=== PATIENT | male | born 1995 | race Two or more races ===

== ENCOUNTER 2024-09-23 12:14 | Inpatient (IN) | payer MEDICAID, OTHER ==
[~2024-09-23] VITALS: Ht 175.3 cm; Wt 85.5 kg
[2024-09-23 13:51] LABS: Urine Bacteria None Seen /hpf (None Seen)
--- NOTE | 2024-09-23 14:06 | DVH ---
Exam: CT CT AB PEL WO CON-NO ORAL OR IV History: Diffuse abd paim, rule out acute pancreatitis Comparison Study: None Technique: Multidetector spiral CT of the abdomen and pelvis was performed from lung bases to pubic symphysis. Imaging was performed without IV contrast. Axial, coronal and sagittal multiplanar reform ats were obtained from the axial data set by the technologist. Radiation dose : Abdomen/Pelvis: CTDIvol 14 mGy, DLP 951 mGy*cm. Findings: Evaluation of solid organs is limited due to lack of intravenous contrast use. Lung Bases: Consolidation in the right lung base. Liver: Diffuse hepatic steatosis. Gallbladder and biliary Tree: Unremarkable Spleen: Unremarkable Pancreas: The pancreas is grossly normal in appearance. Adrenal Glands: Unremarkable Kidneys: Kidneys are grossly normal without calculi or hydronephrosis. Bladder: Grossly unremarkable for degree of distention. Bowel: The stomach is grossly normal in appearance. There is dilation of small-bowel loops with air- fluid levels. Appendix is not discretely identified. There are multiple fluid and air collections t racking throughout the right pericolic gutter with largest discrete component measuring up to 102 x 2 8 x 100 mm. Ascites: Absent Lymphadenopathy: No mesenteric, retroperitoneal or periportal lymphadenopathy. Abdominal wall and Mesentery: Fluid and air collections in the right paracolic gutter as above. Vasculature: The visualized abdominal aorta is normal in size and caliber. Evaluation of abdominal a nd pelvic vessels is limited due to lack of intravenous contrast. Pelvic Organs: Unremarkable Musculoskeletal: No aggressive focal bony lesions, acute fractures or dislocation. IMPRESSION: 1. Suspect ruptured acute appendicitis. Multiple fluid and air collections tracking up the right deepa colic gutter. Suspect secondary ileus /partial small bowel obstruction. Surgical evaluation is recom mended. CT-guided drainage of the largest collection could be attempted. Critical Result: Ruptured acute appendicitis Findings discussed with AICHA RUIZ at 09/23/2024 02:03 PM, and acknowledged receipt and understan ding of the findings. Radiation optimization: All CT scans at this facility use at least one of these dose optimization debi hniques: Automated exposure control mA and/or kV adjustment per patient size (includes targeted exams where dose is matched to clinical indication) or iterative reconstruction. HS:Y
[2024-09-23 14:14] LABS: Urine Blood Negative /uL (Negative); Urine Clarity Turbid (Clear); Urine Color Yellow (Yellow); Urine Hyaline Cast FEW /lpf (0 - 2); Urine Mucus FEW (None Seen); Urine Protein, UAD 2+ (Negative); Urine Specific Gravity 1.038 (1.001-1.035); Urine Squamous Epithelial Cell FEW /hpf (<5); Urine Urobilinogen Normal (Negative); Urine WBC 24 /hpf (0 - 3)
[2024-09-23 14:19] LABS: Hematocrit 45.5 % (41.0-53.0); Hemoglobin 15.8 g/dL (13.5-17.5); Mean Corpuscular Hemoglobin 32.4 pg (28.0-32.0); Mean Corpuscular Hgb Conc. 34.7 g/dL (32.0-36.0); Mean Corpuscular Volume 93.3 fL (80.0-100.0); Platelet Count (auto) 260 10^3/uL (140-450); Red Blood Cells 4.88 10^6/uL (4.5-5.90); Red Cell Distribution Width 13.7 % (11.8-14.3); White Blood Cell 20.3 10^3/uL (4.4-10.8)
[2024-09-23 14:21] LABS: Basophils % (manual) 0 (0.0-2.0); Blast Cells 0; Eosinophils % (manual) 0 (0-7); Metamyelocytes % 0; Myelocytes % 0; Promyelocytes % 0; Reactive Lymphocytes 0
[2024-09-23 14:31] LABS: Albumin 4.2 g/dL (3.2-4.8); Anion Gap 10 (5-15); BUN/Creatinine Ratio 19.4 (10.0-20.0); Calcium 9.5 mg/dL (8.7-10.4); Carbon Dioxide 28 mmol/L (20-31)
[2024-09-23 14:32] LABS: Bilirubin, Total 0.9 mg/dL (0.2-1.0); Total Protein 8.1 g/dL (5.7-8.2)
[2024-09-23 14:33] LABS: Alanine Aminotransferase 91 U/L (7-40); Alkaline Phosphatase 128 U/L (46-116); Aspartate Aminotransferase 66 U/L (13-40); Blood Urea Nitrogen 28 mg/dL (9-23); Chloride 97 mmol/L (98-107); Glucose 136 mg/dL (74-106); Potassium 3.4 mmol/L (3.5-5.1); Sodium 135 mmol/L (136-145)
[2024-09-23 14:34] LABS: Lipase 29 U/L (12-53)
[2024-09-23 14:38] LABS: Band Neutrophils % (manual) 1; Lymphocytes % (manual) 3 (10.0-50.0); Monocytes % (manual) 6 (0-12)
[2024-09-23 14:39] LABS: Platelet Estimate Adequate
--- NOTE | 2024-09-23 14:49 | DVH ---
CHEST RADIOGRAPH Indication: preop Technique: Single frontal view of the chest was obtained Comparison: None FINDINGS: Lines and Tubes: None Lungs: Elevated right hemidiaphragm with right basilar opacity. Pleura: No effusion. No pneumothorax. Cardiomediastinal contours: Unremarkable Bones: No acute osseous abnormality. IMPRESSION: Elevated right hemidiaphragm with right basilar atelectasis / pneumonia. Gas-filled distended small bowel loops which are partially visualized over the left hemiabdomen. Cor relate for ileus / obstruction
[2024-09-23] MEDS: PIPERACILLIN-TAZOB 3.375GM 100 ML IV ONE (15:15)
[2024-09-23] MEDS: SODIUM CHLORIDE 0.9% 1,000 ML IV ONE (15:15)
[2024-09-23 15:35] LABS: INR 1.22 (0.9-1.15); Partial Thromboplastin Time 25.8 SEC (24.5-34.5); Prothrombin Time 12.7 sec (9.3-11.8)
--- NOTE | 2024-09-23 15:38 | DVHINCON2 ---
Date of service: Sep 23, 2024 Allergies: Coded Allergies: NO KNOWN ALLERGIES (Unverified , 09/23/24) Vital Signs Vital Signs Date Time Temp Pulse Resp B/P (MAP) Pulse Ox O2 Delivery O2 Flow Rate FiO2 09/23/24 15:20 100.1 118 15 117/78 (91) 96 100.1 Labs/Diagnostic Data Labs Test 09/23/24 14:46 09/23/24 13:49 09/23/24 13:45 Range/Units Prothrombin Time 12.7 H 9.3-11.8 sec Prothrombin Time INR 1.22 H 0.9-1.15 Activated Partial Thromboplast Time 25.8 24.5-34.5 SEC Urine Color Yellow Yellow Urine Clarity Turbid H Clear Urine pH 6.0 5.0-9.0 Urine Specific [place] 1.038 H 1.001-1.035 Urine Protein 2+ H Negative Urine Ketones 1+ H Negative Urine Blood Negative Negative /uL Urine Nitrite Negative Negative Urine Bilirubin Negative Negative Urine Urobilinogen Normal Negative mg/dL Urine Leukocyte Esterase Negative Negative /uL Urine RBC 2 0 - 3 /hpf Urine WBC 24 0 - 3 /hpf Urine Squamous Epithelial Cells Few <5 /hpf Urine Bacteria None seen None Seen /hpf Urine Hyaline Casts Few 0 - 2 /lpf Urine Mucus Few None Seen Urine Glucose Normal Normal mg/dL White Blood Count 20.3 H 4.4-10.8 10^3/uL Red Blood Count 4.88 4.5-5.90 10^6/uL Hemoglobin 15.8 13.5-17.5 g/dL Hematocrit 45.5 41.0-53.0 % Mean Corpuscular Volume 93.3 80.0-100.0 fL Mean Corpuscular Hemoglobin 32.4 H 28.0-32.0 pg Mean Corpuscular Hemoglobin Concent 34.7 32.0-36.0 g/dL Red Cell Distribution Width 13.7 11.8-14.3 % Platelet Count 260 140-450 10^3/uL Mean Platelet Volume 10.0 6.9-10.8 fL Neutrophils (%) (Auto) 37.0-80.0 % Lymphocytes (%) (Auto) 10.0-50.0 % Monocytes (%) (Auto) 0.0-12.0 % Basophils (%) (Auto) 0.0-2.0 % Neutrophils # (Auto) 1.6-8.6 10 ^3/uL Lymphocytes # (Auto) 0.4-5.4 10 ^3/uL Monocytes # (Auto) 0-1.3 10 ^3/uL Differential Total Cells Counted 100.0 100 Neutrophils % (Manual) 90 H 37.0-80.0 Band Neutrophils % (Manual) 1 Lymphocytes % (Manual) 3 L 10.0-50.0 Monocytes % (Manual) 6 0-12 Eosinophils % (Manual) 0 0-7 Basophils % (Manual) 0 0.0-2.0 Metamyelocytes % (manual) 0 Myelocytes % (Manual) 0 Promyelocytes % (Manual) 0 Blast Cells % (Manual) 0 Nucleated Red Blood Cells 2.0 % Reactive Lymphocytes 0 Platelet Estimate Adequate Sodium Level 135 L 136-145 mmol/L Potassium Level 3.4 L 3.5-5.1 mmol/L Chloride Level 97 L 98-107 mmol/L Carbon Dioxide Level 28 20-31 mmol/L Anion Gap 10 5-15 Blood Urea Nitrogen 28 H 9-23 mg/dL Creatinine 1.44 H 0.700-1.30 mg/dL Glomerular Filtration Rate Calc 67 >90 mL/min BUN/Creatinine Ratio 19.4 10.0-20.0 Serum Glucose 136 H 74-106 mg/dL Calcium Level 9.5 8.7-10.4 mg/dL Total Bilirubin 0.9 0.2-1.0 mg/dL Aspartate Amino Transferase (AST) 66 H 13-40 U/L Alanine Aminotransferase (ALT) 91 H 7-40 U/L Alkaline Phosphatase 128 H 46-116 U/L Total Protein 8.1 5.7-8.2 g/dL Albumin 4.2 3.2-4.8 g/dL Lipase 29 12-53 U/L Assessment [id number] R/O RUPTURED AC APPENDICITIS CONSIDER EMERGENT LAP/OPEN APPENDECTOMY Plan discussed with: Patient EDISON NUÑEZ MD Sep 23, 2024 15:38
[2024-09-23] MEDS ORDERED: HYDROcodone-ACET 5/325MG TAB PO PRN (16:00)
[2024-09-23] MEDS ORDERED: IBUPROFEN 600 MG TAB PO PRN (16:00)
--- NOTE | 2024-09-23 16:02 | DVHHP2 ---
History of Present Illness Reason for Visit: Acute appendicitis History of Present Illness Patient is a 29-year-old male who denies past medical history presented to [facility] ED with complaint of acute abdominal pain. Patient reports symptoms progressively get worse with nausea, vomiting, rating pain 8/10 numeric scale, getting worse that prompted this visit. Patient was seen and evaluated in the ED, laboratory data shows WBC 20.3, platelets 260, sodium 135, potassium 3.4, BUN 28, creatinine 1.44, GFR 67, glucose 136, lipase 29, AST 66, ALT 91, lactic acid 1.7, blood pressure 120/70, heart rate 110, temperature 100.1 F, O2 saturation 96% on room air. Chest x-ray revealing elevated right he midiaphragm with right bibasilar atelectasis/pneumonia, gas-filled distended small bowel loops which partially visualized over the left javier abdomen, correlate for ileus/obstruction. Abdomen/pelvis CT suspect ruptured acute appendicitis. Patient was started on IV antibiotic regimen Zosyn, please see medication orders section in the computer. On my assessment, patient denies chest pain, no headache, no dizziness, no diaphoresis, no shortness of breath, no diarrhea, no nausea or vomiting at this moment, no fever, no chills. Patient was admitted for further evaluation and medical management. Past Medical History Denies past medical history Past Surgical History Denies all surgeries Family History Reviewed, noncontributory to the management of this case. Past Social History The patient lives at home, denies smoking, alcohol or illicit drugs abuse. Review of Systems Constitutional: No: Fever, Chills, Sweats, Weakness, Malaise, Other Eyes: No: Pain, Vision change, Conjunctivae inflammation, Eyelid inflammation, Other, Redness ENT: No: Ear pain, Ear discharge, Nose pain, Nose discharge, Nose congestion, Mouth pain, Mouth swelling, Throat pain, Throat swelling, Other Respiratory: No: Cough, Dry, Shortness of breath, SOB with excertion, Wheezing, Hemoptysis, Pleuritic Pain, Sputum, Wheezing, Other Cardiovascular: No: Chest Pain, Palpitations, Orthopnea, Paroxysmal Noc. Dyspnea, Edema, Lt Headedness, Other Gastrointestinal: Nausea, Vomiting, Abdominal Pain; No: Diarrhea, Constipation, Melena, Hematochezia, Other Genitourinary: No Dysuria, No Frequency, No Incontinence, No Hematuria, No R etention, No Other Musculoskeletal: No: other, neck pain, shoulder pain, arm pain, back pain, hand pain, leg pain, foot pain Skin: No: Rash, Lesions, Jaundice, Bruising, Other Neurological: No: Weakness, Numbness, Incoordination, Change in speech, Confusion, Seizures, Other Allergies: Coded Allergies: NO KNOWN ALLERGIES (Unverified , 09/23/24) Medications Current Medications Medications Dose Ordered Sig/Prosper Route Start Time Stop Time Status Last Admin Dose Admin Piperacillin Sod/ Tazobactam Sod 100 ml @ 25 mls/hr Q8HR IV 09/23/24 22:00 UNV Ibuprofen 600 mg Q6HP PRN PO 09/23/24 16:00 UNV Potassium Chloride 100 ml @ 50 mls/hr Q2H IV 09/23/24 16:00 09/23/24 19:59 UNV Acetaminophen/ Hydrocodone Bitart 1 tab Q4HP PRN PO 09/23/24 16:00 UNV Ondansetron HCl 4 mg Q4HP PRN IV 09/23/24 16:00 UNV Morphine Sulfate 2 mg Q4HPRN PRN IV 09/23/24 16:00 UNV Exam Vital Signs Vital Signs Date Time Temp Pulse Resp B/P (MAP) Pulse Ox O2 Delivery O2 Flow Rate FiO2 09/23/24 15:20 100.1 118 15 117/78 (91) 96 100.1 General Appearance: Alert, Oriented X3, Cooperative, No acute distress HEENT: Atraumatic, PERRLA, EOMI, Mucous membr. moist/pink Respiratory: Clear to auscultation, Normal air movement Cardiovascular: Regular rate, Normal S1, Normal S2, No murmurs Abdominal: Normal bowel sounds, Soft, No hepatospenomegaly, No masses, Other (Reports tenderness) Extremities: No clubbing, No cyanosis, No edema, Normal pulses, No tenderness/swelling Skin: No rashes, No breakdown, No significant lesion Neuro: Normal gait, Normal speech, Strength at 5/5 X4 ext, Normal tone, Sensa tion intact, Cranial nerves 3-12 NL, Reflexes 2+ Psych/Mental Status: Mental status NL, Mood NL Labs/Xrays Labs Test 09/23/24 14:46 09/23/24 13:49 09/23/24 13:45 Range/Units Prothrombin Time 12.7 H 9.3-11.8 sec Prothrombin Time INR 1.22 H 0.9-1.15 Activated Partial Thromboplast Time 25.8 24.5-34.5 SEC Lactic Acid Level 1.7 0.4-2.0 mmol/L Urine Color Yellow Yellow Urine Clarity Turbid H Clear Urine pH 6.0 5.0-9.0 Urine Specific [place] 1.038 H 1.001-1.035 Urine Protein 2+ H Negative Urine Ketones 1+ H Negative Urine Blood Negative Negative /uL Urine Nitrite Negative Negative Urine Bilirubin Negative Negative Urine Urobilinogen Normal Negative mg/dL Urine Leukocyte Esterase Negative Negative /uL Urine RBC 2 0 - 3 /hpf Urine WBC 24 0 - 3 /hpf Urine Squamous Epithelial Cells Few <5 /hpf Urine Bacteria None seen None Seen /hpf Urine Hyaline Casts Few 0 - 2 /lpf Urine Mucus Few None Seen Urine Glucose Normal Normal mg/dL White Blood Count 20.3 H 4.4-10.8 10^3/uL Red Blood Count 4.88 4.5-5.90 10^6/uL Hemoglobin 15.8 13.5-17.5 g/dL Hematocrit 45.5 41.0-53.0 % Mean Corpuscular Volume 93.3 80.0-100.0 fL Mean Corpuscular Hemoglobin 32.4 H 28.0-32.0 pg Mean Corpuscular Hemoglobin Concent 34.7 32.0-36.0 g/dL Red Cell Distribution Width 13.7 11.8-14.3 % Platelet Count 260 140-450 10^3/uL Mean Platelet Volume 10.0 6.9-10.8 fL Neutrophils (%) (Auto) 37.0-80.0 % Lymphocytes (%) (Auto) 10.0-50.0 % Monocytes (%) (Auto) 0.0-12.0 % Basophils (%) (Auto) 0.0-2.0 % Neutrophils # (Auto) 1.6-8.6 10 ^3/uL Lymphocytes # (Auto) 0.4-5.4 10 ^3/uL Monocytes # (Auto) 0-1.3 10 ^3/uL Differential Total Cells Counted 100.0 100 Neutrophils % (Manual) 90 H 37.0-80.0 Band Neutrophils % (Manual) 1 Lymphocytes % (Manual) 3 L 10.0-50.0 Monocytes % (Manual) 6 0-12 Eosinophils % (Manual) 0 0-7 Basophils % (Manual) 0 0.0-2.0 Metamyelocytes % (manual) 0 Myelocytes % (Manual) 0 Promyelocytes % (Manual) 0 Blast Cells % (Manual) 0 Nucleated Red Blood Cells 2.0 % Reactive Lymphocytes 0 Platelet Estimate Adequate Sodium Level 135 L 136-145 mmol/L Potassium Level 3.4 L 3.5-5.1 mmol/L Chloride Level 97 L 98-107 mmol/L Carbon Dioxide Level 28 20-31 mmol/L Anion Gap 10 5-15 Blood Urea Nitrogen 28 H 9-23 mg/dL Creatinine 1.44 H 0.700-1.30 mg/dL Glomerular Filtration Rate Calc 67 >90 mL/min BUN/Creatinine Ratio 19.4 10.0-20.0 Serum Glucose 136 H 74-106 mg/dL Calcium Level 9.5 8.7-10.4 mg/dL Total Bilirubin 0.9 0.2-1.0 mg/dL Aspartate Amino Transferase (AST) 66 H 13-40 U/L Alanine Aminotransferase (ALT) 91 H 7-40 U/L Alkaline Phosphatase 128 H 46-116 U/L Total Protein 8.1 5.7-8.2 g/dL Albumin 4.2 3.2-4.8 g/dL Lipase 29 12-53 U/L PATIENT: TOMER HUNTER ACCT: [id number] UNIT: [id number] : 1995 LOC: ER ROOM / BED: / AGE / SEX: 29 / M ADM STATUS: REG ER SERVICE [id number] ORDERING PHYSICIAN: AICHA RUIZ RESIDENT PROCEDURE(s): ABPL - CT AB PEL WO CON-NO ORAL OR IV REASON: Diffuse abd paim, rule out acute pancreatitis ORDER NUMBER(s): [id number], ACCESSION NUMBER(s): [id number] Exam: CT CT AB PEL WO CON-NO ORAL OR IV History: Diffuse abd paim, rule out acute pancreatitis Comparison Study: None Technique: Multidetector spiral CT of the abdomen and pelvis was performed from lung bases to pubic symphysis. Imaging was performed without IV contrast. Axial, coronal and sagittal multiplanar reformats were obtained from the axial data set by the technologist. Radiation dose : Abdomen/Pelvis: CTDIvol 14 mGy, DLP 951 mGy*cm. Findings: Evaluation of solid organs is limited due to lack of intravenous contrast use. Lung Bases: Consolidation in the right lung base. Liver: Diffuse hepatic steatosis. Gallbladder and biliary Tree: Unremarkable Spleen: Unremarkable Pancreas: The pancreas is grossly normal in appearance. Adrenal Glands: Unremarkable Kidneys: Kidneys are grossly normal without calculi or hydronephrosis. Bladder: Grossly unremarkable for degree of distention. Bowel: The stomach is grossly normal in appearance. There is dilation of small- bowel loops with air-fluid levels. Appendix is not discretely identified. There are multiple fluid and air collections tracking throughout the right pericolic gutter with largest discrete component measuring up to 102 x 28 x 100 mm. Ascites: Absent Lymphadenopathy: No mesenteric, retroperitoneal or periportal lymphadenopathy. Abdominal wall and Mesentery: Fluid and air collections in the right paracolic gutter as above. Vasculature: The visualized abdominal aorta is normal in size and caliber. Evaluation of abdominal and pelvic vessels is limited due to lack of intravenous contrast. Pelvic Organs: Unremarkable Musculoskeletal: No aggressive focal bony lesions, acute fractures or dislocation. IMPRESSION: 1. Suspect ruptured acute appendicitis. Multiple fluid and air collections tracking up the right pericolic gutter. Suspect secondary ileus /partial small bowel obstruction. Surgical evaluation is recommended. CT-guided drainage of the largest collection could be attempted. Critical Result: Ruptured acute appendicitis Findings discussed with AICHA RUIZ at 09/23/2024 02:03 PM, and acknowledged receipt and understanding of the findings. ORDERING PHYSICIAN: AICHA RUIZ RESIDENT PROCEDURE(s): CXRP - CHEST PORTABLE REASON: preop ORDER NUMBER(s): [id number], ACCESSION NUMBER(s): [id number] CHEST RADIOGRAPH Indication: preop Technique: Single frontal view of the chest was obtained Comparison: None FINDINGS: Lines and Tubes: None Lungs: Elevated right hemidiaphragm with right basilar opacity. Pleura: No effusion. No pneumothorax. Cardiomediastinal contours: Unremarkable Bones: No acute osseous abnormality. IMPRESSION: Elevated right hemidiaphragm with right basilar atelectasis/pneumonia. Gas-filled distended small bowel loops which are partially visualized over the left javier-abdomen. Correlate for ileus/obstruction Assessment/Plan Assessment/Plan Ruptured appendicitis Acute abdominal pain Leukocytosis, unspecified Elevated liver enzymes Acute renal injury Electrolyte imbalance Pneumonia, unspecified organisms Plan 1. Admit to telemetry unit 2. Breathing treatment 3. Pain control management 4. IV antibiotic management 5. Management of fluids and electrolytes 6. Consultation for surgical team 7. Diagnostic test abdomen/pelvis CT 8. DVT prophylaxis-on SCDs 9. Repeat labs CBC, CMP in a.m. 10. Continue with current medical management 11. Treatment plan discussed with patient and RN. Patient verbalized understanding. Plan discussed with: Patient, Other (RN) My Orders Orders - PANCHO ZARATE DNP Procedure Category Date Status Time Piperacillin-Tazob PHA 09/23/24 Logged 3.375gm (Zosyn 3.375g 22:00 Ibuprofen Tablet PHA 09/23/24 Logged (Motrin Tablet) 16:00 Hemoglobin A1c LAB 09/23/24 Logged 15:53 Potassium Chl PHA 09/23/24 Logged 20meq/100ml 16:00 Allergies ROMA 09/23/24 In Process 15:53 Code Status CODE 09/23/24 Transmitted 15:53 Oxygen Per Hour RT 09/23/24 Transmitted 15:53 Hydrocodone-Acet PHA 09/23/24 Logged 5/325mg Tab ([place] 16:00 Ondansetron Hcl PHA 09/23/24 Logged (Zofran) 16:00 Complete Blood Count LAB 09/24/24 Verified 04:00 Comprehensive LAB 09/24/24 Verified Metabolic Panel 04:00 Npo (Nothing By DIET 09/23/24 Transmitted Mouth) Diet Dinner Condition: Serious ROMA 09/23/24 In Process 15:53 Bedrest With Bathroom ROMA 09/23/24 In Process Privileg 15:53 Morphine Sulfate PHA 09/23/24 Logged Injection 16:00 Sequential ROMA 09/23/24 In Process Compression Device Problem List: (1) Ruptured appendicitis (2) Acute abdominal pain (3) Elevated liver enzymes (4) Leukocytosis, unspecified (5) Electrolyte imbalance (6) Acute renal injury (7) Pneumonia, unspecified organism Date of Service: Sep 23, 2024 Billing Provider: PANCHO ZARATE DNP Common Visit Codes: [id number] INP/OBS CARE (HIGH) PANCHO ZARATE DNP Sep 23, 2024 16:02
[2024-09-23] MEDS ORDERED: KETAMINE 50mg/ML 1ml syringe IV ONE (16:11)
[2024-09-23] MEDS ORDERED: MORPHINE SULFATE INJ 2 MG/ml SYRG IV PRN (16:15)
[2024-09-23] MEDS ORDERED: NITROGLYCERIN 0.4 MG SL TAB SL PRN (16:15)
[2024-09-23] MEDS: LIDOCAINE HCL (LOCAL ANESTH.) 0.5 % 50ML MDV IJ ONE (16:19)
[2024-09-23] MEDS ORDERED: fentaNYL CITRATE 100 MCG/2 ML VL ONE (16:26)
[2024-09-23] MEDS ORDERED: MIDAZOLAM HCL 2MG/2ML 2ml VIAL (1mg/ml) ONE (16:26)
[2024-09-23] MEDS ORDERED: HYDROmorphone HCL 2 MG/ML VL/or syr ONE (16:26)
[2024-09-23] MEDS ORDERED: ROCURONIUM 10MG/ML 10ML VIAL IV ONE (16:27)
[2024-09-23] MEDS ORDERED: ONDANSETRON HCL 4 MG/2 ML VIAL ONE (16:27)
[2024-09-23] MEDS ORDERED: DexAMETHasone SOD PHOS 10MG/1ML VIAL INJ ONE (16:27)
[2024-09-23] MEDS ORDERED: ePHEDrine SULFATE 50 MG/ML AMP ONE (16:27)
[2024-09-23] MEDS ORDERED: LIDOCAINE 2% (LOCAL ANESTH.) PF 5ml SDV ONE (16:27)
[2024-09-23] MEDS ORDERED: PROPOFOL 10 MG/ML 20 ML IV ONE (16:27)
[2024-09-23] MEDS ORDERED: KETOROLAC TROMETH 30 MG/ML 1ML VIAL ONE (16:27)
[2024-09-23] MEDS ORDERED: GLYCOPYRROLATE 0.2 MG/ML 1ML VIAL ONE (16:27)
[2024-09-23] MEDS ORDERED: HYDROmorphone HCL 2 MG/ML VL/or syr IV PRN (16:30)
[2024-09-23] MEDS: ONDANSETRON HCL 4 MG/2 ML VIAL IV ONE (16:30)
--- NOTE | 2024-09-23 16:48 | DVHINCON2 ---
DATE OF CONSULTATION: 09/23/2024 HISTORY OF PRESENT ILLNESS: This patient is 29 years old, coming in with abdominal pain. He has had this pain off and on with possible gastroenteritis for the past 7 days after eating some restaurant food and then he took some medication for that, but the pain did not get better. He came to the Emergency Room. He has some nausea. No vomiting. No constipation and as I mentioned, he has a history of diarrhea. No hematemesis, melena. No bleeding per rectum. PAST MEDICAL HISTORY: No diabetes, hypertension. PAST SURGICAL HISTORY: No significant surgical history. PHYSICAL EXAMINATION: VITAL SIGNS: Afebrile, stable signs. HEENT: With no evidence of pallor, cyanosis, or jaundice. NECK: Supple, nontender with no thyromegaly, lymphadenopathy. CHEST AND LUNGS: Clear. HEART: Within normal limits. ABDOMEN: Soft. He is distended. He is tender in the right lower abdomen and the other quadrants as well, but most in the right lower abdomen with rebound. EXTREMITIES: Unremarkable. NEUROLOGIC: Not assessed. CLINICAL IMPRESSION: Rule out ruptured appendicitis with intraabdominal abscess. PLAN: Plan will be to consider emergent surgery, laparoscopic, possible open appendectomy. Benefits, risks discussed and a consent obtained. MD ARLIN Dewitt TID: [id number] RECEIPT: [id number] cc: ____
[2024-09-23] MEDS ORDERED: SUGAMMADEX 200mg/2ml Vial (100MG/ML) IV ONE ×2 (17:46→18:05)
[2024-09-23] MEDS ORDERED: ceFAZolin 1GM VL ONE (17:53)
--- NOTE | 2024-09-23 18:24 | ED.PDOC ---
GI ASSESSMENT HPI Comments 29-year-old male patient with no past medical history presented with chief complaint of abdominal pain associated with nausea and vomiting. Patient started having abdominal pain on Monday that is diffuse, radiating to back and right-sided flank, crampy in nature. Patient had worsening of the abdominal pain and today he could not tolerate that is why he came to the ER. he had four episodes of vomiting since the morning but did not contain any blood. He also mentions associated abdominal distention. Patient does not remember when he passed his stools but past minimal gas this morning. He mentioned some mild shortness of breath but is on room air. He denied any complaints of chest pain, palpitation, orthopnea, PND, melena, hematochezia, acid reflux, burning micturition,. Past medical history Denied Past surgical history Denied Family history Denied Social history Denied smoking, alcohol, marijuana or any other drug intake Allergic history No known allergies Review of system As explained in the HPI Examination General Appearance: Alert, Oriented X3, Cooperative, No acute distress HEENT: EOMI Respiratory: Clear to auscultation, Normal air movement Cardiovascular: Regular rate, Normal S1, Normal S2 Abdominal: Diffuse abdominal distention, mild diffuse abdominal tenderness, right-sided flank tenderness. Extremities: No cyanosis, No edema, Normal pulses, No tenderness/swelling Skin: No rashes, No breakdown Neuro: Normal speech and tone Chief Complaint: Abdominal Pain Time Seen by MD: 12:48 Allergies: Coded Allergies: NO KNOWN ALLERGIES (Unverified , 09/23/24) Home Meds No Active Prescriptions or Reported Meds Mode of Arrival: Ambulatory GI differential Dx Differential Diagnosis: Appendicitis, Angina/CO, Aortic dissection, Bowel Obstruction, Cholangitis, Cholecystitis, Constipation, Diverticular disease, Esophageal rupture, Esophagitis, Gastritis/PUD, Gastroenteritis, Hepatitis, Inflammatory BD, Ischemic Bowel, Pancreatitis, Urinary Obstruction, UTI, Urolithiasis, Drug toxicity, Electrolyte Imbalance, Food Poisoning, Bacterial, Parasitic, Viral, Ischemic Bowel, Kidney Stone X-Ray, Labs, Meds, VS Vital Signs Date Time Temp Pulse Resp B/P (MAP) Pulse Ox O2 Delivery O2 Flow Rate FiO2 09/23/24 15:20 100.1 118 15 117/78 (91) 96 100.1 09/23/24 13:12 97.6 110 19 120/79 (93) 93 Lab Test 09/23/24 14:46 09/23/24 13:49 09/23/24 13:45 Range/Units Prothrombin Time 12.7 H 9.3-11.8 sec Prothrombin Time INR 1.22 H 0.9-1.15 Activated Partial Thromboplast Time 25.8 24.5-34.5 SEC Lactic Acid Level 1.7 0.4-2.0 mmol/L Urine Color Yellow Yellow Urine Clarity Turbid H Clear Urine pH 6.0 5.0-9.0 Urine Specific [place] 1.038 H 1.001-1.035 Urine Protein 2+ H Negative Urine Ketones 1+ H Negative Urine Blood Negative Negative /uL Urine Nitrite Negative Negative Urine Bilirubin Negative Negative Urine Urobilinogen Normal Negative mg/dL Urine Leukocyte Esterase Negative Negative /uL Urine RBC 2 0 - 3 /hpf Urine WBC 24 0 - 3 /hpf Urine Squamous Epithelial Cells Few <5 /hpf Urine Bacteria None seen None Seen /hpf Urine Hyaline Casts Few 0 - 2 /lpf Urine Mucus Few None Seen Urine Glucose Normal Normal mg/dL White Blood Count 20.3 H 4.4-10.8 10^3/uL Red Blood Count 4.88 4.5-5.90 10^6/uL Hemoglobin 15.8 13.5-17.5 g/dL Hematocrit 45.5 41.0-53.0 % Mean Corpuscular Volume 93.3 80.0-100.0 fL Mean Corpuscular Hemoglobin 32.4 H 28.0-32.0 pg Mean Corpuscular Hemoglobin Concent 34.7 32.0-36.0 g/dL Red Cell Distribution Width 13.7 11.8-14.3 % Platelet Count 260 140-450 10^3/uL Mean Platelet Volume 10.0 6.9-10.8 fL Neutrophils (%) (Auto) 37.0-80.0 % Lymphocytes (%) (Auto) 10.0-50.0 % Monocytes (%) (Auto) 0.0-12.0 % Basophils (%) (Auto) 0.0-2.0 % Neutrophils # (Auto) 1.6-8.6 10 ^3/uL Lymphocytes # (Auto) 0.4-5.4 10 ^3/uL Monocytes # (Auto) 0-1.3 10 ^3/uL Differential Total Cells Counted 100.0 100 Neutrophils % (Manual) 90 H 37.0-80.0 Band Neutrophils % (Manual) 1 Lymphocytes % (Manual) 3 L 10.0-50.0 Monocytes % (Manual) 6 0-12 Eosinophils % (Manual) 0 0-7 Basophils % (Manual) 0 0.0-2.0 Metamyelocytes % (manual) 0 Myelocytes % (Manual) 0 Promyelocytes % (Manual) 0 Blast Cells % (Manual) 0 Nucleated Red Blood Cells 2.0 % Reactive Lymphocytes 0 Platelet Estimate Adequate Sodium Level 135 L 136-145 mmol/L Potassium Level 3.4 L 3.5-5.1 mmol/L Chloride Level 97 L 98-107 mmol/L Carbon Dioxide Level 28 20-31 mmol/L Anion Gap 10 5-15 Blood Urea Nitrogen 28 H 9-23 mg/dL Creatinine 1.44 H 0.700-1.30 mg/dL Glomerular Filtration Rate Calc 67 >90 mL/min BUN/Creatinine Ratio 19.4 10.0-20.0 Serum Glucose 136 H 74-106 mg/dL Hemoglobin A1c 4.9 <5.7 % A1C Calcium Level 9.5 8.7-10.4 mg/dL Total Bilirubin 0.9 0.2-1.0 mg/dL Aspartate Amino Transferase (AST) 66 H 13-40 U/L Alanine Aminotransferase (ALT) 91 H 7-40 U/L Alkaline Phosphatase 128 H 46-116 U/L Total Protein 8.1 5.7-8.2 g/dL Albumin 4.2 3.2-4.8 g/dL Lipase 29 12-53 U/L Current Medications Medications (Trade) Dose Ordered Sig/Prosper Route Start Time Stop Time Status Last Admin Sodium Chloride 1,000 ml @ 1,000 mls/hr Q1H ONCE IV 09/23/24 14:30 09/23/24 15:29 DC 09/23/24 15:15 Piperacillin Sod/ Tazobactam Sod 100 ml @ 100 mls/hr ONCE ONCE IV 09/23/24 14:30 09/23/24 15:29 DC 09/23/24 15:15 Potassium Chloride 100 ml @ 50 mls/hr Q2H IV 09/23/24 16:00 09/23/24 19:59 DC 09/23/24 23:29 Images Reviewed?: Images reviewed and evaluated by me Time of 1ST Reevaluation: 14:19 Reevaluation 1ST: Unchanged Patient Education/Counseling: Diagnosis, Treatment Family Education/Counseling: No Family Present Comments Patient presented with the above abdominal pain, abdominal distention, nausea, vomiting. workup was initiated. Patient was given: IV fluids, IV Zosyn CT scan abdomen/pelvis without contrast revealed Suspect ruptured acute appendicitis. Multiple fluid and air collections tracking up the right pericolic gutter. Suspect secondary ileus /partial small bowel obstruction. Surgical evaluation is recommended. CT-guided drainage of the largest collection could be attempted. Surgery was consulted stat and Dr. Almaraz was explained that CT showed possible rupture appendicitis, surgeon mentioned that he will take the patient to surgery. patient was admitted to the medicine team for further evaluation and treatment of their presentation. All the reports of any imaging studies that were ordered by myself were reviewed by myself. Departure 1 Departure Time of Disposition: 14:19 Impression: Primary Impression: Ruptured appendicitis Additional Impressions: Leukocytosis, unspecified Acute abdominal pain Acute renal injury Elevated liver enzymes Electrolyte imbalance Bowel obstruction Disposition: 09 ADMITTED INPATIENT Admit to: Tele Condition: Guarded e-Prescriptions No Active Prescriptions or Reported Meds AICHA RUIZ RESIDENT Sep 23, 2024 18:24
--- NOTE | 2024-09-23 18:27 | DVHOP2 ---
Operative Report [id number] AC RUPTURED APPENDICITIS INTRAABD PELVIC ABSCESS DENSE ADHESIONS LAP CHRIS OPEN DRAINAGE OF INTRAABD ABSCESS, OPEN APPENDECTOMY, LYSIS OF ADHESIONS EBL 50 CC ON DRAIN NO COMPLICATIONS EDISON NUÑEZ MD Sep 23, 2024 18:27
--- NOTE | 2024-09-23 18:50 | DVHOP ---
DATE OF SURGERY: 09/23/2024 PREOPERATIVE DIAGNOSIS: Acute ruptured appendicitis with intraabdominal abscess. POSTOPERATIVE DIAGNOSIS: Acute ruptured appendicitis with intraabdominal abscess. PROCEDURE: Laparoscopic lysis of adhesions with open drainage of intra-abdominal abscess and open appendectomy, lysis of adhesions. SURGEON: Olvin Almaraz MD COMPUTATIONAL SCIENTIST: None. ANESTHESIA: General. ESTIMATED BLOOD LOSS: Close to 50 mL. DRAINS: One drain was used. COMPLICATIONS: No complications were encountered. DESCRIPTION OF PROCEDURE: The patient was prepped and draped in the usual sterile fashion in the supine position and a supraumbilical incision was applied, was taken down to the fascia. The Veress needle was introduced and CO2 insufflation was started to a pressure of 15 mmHg. The needle was withdrawn, replaced by the 5 mm trocar and a telescope was introduced and it was realized that the adhesions were in the pelvis not allowing the visibility of the location for surgery and the abdomen was also distended from the ileus. So, decided to do the open surgery. A vertical midline incision was applied, starting from the symphysis pubis to going to the right of the umbilicus and connecting the 5 mm trocar superiorly, was taken down to the deeper tissues. The abdomen was entered. Fascia was divided, free air was noted coming out and there was distention of the small and large intestine and with suitable retraction, it was then realized that the appendix was perforated. There was a pelvic abscess that was drained out. Suction cultures were sent and the mesoappendix was identified. The base of the appendix was identified and it was transected using the HIEU stapling device. The appendix was released from the surrounding tissue using the LigaSure device and clipping of the mesoappendix with the vessel and then distal to that was divided. Appendix released in this fashion, was then examined proximal and distal segments were noted and the perforation was in the mid portion and the specimen was then submitted for pathology. Irrigation was performed. Hemostasis was secured. The bowel was replaced back into the abdomen. The sponge count was reported correct. The size 19 Noe drainage tube was placed to drain the right lower quadrant and the pelvis, bringing it out from the left lower quadrant and securing it with a silk suture. After the sponge count was reported correct, the irrigation fluid was removed. Hemostasis was secured. The fascia was brought together using PDS suture. The skin incisions were brought together using a stapling device. Dressing was applied. The patient tolerated the procedure well and was taken back to recovery room in stable condition. MD LUTHER Dewitt TID: [id number] RECEIPT: [id number] cc:
[2024-09-23 19:30] VITALS: PULSE 89; RESP 14; O2SAT 98
--- NOTE | 2024-09-23 19:47 | DVH ---
CHEST RADIOGRAPH Indication: NGT PLACEMENT Technique: Single frontal view of the chest was obtained Comparison: XY CHEST PORTABLE on DOS: 09/23/24 FINDINGS: Lines and Tubes: Enteric tube is in satisfactory position. Lungs: Vascular crowding due to low lung volumes. Elevated right hemidiaphragm. Right basilar minima l opacity. Pleura: No effusion. No pneumothorax. Cardiomediastinal contours: Unremarkable Bones: No acute osseous abnormality. Redemonstration of gas-filled distended bowel loops of the upper abdomen. IMPRESSION: Bronchovascular crowding due to low lung volumes with elevated right hemidiaphragm right basilar atel ectasis. Enteric tube is noted in satisfactory position.
[2024-09-23 20:01] VITALS: BP 116/80; PULSE 89; RESP 18; TEMP 97.7; O2SAT 93
[2024-09-23 20:21] VITALS: PULSE 72; RESP 16; O2SAT 98
[2024-09-23] MEDS: POTASSIUM CHL 20MEQ/100ML 100 ML IV SCH (20:42)
[2024-09-23 21:00] VITALS: BP 116/80; PULSE 89; RESP 18; TEMP 97.7; O2SAT 93
[2024-09-23] MEDS: PIPERACILLIN-TAZOB 3.375GM 100 ML IV SCH (23:30)
[2024-09-24] VITALS (7 sets, daily range): BP systolic 95–120; BP diastolic 65–71; PULSE 90–118; RESP 17–20; TEMP 98.1–98.5; O2SAT 94–97
[2024-09-24] MEDS: MORPHINE SULFATE INJ 2 MG/ml SYRG IV PRN (05:17)
[2024-09-24] MEDS: SODIUM CHLORIDE 0.9% 1,000 ML IV ONE (05:21)
[2024-09-24 07:09] LABS: Basophils # (auto) 0 10 ^3/uL (0-0.2); Basophils % (auto) 0.1 % (0.0-2.0); Eosinophils # (auto) 0 10 ^3/uL (0-0.8); Eosinophils % (auto) 0.1 % (0.0-7.0); Hematocrit 38.7 % (41.0-53.0); Hemoglobin 13.4 g/dL (13.5-17.5); Lymphocytes # (auto) 0.7 10 ^3/uL (0.4-5.4); Lymphocytes % (auto) 5.2 % (10.0-50.0); Mean Corpuscular Hemoglobin 32.6 pg (28.0-32.0); Mean Corpuscular Hgb Conc. 34.6 g/dL (32.0-36.0); Mean Corpuscular Volume 94.2 fL (80.0-100.0); Monocytes # (auto) 0.9 10 ^3/uL (0-1.3); Monocytes % (auto) 7.2 % (0.0-12.0); Neutrophils # (auto) 11.5 10 ^3/uL (1.6-8.6); Neutrophils % (auto) 87.4 % (37.0-80.0); Platelet Count (auto) 231 10^3/uL (140-450); Red Blood Cells 4.11 10^6/uL (4.5-5.90); Red Cell Distribution Width 13.5 % (11.8-14.3); White Blood Cell 13.1 10^3/uL (4.4-10.8)
[2024-09-24 07:47] LABS: Alkaline Phosphatase 81 U/L (46-116); Anion Gap 7 (5-15); BUN/Creatinine Ratio 22.1 (10.0-20.0); Carbon Dioxide 29 mmol/L (20-31); Chloride 103 mmol/L (98-107); Sodium 139 mmol/L (136-145)
[2024-09-24 07:48] LABS: Bilirubin, Total 0.7 mg/dL (0.2-1.0); Total Protein 5.7 g/dL (5.7-8.2)
[2024-09-24 07:49] LABS: Alanine Aminotransferase 71 U/L (7-40); Albumin 2.9 g/dL (3.2-4.8); Aspartate Aminotransferase 41 U/L (13-40); Blood Urea Nitrogen 32 mg/dL (9-23); Calcium 8.3 mg/dL (8.7-10.4); Glucose 126 mg/dL (74-106)
[2024-09-24 10:10] LABS: Magnesium 2.1 mg/dL (1.6-2.6)
[2024-09-24 10:11] LABS: Phosphorus 3.7 mg/dL (2.4-5.1)
[2024-09-24] MEDS: PANTOPRAZOLE 40 MG/10 ML VIAL INJ IV SCH (11:19)
[2024-09-24] MEDS: SODIUM CHLORIDE 0.9% 1,000 ML IV SCH (11:20)
--- NOTE | 2024-09-24 14:42 | DVHPNRES ---
Progress Note Date Seen: Sep 24, 2024 Resident Creating Document: JALEN FARFAN RESIDENT Medical Necessity Reason Pt with a Central, PICC or Fol: No Subjective Review of Systems TOMER HUNTER Is a 29-year-old male with no significant PMH presented to the ED with the chief complaints of worsening of abdominal pain since yesterday. Patient reported he has been having intermittent generalized abdominal pain since last Monday after eating hensley, 05/25, crampy, associated with nausea and vomiting, diarrhea, initially thought of gastroenteritis but the pain is not resolving and it is getting worsening with radiating to back and flank , shortness of breath and bloating which brought him to visit ED. on my assessment patient denies fever, chest pain, hematemesis, palpitations, diaphoresis and other acute associated symptoms PMH: Denies PSH: Denies Family history: Reviewed, noncontributory Social history: Lives at home. Denies smoking, alcohol and other drug abuse Allergies: No known allergies Patient seen and examined at the bedside. Patient reported improvement in the symptoims since admission. CT abdominal pelvis showed ruptured acute appendicitis with suspected ileus or partial small bowel obstruction. Patient underwent open appendectomy on 09/23/2024, postoperative day 1, patient tolerated the procedure well, currently on NG tube and giving Zosyn and IVF. Objective vital signs Vital Sign Date Time Temp Pulse Resp B/P (MAP) Pulse Ox O2 Delivery O2 Flow Rate FiO2 09/24/24 13:40 121 18 123/66 09/24/24 09:00 98.3 94 98.3 09/24/24 08:10 Nasal Cannula* 2 28 Total Intake and Output 09/23/24 09/23/24 09/24/24 15:00 23:00 07:00 Intake Total 0 ml Output Total 2 ml 500 ml Balance -2 ml -500 ml medications Current Medications Medications Dose Ordered Sig/Prosper Route Start Time Stop Time Status Last Admin Dose Admin Piperacillin Sod/ Tazobactam Sod 100 ml @ 25 mls/hr Q8HR IV 09/23/24 22:00 09/24/24 13:41 25 MLS/HR Ondansetron HCl 4 mg Q4HP PRN IV 09/23/24 16:00 Morphine Sulfate 2 mg Q4HPRN PRN IV 09/23/24 16:00 09/24/24 13:40 2 MG Nitroglycerin 0.4 mg Q5MINP PRN SL 09/23/24 16:15 Morphine Sulfate 2 mg Q30M PRN IV 09/23/24 16:15 Sodium Chloride 1,000 ml @ 125 mls/hr Q8H IV 09/24/24 09:45 09/24/24 11:20 125 MLS/HR Pantoprazole Sodium 40 mg DAILY IV 09/24/24 10:00 09/24/24 11:19 40 MG Examination Pt is lying on bed General Appearance: Alert, Oriented X3, Cooperative, Not in acute distress HEENT: Atraumatic, Mucous membranes moist/pink Respiratory: Clear to auscultation, Normal air movement, No added sounds Cardiovascular: Regular rate, Normal S1, Normal S2, No murmurs Abdominal: Bloated, mildly tender, midline incision with sutures without signs of infection or inflammation with drain. Extremities: No edema, Normal pulses, No tenderness/swelling Skin: No Significant rash, past surgical wound Neuro: Normal speech, sensorimotor deficits none Psych/Mental Status: Mental status NL, Mood NL Nurse was there as sharperone during examination laboratory and microbiology Laboratory Tests 09/24/24 06:18 Test 09/24/24 06:18 Range/Units Serum Glucose 126 H 74-106 mg/dL Microbiology Date/Time Source Procedure Growth Status 09/23/24 17:30 Abdomen Gram Stain - Final Resulted 09/23/24 17:30 Abdomen Anaerobic Culture Pending Resulted 09/23/24 17:30 Abdomen Aerobic Culture - Preliminary Resulted Labs and/or images reviewed: Labs reviewed by me, Image(s) reviewed by me Problem List/Assessment/Plan Problem List/Assessment/Plan # Sepsis likely due to complicated appendicitis # Acute appendicitis complicated by rupture - CT abdominal pelvis showed ruptured acute appendicitis with suspected ileus or partial small bowel obstruction - Patient underwent open appendectomy on 09/23/2024, postoperative day 1, patient tolerated the procedure well - currently on NG tube and giving Zosyn and IVF - ordered blood culture - monitor lab - NPO until further orders from surgeon # NEO likely VMN - Continue IVF - monitor lab # Vit D deficiency - Repleting SCDs for now Protonix NPO until further orders Goals of care discussed with the patient for 27 minutes: Full code status Case management discussed with Dr. Carranza, patient, family and nurse Plan discussed with: Patient My Orders My Orders Orders - NAHEED,KHAJA RESIDENT Procedure Category Date Status Time Incentive Spirometry ORDERS 09/24/24 Transmitted 07:56 Sodium Chloride 0.9% PHA 09/24/24 In Process 09:45 Pantoprazole PHA 09/24/24 In Process (Protonix) 10:00 Ergocalciferol PHA 09/24/24 Transmitted (Vitamin D 50,000 14:45 Basic Metabolic Panel LAB 09/25/24 Verified 04:00 Complete Blood Count LAB 09/25/24 Verified 04:00 Date of Service: Sep 24, 2024 Billing Provider: NORBERT CARRANZA MD Common Visit Codes: [id number] INP/OBS CARE(HIGH) JALEN FARFAN Sep 24, 2024 14:42 NORBERT CARRANZA MD Sep 25, 2024 18:01
[2024-09-24] MEDS: ERGOCALCIFEROL 50,000 UNIT(1.25MG) CAP PO SCH (14:45)
--- NOTE | 2024-09-24 16:38 | DVHPN2 ---
Progress Note Date Seen: Sep 24, 2024 Medical Necessity Reason Pt with a Central, PICC or Fol: No Objective vital signs Vital Sign Date Time Temp Pulse Resp B/P (MAP) Pulse Ox O2 Delivery O2 Flow Rate FiO2 09/24/24 13:40 121 18 123/66 09/24/24 13:00 98.2 96 98.2 09/24/24 08:10 Nasal Cannula* 2 28 Total Intake and Output 09/23/24 09/23/24 09/24/24 14:59 22:59 06:59 Intake Total 0 ml Output Total 2 ml 500 ml Balance -2 ml -500 ml medications Current Medications Medications Dose Ordered Sig/Prosper Route Start Time Stop Time Status Last Admin Dose Admin Piperacillin Sod/ Tazobactam Sod 100 ml @ 25 mls/hr Q8HR IV 09/23/24 22:00 09/24/24 13:41 25 MLS/HR Ondansetron HCl 4 mg Q4HP PRN IV 09/23/24 16:00 Morphine Sulfate 2 mg Q4HPRN PRN IV 09/23/24 16:00 09/24/24 13:40 2 MG Nitroglycerin 0.4 mg Q5MINP PRN SL 09/23/24 16:15 Morphine Sulfate 2 mg Q30M PRN IV 09/23/24 16:15 Sodium Chloride 1,000 ml @ 125 mls/hr Q8H IV 09/24/24 09:45 09/24/24 11:20 125 MLS/HR Pantoprazole Sodium 40 mg DAILY IV 09/24/24 10:00 09/24/24 11:19 40 MG Ergocalciferol 50,000 unit Q7D PO 09/24/24 14:45 laboratory and microbiology Laboratory Tests 09/24/24 06:18 Test 09/24/24 06:18 Range/Units Serum Glucose 126 H 74-106 mg/dL Microbiology Date/Time Source Procedure Growth Status 09/23/24 17:30 Abdomen Gram Stain - Final Resulted 09/23/24 17:30 Abdomen Anaerobic Culture Pending Resulted 09/23/24 17:30 Abdomen Aerobic Culture - Preliminary Resulted Problem List/Assessment/Plan Problem List/Assessment/Plan AFEBRILE VSS ABD SOFT DISTENDED NO BM NO FLATUS WBC DOWN NG IN PLACE CONTINUE CLOSE OBSERVATION KEEP NPO NG IV ABX NURSE AND FAMILY AT BEDSIDE Plan discussed with: Patient My Orders My Orders Orders - EDISON NUÑEZ MD Procedure Category Date Status Time Anaerobic Culture ANNE 09/23/24 In Process 17:28 Routine Bacterial ANNE 09/23/24 In Process Culture 17:28 Gram Stain ANNE 09/23/24 In Process 17:28 EDISON NUÑEZ MD Sep 24, 2024 16:38
[2024-09-24] MEDS: MELATONIN 5 MG TAB ONE (22:05)
[2024-09-24] MEDS: MELATONIN 5 MG TAB PO PRN (22:05)
[2024-09-25] VITALS (8 sets, daily range): BP systolic 124–139; BP diastolic 70–87; PULSE 85–130; RESP 18–21; TEMP 97.4–99.7; O2SAT 94–100
[2024-09-25 06:18] LABS: Basophils # (auto) 0 10 ^3/uL (0-0.2); Basophils % (auto) 0.1 % (0.0-2.0); Eosinophils # (auto) 0 10 ^3/uL (0-0.8); Eosinophils % (auto) 0.2 % (0.0-7.0); Hematocrit 35.6 % (41.0-53.0); Hemoglobin 12.2 g/dL (13.5-17.5); Lymphocytes % (auto) 8.8 % (10.0-50.0); Mean Corpuscular Hemoglobin 32.4 pg (28.0-32.0); Mean Corpuscular Hgb Conc. 34.2 g/dL (32.0-36.0); Mean Corpuscular Volume 94.9 fL (80.0-100.0); Monocytes # (auto) 0.8 10 ^3/uL (0-1.3); Monocytes % (auto) 6.9 % (0.0-12.0); Neutrophils # (auto) 9.6 10 ^3/uL (1.6-8.6); Platelet Count (auto) 235 10^3/uL (140-450); Red Blood Cells 3.75 10^6/uL (4.5-5.90); Red Cell Distribution Width 13.7 % (11.8-14.3); White Blood Cell 11.4 10^3/uL (4.4-10.8)
[2024-09-25 06:37] LABS: Calcium 8.7 mg/dL (8.7-10.4); Potassium 3.6 mmol/L (3.5-5.1); Sodium 141 mmol/L (136-145)
[2024-09-25 06:38] LABS: Anion Gap 6 (5-15); Carbon Dioxide 27 mmol/L (20-31)
[2024-09-25 06:43] LABS: BUN/Creatinine Ratio 18.4 (10.0-20.0); Blood Urea Nitrogen 23 mg/dL (9-23); Glucose 101 mg/dL (74-106)
[2024-09-25 06:45] LABS: Chloride 108 mmol/L (98-107)
--- NOTE | 2024-09-25 10:15 | DVHPN2 ---
Progress Note Date Seen: Sep 25, 2024 Medical Necessity Reason Pt with a Central, PICC or Fol: No Objective vital signs Vital Sign Date Time Temp Pulse Resp B/P (MAP) Pulse Ox O2 Delivery O2 Flow Rate FiO2 09/25/24 09:11 118 20 131/77 09/25/24 09:00 99.7 94 99.7 09/24/24 20:00 Nasal Cannula* 2 28 Total Intake and Output 09/24/24 09/24/24 09/25/24 15:00 23:00 07:00 Intake Total 170 ml 100 ml 0 ml Output Total 725 ml 850 ml Balance 170 ml -625 ml -850 ml medications Current Medications Medications Dose Ordered Sig/Prosper Route Start Time Stop Time Status Last Admin Dose Admin Piperacillin Sod/ Tazobactam Sod 100 ml @ 25 mls/hr Q8HR IV 09/23/24 22:00 09/25/24 05:36 25 MLS/HR Ondansetron HCl 4 mg Q4HP PRN IV 09/23/24 16:00 Morphine Sulfate 2 mg Q4HPRN PRN IV 09/23/24 16:00 09/25/24 09:11 2 MG Nitroglycerin 0.4 mg Q5MINP PRN SL 09/23/24 16:15 Morphine Sulfate 2 mg Q30M PRN IV 09/23/24 16:15 Sodium Chloride 1,000 ml @ 125 mls/hr Q8H IV 09/24/24 09:45 09/25/24 09:01 125 MLS/HR Pantoprazole Sodium 40 mg DAILY IV 09/24/24 10:00 09/25/24 08:52 40 MG Ergocalciferol 50,000 unit Q7D PO 09/24/24 14:45 09/24/24 19:28 50,000 UNIT Acetaminophen 650 mg Q6HP PRN PO 09/24/24 21:45 Melatonin 5 mg HS PRN PO 09/24/24 21:45 09/24/24 22:05 5 MG laboratory and microbiology Laboratory Tests 09/25/24 05:43 Test 09/25/24 05:43 Range/Units Serum Glucose 101 74-106 mg/dL Microbiology Date/Time Source Procedure Growth Status 09/23/24 23:01 Blood Blood Culture - Preliminary NO GROWTH AFTER 24 HOURS OF INCUBATION. Resulted 12/9/24 17:30 Abdomen Gram Stain - Final Resulted 09/23/24 17:30 Abdomen Anaerobic Culture Pending Resulted 09/23/24 17:30 Abdomen Aerobic Culture - Preliminary Resulted Problem List/Assessment/Plan Problem List/Assessment/Plan AFEBRILE VSS ABD SOFT DISTENDED NO BM NO FLATUS WBC DOWN NG IN PLACE CONTINUE CLOSE OBSERVATION KEEP NPO NG IV ABX NURSE AND FAMILY AT BEDSIDE DC AGUILAR ALLOW AMBULATION Plan discussed with: Patient My Orders My Orders Orders - EDISON NUÑEZ MD Procedure Category Date Status Time Ng To Lis ROMA 09/25/24 In Process 01:56 EDISON NUÑEZ MD Sep 25, 2024 10:15
--- NOTE | 2024-09-25 11:56 | DVHPNRES ---
Progress Note Date Seen: Sep 25, 2024 Resident Creating Document: JALEN FARFAN RESIDENT Medical Necessity Reason Pt with a Central, PICC or Fol: No Subjective Review of Systems TOMER HUNTER Is a 29-year-old male with no significant PMH presented to the ED with the chief complaints of worsening of abdominal pain Patient seen and examined at the bedside. Patient reported improvement in the symptoims since admission. postoperative day 2 status post open appendectomy. Surgeon evaluated the patient advised to continue NG tube and NPO. Patient has not passed flatus or stools yet. DC Leonard. Patient reports: No new complaints, Feels better Objective vital signs Vital Sign Date Time Temp Pulse Resp B/P (MAP) Pulse Ox O2 Delivery O2 Flow Rate FiO2 09/25/24 09:11 118 20 131/77 09/25/24 09:00 99.7 94 99.7 09/25/24 08:00 Nasal Cannula* 2 28 Total Intake and Output 09/24/24 09/24/24 09/25/24 15:00 23:00 07:00 Intake Total 170 ml 100 ml 0 ml Output Total 725 ml 850 ml Balance 170 ml -625 ml -850 ml medications Current Medications Medications Dose Ordered Sig/Prosper Route Start Time Stop Time Status Last Admin Dose Admin Piperacillin Sod/ Tazobactam Sod 100 ml @ 25 mls/hr Q8HR IV 09/23/24 22:00 09/25/24 05:36 25 MLS/HR Ondansetron HCl 4 mg Q4HP PRN IV 09/23/24 16:00 Morphine Sulfate 2 mg Q4HPRN PRN IV 09/23/24 16:00 09/25/24 09:11 2 MG Nitroglycerin 0.4 mg Q5MINP PRN SL 09/23/24 16:15 Morphine Sulfate 2 mg Q30M PRN IV 09/23/24 16:15 Sodium Chloride 1,000 ml @ 125 mls/hr Q8H IV 09/24/24 09:45 09/25/24 09:01 125 MLS/HR Pantoprazole Sodium 40 mg DAILY IV 09/24/24 10:00 09/25/24 08:52 40 MG Ergocalciferol 50,000 unit Q7D PO 09/24/24 14:45 09/24/24 19:28 50,000 UNIT Acetaminophen 650 mg Q6HP PRN PO 09/24/24 21:45 Melatonin 5 mg HS PRN PO 09/24/24 21:45 09/24/24 22:05 5 MG Examination Pt is lying on bed General Appearance: Alert, Oriented X3, Cooperative, Not in acute distress HEENT: Atraumatic, Mucous membranes moist/pink , NG tube in place Respiratory: Clear to auscultation, Normal air movement, No added sounds Cardiovascular: Regular rate, Normal S1, Normal S2, No murmurs Abdominal: Bloated, mildly tender, midline incision with sutures without signs of infection or inflammation with drain. Extremities: No edema, Normal pulses, No tenderness/swelling Skin: No Significant rash, past surgical wound Neuro: Normal speech, sensorimotor deficits none Psych/Mental Status: Mental status NL, Mood NL Nurse was there as sharperone during examination laboratory and microbiology Laboratory Tests 09/25/24 05:43 Test 09/25/24 05:43 Range/Units Serum Glucose 101 74-106 mg/dL Microbiology Date/Time Source Procedure Growth Status 09/23/24 23:01 Blood Blood Culture - Preliminary NO GROWTH AFTER 24 HOURS OF INCUBATION. Resulted 09/23/24 17:30 Abdomen Gram Stain - Final Resulted 09/23/24 17:30 Abdomen Anaerobic Culture Pending Resulted 09/23/24 17:30 Abdomen Aerobic Culture - Preliminary Resulted Labs and/or images reviewed: Labs reviewed by me, Image(s) reviewed by me Problem List/Assessment/Plan Problem List/Assessment/Plan # Sepsis likely due to complicated appendicitis # Acute appendicitis complicated by rupture # likely postoperative ileus - CT abdominal pelvis showed ruptured acute appendicitis with suspected ileus or partial small bowel obstruction - Patient underwent open appendectomy on 09/23/2024, postoperative day 1, patient tolerated the procedure well - currently on NG tube and giving Zosyn and IVF - ordered blood culture - monitor lab - NPO until further orders from surgeon # NEO likely VMN - Continue IVF - monitor lab # Vit D deficiency - Repleting SCDs for now Protonix NPO until further orders Goals of care discussed with the patient for 27 minutes: Full code status Case management discussed with Dr. Carranza, patient, family and nurse Plan discussed with: Patient My Orders My Orders Orders - JALEN FARFAN RESIDENT Procedure Category Date Status Time Ergocalciferol PHA 09/24/24 In Process (Vitamin D 50,000 14:45 Date of Service: Sep 25, 2024 Billing Provider: NORBERT CARRANZA MD Common Visit Codes: [id number] INP/OBS CARE(HIGH) JALEN FARFAN RESIDENT Sep 25, 2024 11:56 NORBERT CARRANZA MD Sep 25, 2024 18:01
[2024-09-26] VITALS (8 sets, daily range): BP systolic 125–140; BP diastolic 72–86; PULSE 98–123; RESP 18–22; TEMP 98–100; O2SAT 91–95
[2024-09-26 07:12] LABS: Basophils # (auto) 0 10 ^3/uL (0-0.2); Basophils % (auto) 0.1 % (0.0-2.0); Eosinophils # (auto) 0 10 ^3/uL (0-0.8); Eosinophils % (auto) 0.4 % (0.0-7.0); Hematocrit 34.7 % (41.0-53.0); Hemoglobin 11.6 g/dL (13.5-17.5); Lymphocytes # (auto) 0.9 10 ^3/uL (0.4-5.4); Lymphocytes % (auto) 8.7 % (10.0-50.0); Mean Corpuscular Hemoglobin 31.9 pg (28.0-32.0); Mean Corpuscular Hgb Conc. 33.5 g/dL (32.0-36.0); Mean Corpuscular Volume 95.5 fL (80.0-100.0); Monocytes # (auto) 0.8 10 ^3/uL (0-1.3); Monocytes % (auto) 7.5 % (0.0-12.0); Neutrophils # (auto) 8.5 10 ^3/uL (1.6-8.6); Neutrophils % (auto) 83.3 % (37.0-80.0); Platelet Count (auto) 258 10^3/uL (140-450); Red Blood Cells 3.64 10^6/uL (4.5-5.90); Red Cell Distribution Width 13.4 % (11.8-14.3); White Blood Cell 10.2 10^3/uL (4.4-10.8)
[2024-09-26 07:21] LABS: Anion Gap 8 (5-15); Carbon Dioxide 24 mmol/L (20-31); Chloride 105 mmol/L (98-107); Sodium 137 mmol/L (136-145)
[2024-09-26 07:27] LABS: Blood Urea Nitrogen 17 mg/dL (9-23); Glucose 99 mg/dL (74-106)
[2024-09-26 07:28] LABS: Calcium 8.5 mg/dL (8.7-10.4); Potassium 3.4 mmol/L (3.5-5.1)
--- NOTE | 2024-09-26 12:57 | DVHPNRES ---
Progress Note Date Seen: Sep 26, 2024 Resident Creating Document: JALEN FARFAN RESIDENT Medical Necessity Reason Pt with a Central, PICC or Fol: No Subjective Review of Systems TOMER HUNTER Is a 29-year-old male with no significant PMH presented to the ED with the chief complaints of worsening of abdominal pain Patient seen and examined at the bedside. Patient reported improvement in the symptoims since admission. postoperative day 3 status post open appendectomy. NG tube be accidentally fall off, notified surgeon. Patient passed flatus and bowel movement today, surgeon advised liquid diet for now. Culture showed E coli. Pending final blood culture results. Patient reports: Feels better Objective vital signs Vital Sign Date Time Temp Pulse Resp B/P (MAP) Pulse Ox O2 Delivery O2 Flow Rate FiO2 09/26/24 09:00 98.8 98 18 133/86 (102) 92 98.8 09/26/24 08:00 Nasal Cannula* 2 28 Total Intake and Output 09/25/24 09/25/24 09/26/24 15:00 23:00 07:00 Intake Total 100 ml 100 ml 1050 ml Output Total 400 ml 70 ml 800 ml Balance -300 ml 30 ml 250 ml medications Current Medications Medications Dose Ordered Sig/Prosper Route Start Time Stop Time Status Last Admin Dose Admin Piperacillin Sod/ Tazobactam Sod 100 ml @ 25 mls/hr Q8HR IV 09/23/24 22:00 09/26/24 05:30 25 MLS/HR Ondansetron HCl 4 mg Q4HP PRN IV 09/23/24 16:00 Morphine Sulfate 2 mg Q4HPRN PRN IV 09/23/24 16:00 09/25/24 22:49 2 MG Nitroglycerin 0.4 mg Q5MINP PRN SL 09/23/24 16:15 Morphine Sulfate 2 mg Q30M PRN IV 09/23/24 16:15 Sodium Chloride 1,000 ml @ 125 mls/hr Q8H IV 09/24/24 09:45 09/26/24 09:41 125 MLS/HR Pantoprazole Sodium 40 mg DAILY IV 09/24/24 10:00 09/26/24 09:39 40 MG Ergocalciferol 50,000 unit Q7D PO 09/24/24 14:45 09/24/24 19:28 50,000 UNIT Acetaminophen 650 mg Q6HP PRN PO 09/24/24 21:45 Melatonin 5 mg HS PRN PO 09/24/24 21:45 09/24/24 22:05 5 MG Examination Pt is lying on bed General Appearance: Alert, Oriented X3, Cooperative, Not in acute distress HEENT: Atraumatic, Mucous membranes moist/pink Respiratory: Clear to auscultation, Normal air movement, No added sounds Cardiovascular: Regular rate, Normal S1, Normal S2, No murmurs Abdominal: Bloated, mildly tender, midline incision with sutures without signs of infection or inflammation with drain. Extremities: No edema, Normal pulses, No tenderness/swelling Skin: No Significant rash, past surgical wound Neuro: Normal speech, sensorimotor deficits none Psych/Mental Status: Mental status NL, Mood NL Nurse was there as sharperone during examination laboratory and microbiology Laboratory Tests 09/26/24 06:23 Test 09/26/24 06:23 Range/Units Serum Glucose 99 74-106 mg/dL Microbiology Date/Time Source Procedure Growth Status 09/23/24 23:01 Blood Blood Culture - Preliminary NO GROWTH AFTER 48 HOURS OF INCUBATION. Resulted 09/23/24 17:30 Abdomen Gram Stain - Final Resulted 09/23/24 17:30 Abdomen Anaerobic Culture - Preliminary Resulted 09/23/24 17:30 Aerobic Culture - Final Escherichia coli Resulted Labs and/or images reviewed: Labs reviewed by me, Image(s) reviewed by me Problem List/Assessment/Plan Problem List/Assessment/Plan # Sepsis likely due to complicated appendicitis # Acute appendicitis complicated by rupture # likely postoperative ileus - CT abdominal pelvis showed ruptured acute appendicitis with suspected ileus or partial small bowel obstruction - Patient underwent open appendectomy on 09/23/2024, postoperative day 3, patient tolerated the procedure well - currently giving Zosyn and IVF - ordered blood culture - monitor lab - Culture showed E coli # NEO likely VMN - Continue IVF - monitor lab # Vit D deficiency - Repleting SCDs for now Protonix sips of water until further notice Goals of care discussed with the patient for 27 minutes: Full code status Case management discussed with Dr. Ma, patient, family and nurse Plan discussed with: Patient, Other (father and RN) Date of Service: Sep 26, 2024 Billing Provider: NORBERT MA MD Common Visit Codes: [id number] INP/OBS CARE(HIGH) JALEN FARFAN RESIDENT Sep 26, 2024 12:57 NORBERT MA MD Sep 30, 2024 19:00
[2024-09-26] MEDS: POTASSIUM CHL 20MEQ/100ML 100 ML IV ONE (14:55)
--- NOTE | 2024-09-26 18:31 | DVHPN2 ---
Progress Note Date Seen: Sep 26, 2024 Medical Necessity Reason Pt with a Central, PICC or Fol: No Objective vital signs Vital Sign Date Time Temp Pulse Resp B/P (MAP) Pulse Ox O2 Delivery O2 Flow Rate FiO2 09/26/24 17:00 100.0 117 139/86 (103) 93 100.0 09/26/24 15:18 18 09/26/24 08:00 Nasal Cannula* 2 28 Total Intake and Output 09/25/24 09/25/24 09/26/24 15:00 23:00 07:00 Intake Total 100 ml 100 ml 1050 ml Output Total 400 ml 70 ml 800 ml Balance -300 ml 30 ml 250 ml medications Current Medications Medications Dose Ordered Sig/Prosper Route Start Time Stop Time Status Last Admin Dose Admin Ondansetron HCl 4 mg Q4HP PRN IV 09/23/24 16:00 Morphine Sulfate 2 mg Q4HPRN PRN IV 09/23/24 16:00 09/26/24 14:48 2 MG Nitroglycerin 0.4 mg Q5MINP PRN SL 09/23/24 16:15 Morphine Sulfate 2 mg Q30M PRN IV 09/23/24 16:15 Sodium Chloride 1,000 ml @ 125 mls/hr Q8H IV 09/24/24 09:45 09/26/24 09:41 125 MLS/HR Pantoprazole Sodium 40 mg DAILY IV 09/24/24 10:00 09/26/24 09:39 40 MG Ergocalciferol 50,000 unit Q7D PO 09/24/24 14:45 09/24/24 19:28 50,000 UNIT Acetaminophen 650 mg Q6HP PRN PO 09/24/24 21:45 Melatonin 5 mg HS PRN PO 09/24/24 21:45 09/24/24 22:05 5 MG Piperacillin Sod/ Tazobactam Sod 100 ml @ 25 mls/hr Q6HR IV 09/27/24 00:00 laboratory and microbiology Laboratory Tests 09/26/24 06:23 Test 09/26/24 06:23 Range/Units Serum Glucose 99 74-106 mg/dL Microbiology Date/Time Source Procedure Growth Status 09/23/24 23:01 Blood Blood Culture - Preliminary NO GROWTH AFTER 48 HOURS OF INCUBATION. Resulted 09/23/24 17:30 Abdomen Gram Stain - Final Resulted 09/23/24 17:30 Abdomen Anaerobic Culture - Preliminary Resulted 09/23/24 17:30 Aerobic Culture - Final Escherichia coli Resulted Problem List/Assessment/Plan Problem List/Assessment/Plan AFEBRILE VSS ABD SOFT LESS DISTENDED BM + FLATUS + WBC DOWN NG REMOVED BY PT CONTINUE CLOSE OBSERVATION ALLOW SIPS OF WATER IV ABX NURSE AND FAMILY AT BEDSIDE DC AGUILAR ALLOW AMBULATION Plan discussed with: Patient Dietary Evaluation Review Comments: 1) Advance pt diet when medically feasible 2) Continue current plan of care Expected Outcomes/Goals: 1) Pt diet to advance 2) F/U in 2-3 days EDISON NUÑEZ MD Sep 26, 2024 18:31
[2024-09-26] MEDS: ACETAMINOPHEN 325 MG TAB PO PRN (20:46)
[2024-09-27] VITALS (8 sets, daily range): BP systolic 129–138; BP diastolic 70–79; PULSE 112–124; RESP 16–20; TEMP 98–100; O2SAT 90–94
[2024-09-27] MEDS: PIPERACILLIN-TAZOB 3.375GM 100 ML IV SCH (00:04)
[2024-09-27 05:57] LABS: Hematocrit 35.2 % (41.0-53.0); Hemoglobin 12.3 g/dL (13.5-17.5); Mean Corpuscular Hemoglobin 32.6 pg (28.0-32.0); Mean Corpuscular Hgb Conc. 34.9 g/dL (32.0-36.0); Mean Corpuscular Volume 93.4 fL (80.0-100.0); Platelet Count (auto) 269 10^3/uL (140-450); Red Blood Cells 3.77 10^6/uL (4.5-5.90); Red Cell Distribution Width 12.9 % (11.8-14.3); White Blood Cell 10.2 10^3/uL (4.4-10.8)
[2024-09-27 06:01] LABS: Basophils % (manual) 0 (0.0-2.0); Blast Cells 0; Eosinophils % (manual) 0 (0-7); Metamyelocytes % 0; Myelocytes % 0; Promyelocytes % 0; Reactive Lymphocytes 0
[2024-09-27 06:11] LABS: Anion Gap 10 (5-15); Calcium 8.7 mg/dL (8.7-10.4); Carbon Dioxide 23 mmol/L (20-31); Chloride 102 mmol/L (98-107)
[2024-09-27 06:12] LABS: Glucose 99 mg/dL (74-106)
[2024-09-27 06:17] LABS: BUN/Creatinine Ratio 16.5 (10.0-20.0); Blood Urea Nitrogen 14 mg/dL (9-23)
[2024-09-27 06:37] LABS: Potassium 3.4 mmol/L (3.5-5.1); Sodium 135 mmol/L (136-145)
[2024-09-27 08:47] LABS: Band Neutrophils % (manual) 5; Lymphocytes % (manual) 10 (10.0-50.0); Monocytes % (manual) 6 (0-12)
[2024-09-27 08:48] LABS: Platelet Estimate Adequate; RBC Morphology Normal
[2024-09-27] MEDS: POTASSIUM CHL 20MEQ/100ML 100 ML IV ONE (09:56)
[2024-09-27] MEDS: MAGNESIUM SULFATE 1GM/100ML 100 ML IV SCH (12:00)
--- NOTE | 2024-09-27 13:23 | DVHPN2 ---
Progress Note Date Seen: Sep 27, 2024 Medical Necessity Reason Pt with a Central, PICC or Fol: No Objective vital signs Vital Sign Date Time Temp Pulse Resp B/P (MAP) Pulse Ox O2 Delivery O2 Flow Rate FiO2 09/27/24 10:54 117 18 127/87 09/27/24 09:00 99.7 90 99.7 09/27/24 08:00 Room Air* 0 21 Total Intake and Output 09/26/24 09/26/24 09/27/24 15:00 23:00 07:00 Intake Total 100 ml 1475 ml 100 ml Output Total 20 ml 905 ml 600 ml Balance 80 ml 570 ml -500 ml medications Current Medications Medications Dose Ordered Sig/Prosper Route Start Time Stop Time Status Last Admin Dose Admin Ondansetron HCl 4 mg Q4HP PRN IV 09/23/24 16:00 Morphine Sulfate 2 mg Q4HPRN PRN IV 09/23/24 16:00 09/27/24 10:24 2 MG Nitroglycerin 0.4 mg Q5MINP PRN SL 09/23/24 16:15 Morphine Sulfate 2 mg Q30M PRN IV 09/23/24 16:15 Sodium Chloride 1,000 ml @ 125 mls/hr Q8H IV 09/24/24 09:45 09/27/24 09:55 125 MLS/HR Pantoprazole Sodium 40 mg DAILY IV 09/24/24 10:00 09/27/24 09:45 40 MG Ergocalciferol 50,000 unit Q7D PO 09/24/24 14:45 09/24/24 19:28 50,000 UNIT Acetaminophen 650 mg Q6HP PRN PO 09/24/24 21:45 09/26/24 20:46 650 MG Melatonin 5 mg HS PRN PO 09/24/24 21:45 09/24/24 22:05 5 MG Piperacillin Sod/ Tazobactam Sod 100 ml @ 25 mls/hr Q6HR IV 09/27/24 00:00 09/27/24 13:07 25 MLS/HR laboratory and microbiology Laboratory Tests 09/27/24 05:23 Test 09/27/24 05:23 Range/Units Serum Glucose 99 74-106 mg/dL Microbiology Date/Time Source Procedure Growth Status 09/23/24 23:01 Blood Blood Culture - Preliminary NO GROWTH AFTER 72 HOURS OF INCUBATION. Resulted 09/23/24 17:30 Abdomen Gram Stain - Final Resulted 09/23/24 17:30 Abdomen Anaerobic Culture - Preliminary Resulted 09/23/24 17:30 Aerobic Culture - Final Escherichia coli Resulted Problem List/Assessment/Plan Problem List/Assessment/Plan AFEBRILE VSS ABD SOFT LESS DISTENDED BM + FLATUS + WBC DOWN ALLOW CLEAR LIQUIDS IV ABX NURSE AND FAMILY AT BEDSIDE ALLOW AMBULATION Plan discussed with: Patient My Orders My Orders Orders - EDISON NUÑEZ MD Procedure Category Date Status Time Clear Liq Diet DIET 09/27/24 Transmitted Lunch Dietary Evaluation Review Comments: 1) Advance pt diet when medically feasible 2) Continue current plan of care Expected Outcomes/Goals: 1) Pt diet to advance 2) F/U in 2-3 days EDISON NUÑEZ MD Sep 27, 2024 13:23
--- NOTE | 2024-09-27 15:48 | DVHPNRES ---
Progress Note Date Seen: Sep 27, 2024 Resident Creating Document: JALEN FARFAN RESIDENT Medical Necessity Reason Pt with a Central, PICC or Fol: No Subjective Review of Systems TOMER HUNTER Is a 29-year-old male with no significant PMH presented to the ED with the chief complaints of worsening of abdominal pain Patient seen and examined at the bedside. Patient reported improvement in the symptoims since admission. postoperative day 4 status post open appendectomy. Patient passed flatus and bowel movement today, surgeon advised clear liquid diet for now. Culture showed E coli. Pending final blood culture results. Patient reports: No new complaints, Feels better Objective vital signs Vital Sign Date Time Temp Pulse Resp B/P (MAP) Pulse Ox O2 Delivery O2 Flow Rate FiO2 09/27/24 13:00 99.4 124 20 129/79 (96) 92 99.4 09/27/24 08:00 Room Air* 0 21 Total Intake and Output 09/26/24 09/26/24 09/27/24 15:00 23:00 07:00 Intake Total 100 ml 1475 ml 100 ml Output Total 20 ml 905 ml 600 ml Balance 80 ml 570 ml -500 ml medications Current Medications Medications Dose Ordered Sig/Prosper Route Start Time Stop Time Status Last Admin Dose Admin Ondansetron HCl 4 mg Q4HP PRN IV 09/23/24 16:00 Morphine Sulfate 2 mg Q4HPRN PRN IV 09/23/24 16:00 09/27/24 10:24 2 MG Nitroglycerin 0.4 mg Q5MINP PRN SL 09/23/24 16:15 Morphine Sulfate 2 mg Q30M PRN IV 09/23/24 16:15 Sodium Chloride 1,000 ml @ 125 mls/hr Q8H IV 09/24/24 09:45 09/27/24 09:55 125 MLS/HR Pantoprazole Sodium 40 mg DAILY IV 09/24/24 10:00 09/27/24 09:45 40 MG Ergocalciferol 50,000 unit Q7D PO 09/24/24 14:45 09/24/24 19:28 50,000 UNIT Acetaminophen 650 mg Q6HP PRN PO 09/24/24 21:45 09/26/24 20:46 650 MG Melatonin 5 mg HS PRN PO 09/24/24 21:45 09/24/24 22:05 5 MG Piperacillin Sod/ Tazobactam Sod 100 ml @ 25 mls/hr Q6HR IV 09/27/24 00:00 09/27/24 13:07 25 MLS/HR Examination Pt is lying on bed General Appearance: Alert, Oriented X3, Cooperative, Not in acute distress HEENT: Atraumatic, Mucous membranes moist/pink Respiratory: Clear to auscultation, Normal air movement, No added sounds Cardiovascular: Regular rate, Normal S1, Normal S2, No murmurs Abdominal: Bloated, mildly tender, midline incision with sutures without signs of infection or inflammation with drain. Extremities: No edema, Normal pulses, No tenderness/swelling Skin: No Significant rash, past surgical wound Neuro: Normal speech, sensorimotor deficits none Psych/Mental Status: Mental status NL, Mood NL Nurse was there as sharperone during examination laboratory and microbiology Laboratory Tests 09/27/24 05:23 Test 09/27/24 05:23 Range/Units Serum Glucose 99 74-106 mg/dL Microbiology Date/Time Source Procedure Growth Status 09/23/24 23:01 Blood Blood Culture - Preliminary NO GROWTH AFTER 72 HOURS OF INCUBATION. Resulted 09/23/24 17:30 Abdomen Gram Stain - Final Resulted 09/23/24 17:30 Abdomen Anaerobic Culture - Preliminary Resulted 09/23/24 17:30 Aerobic Culture - Final Escherichia coli Resulted Labs and/or images reviewed: Labs reviewed by me, Image(s) reviewed by me Problem List/Assessment/Plan Problem List/Assessment/Plan # Sepsis likely due to complicated appendicitis # Acute appendicitis complicated by rupture # likely postoperative ileus - CT abdominal pelvis showed ruptured acute appendicitis with suspected ileus or partial small bowel obstruction - Patient underwent open appendectomy on 09/23/2024, postoperative day 4, patient tolerated the procedure well - currently giving Zosyn and IVF - ordered blood culture - monitor lab - Culture showed E coli - clear liquid diet for now. # NEO likely VMN - Continue IVF - monitor lab # Vit D deficiency - Repleting # Hypokalemia - Repleting - Monitor lab SCDs for now Protonix clear liquid diet for now. Goals of care discussed with the patient for 27 minutes: Full code status Case management discussed with Dr. Ma, patient, family and nurse Plan discussed with: Patient My Orders My Orders Orders - JALEN FARFAN RESIDENT Procedure Category Date Status Time Magnesium LAB 09/28/24 Verified 04:00 Basic Metabolic Panel LAB 09/28/24 Verified 04:00 Complete Blood Count LAB 09/28/24 Verified 04:00 Dietary Evaluation Review Comments: 1) Advance pt diet when medically feasible 2) Continue current plan of care Expected Outcomes/Goals: 1) Pt diet to advance 2) F/U in 2-3 days Date of Service: Sep 27, 2024 Billing Provider: NORBERT MA MD Common Visit Codes: [id number] INP/OBS CARE(HIGH) JALEN FARFAN RESIDENT Sep 27, 2024 15:48 NORBERT MA MD Sep 30, 2024 19:05
[2024-09-28] VITALS (8 sets, daily range): BP systolic 126–131; BP diastolic 67–75; PULSE 100–121; RESP 18–20; TEMP 98.2–101.2; O2SAT 92–97
[2024-09-28 06:58] LABS: Basophils # (auto) 0 10 ^3/uL (0-0.2); Basophils % (auto) 0.3 % (0.0-2.0); Eosinophils # (auto) 0.1 10 ^3/uL (0-0.8); Eosinophils % (auto) 0.8 % (0.0-7.0); Hematocrit 33.5 % (41.0-53.0); Hemoglobin 11.5 g/dL (13.5-17.5); Lymphocytes # (auto) 0.7 10 ^3/uL (0.4-5.4); Lymphocytes % (auto) 7.5 % (10.0-50.0); Mean Corpuscular Hemoglobin 32.3 pg (28.0-32.0); Mean Corpuscular Hgb Conc. 34.4 g/dL (32.0-36.0); Mean Corpuscular Volume 93.9 fL (80.0-100.0); Monocytes # (auto) 0.9 10 ^3/uL (0-1.3); Monocytes % (auto) 9.4 % (0.0-12.0); Neutrophils # (auto) 7.6 10 ^3/uL (1.6-8.6); Nucleated Red Blood Cells % 0.1 %; Platelet Count (auto) 268 10^3/uL (140-450); Red Blood Cells 3.57 10^6/uL (4.5-5.90); Red Cell Distribution Width 12.9 % (11.8-14.3); White Blood Cell 9.2 10^3/uL (4.4-10.8)
[2024-09-28 07:13] LABS: Chloride 103 mmol/L (98-107)
[2024-09-28 07:14] LABS: Anion Gap 9 (5-15); Carbon Dioxide 24 mmol/L (20-31)
[2024-09-28 07:19] LABS: BUN/Creatinine Ratio 11.7 (10.0-20.0); Blood Urea Nitrogen 12 mg/dL (9-23)
[2024-09-28 07:20] LABS: Magnesium 1.8 mg/dL (1.6-2.6)
[2024-09-28 07:22] LABS: Calcium 8.2 mg/dL (8.7-10.4); Glucose 110 mg/dL (74-106); Potassium 3.3 mmol/L (3.5-5.1); Sodium 136 mmol/L (136-145)
[2024-09-28] MEDS: POTASSIUM CHL 10 Meq TABLET PO SCH (10:40)
[2024-09-28] MEDS: POTASSIUM CHLORIDE 40 MEQ, LIDOCAINE 1% (LOCAL ANESTH.) 4 ML in SODIUM CHL 0.9% 250 ML IV ONE (10:40)
[2024-09-28] MEDS: MAGNESIUM OXIDE 400 MG TAB PO SCH (10:41)
--- NOTE | 2024-09-28 13:43 | DVHPN2 ---
Progress Note Date Seen: Sep 28, 2024 Medical Necessity Reason Pt with a Central, PICC or Fol: No Objective vital signs Vital Sign Date Time Temp Pulse Resp B/P (MAP) Pulse Ox O2 Delivery O2 Flow Rate FiO2 09/28/24 09:00 98.2 114 18 126/67 (86) 97 98.2 09/28/24 08:00 Room Air* 0 21 Total Intake and Output 09/27/24 09/27/24 09/28/24 15:00 23:00 07:00 Intake Total 100 ml 1900 ml 1325 ml Output Total 2 ml 500 ml Balance 100 ml 1898 ml 825 ml medications Current Medications Medications Dose Ordered Sig/Prosper Route Start Time Stop Time Status Last Admin Dose Admin Ondansetron HCl 4 mg Q4HP PRN IV 09/23/24 16:00 Morphine Sulfate 2 mg Q4HPRN PRN IV 09/23/24 16:00 09/28/24 00:39 2 MG Nitroglycerin 0.4 mg Q5MINP PRN SL 09/23/24 16:15 Morphine Sulfate 2 mg Q30M PRN IV 09/23/24 16:15 Sodium Chloride 1,000 ml @ 125 mls/hr Q8H IV 09/24/24 09:45 09/28/24 10:40 125 MLS/HR Pantoprazole Sodium 40 mg DAILY IV 09/24/24 10:00 09/28/24 09:22 40 MG Ergocalciferol 50,000 unit Q7D PO 09/24/24 14:45 09/24/24 19:28 50,000 UNIT Acetaminophen 650 mg Q6HP PRN PO 09/24/24 21:45 09/27/24 17:06 650 MG Melatonin 5 mg HS PRN PO 09/24/24 21:45 09/24/24 22:05 5 MG Piperacillin Sod/ Tazobactam Sod 100 ml @ 25 mls/hr Q6HR IV 09/27/24 00:00 09/28/24 13:11 25 MLS/HR Magnesium Oxide 400 mg BID PO 09/28/24 10:00 09/28/24 10:41 400 MG Potassium Chloride 10 meq DAILY PO 09/28/24 10:00 09/28/24 10:40 10 MEQ laboratory and microbiology Laboratory Tests 09/28/24 05:51 Test 09/28/24 05:51 Range/Units Serum Glucose 110 H 74-106 mg/dL Microbiology Date/Time Source Procedure Growth Status 09/23/24 23:01 Blood Blood Culture - Preliminary NO GROWTH AFTER 72 HOURS OF INCUBATION. Resulted 09/23/24 17:30 Abdomen Gram Stain - Final Resulted 09/23/24 17:30 Abdomen Anaerobic Culture - Preliminary Resulted 09/23/24 17:30 Aerobic Culture - Final Escherichia coli Resulted Problem List/Assessment/Plan Problem List/Assessment/Plan AFEBRILE VSS ABD SOFT LESS DISTENDED ABD WOUND DRAINAGE PURULENT DRESSING CHANGED BM + FLATUS + WBC WNL CHAIM CLEAR LIQUIDS ALLOW FULL LIQUIDS IV ABX NURSE AND FAMILY AT BEDSIDE ALLOW AMBULATION Plan discussed with: Patient Dietary Evaluation Review Comments: 1) Advance pt diet when medically feasible 2) Continue current plan of care Expected Outcomes/Goals: 1) Pt diet to advance 2) F/U in 2-3 days EDISON NUÑEZ MD Sep 28, 2024 13:43
--- NOTE | 2024-09-28 14:28 | DVHPNRES ---
Progress Note Date Seen: Sep 28, 2024 Resident Creating Document: JALEN FARFAN RESIDENT Medical Necessity Reason Pt with a Central, PICC or Fol: No Subjective Review of Systems TOMER HUNTER Is a 29-year-old male with no significant PMH presented to the ED with the chief complaints of worsening of abdominal pain Patient seen and examined at the bedside. Patient reported improvement in the symptoims since admission. postoperative day 5 status post open appendectomy. Patient passed flatus and bowel movement today, surgeon advised to advance diet clear liquid to full liquid diet for now. Patient reports: No new complaints, Feels better Objective vital signs Vital Sign Date Time Temp Pulse Resp B/P (MAP) Pulse Ox O2 Delivery O2 Flow Rate FiO2 09/28/24 13:44 99 18 127/56 09/28/24 13:00 98.4 92 98.4 09/28/24 08:00 Room Air* 0 21 Total Intake and Output 09/27/24 09/27/24 09/28/24 15:00 23:00 07:00 Intake Total 100 ml 1900 ml 1325 ml Output Total 2 ml 500 ml Balance 100 ml 1898 ml 825 ml medications Current Medications Medications Dose Ordered Sig/Prosper Route Start Time Stop Time Status Last Admin Dose Admin Ondansetron HCl 4 mg Q4HP PRN IV 09/23/24 16:00 Morphine Sulfate 2 mg Q4HPRN PRN IV 09/23/24 16:00 09/28/24 13:44 2 MG Nitroglycerin 0.4 mg Q5MINP PRN SL 09/23/24 16:15 Morphine Sulfate 2 mg Q30M PRN IV 09/23/24 16:15 Sodium Chloride 1,000 ml @ 125 mls/hr Q8H IV 09/24/24 09:45 09/28/24 10:40 125 MLS/HR Pantoprazole Sodium 40 mg DAILY IV 09/24/24 10:00 09/28/24 09:22 40 MG Ergocalciferol 50,000 unit Q7D PO 09/24/24 14:45 09/24/24 19:28 50,000 UNIT Acetaminophen 650 mg Q6HP PRN PO 09/24/24 21:45 09/27/24 17:06 650 MG Melatonin 5 mg HS PRN PO 09/24/24 21:45 09/24/24 22:05 5 MG Piperacillin Sod/ Tazobactam Sod 100 ml @ 25 mls/hr Q6HR IV 09/27/24 00:00 09/28/24 13:11 25 MLS/HR Magnesium Oxide 400 mg BID PO 09/28/24 10:00 09/28/24 10:41 400 MG Potassium Chloride 10 meq DAILY PO 09/28/24 10:00 09/28/24 10:40 10 MEQ Examination Pt is lying on bed General Appearance: Alert, Oriented X3, Cooperative, Not in acute distress HEENT: Atraumatic, Mucous membranes moist/pink Respiratory: Clear to auscultation, Normal air movement, No added sounds Cardiovascular: Regular rate, Normal S1, Normal S2, No murmurs Abdominal: Bloated, mildly tender, midline incision with sutures without signs of infection or inflammation with drain. Extremities: No edema, Normal pulses, No tenderness/swelling Skin: No Significant rash, past surgical wound Neuro: Normal speech, sensorimotor deficits none Psych/Mental Status: Mental status NL, Mood NL Nurse was there as sharperone during examination laboratory and microbiology Laboratory Tests 09/28/24 05:51 Test 09/28/24 05:51 Range/Units Serum Glucose 110 H 74-106 mg/dL Microbiology Date/Time Source Procedure Growth Status 09/23/24 23:01 Blood Blood Culture - Preliminary NO GROWTH AFTER 72 HOURS OF INCUBATION. Resulted 09/23/24 17:30 Abdomen Gram Stain - Final Resulted 09/23/24 17:30 Abdomen Anaerobic Culture - Preliminary Resulted 09/23/24 17:30 Aerobic Culture - Final Escherichia coli Resulted Labs and/or images reviewed: Labs reviewed by me, Image(s) reviewed by me Problem List/Assessment/Plan Problem List/Assessment/Plan # Sepsis likely due to complicated appendicitis # Acute appendicitis complicated by rupture s/p open appendectomy # likely postoperative ileus-resolved - CT abdominal pelvis showed ruptured acute appendicitis with suspected ileus or partial small bowel obstruction - Patient underwent open appendectomy on 09/23/2024, postoperative day 5, patient tolerated the procedure well - currently giving Zosyn and IVF - ordered blood culture - monitor lab - Culture showed E coli - full liquid diet # NEO likely VMN - Continue IVF - monitor lab # Vit D deficiency - Repleting # Hypokalemia - Repleting - Monitor lab SCDs for now Protonix full liquid diet Goals of care discussed with the patient for 27 minutes: Full code status Case management discussed with Dr. Ma, patient, family and nurse Plan discussed with: Patient My Orders My Orders Orders - JALEN FARFAN Procedure Category Date Status Time Magnesium Oxide PHA 09/28/24 In Process Tablet (Mag-Ox Tablet) 10:00 Potassium Er Tablet PHA 09/28/24 In Process (Klor-Con Tablet) 10:00 Dietary Evaluation Review Comments: 1) Advance pt diet when medically feasible 2) Continue current plan of care Expected Outcomes/Goals: 1) Pt diet to advance 2) F/U in 2-3 days Date of Service: Sep 28, 2024 Billing Provider: NORBERT MA MD Common Visit Codes: [id number] INP/OBS CARE(HIGH) JALEN FARFAN Sep 28, 2024 14:28 NORBERT MA MD Sep 30, 2024 19:06
[2024-09-29] VITALS (7 sets, daily range): BP systolic 115–133; BP diastolic 55–74; PULSE 80–112; RESP 18–21; TEMP 98.1–98.8; O2SAT 93–98
[2024-09-29 06:36] LABS: Basophils # (auto) 0 10 ^3/uL (0-0.2); Basophils % (auto) 0.4 % (0.0-2.0); Eosinophils # (auto) 0.1 10 ^3/uL (0-0.8); Eosinophils % (auto) 0.6 % (0.0-7.0); Hematocrit 33.5 % (41.0-53.0); Hemoglobin 11.5 g/dL (13.5-17.5); Lymphocytes # (auto) 0.8 10 ^3/uL (0.4-5.4); Lymphocytes % (auto) 8.2 % (10.0-50.0); Mean Corpuscular Hemoglobin 32.5 pg (28.0-32.0); Mean Corpuscular Hgb Conc. 34.5 g/dL (32.0-36.0); Mean Corpuscular Volume 94.3 fL (80.0-100.0); Monocytes # (auto) 0.9 10 ^3/uL (0-1.3); Monocytes % (auto) 9.8 % (0.0-12.0); Neutrophils # (auto) 7.4 10 ^3/uL (1.6-8.6); Nucleated Red Blood Cells % 0.1 %; Platelet Count (auto) 272 10^3/uL (140-450); Red Blood Cells 3.55 10^6/uL (4.5-5.90); Red Cell Distribution Width 12.7 % (11.8-14.3); White Blood Cell 9.1 10^3/uL (4.4-10.8)
[2024-09-29 06:53] LABS: Chloride 103 mmol/L (98-107); Potassium 3.6 mmol/L (3.5-5.1)
[2024-09-29 06:54] LABS: Anion Gap 8 (5-15); Carbon Dioxide 25 mmol/L (20-31)
[2024-09-29 06:55] LABS: Calcium 8.4 mg/dL (8.7-10.4); Sodium 136 mmol/L (136-145)
[2024-09-29 06:59] LABS: BUN/Creatinine Ratio 8.6 (10.0-20.0)
[2024-09-29 07:14] LABS: Blood Urea Nitrogen 8 mg/dL (9-23); Glucose 108 mg/dL (74-106)
--- NOTE | 2024-09-29 13:32 | DVH ---
CLINICAL INFORMATION: 29 years old, Male; shortness of breath. TECHNIQUE: Single AP portable chest radiograph was obtained. COMPARISON: None FINDINGS: Persistent elevation of the right hemidiaphragm. Opacities in the lung bases, likely atelectasis. Con solidation in the right lung base not excluded. No pneumothorax. Interval removal of the enteric tube . IMPRESSION: Bibasilar opacities, right greater than left, likely atelectasis, similar in appearance compared to t he prior exam. Consolidation in the left lung base not excluded. Correlate with clinical findings.
[2024-09-29] MEDS ORDERED: D5W/SOD CHL 0.45% 1,000 ML IV SCH (17:00)
--- NOTE | 2024-09-29 20:27 | DVHPNRES ---
Progress Note Date Seen: Sep 29, 2024 Resident Creating Document: LIZZETTE ALANIS RESIDENT Medical Necessity Reason Pt with a Central, PICC or Fol: No Subjective Review of Systems Mario Smith is a 29-year-old male patient who presents to the ED with the chief complaints of worsening intermittent, generalized abdominal which started seven days before his admission which he believes was triggered after eating hensley, but got progressively worse (intensity 10/10) which later radiated towards back and right flank, associated with dyspnea, bloating, nausea and vomiting, diarrhea. Patient initially thought of gastroenteritis, delaying his visit to the ED. Denies fever, chest pain, hematemesis, palpitations, diaphoresis and other acute associated symptoms. The initial evaluation ED completed CT of abdomen and pelvis which evidence complicated ruptured appendicitis with presence ileus, prompting stat evaluation by surgeon who completed open appendectomy. Past medical history: Obesity Surgical history: Denies Family history: Reviewed, noncontributory Social history: Lives at home. Denies smoking, alcohol and other drug abuse Allergies: No known allergies Home medication: Denies Patient seen and examined at the bedside. Patient currently feels better, tolerating full liquid diet. Presented a lot of pain after drainage of purulent discharge from surgical wound on 09/28/2024. He also had fever during this episode of drainage. Surgeon indicated evaluation by infectious disease specialist, we will continue with IV Zosyn at this point. Objective vital signs Vital Sign Date Time Temp Pulse Resp B/P (MAP) Pulse Ox O2 Delivery O2 Flow Rate FiO2 09/29/24 17:19 98.4 112 20 133/74 (93) 98 98.4 09/29/24 08:00 Room Air* 0 21 Total Intake and Output 09/28/24 09/28/24 09/29/24 15:00 23:00 07:00 Intake Total 250 ml 2690 ml 2600 ml Output Total 600 ml 620 ml Balance 250 ml 2090 ml 1980 ml medications Current Medications Medications Dose Ordered Sig/Prosper Route Start Time Stop Time Status Last Admin Dose Admin Ondansetron HCl 4 mg Q4HP PRN IV 09/23/24 16:00 Morphine Sulfate 2 mg Q4HPRN PRN IV 09/23/24 16:00 09/29/24 04:06 2 MG Nitroglycerin 0.4 mg Q5MINP PRN SL 09/23/24 16:15 Morphine Sulfate 2 mg Q30M PRN IV 09/23/24 16:15 Pantoprazole Sodium 40 mg DAILY IV 09/24/24 10:00 09/29/24 09:56 40 MG Ergocalciferol 50,000 unit Q7D PO 09/24/24 14:45 09/24/24 19:28 50,000 UNIT Acetaminophen 650 mg Q6HP PRN PO 09/24/24 21:45 09/28/24 20:56 650 MG Melatonin 5 mg HS PRN PO 09/24/24 21:45 09/24/24 22:05 5 MG Piperacillin Sod/ Tazobactam Sod 100 ml @ 25 mls/hr Q6HR IV 09/27/24 00:00 09/29/24 18:29 25 MLS/HR Magnesium Oxide 400 mg BID PO 09/28/24 10:00 09/29/24 09:56 400 MG Potassium Chloride 10 meq DAILY PO 09/28/24 10:00 09/29/24 09:55 10 MEQ Dextrose/Sodium Chloride 1,000 ml @ 50 mls/hr Q20H IV 09/30/24 00:00 Examination Patient lying in bed, in no acute distress General: Lucid, afebrile, mucosae are moist Cardiovascular: Normal S1 and S2. No murmurs, gallops or rubs Respiratory: Normal ventilation mechanics. Clear lung sounds on auscultation Abdomen: Mildly distended, tenderness in distal surgical site of open appendectomy rest of abdomen nontender, no organomegaly, decreased bowel sounds. Presents purulent discharge from distal portion of surgical site of open appendectomy. WALTER drainage contains purulent discharge MSK/skin: Mobilizes 4 limbs. Skin is dry and warm Neurological: Oriented in 3 spheres. No motor no sensitive deficits. Pupils are isocoric and reactive laboratory and microbiology Laboratory Tests 09/29/24 05:57 Test 09/29/24 05:57 Range/Units Serum Glucose 108 H 74-106 mg/dL Microbiology Date/Time Source Procedure Growth Status 09/23/24 23:01 Blood Blood Culture - Final NO GROWTH AFTER 5 DAYS OF INCUBATION. Complete 09/23/24 17:30 Abdomen Gram Stain - Final Complete 09/23/24 17:30 Abdomen Anaerobic Culture - Final Complete 09/23/24 17:30 Aerobic Culture - Final Escherichia coli Complete Problem List/Assessment/Plan Problem List/Assessment/Plan Sepsis likely due to complicated appendicitis Surgical culture evidence E coli which is multi sensory to antibiotics. Due to purulent discharge and register is a fever, we will continue with IV Zosyn at this point urban gardening specialist consulted ID, pending evaluation Acute appendicitis complicated by rupture - s/p open appendectomy Evidence in abdomen and pelvis CT on admission: Showed ruptured acute appendicitis was suspected ileus and partial small bowel obstruction urban gardening specialist on board: Completed open appendectomy on 09/23/2024. Continues with slow recovery, patient presents purulent discharge from surgical site. urban gardening specialist ordered ID evaluation Presents WALTER drainage which still contains purulent discharge Patient is on SCDs, indicate mobilization at this point to avoid blood thinners. Physical therapy Likely postoperative ileus - resolved Patient currently tolerating full liquid diet NEO hemodynamically mediated Continue IVF Monitor lab Vitamin D deficiency Replenished Hypokalemia Replenished SCDs for now Protonix full liquid diet Goals of care discussed with patient for over 18 minutes: Full code status Case management discussed with Dr. Carranza, patient, family and nurse: Continue with full liquid diet, broad spectrum IV antibiotics, and PT sessions. water resource specialist on board, ordered ID evaluation due to purulent discharge form surgical site. Patient has poor prognosis. Plan discussed with: Patient, Other (Father and nurses) My Orders My Orders Orders - LIZZETTE ALANIS Procedure Category Date Status Time Chest Two Views XY 09/29/24 Resulted Routine 08:50 Dietary Evaluation Review Comments: 1) Advance pt diet when medically feasible 2) Continue current plan of care Expected Outcomes/Goals: 1) Pt diet to advance 2) F/U in 2-3 days Date of Service: Sep 29, 2024 Billing Provider: NORBERT CARRANZA MD Common Visit Codes: [id number] INP/OBS CARE(HIGH) LIZZETTE ALANIS Sep 29, 2024 20:27 NORBERT CARRANZA MD Sep 30, 2024 19:06
--- NOTE | 2024-09-29 21:33 | DVHPN2 ---
Progress Note Date Seen: Sep 29, 2024 Medical Necessity Reason Pt with a Central, PICC or Fol: No Objective vital signs Vital Sign Date Time Temp Pulse Resp B/P (MAP) Pulse Ox O2 Delivery O2 Flow Rate FiO2 09/29/24 21:00 98.1 80 19 115/55 (75) 97 98.1 09/29/24 08:00 Room Air* 0 21 Total Intake and Output 09/28/24 09/28/24 09/29/24 15:00 23:00 07:00 Intake Total 250 ml 2690 ml 2600 ml Output Total 600 ml 620 ml Balance 250 ml 2090 ml 1980 ml medications Current Medications Medications Dose Ordered Sig/Prosper Route Start Time Stop Time Status Last Admin Dose Admin Ondansetron HCl 4 mg Q4HP PRN IV 09/23/24 16:00 Morphine Sulfate 2 mg Q4HPRN PRN IV 09/23/24 16:00 09/29/24 04:06 2 MG Nitroglycerin 0.4 mg Q5MINP PRN SL 09/23/24 16:15 Morphine Sulfate 2 mg Q30M PRN IV 09/23/24 16:15 Pantoprazole Sodium 40 mg DAILY IV 09/24/24 10:00 09/29/24 09:56 40 MG Ergocalciferol 50,000 unit Q7D PO 09/24/24 14:45 09/24/24 19:28 50,000 UNIT Acetaminophen 650 mg Q6HP PRN PO 09/24/24 21:45 09/28/24 20:56 650 MG Melatonin 5 mg HS PRN PO 09/24/24 21:45 09/24/24 22:05 5 MG Piperacillin Sod/ Tazobactam Sod 100 ml @ 25 mls/hr Q6HR IV 09/27/24 00:00 09/29/24 18:29 25 MLS/HR Magnesium Oxide 400 mg BID PO 09/28/24 10:00 09/29/24 21:25 400 MG Potassium Chloride 10 meq DAILY PO 09/28/24 10:00 09/29/24 09:55 10 MEQ Dextrose/Lactated Ringer's 1,000 ml @ 50 mls/hr Q20H IV 09/29/24 20:30 laboratory and microbiology Laboratory Tests 09/29/24 05:57 Test 09/29/24 05:57 Range/Units Serum Glucose 108 H 74-106 mg/dL Microbiology Date/Time Source Procedure Growth Status 09/23/24 23:01 Blood Blood Culture - Final NO GROWTH AFTER 5 DAYS OF INCUBATION. Complete 09/23/24 17:30 Abdomen Gram Stain - Final Complete 09/23/24 17:30 Abdomen Anaerobic Culture - Final Complete 09/23/24 17:30 Aerobic Culture - Final Escherichia coli Complete Problem List/Assessment/Plan Problem List/Assessment/Plan AFEBRILE VSS ABD SOFT LESS DISTENDED ABD WOUND DRAINAGE PURULENT BUT LESS DRESSING CHANGED BM + FLATUS + WBC WNL CHAIM FULL LIQUIDS IV ABX NURSE AND FAMILY AT BEDSIDE ALLOW AMBULATION Plan discussed with: Patient My Orders My Orders Orders - EDISON NUÑEZ MD Procedure Category Date Status Time Soft Diet DIET 09/29/24 Transmitted Dinner Dietary Evaluation Review Comments: 1) Advance pt diet when medically feasible 2) Continue current plan of care Expected Outcomes/Goals: 1) Pt diet to advance 2) F/U in 2-3 days EDISON NUÑEZ MD Sep 29, 2024 21:33
[2024-09-29] MEDS: D5W/LACTATED RINGERS 1,000 ML IV SCH (21:49)
[2024-09-30] MEDS ORDERED: D5W/SOD CHL 0.45% 1,000 ML IV SCH
[2024-09-30 01:00] VITALS: BP 117/71; PULSE 97; RESP 20; TEMP 98.6; O2SAT 94
[2024-09-30] MEDS: PIPERACILLIN-TAZOB 3.375GM 100 ML IV SCH (02:25)
[2024-09-30 05:00] VITALS: BP 118/73; PULSE 104; RESP 20; TEMP 98.5; O2SAT 94
--- NOTE | 2024-09-30 05:12 | DVHPNRES ---
Progress Note Date Seen: Sep 30, 2024 Resident Creating Document: DEMETRIS MORENO RESIDENT Medical Necessity Reason Pt with a Central, PICC or Fol: No Medical Necessity Reason 29-year-old male patient who presented to the emergency department with complaints of worsening intermittent generalized abdominal pain that began 7 day prior to admission. He attributed the pain to consuming hensley. The patient was diagnosed with the complicated ruptured acute appendicitis and underwent an open appendectomy. Postoperatively, the patient initially demonstrated signs of intra-abdominal infection and was started on piperacillin tazobactam on 09/27/2024. Since surgery, the patient has reported gradual improvement. He denies current abdominal pain, nausea or vomiting. He has resumed normal bowel movements and flatulence and is tolerating a full liquid diet. Physical therapy was ordered to encourage ambulation. On 09/30/2024 the patient is on the 4th day of the mcc tazobactam. Despite some residual purulent drainage from surgical wound the drainage has decreased compared to earlier days. The wound was redressed and during these assessment vital signs remained stable and the patient is afebrile. White blood cell count has normalized. Patient was examined at bedside, he reports feeling good without any acute complaint, WALTER draining is currently empty, but he mentioned that yesterday while the nurses were changing the dressings he noticed blood and purulent fluid over the wound. Infectious disease consult is pending. Subjective Review of Systems Constitutional: No: Fever, Chills, Sweats, Weakness, Malaise, Other Eyes: No: Pain, Vision change, Conjunctivae inflammation, Eyelid inflammation, Other, Redness ENT: No: Ear pain, Ear discharge, Nose pain, Nose discharge, Nose congestion, Mouth pain, Mouth swelling, Throat pain, Throat swelling, Other Respiratory: No Wheezing, Hemoptysis, Pleuritic Pain, Sputum, Wheezing, Other Cardiovascular: No: Chest Pain, Palpitations, Orthopnea, Paroxysmal Noc. Dyspnea, Edema, Lt Headedness, Other Gastrointestinal: No: Nausea, Vomiting, Abdominal Pain, Diarrhea, Constipation, Melena, Hematochezia, Other Musculoskeletal: No: other, neck pain, shoulder pain, arm pain, back pain, hand pain, leg pain, foot pain Neurological:; No: Weakness, Numbness, Incoordination, Change in speech, Confusion, Seizures Patient reports: Feels better Changes from previous H/P or p: Changes Objective vital signs Vital Sign Date Time Temp Pulse Resp B/P (MAP) Pulse Ox O2 Delivery O2 Flow Rate FiO2 09/30/24 01:00 98.6 97 20 117/71 (86) 94 98.6 09/29/24 20:00 Room Air* 0 21 Total Intake and Output 09/29/24 09/29/24 09/30/24 15:00 23:00 07:00 Intake Total 1500 ml Output Total 600 ml Balance 900 ml medications Current Medications Medications Dose Ordered Sig/Prosper Route Start Time Stop Time Status Last Admin Dose Admin Ondansetron HCl 4 mg Q4HP PRN IV 09/23/24 16:00 Morphine Sulfate 2 mg Q4HPRN PRN IV 09/23/24 16:00 09/29/24 04:06 2 MG Nitroglycerin 0.4 mg Q5MINP PRN SL 09/23/24 16:15 Morphine Sulfate 2 mg Q30M PRN IV 09/23/24 16:15 Pantoprazole Sodium 40 mg DAILY IV 09/24/24 10:00 09/29/24 09:56 40 MG Ergocalciferol 50,000 unit Q7D PO 09/24/24 14:45 09/24/24 19:28 50,000 UNIT Acetaminophen 650 mg Q6HP PRN PO 09/24/24 21:45 09/29/24 22:04 650 MG Melatonin 5 mg HS PRN PO 09/24/24 21:45 09/24/24 22:05 5 MG Magnesium Oxide 400 mg BID PO 09/28/24 10:00 09/29/24 21:25 400 MG Potassium Chloride 10 meq DAILY PO 09/28/24 10:00 09/29/24 09:55 10 MEQ Dextrose/Lactated Ringer's 1,000 ml @ 50 mls/hr Q20H IV 09/29/24 20:30 09/29/24 21:49 50 MLS/HR Piperacillin Sod/ Tazobactam Sod 100 ml @ 25 mls/hr Q6H IV 09/30/24 03:00 09/30/24 02:25 25 MLS/HR Examination Examination General Appearance: Alert, Oriented X3, Cooperative, No acute distress HEENT: EOMI Respiratory: Clear to auscultation, Normal air movement Cardiovascular: Regular rate, Normal S1, Normal S2 Abdominal: Status post open appendectomy, pulse and blood draining from the wound. His passing gas and having bowel movement Extremities: No cyanosis, No edema, Normal pulses, No tenderness/swelling Skin: No rashes, No breakdown Neuro: Normal gait, Normal speech, Strength at 5/5 X4 ext, Normal tone, Sensation intact, Cranial nerves 3-12 NL, Reflexes 2+ Psych/Mental Status: Mental status NL, Mood NL laboratory and microbiology Laboratory Tests 09/29/24 05:57 Test 09/29/24 05:57 Range/Units Serum Glucose 108 H 74-106 mg/dL Microbiology Date/Time Source Procedure Growth Status 09/23/24 23:01 Blood Blood Culture - Final NO GROWTH AFTER 5 DAYS OF INCUBATION. Complete 09/23/24 17:30 Abdomen Gram Stain - Final Complete 09/23/24 17:30 Abdomen Anaerobic Culture - Final Complete 09/23/24 17:30 Aerobic Culture - Final Escherichia coli Complete Problem List/Assessment/Plan Problem List/Assessment/Plan Sepsis likely due to acute gangrenous appendicitis with perforation Surgical culture evidence E coli which is multi sensory to antibiotics. Due to purulent discharge and register is a fever, we will continue with IV Zosyn resource recovery specialist consulted ID to evaluate purulent drainage, pending evaluation Acute appendicitis complicated by rupture - s/p open appendectomy Evidence in abdomen and pelvis CT on admission: Showed ruptured acute appendicitis resource recovery specialist on board: Completed open appendectomy on 09/23/2024. Continues with slow recovery, patient presents purulent discharge from surgical site. Presents WALTER drainage which still contains purulent discharge Patient is on SCDs, indicate mobilization at this point to avoid blood thinners. Physical therapy Likely postoperative ileus due to comorbidities - resolved Patient currently tolerating full liquid diet NEO hemodynamically mediated due to VMN with strong POA Continue IVF Monitor lab Pneumonia was ruled out Vitamin D deficiency Replenished Hypokalemia Replenished SCDs for now Protonix full liquid diet Goals of care discussed with patient for over 18 minutes: Full code status Case management discussed with Dr. Carranza, patient, family and nurse: Continue with full liquid diet, broad spectrum IV antibiotics, and PT sessions. physical security specialist on board, ordered ID evaluation due to purulent discharge form surgical site. Attending's note: Patient still has fever and abdominal pain with purulent discharge Will do CT abd and pelvis CT abd&pelvis: Multiple abscesses in the abdomen Findings discussed with Dr. La Almaraz, he will evaluate him He recommends IR drainage Will consult IR for CT guided abscess drainage 19:10 pm Marcelino Carranza MD Plan discussed with: Patient Dietary Evaluation Review Comments: 1) Advance pt diet when medically feasible 2) Continue current plan of care Expected Outcomes/Goals: 1) Pt diet to advance 2) F/U in 2-3 days Date of Service: Sep 30, 2024 Billing Provider: MARCELINO CARRANZA MD Common Visit Codes: [id number] INP/OBS CARE(HIGH) DEMETRIS MORENO RESIDENT Sep 30, 2024 05:12 MARCELINO CARRANZA MD Sep 30, 2024 19:10
[2024-09-30 07:43] LABS: Basophils # (auto) 0 10 ^3/uL (0-0.2); Basophils % (auto) 0.4 % (0.0-2.0); Eosinophils # (auto) 0.1 10 ^3/uL (0-0.8); Eosinophils % (auto) 0.6 % (0.0-7.0); Hematocrit 32.2 % (41.0-53.0); Hemoglobin 11.2 g/dL (13.5-17.5); Lymphocytes # (auto) 0.9 10 ^3/uL (0.4-5.4); Lymphocytes % (auto) 9.6 % (10.0-50.0); Mean Corpuscular Hemoglobin 32.9 pg (28.0-32.0); Mean Corpuscular Hgb Conc. 34.9 g/dL (32.0-36.0); Mean Corpuscular Volume 94.4 fL (80.0-100.0); Monocytes # (auto) 1.1 10 ^3/uL (0-1.3); Neutrophils # (auto) 7.5 10 ^3/uL (1.6-8.6); Neutrophils % (auto) 78.4 % (37.0-80.0); Platelet Count (auto) 295 10^3/uL (140-450); Red Blood Cells 3.41 10^6/uL (4.5-5.90); Red Cell Distribution Width 12.9 % (11.8-14.3); White Blood Cell 9.6 10^3/uL (4.4-10.8)
[2024-09-30 07:48] LABS: INR 1.24 (0.9-1.15); Partial Thromboplastin Time 25.2 SEC (24.5-34.5); Prothrombin Time 12.9 sec (9.3-11.8)
[2024-09-30 07:53] LABS: Alkaline Phosphatase 67 U/L (46-116); Anion Gap 8 (5-15); Aspartate Aminotransferase 30 U/L (13-40); BUN/Creatinine Ratio 8.1 (10.0-20.0); Bilirubin, Total 0.6 mg/dL (0.2-1.0); Calcium 8.7 mg/dL (8.7-10.4); Carbon Dioxide 23 mmol/L (20-31); Chloride 104 mmol/L (98-107); Magnesium 1.6 mg/dL (1.6-2.6); Phosphorus 3.2 mg/dL (2.4-5.1); Potassium 3.6 mmol/L (3.5-5.1); Total Protein 6.5 g/dL (5.7-8.2)
[2024-09-30 08:13] LABS: Alanine Aminotransferase 41 U/L (7-40); Albumin 3.2 g/dL (3.2-4.8); Blood Urea Nitrogen 7 mg/dL (9-23); Glucose 107 mg/dL (74-106); Sodium 135 mmol/L (136-145)
[2024-09-30 09:00] VITALS: BP 118/72; PULSE 102; RESP 16; TEMP 98.3; O2SAT 94
--- NOTE | 2024-09-30 12:18 | DVH ---
Exam: CT CT AB PEL WO CON-NO ORAL OR IV History: rule out fluid collection (abscess) Comparison Study: CT CT AB PEL WO CON-NO ORAL OR IV on DOS: 09/23/24 Technique: Multidetector spiral CT of the abdomen and pelvis was performed from lung bases to pubic symphysis. Imaging was performed without IV contrast. Axial, coronal and sagittal multiplanar reform ats were obtained from the axial data set by the technologist. Radiation dose : Abdomen/Pelvis: CTDIvol 10 mGy, DLP 632 mGy*cm. Findings: Evaluation of solid organs is limited due to lack of intravenous contrast use. Lung Bases: Trace bilateral pleural effusions with associated atelectasis and consolidation right gre ater than left. Liver: Diffuse hepatic steatosis. Gallbladder and biliary Tree: Sludge in the gallbladder. Spleen: Unremarkable Pancreas: The pancreas is grossly normal in appearance. Adrenal Glands: Unremarkable Kidneys: Kidneys are grossly normal without calculi or hydronephrosis. Bladder: Grossly unremarkable for degree of distention. Bowel: The stomach is grossly normal in appearance. Mild dilation of small bowel loops in the left ab domen. There is phlegmon in the region of the appendix. Ascites: Absent Lymphadenopathy: No mesenteric, retroperitoneal or periportal lymphadenopathy. Abdominal wall and Mesentery: There are postsurgical changes in the anterior abdominal wall. There i s a surgical drain with tip in the mid abdomen. No significant fluid collection associated with the drain. There are multiple other loculated fluid collections in the right paracolic gutter, largest m easuring up to 124 x 146 mm. Other collections measure 65 mm, 113 mm, and 89 mm. Vasculature: The visualized abdominal aorta is normal in size and caliber. Evaluation of abdominal a nd pelvic vessels is limited due to lack of intravenous contrast. Pelvic Organs: Unremarkable Musculoskeletal: No aggressive focal bony lesions, acute fractures or dislocation. IMPRESSION: 1. Multiple loculated abscesses in the right paracolic gutter, largest measuring up to 146 mm. Multi ple other fluid collections as above. These fluid collections are in adequately drained by the surgi patrick placed drain. Recommend CT-guided drainage. Persistent phlegmon in the region of the appendix. 2. Small-bowel dilation could be due to ileus. Clinical correlation and continued follow-up is recom mended. Trace bilateral pleural effusions with associated bibasilar atelectasis and consolidation rig [id number]. Radiation optimization: All CT scans at this facility use at least one of these dose optimization debi hniques: Automated exposure control mA and/or kV adjustment per patient size (includes targeted exams where dose is matched to clinical indication) or iterative reconstruction. HS:Y
[2024-09-30 13:00] VITALS: BP 119/75; PULSE 110; RESP 17; TEMP 99.5; O2SAT 94
[2024-09-30 17:00] VITALS: BP 121/72; PULSE 115; RESP 17; TEMP 101.4; O2SAT 94
--- NOTE | 2024-09-30 19:38 | DVHPN2 ---
Progress Note Date Seen: Sep 30, 2024 Medical Necessity Reason Pt with a Central, PICC or Fol: No Objective vital signs Vital Sign Date Time Temp Pulse Resp B/P (MAP) Pulse Ox O2 Delivery O2 Flow Rate FiO2 09/30/24 17:00 101.4 115 17 121/72 (88) 94 101.4 09/30/24 08:00 Room Air* 0 21 Total Intake and Output 09/29/24 09/29/24 09/30/24 15:00 23:00 07:00 Intake Total 1500 ml 840 ml Output Total 600 ml 1450 ml Balance 900 ml -610 ml medications Current Medications Medications Dose Ordered Sig/Prosper Route Start Time Stop Time Status Last Admin Dose Admin Ondansetron HCl 4 mg Q4HP PRN IV 09/23/24 16:00 Morphine Sulfate 2 mg Q4HPRN PRN IV 09/23/24 16:00 09/29/24 04:06 2 MG Nitroglycerin 0.4 mg Q5MINP PRN SL 09/23/24 16:15 Morphine Sulfate 2 mg Q30M PRN IV 09/23/24 16:15 Pantoprazole Sodium 40 mg DAILY IV 09/24/24 10:00 09/30/24 09:25 40 MG Ergocalciferol 50,000 unit Q7D PO 09/24/24 14:45 09/24/24 19:28 50,000 UNIT Acetaminophen 650 mg Q6HP PRN PO 09/24/24 21:45 09/29/24 22:04 650 MG Melatonin 5 mg HS PRN PO 09/24/24 21:45 09/24/24 22:05 5 MG Magnesium Oxide 400 mg BID PO 09/28/24 10:00 09/30/24 09:25 400 MG Potassium Chloride 10 meq DAILY PO 09/28/24 10:00 09/30/24 09:25 10 MEQ Dextrose/Lactated Ringer's 1,000 ml @ 50 mls/hr Q20H IV 09/29/24 20:30 09/29/24 21:49 50 MLS/HR Piperacillin Sod/ Tazobactam Sod 100 ml @ 25 mls/hr Q6H IV 09/30/24 03:00 09/30/24 15:00 25 MLS/HR laboratory and microbiology Laboratory Tests 09/30/24 06:50 Test 09/30/24 06:50 Range/Units Serum Glucose 107 H 74-106 mg/dL Microbiology Date/Time Source Procedure Growth Status 09/23/24 23:01 Blood Blood Culture - Final NO GROWTH AFTER 5 DAYS OF INCUBATION. Complete 09/23/24 17:30 Abdomen Gram Stain - Final Complete 09/23/24 17:30 Abdomen Anaerobic Culture - Final Complete 09/23/24 17:30 Aerobic Culture - Final Escherichia coli Complete Problem List/Assessment/Plan Problem List/Assessment/Plan AFEBRILE T max 1007 VSS ABD SOFT DISTENDED TENDER RLQ ABD WOUND DRAINAGE LESS PURULENT AND LESS DRESSING CHANGED BM + FLATUS + WBC WNL CHAIM FULL LIQUIDS IV ABX CT SCAN NOTED CONSIDER IR DRAINAGE I/D CONSULT NURSE AND FAMILY AT BEDSIDE Plan discussed with: Patient Dietary Evaluation Review Comments: 1) Advance pt diet when medically feasible 2) Continue current plan of care Expected Outcomes/Goals: 1) Pt diet to advance 2) F/U in 2-3 days EDISON NUÑEZ MD Sep 30, 2024 19:38
[2024-09-30 21:00] VITALS: BP_SYST 108; BP_SYST 146; BP_DIAS 60; BP_DIAS 64; PULSE 100; PULSE 115; RESP 20; TEMP 102.6; TEMP 98.2; O2SAT 90; O2SAT 96
[2024-10-01] VITALS (8 sets, daily range): BP systolic 109–127; BP diastolic 65–83; PULSE 101–120; RESP 15–20; TEMP 98.4–101.8; O2SAT 93–97
--- NOTE | 2024-10-01 | DVHINCON2 ---
Date of service: Sep 30, 2024 Family History: Patient reports no known family medical history. Allergies: Coded Allergies: NO KNOWN ALLERGIES (Unverified , 09/23/24) Home Meds No Active Prescriptions or Reported Meds Current Medications Current Medications Medications (Trade) Dose Ordered Sig/Prosper Route PRN Reason Start Time Stop Time Status Last Admin Piperacillin Sod/ Tazobactam Sod 100 ml @ 25 mls/hr Q6H IV 09/30/24 03:00 09/30/24 21:05 Vital Signs Vital Signs Date Time Temp Pulse Resp B/P (MAP) Pulse Ox O2 Delivery O2 Flow Rate FiO2 09/30/24 21:01 102.6 09/30/24 21:00 115 20 108/60 (76) 90 09/30/24 08:00 Room Air* 0 21 Labs/Diagnostic Data Labs Test 09/30/24 06:50 09/27/24 05:23 09/24/24 06:18 09/23/24 14:46 Range/Units White Blood Count 9.6 4.4-10.8 10^3/uL Red Blood Count 3.41 L 4.5-5.90 10^6/uL Hemoglobin 11.2 L 13.5-17.5 g/dL Hematocrit 32.2 L 41.0-53.0 % Mean Corpuscular Volume 94.4 80.0-100.0 fL Mean Corpuscular Hemoglobin 32.9 H 28.0-32.0 pg Mean Corpuscular Hemoglobin Concent 34.9 32.0-36.0 g/dL Red Cell Distribution Width 12.9 11.8-14.3 % Platelet Count 295 140-450 10^3/uL Mean Platelet Volume 8.9 6.9-10.8 fL Neutrophils (%) (Auto) 78.4 37.0-80.0 % Lymphocytes (%) (Auto) 9.6 L 10.0-50.0 % Monocytes (%) (Auto) 11.0 0.0-12.0 % Eosinophils (%) (Auto) 0.6 0.0-7.0 % Basophils (%) (Auto) 0.4 0.0-2.0 % Neutrophils # (Auto) 7.5 1.6-8.6 10 ^3/uL Lymphocytes # (Auto) 0.9 0.4-5.4 10 ^3/uL Monocytes # (Auto) 1.1 0-1.3 10 ^3/uL Eosinophils # (Auto) 0.1 0-0.8 10 ^3/uL Basophils # (Auto) 0 0-0.2 10 ^3/uL Nucleated Red Blood Cells 0.0 % Prothrombin Time 12.9 H 9.3-11.8 sec Prothrombin Time INR 1.24 H 0.9-1.15 Activated Partial Thromboplast Time 25.2 24.5-34.5 SEC Sodium Level 135 L 136-145 mmol/L Potassium Level 3.6 3.5-5.1 mmol/L Chloride Level 104 98-107 mmol/L Carbon Dioxide Level 23 20-31 mmol/L Anion Gap 8 5-15 Blood Urea Nitrogen 7 L 9-23 mg/dL Creatinine 0.86 0.700-1.30 mg/dL Glomerular Filtration Rate Calc 119 >90 mL/min BUN/Creatinine Ratio 8.1 L 10.0-20.0 Serum Glucose 107 H 74-106 mg/dL Calcium Level 8.7 8.7-10.4 mg/dL Phosphorus Level 3.2 2.4-5.1 mg/dL Magnesium Level 1.6 1.6-2.6 mg/dL Total Bilirubin 0.6 0.2-1.0 mg/dL Aspartate Amino Transferase (AST) 30 13-40 U/L Alanine Aminotransferase (ALT) 41 H 7-40 U/L Alkaline Phosphatase 67 46-116 U/L Total Protein 6.5 5.7-8.2 g/dL Albumin 3.2 3.2-4.8 g/dL Differential Total Cells Counted 100.0 100 Neutrophils % (Manual) 79 37.0-80.0 Band Neutrophils % (Manual) 5 Lymphocytes % (Manual) 10 10.0-50.0 Monocytes % (Manual) 6 0-12 Eosinophils % (Manual) 0 0-7 Basophils % (Manual) 0 0.0-2.0 Metamyelocytes % (manual) 0 Myelocytes % (Manual) 0 Promyelocytes % (Manual) 0 Blast Cells % (Manual) 0 Reactive Lymphocytes 0 Platelet Estimate Adequate Red Blood Cell Morphology Normal Triglycerides Level 164 H < 150 mg/dL Cholesterol Level 110 < 200 mg/dL LDL Cholesterol 65 < 100 mg/dL HDL Cholesterol 16 L 40-59 mg/dL Vitamin B12 Level 3119 H 211-911 pg/mL Vitamin D 25-Hydroxy 18.6 L 30.0-100 ng/mL Thyroid Stimulating Hormone (TSH) 0.65 0.55-4.78 uIU/mL Lactic Acid Level 1.7 0.4-2.0 mmol/L Test 09/23/24 13:49 09/23/24 13:45 Range/Units Urine Color Yellow Yellow Urine Clarity Turbid H Clear Urine pH 6.0 5.0-9.0 Urine Specific Elizabeth 1.038 H 1.001-1.035 Urine Protein 2+ H Negative Urine Ketones 1+ H Negative Urine Blood Negative Negative /uL Urine Nitrite Negative Negative Urine Bilirubin Negative Negative Urine Urobilinogen Normal Negative mg/dL Urine Leukocyte Esterase Negative Negative /uL Urine RBC 2 0 - 3 /hpf Urine WBC 24 0 - 3 /hpf Urine Squamous Epithelial Cells Few <5 /hpf Urine Bacteria None seen None Seen /hpf Urine Hyaline Casts Few 0 - 2 /lpf Urine Mucus Few None Seen Urine Glucose Normal Normal mg/dL Hemoglobin A1c 4.9 <5.7 % A1C Lipase 29 12-53 U/L Microbiology Date/Time Source Procedure Growth Status 09/23/24 23:01 Blood Blood Culture - Final NO GROWTH AFTER 5 DAYS OF INCUBATION. Complete 09/23/24 17:30 Abdomen Gram Stain - Final Complete 09/23/24 17:30 Abdomen Anaerobic Culture - Final Complete 09/23/24 17:30 Aerobic Culture - Final Escherichia coli Complete Problems(with codes): (1) Acute renal injury (2) Ruptured appendicitis (3) Elevated liver enzymes (4) Leukocytosis, unspecified (5) Electrolyte imbalance (6) Acute abdominal pain (7) Bowel obstruction (8) Pneumonia, unspecified organism Plan/Recommendation ASSESSMENT AND PLAN: ID Problem List: - Intra-abdominal abscesses - Perforated appendicitis - Sepsis - E. coli infection - Ileus - Small bowel obstruction Assessment This is a [age not provided] y.o. male with no significant past medical history who presents with a perforated appendicitis complicated by intra-abdominal abscesses and sepsis. The patient underwent a laparoscopic lysis of adhesions, open drainage of intra- abdominal abscesses, and an open appendectomy on September 23. Operative findings included a distended peritoneum due to ileus, free air, distention of small and large intestines with serosal traction and ischemia, and a perforated appendix. A 19 Fr Noe drainage tube was placed. Currently, the patient has purulent drainage from the Noe drain, with intra- abdominal cultures growing E. coli. White blood cell count remains elevated at 21 on September 25. Repeat imaging revealed multiloculated abscesses in the right paracolic gutter, the largest measuring 14.6 cm. Multiple other fluid collections are inadequately drained. Bowel dilation may be due to ileus. Plan: - Switch antibiotics to [id number] - Recommend additional drain placement for larger intra-abdominal abscesses - Continue to monitor WBC count and vital signs - Send any new aspirate samples from drains for aerobic and anaerobic cultures - Follow up on blood cultures Isolation Precautions: Standard Assessment and plan were discussed with the patient as written above. Plan is subject to change pending incorporation of new incoming information/diagnostics. Updates may be added as addendum at the bottom (OR TOP) of this note. Thank you for the interesting consult. ID will continue to follow. Please contact Infectious Disease for any questions or concerns. - History: The patient's chart and medications were reviewed in detail, and the patient was seen and examined. History obtained from: Patient Mr. Smith is a [age not provided] y.o. male with no significant past medical history who presents with a perforated appendicitis complicated by intra- abdominal abscesses and sepsis. The patient presented with nausea, vomiting, and fever. Vital signs on admission were blood pressure 120/70 mmHg, heart rate 110 bpm, temperature 100.1 F, and oxygen saturation 96% on room air. Laboratory data on admission showed WBC 3, platelets 260, sodium 135, BUN 28, creatinine 1.44, AST 66, ALT 91, and lactate 1.7. A CT abdomen/pelvis revealed a suspected ruptured acute appendicitis with multiple fluid-air collections tracking up to the right flank, suggesting secondary ileus and small bowel obstruction. On September 23, the patient underwent a laparoscopic lysis of adhesions, open drainage of intra-abdominal abscesses, and an open appendectomy. Operative findings included a distended peritoneum due to ileus, free air, distention of small and large intestines with serosal traction and ischemia, and a perforated appendix. A 19 Fr Noe drainage tube was placed. Currently, the patient has purulent drainage from the Noe drain, with intra-a bdominal cultures growing E. coli. Fluid cultures show no growth to date. WBC count remains elevated at 21 on September 25. Repeat imaging showed multiloculated abscesses in the right paracolic gutter, the largest measuring 14.6 cm. Multiple other fluid collections are inadequately drained. Bowel dilation may be due to ileus. Review of Systems: A complete 10-system review of systems was completed and negative except as noted in the HPI or here. ROS: - CONSTITUTIONAL: Positive for fever, nausea, and vomiting. - HEENT: Denies changes in vision and hearing. - RESPIRATORY: Denies shortness of breath and cough. - CV: Denies palpitations and chest pain. - GI: Reports abdominal pain, nausea, and vomiting. - : Denies dysuria and urinary frequency. - MSK: Denies myalgia and joint pain. - SKIN: Denies rash and pruritus. - NEUROLOGICAL: Denies headache and syncope. - PSYCHIATRIC: Denies recent changes in mood, anxiety, and depression. Past Medical History: - No significant past medical history. Past Surgical History: - History reviewed. No prior surgical history. Home Medications: - No home medications reported. Allergies: - Allergies: No Known Allergies Family History: - Family history not on file. Social History: - Social history not on file. - Objective: Vital Signs on Arrival: - Temp: 100.1 F - BP: 120/70 mmHg - Pulse: 110 bpm - Resp: [Not provided] - SpO?: 96% on room air Most Recent Vital Signs: - Temp: [Most recent temperature if available] - BP: [Most recent blood pressure] - Pulse: [Most recent pulse] - Resp: [Most recent respiration rate] - SpO?: [Most recent oxygen saturation] Admission Weight: - Weight: [Not provided] - BMI: [Not provided] Physical Exam: - General: Appears ill. - Neck: Supple. No masses. - HEENT: PERRL. Normal lids and conjunctiva. Moist mucous membranes. Oropharynx without lesions, exudates, or excessive erythema. Normal appearance of the ext ernal aspects of the nose and ears. - Heart: Regular rhythm, tachycardic. No murmur. No lower extremity edema. - Lungs: Normal respiratory effort. Clear to auscultation bilaterally. No wheezes. No crackles. - Abdomen: Distended. Tender to palpation. No masses or abdominal hernia. - MSK: No digital cyanosis. Normal strength and tone in all four limbs. - Skin: Warm and dry, no rashes. - Neuro: Alert. No facial droop or slurred speech. Extraocular movements intact. Sensation intact to soft touch in all four limbs. - Psych: Appropriate mood. Full affect. Oriented to person, place, time, and situation. Lines: Active Lines: - 19 Fr Noe drainage tube placed on 09/23/2024 - Diagnostic Studies: Available diagnostic studies were reviewed personally. Significant relevant results and findings are outlined below or addressed in the Assessment and Plan above. Pertinent Labs: - WBC: Elevated at 21 on 09/25/2024 - Platelets: 260 - Sodium: 135 BUN: 28 - Creatinine: 1.44 AST: 66 ALT: 91 - Lactate: 1.7 Pertinent Imaging: - CT Abdomen and Pelvis (Initial): - Impression: - Positive for suspected ruptured acute appendicitis with multiple fluid-air collections tracking up to the right flank. - Suggests secondary ileus and small bowel obstruction. - Repeat Imaging on 09/25/2024: - Impression: - Multiloculated abscesses in the right paracolic gutter, largest measuring 14.6 cm. - Multiple other fluid collections inadequately drained. - Bowel dilation could be due to ileus. Microbiology: - Intra-abdominal cultures: Growing E. coli - Fluid cultures: No growth to date - Blood cultures: Pending Plan discussed with: Patient JERRY TINEO MD Oct 01, 2024 00:00
--- NOTE | 2024-10-01 06:58 | DVHPNRES ---
Progress Note Date Seen: Oct 01, 2024 Resident Creating Document: DEMETRIS MORENO RESIDENT Medical Necessity Reason Pt with a Central, PICC or Fol: No Reason for mcdonald catheter: Sixto. Abd Surgery Subjective Review of Systems 29-year-old male patient who presented to the emergency department with complaints of worsening intermittent generalized abdominal pain that began 7 day prior to admission. He attributed the pain to consuming hensley. The patient was diagnosed with the complicated ruptured acute appendicitis and underwent an open appendectomy. Postoperatively, the patient initially demonstrated signs of intra-abdominal infection and was started on piperacillin tazobactam on 09/27/2024. Since surgery, the patient has reported gradual improvement. He denies current abdominal pain, nausea or vomiting. He has resumed normal bowel movements and flatulence and is tolerating a full liquid diet. Physical therapy was ordered to encourage ambulation. On 09/30/2024 the patient is on the 4th day of the intermediate tazobactam. Despite some residual purulent drainage from surgical wound the drainage has decreased compared to earlier days. The wound was redressed and during these assessment vital signs remained stable and the patient is afebrile. White blood cell count has normalized. Patient was examined at bedside, he reports feeling good without any acute complaint, recent CT scan of the abdomen showed multiple abscesses for which Infectious Disease was consulted and they determined that he will need surgery to remove them. Patient was kept NPO and surgery is scheduled for today. Other than that the patient denies any other acute complaint but mentioned he had some fever episodes during the night. Wound was evaluated and it was not full smelling other that continue leaking a purulent/bloody fluid. The patient was scheduled for the origin intervention to drain the abscess, however the procedure was not performed today as the patient was not included on the scheduled list. Radiology has indicated that the drainage will likely be rescheduled for tomorrow Review of systems Constitutional: Yes: Fever No: Chills, Sweats, Weakness, Malaise, Other Eyes: No: Pain, Vision change, Conjunctivae inflammation, Eyelid inflammation, Other, Redness ENT: No: Ear pain, Ear discharge, Nose pain, Nose discharge, Nose congestion, Mouth pain, Mouth swelling, Throat pain, Throat swelling, Other Respiratory: No Wheezing, Hemoptysis, Pleuritic Pain, Sputum, Wheezing, Other Cardiovascular: No: Chest Pain, Palpitations, Orthopnea, Paroxysmal Noc. Dyspnea, Edema, Lt Headedness, Other Gastrointestinal: No: Nausea, Vomiting, Abdominal Pain, Diarrhea, Constipation, Melena, Hematochezia, Other Musculoskeletal: No: other, neck pain, shoulder pain, arm pain, back pain, hand pain, leg pain, foot pain Neurological:; No: Weakness, Numbness, Incoordination, Change in speech, Confusion, Seizures Patient reports: Feels better Changes from previous H/P or p: Changes Objective vital signs Vital Sign Date Time Temp Pulse Resp B/P (MAP) Pulse Ox O2 Delivery O2 Flow Rate FiO2 10/01/24 05:00 99.7 111 20 109/65 (80) 94 99.7 09/30/24 20:00 Room Air* 0 21 Total Intake and Output 09/30/24 09/30/24 10/01/24 15:00 23:00 07:00 Intake Total 2910 ml 200 ml Output Total 2100 ml Balance 2910 ml -1900 ml medications Current Medications Medications Dose Ordered Sig/Prosper Route Start Time Stop Time Status Last Admin Dose Admin Ondansetron HCl 4 mg Q4HP PRN IV 09/23/24 16:00 Morphine Sulfate 2 mg Q4HPRN PRN IV 09/23/24 16:00 09/29/24 04:06 2 MG Nitroglycerin 0.4 mg Q5MINP PRN SL 09/23/24 16:15 Morphine Sulfate 2 mg Q30M PRN IV 09/23/24 16:15 Pantoprazole Sodium 40 mg DAILY IV 09/24/24 10:00 09/30/24 09:25 40 MG Ergocalciferol 50,000 unit Q7D PO 09/24/24 14:45 09/24/24 19:28 50,000 UNIT Acetaminophen 650 mg Q6HP PRN PO 09/24/24 21:45 09/30/24 21:01 650 MG Melatonin 5 mg HS PRN PO 09/24/24 21:45 09/30/24 21:05 5 MG Magnesium Oxide 400 mg BID PO 09/28/24 10:00 09/30/24 21:00 400 MG Potassium Chloride 10 meq DAILY PO 09/28/24 10:00 09/30/24 09:25 10 MEQ Dextrose/Lactated Ringer's 1,000 ml @ 50 mls/hr Q20H IV 09/29/24 20:30 09/29/24 21:49 50 MLS/HR Piperacillin Sod/ Tazobactam Sod 100 ml @ 25 mls/hr Q6H IV 09/30/24 03:00 10/01/24 02:52 25 MLS/HR Examination Examination General Appearance: Alert, Oriented X3, Cooperative, No acute distress HEENT: EOMI Respiratory: Clear to auscultation, Normal air movement Cardiovascular: Regular rate, Normal S1, Normal S2 Abdominal: Surgical scar in the middle of the abdomen leaking purulent/bloody f luid, normal bowel sounds Extremities: No cyanosis, No edema, Normal pulses, No tenderness/swelling Skin: No rashes, No breakdown Neuro: Normal speech, Strength at 5/5 X4 ext, Normal tone, Sensation intact, Cranial nerves 3-12 NL, Reflexes 2+ Psych/Mental Status: Mental status NL, Mood NL laboratory and microbiology Test 10/01/24 06:28 Range/Units Serum Glucose Pending Microbiology Date/Time Source Procedure Growth Status 09/23/24 23:01 Blood Blood Culture - Final NO GROWTH AFTER 5 DAYS OF INCUBATION. Complete 09/23/24 17:30 Abdomen Gram Stain - Final Complete 09/23/24 17:30 Abdomen Anaerobic Culture - Final Complete 09/23/24 17:30 Aerobic Culture - Final Escherichia coli Complete Problem List/Assessment/Plan Problem List/Assessment/Plan Sepsis likely due to acute gangrenous appendicitis with perforation Multiple loculated abscesses in the right paracolic gutter, largest measuring up to 146 mm. Surgical culture evidence E coli which is multi sensory to antibiotics. Due to purulent discharge and register is a fever, we will continue with IV Zosyn technical sales support specialist consulted ID to evaluate purulent drainage, pending evaluation -IR DRAINAGE scheduled for tomorrow Acute appendicitis complicated by rupture - s/p open appendectomy Evidence in abdomen and pelvis CT on admission: Showed ruptured acute appendicitis technical sales support specialist on board: Completed open appendectomy on 09/23/2024. Continues with slow recovery, patient presents purulent discharge from surgical site. Presents WALTER drainage which still contains purulent discharge Patient is on SCDs, indicate mobilization at this point to avoid blood thinners. Physical therapy Likely postoperative ileus due to comorbidities - resolved Patient currently tolerating full liquid diet NEO hemodynamically mediated due to VMN with strong POA Continue IVF Monitor lab Pneumonia was ruled out Vitamin D deficiency Replenished Hypokalemia Replenished Case discussed with Dr. Carranza Goals of care discussed with the patient for 39 minutes Code status: Full code Plan discussed with: Patient My Orders My Orders Orders - DEMETRIS MORENO RESIDENT Procedure Category Date Status Time Ct Ab Pel Wo Con-No CT 09/30/24 Resulted Oral Or Iv 10:44 Complete Blood Count LAB 10/01/24 In Process 05:43 Basic Metabolic Panel LAB 10/01/24 In Process 05:43 Dietary Evaluation Review Comments: 1) Advance pt diet when medically feasible 2) Continue current plan of care Expected Outcomes/Goals: 1) Pt diet to advance 2) F/U in 2-3 days Date of Service: Oct 01, 2024 Billing Provider: NORBERT CARRANZA MD Common Visit Codes: [id number] INP/OBS CARE(HIGH) DEMETRIS MORENO RESIDENT Oct 01, 2024 06:58 NORBERT CARRANZA MD Oct 01, 2024 19:21
[2024-10-01 07:13] LABS: Anion Gap 8 (5-15); Carbon Dioxide 24 mmol/L (20-31); Chloride 102 mmol/L (98-107); Potassium 3.7 mmol/L (3.5-5.1)
[2024-10-01 07:14] LABS: Calcium 8.8 mg/dL (8.7-10.4)
[2024-10-01 07:15] LABS: Sodium 134 mmol/L (136-145)
[2024-10-01 07:16] LABS: Basophils # (auto) 0 10 ^3/uL (0-0.2); Basophils % (auto) 0.4 % (0.0-2.0); Eosinophils # (auto) 0.1 10 ^3/uL (0-0.8); Eosinophils % (auto) 0.6 % (0.0-7.0); Hematocrit 33.5 % (41.0-53.0); Hemoglobin 11.8 g/dL (13.5-17.5); Lymphocytes # (auto) 0.8 10 ^3/uL (0.4-5.4); Lymphocytes % (auto) 8.6 % (10.0-50.0); Mean Corpuscular Hemoglobin 33.2 pg (28.0-32.0); Mean Corpuscular Hgb Conc. 35.2 g/dL (32.0-36.0); Mean Corpuscular Volume 94.1 fL (80.0-100.0); Monocytes # (auto) 1.1 10 ^3/uL (0-1.3); Monocytes % (auto) 12.1 % (0.0-12.0); Neutrophils % (auto) 78.3 % (37.0-80.0); Platelet Count (auto) 290 10^3/uL (140-450); Red Blood Cells 3.56 10^6/uL (4.5-5.90); Red Cell Distribution Width 13.1 % (11.8-14.3)
[2024-10-01 07:19] LABS: BUN/Creatinine Ratio 8.5 (10.0-20.0)
[2024-10-01 07:23] LABS: Blood Urea Nitrogen 8 mg/dL (9-23); Glucose 110 mg/dL (74-106)
--- NOTE | 2024-10-01 14:15 | DVHPN2 ---
Progress Note Date Seen: Oct 01, 2024 Medical Necessity Reason Pt with a Central, PICC or Fol: No Reason for mcdonald catheter: Sixto. Abd Surgery Objective vital signs Vital Sign Date Time Temp Pulse Resp B/P (MAP) Pulse Ox O2 Delivery O2 Flow Rate FiO2 10/01/24 13:00 100.3 111 15 122/65 (84) 95 100.3 10/01/24 08:00 Room Air* 0 21 Total Intake and Output 09/30/24 09/30/24 10/01/24 14:59 22:59 06:59 Intake Total 2910 ml 200 ml Output Total 2125 ml Balance 2910 ml -1925 ml medications Current Medications Medications Dose Ordered Sig/Prosper Route Start Time Stop Time Status Last Admin Dose Admin Ondansetron HCl 4 mg Q4HP PRN IV 09/23/24 16:00 Morphine Sulfate 2 mg Q4HPRN PRN IV 09/23/24 16:00 09/29/24 04:06 2 MG Nitroglycerin 0.4 mg Q5MINP PRN SL 09/23/24 16:15 Morphine Sulfate 2 mg Q30M PRN IV 09/23/24 16:15 Pantoprazole Sodium 40 mg DAILY IV 09/24/24 10:00 10/01/24 09:18 40 MG Ergocalciferol 50,000 unit Q7D PO 09/24/24 14:45 09/24/24 19:28 50,000 UNIT Acetaminophen 650 mg Q6HP PRN PO 09/24/24 21:45 10/01/24 12:06 650 MG Melatonin 5 mg HS PRN PO 09/24/24 21:45 09/30/24 21:05 5 MG Magnesium Oxide 400 mg BID PO 09/28/24 10:00 10/01/24 09:18 400 MG Potassium Chloride 10 meq DAILY PO 09/28/24 10:00 10/01/24 09:18 10 MEQ Dextrose/Lactated Ringer's 1,000 ml @ 50 mls/hr Q20H IV 09/29/24 20:30 09/29/24 21:49 50 MLS/HR Piperacillin Sod/ Tazobactam Sod 100 ml @ 25 mls/hr Q6H IV 09/30/24 03:00 10/01/24 09:19 25 MLS/HR laboratory and microbiology Laboratory Tests 10/01/24 06:28 Test 10/01/24 06:28 Range/Units Serum Glucose 110 H 74-106 mg/dL Microbiology Date/Time Source Procedure Growth Status 09/30/24 19:40 Peritoneal Fluid Gram Stain - Final Resulted 09/30/24 19:40 Peritoneal Fluid Body Fluid Culture - Preliminary Resulted 09/23/24 23:01 Blood Blood Culture - Final NO GROWTH AFTER 5 DAYS OF INCUBATION. Complete 09/23/24 17:30 Abdomen Gram Stain - Final Complete 09/23/24 17:30 Abdomen Anaerobic Culture - Final Complete 09/23/24 17:30 Aerobic Culture - Final Escherichia coli Complete Problem List/Assessment/Plan Problem List/Assessment/Plan AFEBRILE T max 100.5 VSS ABD SOFT LESS DISTENDED TENDER RLQ ABD WOUND DRAINAGE LESS PURULENT AND LESS DRESSING CHANGED NO BM FLATUS + WBC WNL NPO IV ABX CT SCAN NOTED IR DRAINAGE PENDING I/D CONSULT NURSE AND FAMILY AT BEDSIDE Plan discussed with: Patient My Orders My Orders Orders - EDISON NUÑEZ MD Procedure Category Date Status Time Body Fluid Culture W/ ANNE 09/30/24 In Process GS 19:36 Npo After Midnight DIET 10/01/24 Transmitted Breakfast Dietary Evaluation Review Comments: 1) Advance pt diet when medically feasible 2) Continue current plan of care Expected Outcomes/Goals: 1) Pt diet to advance 2) F/U in 2-3 days EDISON NUÑEZ MD Oct 01, 2024 14:15
[2024-10-01] MEDS: MIDAZOLAM HCL 2MG/2ML 2ml VIAL (1mg/ml) ONE (15:40)
[2024-10-01] MEDS: fentaNYL CITRATE 100 MCG/2 ML VL ONE (15:40)
--- NOTE | 2024-10-01 16:21 | DVH ---
CT ABDOMEN AND PELVIS WITHOUT CONTRAST CLINICAL HISTORY: CT FOR DRAINAGE TECHNIQUE: Multiple contiguous axial images of the abdomen and pelvis without intravenous and with co ntrast. The images were reformatted degenerate coronal and sagittal reconstructions. All CT scans at this medical facility are performed using dose modulation techniques as appropriate t o a performed exam including the following:Automated exposure control was utilized; adjustment of the MA and/or KV according to patient size; and use of iterative reconstruction technique. Radiation Dose Information: CT Dose: CTDI volume is 19.44 mGy. Dose-length product is 1367.97 mGy*cm Comparison: CT CT AB PEL WO CON-NO ORAL OR IV on DOS: 09/30/24, CT CT AB PEL WO CON-NO ORAL OR IV on DOS: 09/23/24 FINDINGS: Evaluation of the abdomen and pelvis is limited without intravenous contrast. There is a large approximately 12.5 x 11.9 x 14.1 cm (AP by transverse by cc) fluid collection in the right lower abdomen which has mildly thickened valiente and contains pockets of air. There is surroundi ng fat stranding. Collection is located posterior to the ascending colon and cecum and extends gate technician omedially adjacent to the right iliopsoas muscle. There is a drainage catheter which is not positione d within the fluid collection. There is oral contrast seen in the stomach and small bowel loops. There are multiple dilated small b owel loops in the left abdomen with air-fluid levels. There is no focal transition zone identified. There are nondilated small bowel loops in the right abdomen. There are postsurgical changes at the il eocecal junction. There are no dilated large bowel loops. There is diffuse fatty infiltration of the liver. The gallbladder, pancreas, kidneys, adrenal glan ds, and spleen appear within normal limits. There is no gross evidence of abdominal lymphadenopathy. The abdominal aorta and IVC appear within normal limits. The bladder appears unremarkable for the degree of distention. Pelvic organ appears within normal avalos its. There is no gross evidence of a pelvic mass. There is no free fluid collection. There is opacity in the posterior right lung base which may represent atelectasis versus airspace dis ease. There is atelectasis in the left lung base. There is no acute osseous abnormality. IMPRESSION: 1. Large approximately 12.5 x 11.9 cm fluid collection in the right lower abdomen with mildly thicken ed valiente and containing pockets of air. There is surrounding fat stranding. There is a drainage javier ter which is not positioned within the fluid collection. Correlation for proper placement of catheter is recommended. 2. There are multiple dilated small bowel loops in the left abdomen with air-fluid levels. There is n o focal transition point identified. There are nondilated small bowel loops in the right abdomen. Th ere are postsurgical changes at the ileocecal junction. The findings May relate to ileus. 3. Hepatic steatosis. 4. Opacity in the posterior right lung base may represent atelectasis versus airspace disease. HS:Y
--- NOTE | 2024-10-01 22:33 | DVHPN2 ---
Consult Progress Note Date Seen: Oct 01, 2024 Subjective Patient reports: Feels better (+ abdominal tenderness no fevers) Objective vital signs Vital Sign Date Time Temp Pulse Resp B/P (MAP) Pulse Ox O2 Delivery O2 Flow Rate FiO2 10/01/24 21:00 101.8 120 20 117/70 (86) 94 101.8 10/01/24 08:00 Room Air* 0 21 Total Intake and Output 09/30/24 09/30/24 10/01/24 15:00 23:00 07:00 Intake Total 2910 ml 200 ml Output Total 2125 ml Balance 2910 ml -1925 ml medications Current Medications Medications Dose Ordered Sig/Prosper Route Start Time Stop Time Status Last Admin Dose Admin Ondansetron HCl 4 mg Q4HP PRN IV 09/23/24 16:00 Morphine Sulfate 2 mg Q4HPRN PRN IV 09/23/24 16:00 10/01/24 19:00 2 MG Nitroglycerin 0.4 mg Q5MINP PRN SL 09/23/24 16:15 Morphine Sulfate 2 mg Q30M PRN IV 09/23/24 16:15 Pantoprazole Sodium 40 mg DAILY IV 09/24/24 10:00 10/01/24 09:18 40 MG Ergocalciferol 50,000 unit Q7D PO 09/24/24 14:45 10/01/24 16:50 50,000 UNIT Acetaminophen 650 mg Q6HP PRN PO 09/24/24 21:45 10/01/24 19:09 650 MG Melatonin 5 mg HS PRN PO 09/24/24 21:45 09/30/24 21:05 5 MG Magnesium Oxide 400 mg BID PO 09/28/24 10:00 10/01/24 21:54 400 MG Potassium Chloride 10 meq DAILY PO 09/28/24 10:00 10/01/24 09:18 10 MEQ Dextrose/Lactated Ringer's 1,000 ml @ 50 mls/hr Q20H IV 09/29/24 20:30 09/29/24 21:49 50 MLS/HR Piperacillin Sod/ Tazobactam Sod 100 ml @ 25 mls/hr Q6H IV 09/30/24 03:00 10/01/24 16:50 25 MLS/HR Physical Exam: General: Appears ill. Neck: Supple. No masses. HEENT: PERRL. Normal lids and conjunctiva. Moist mucous membranes. Oropharynx without lesions, exudates, or excessive erythema. Normal appearance of the external aspects of the nose and ears. Heart: Regular rhythm, tachycardic. No murmur. No lower extremity edema. Lungs: Normal respiratory effort. Clear to auscultation bilaterally. No wheezes. No crackles. Abdomen: Distended. Tender to palpation. No masses or abdominal hernia. drains in RLQ MSK: No digital cyanosis. Normal strength and tone in all four limbs. Skin: Warm and dry, no rashes. Neuro: Alert. No facial droop or slurred speech. Extraocular movements intact. Sensation intact to soft touch in all four limbs. Psych: Appropriate mood. Full affect. Oriented to person, place, time, and situation. laboratory and microbiology Laboratory Tests 10/01/24 06:28 Test 10/01/24 06:28 Range/Units Serum Glucose 110 H 74-106 mg/dL Problem List/Assessment/Plan Problem List/Assessment/Plan ASSESSMENT AND PLAN: ID Problem List: - Intra-abdominal abscesses - Perforated appendicitis - Sepsis - E. coli infection - Ileus - Small bowel obstruction Assessment This is a [age not provided] y.o. male with no significant past medical history who presents with a perforated appendicitis complicated by intra-abdominal abscesses and sepsis. The patient underwent a laparoscopic lysis of adhesions, open drainage of intra- abdominal abscesses, and an open appendectomy on September 23. Operative findings included a distended peritoneum due to ileus, free air, distention of small and large intestines with serosal traction and ischemia, and a perforated appendix. A 19 Fr Noe drainage tube was placed. Currently, the patient has purulent drainage from the Noe drain, with intra- abdominal cultures growing E. coli. White blood cell count remains elevated at 21 on September 25. Repeat imaging revealed multiloculated abscesses in the right paracolic gutter, the largest measuring 14.6 cm. Multiple other fluid collections are inadequately drained. Bowel dilation may be due to ileus. sp Two (2) CT guided placement of 10.2 and 12 Belgian pigtail drain into a right paracolic gutter abscess. Plan: - continue cefTRIAXone - Continue to monitor WBC count and vital signs - Send any new aspirate samples from drains for aerobic and anaerobic cultures - Follow up on blood cultures Isolation Precautions: Standard Assessment and plan were discussed with the patient as written above. Plan is subject to change pending incorporation of new incoming information/diagnostics. Updates may be added as addendum at the bottom (OR TOP) of this note. Thank you for the interesting consult. ID will continue to follow. Please contact Infectious Disease for any questions or concerns. Plan discussed with: Patient Dietary Evaluation Review Comments: 1) Advance pt diet when medically feasible 2) Continue current plan of care Expected Outcomes/Goals: 1) Pt diet to advance 2) F/U in 2-3 days JERRY TINEO MD Oct 01, 2024 22:33
[2024-10-02] VITALS (7 sets, daily range): BP systolic 117–150; BP diastolic 65–71; PULSE 105–116; RESP 16–18; TEMP 98.9–102.2; O2SAT 93–97
[2024-10-02] MEDS: PIPERACILLIN-TAZOB 3.375GM 100 ML IV SCH (05:32)
[2024-10-02] MEDS: MORPHINE SULFATE INJ 2 MG/ml SYRG IM ONE (07:15)
[2024-10-02 07:36] LABS: Basophils # (auto) 0.1 10 ^3/uL (0-0.2); Basophils % (auto) 0.6 % (0.0-2.0); Eosinophils # (auto) 0 10 ^3/uL (0-0.8); Eosinophils % (auto) 0.3 % (0.0-7.0); Hematocrit 34.5 % (41.0-53.0); Lymphocytes # (auto) 0.7 10 ^3/uL (0.4-5.4); Mean Corpuscular Hemoglobin 32.7 pg (28.0-32.0); Mean Corpuscular Hgb Conc. 34.7 g/dL (32.0-36.0); Mean Corpuscular Volume 94.1 fL (80.0-100.0); Monocytes % (auto) 10.4 % (0.0-12.0); Neutrophils # (auto) 7.4 10 ^3/uL (1.6-8.6); Neutrophils % (auto) 80.7 % (37.0-80.0); Platelet Count (auto) 301 10^3/uL (140-450); Red Blood Cells 3.66 10^6/uL (4.5-5.90); Red Cell Distribution Width 12.8 % (11.8-14.3); White Blood Cell 9.2 10^3/uL (4.4-10.8)
[2024-10-02 07:48] LABS: Anion Gap 8 (5-15); Carbon Dioxide 24 mmol/L (20-31); Chloride 99 mmol/L (98-107); Potassium 4.1 mmol/L (3.5-5.1)
[2024-10-02 07:51] LABS: Sodium 131 mmol/L (136-145)
[2024-10-02 07:54] LABS: BUN/Creatinine Ratio 15.1 (10.0-20.0); Blood Urea Nitrogen 14 mg/dL (9-23); Glucose 105 mg/dL (74-106)
--- NOTE | 2024-10-02 08:38 | DVHPNRES ---
Progress Note Date Seen: Oct 02, 2024 Resident Creating Document: DEMETRIS MORENO RESIDENT Medical Necessity Reason Pt with a Central, PICC or Fol: No Reason for mcdonald catheter: Sixto. Abd Surgery Subjective Review of Systems 29-year-old male patient who presented to the emergency department with complaints of worsening intermittent generalized abdominal pain that began 7 day prior to admission. He attributed the pain to consuming hensley. The patient was diagnosed with the complicated ruptured acute appendicitis and underwent an open appendectomy. Postoperatively, the patient initially demonstrated signs of intra-abdominal infection and was started on piperacillin tazobactam on 09/27/2024. Since surgery, the patient has reported gradual improvement. He denies current abdominal pain, nausea or vomiting. He has resumed normal bowel movements and flatulence and is tolerating a full liquid diet. Physical therapy was ordered to encourage ambulation. On 09/30/2024 the patient is on the 4th day of the jail tazobactam. Despite some residual purulent drainage from surgical wound the drainage has decreased compared to earlier days. The wound was redressed and during these assessment vital signs remained stable and the patient is afebrile. White blood cell count has normalized. Patient was evaluated today and denies any acute complaints at this time. He reports experiencing 1 episode of fever last night, but no fever or other acute symptoms has been reported today. The patient is tolerating a clear liquid diet, which was initiated earlier, and we will continue to monitor his progress. He notes mild pain at the procedure site, norco PO was started. Fever its being managed with tylenol and cooling measures.The patient will remain under close observation to assess symptom resolution and overall recovery. Review of systems Constitutional: Yes: Fever No: Chills, Sweats, Weakness, Malaise, Other Eyes: No: Pain, Vision change, Conjunctivae inflammation, Eyelid inflammation, Other, Redness ENT: No: Ear pain, Ear discharge, Nose pain, Nose discharge, Nose congestion, Mouth pain, Mouth swelling, Throat pain, Throat swelling, Other Respiratory: No Wheezing, Hemoptysis, Pleuritic Pain, Sputum, Wheezing, Other Cardiovascular: No: Chest Pain, Palpitations, Orthopnea, Paroxysmal Noc. Dyspnea, Edema, Lt Headedness, Other Gastrointestinal: No: Nausea, Vomiting, Abdominal Pain, Diarrhea, Constipation, Melena, Hematochezia, Other Musculoskeletal: No: other, neck pain, shoulder pain, arm pain, back pain, hand pain, leg pain, foot pain Neurological:; No: Weakness, Numbness, Incoordination, Change in speech, Confusion, Seizures Patient reports: No new complaints Objective vital signs Vital Sign Date Time Temp Pulse Resp B/P (MAP) Pulse Ox O2 Delivery O2 Flow Rate FiO2 10/02/24 05:02 111 18 118/72 10/02/24 05:00 99.3 93 99.3 10/01/24 20:00 Room Air* 0 21 Total Intake and Output 10/01/24 10/01/24 10/02/24 15:00 23:00 07:00 Intake Total 100 ml 0 ml 450 ml Output Total 250 ml 670 ml Balance 100 ml -250 ml -220 ml medications Current Medications Medications Dose Ordered Sig/Prosper Route Start Time Stop Time Status Last Admin Dose Admin Ondansetron HCl 4 mg Q4HP PRN IV 09/23/24 16:00 Morphine Sulfate 2 mg Q4HPRN PRN IV 09/23/24 16:00 10/02/24 04:32 2 MG Nitroglycerin 0.4 mg Q5MINP PRN SL 09/23/24 16:15 Morphine Sulfate 2 mg Q30M PRN IV 09/23/24 16:15 Pantoprazole Sodium 40 mg DAILY IV 09/24/24 10:00 10/01/24 09:18 40 MG Ergocalciferol 50,000 unit Q7D PO 09/24/24 14:45 10/01/24 16:50 50,000 UNIT Acetaminophen 650 mg Q6HP PRN PO 09/24/24 21:45 10/01/24 19:09 650 MG Melatonin 5 mg HS PRN PO 09/24/24 21:45 09/30/24 21:05 5 MG Magnesium Oxide 400 mg BID PO 09/28/24 10:00 10/01/24 21:54 400 MG Potassium Chloride 10 meq DAILY PO 09/28/24 10:00 10/01/24 09:18 10 MEQ Dextrose/Lactated Ringer's 1,000 ml @ 50 mls/hr Q20H IV 09/29/24 20:30 09/29/24 21:49 50 MLS/HR Piperacillin Sod/ Tazobactam Sod 100 ml @ 25 mls/hr Q6H IV 10/02/24 05:00 10/02/24 05:32 25 MLS/HR Examination General Appearance: Alert, Oriented X3, Cooperative, No acute distress Respiratory: Clear to auscultation, Normal air movement Cardiovascular: Regular rate, Normal S1, Normal S2 Abdominal: Surgical scar in the middle of the abdomen,normal bowel sounds Extremities: No cyanosis, No edema, Normal pulses, No tenderness/swelling Skin: No rashes, No breakdown Neuro: Normal speech, Strength at 5/5 X4 ext, Normal tone, Sensation intact, Cranial nerves 3-12 NL, Reflexes 2+ Psych/Mental Status: Mental status NL, Mood NL laboratory and microbiology Laboratory Tests 10/02/24 06:58 Test 10/02/24 06:58 Range/Units Serum Glucose 105 74-106 mg/dL Microbiology Date/Time Source Procedure Growth Status 09/30/24 19:40 Peritoneal Fluid Gram Stain - Final Resulted 09/30/24 19:40 Peritoneal Fluid Body Fluid Culture - Preliminary Resulted 09/23/24 23:01 Blood Blood Culture - Final NO GROWTH AFTER 5 DAYS OF INCUBATION. Complete 09/23/24 17:30 Abdomen Gram Stain - Final Complete 09/23/24 17:30 Abdomen Anaerobic Culture - Final Complete 09/23/24 17:30 Aerobic Culture - Final Escherichia coli Complete Problem List/Assessment/Plan Problem List/Assessment/Plan Sepsis likely due to acute gangrenous appendicitis with perforation Large approximately 12.5 x 11.9 cm fluid collection in the right lower abdomen Surgical culture evidence E coli which is multi sensory to antibiotics. 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 Continues with slow recovery, patient presents purulent discharge from surgical site. Presents WALTER drainage which still contains purulent discharge Patient is on SCDs, indicate mobilization at this point to avoid blood thinners. Physical therapy Likely postoperative ileus due to comorbidities - resolved Patient currently tolerating full liquid diet NEO hemodynamically mediated due to VMN with strong POA Continue IVF Monitor lab Pneumonia was ruled out Hepatic steatosis Lifestyle modification and dietary habits Vitamin D deficiency Replenished Hypokalemia Replenished Case discussed with Dr. Carranza Goals of care discussed with the patient for 39 minutes Code status: Full code Plan discussed with: Patient My Orders My Orders Orders - DEMETRIS MORENO RESIDENT Procedure Category Date Status Time Ct Guidance For CT 10/01/24 Taken Needle Placeme 15:17 Clear Liq Diet DIET 10/02/24 Transmitted Breakfast Dietary Evaluation Review Comments: 1) Advance pt diet when medically feasible 2) Continue current plan of care Expected Outcomes/Goals: 1) Pt diet to advance 2) F/U in 2-3 days Date of Service: Oct 02, 2024 Billing Provider: NORBERT CARRANZA MD Common Visit Codes: [id number] INP/OBS CARE(HIGH) DEMETRIS MORENO Oct 02, 2024 08:38 NORBERT CARRANZA MD Oct 02, 2024 20:19
--- NOTE | 2024-10-02 09:01 | DVH ---
CT CT GUIDANCE FOR NEEDLE PLACEME, HISTORY: ABCESS DRAINAGE COMPARISON: None PROCEDURE: Informed consent was obtained. Oral contrast was given prior to the procedure. The patient was placed right side up on the CT scanner. IV sedation was administered. The fluid collection was l ocalized under CT scan and the overlying skin prepped with chlorhexidine which was allowed to dry and draped in the usual sterile fashion and infiltrated with Xylocaine. Time out was performed. With CT guidance, a 19-gauge centesis needle catheter was advanced via trans-peritoneal approach into the flu id collection. Following aspiration of a small amount of fluid, a 0.035 wire was advanced into the fl uid collection. Placement was confirmed with CT scan. After serial dilatation, a 10.2 [place] pigtail drain was placed into the collection. With CT guidance, a second 19-gauge centesis needle catheter was advanced via trans-peritoneal approa ch into the fluid collection. Following aspiration of a small amount of fluid, a 0.035 wire was advan winter into the fluid collection. Placement was confirmed with CT scan. After serial dilatation, a 12 Fr ench pigtail drain was placed into the collection. Approximately 300 cc of thick foul purulent fluid was aspirated, with specimen sent for appropriate l aboratory evaluation. The drain was sutured at the skin surface and connected to suction drainage. No immediate complication was noted. Post procedure CT imaging through the drain site was obtained. DLP = 3278 mGy-cm. SEDATION: Dr. La Lutz was personally responsible for the administration of moderate sedation during the procedure performed, including the use of an independent trained observer who had no other duties during the procedure. The drugs utilized were IV fentanyl and versed (see nursing log for details). The total time of supervision by the attending physician was approximately 45 minutes. FINDINGS: Limited CT scan of through the abdomen and pelvis. demonstrates a large sized fluid collect ion in the right paracolic gutters. Collection appears complex. Post procedure scan shows pigtail gerald in within the collection , which is decreased in size. No immediate complication was identified. IMPRESSION: Two (2) CT guided placement of 10.2 and 12 [place] pigtail drain into a right paracolic gutter absces s.
--- NOTE | 2024-10-02 17:33 | DVHPN2 ---
Progress Note Date Seen: Oct 02, 2024 Medical Necessity Reason Pt with a Central, PICC or Fol: No Reason for mcdonald catheter: Sixto. Abd Surgery Objective vital signs Vital Sign Date Time Temp Pulse Resp B/P (MAP) Pulse Ox O2 Delivery O2 Flow Rate FiO2 10/02/24 13:06 98.9 10/02/24 09:00 110 17 117/69 (85) 95 10/02/24 08:00 Room Air* 0 21 Total Intake and Output 10/01/24 10/01/24 10/02/24 15:00 23:00 07:00 Intake Total 100 ml 0 ml 450 ml Output Total 250 ml 670 ml Balance 100 ml -250 ml -220 ml medications Current Medications Medications Dose Ordered Sig/Prosper Route Start Time Stop Time Status Last Admin Dose Admin Ondansetron HCl 4 mg Q4HP PRN IV 09/23/24 16:00 Morphine Sulfate 2 mg Q4HPRN PRN IV 09/23/24 16:00 10/02/24 04:32 2 MG Nitroglycerin 0.4 mg Q5MINP PRN SL 09/23/24 16:15 Morphine Sulfate 2 mg Q30M PRN IV 09/23/24 16:15 Pantoprazole Sodium 40 mg DAILY IV 09/24/24 10:00 10/02/24 09:45 40 MG Ergocalciferol 50,000 unit Q7D PO 09/24/24 14:45 10/01/24 16:50 50,000 UNIT Acetaminophen 650 mg Q6HP PRN PO 09/24/24 21:45 10/02/24 11:45 650 MG Melatonin 5 mg HS PRN PO 09/24/24 21:45 09/30/24 21:05 5 MG Magnesium Oxide 400 mg BID PO 09/28/24 10:00 10/02/24 09:45 400 MG Potassium Chloride 10 meq DAILY PO 09/28/24 10:00 10/02/24 09:45 10 MEQ Dextrose/Lactated Ringer's 1,000 ml @ 50 mls/hr Q20H IV 09/29/24 20:30 09/29/24 21:49 50 MLS/HR Piperacillin Sod/ Tazobactam Sod 100 ml @ 25 mls/hr Q6H IV 10/02/24 05:00 10/02/24 17:22 25 MLS/HR Acetaminophen/ Hydrocodone Bitart 1 tab Q6HPRN PRN PO 10/02/24 12:15 laboratory and microbiology Laboratory Tests 10/02/24 06:58 Test 10/02/24 06:58 Range/Units Serum Glucose 105 74-106 mg/dL Microbiology Date/Time Source Procedure Growth Status 10/01/24 18:04 Aspirate Gram Stain - Final Resulted 10/01/24 18:04 Aspirate Body Fluid Culture - Preliminary Resulted 09/23/24 23:01 Blood Blood Culture - Final NO GROWTH AFTER 5 DAYS OF INCUBATION. Complete 09/23/24 17:30 Abdomen Gram Stain - Final Complete 09/23/24 17:30 Abdomen Anaerobic Culture - Final Complete 09/23/24 17:30 Aerobic Culture - Final Escherichia coli Complete Problem List/Assessment/Plan Problem List/Assessment/Plan AFEBRILE T max 100.7 VSS ABD SOFT LESS DISTENDED TENDER RLQ ABD WOUND IR DRAINAGE 250 CC PURULENT DRESSING CHANGED BM + FLATUS + WBC WNL IV ABX CT SCAN IR DRAINAGE DONE TWO CATHS PLACED NURSE AND FAMILY AT BEDSIDE CONTINUE CLOSE OBSERVATION KUB Plan discussed with: Patient Dietary Evaluation Review Comments: 1) Advance pt diet when medically feasible 2) Continue current plan of care Expected Outcomes/Goals: 1) Pt diet to advance 2) F/U in 2-3 days EDISON NUÑEZ MD Oct 02, 2024 17:33
[2024-10-03] VITALS (7 sets, daily range): BP systolic 108–125; BP diastolic 67–76; PULSE 94–118; RESP 14–20; TEMP 98.3–100.1; O2SAT 94–96
[2024-10-03 08:53] LABS: Basophils # (auto) 0 10 ^3/uL (0-0.2); Basophils % (auto) 0.6 % (0.0-2.0); Eosinophils # (auto) 0.1 10 ^3/uL (0-0.8); Eosinophils % (auto) 0.7 % (0.0-7.0); Hematocrit 33.1 % (41.0-53.0); Hemoglobin 11.5 g/dL (13.5-17.5); Lymphocytes # (auto) 0.7 10 ^3/uL (0.4-5.4); Lymphocytes % (auto) 9.1 % (10.0-50.0); Mean Corpuscular Hemoglobin 32.8 pg (28.0-32.0); Mean Corpuscular Hgb Conc. 34.8 g/dL (32.0-36.0); Mean Corpuscular Volume 94.1 fL (80.0-100.0); Monocytes # (auto) 0.7 10 ^3/uL (0-1.3); Monocytes % (auto) 9.9 % (0.0-12.0); Neutrophils # (auto) 5.9 10 ^3/uL (1.6-8.6); Neutrophils % (auto) 79.7 % (37.0-80.0); Platelet Count (auto) 272 10^3/uL (140-450); Red Blood Cells 3.52 10^6/uL (4.5-5.90); Red Cell Distribution Width 12.7 % (11.8-14.3); White Blood Cell 7.4 10^3/uL (4.4-10.8)
--- NOTE | 2024-10-03 08:58 | DVH ---
Date: 10/03/2024 08:37 AM Examination: XY KUB ABDOMEN SINGLE VIEW History: ABDOMINAL DISTENTION Comparison: None TECHNIQUE: Frontal views of the abdomen was obtained. FINDINGS: Bowel gas pattern is unremarkable. 2 percutaneous drainage catheters are overlying the right lower qu adrant. There is a surgical drain overlying the left lower quadrant. The lung bases are unremarkable. No acute osseous abnormality identified. Surgical skin sarah are present. IMPRESSION: Nonobstructive bowel gas pattern. Contrast seen in the colon.
[2024-10-03 09:01] LABS: Chloride 102 mmol/L (98-107); Potassium 3.9 mmol/L (3.5-5.1)
[2024-10-03 09:02] LABS: Anion Gap 5 (5-15); Calcium 9.2 mg/dL (8.7-10.4); Carbon Dioxide 26 mmol/L (20-31)
[2024-10-03 09:07] LABS: BUN/Creatinine Ratio 9.8 (10.0-20.0); Blood Urea Nitrogen 9 mg/dL (9-23)
[2024-10-03 09:25] LABS: Glucose 114 mg/dL (74-106); Sodium 133 mmol/L (136-145)
--- NOTE | 2024-10-03 09:44 | DVHPNRES ---
Progress Note Date Seen: Oct 03, 2024 Resident Creating Document: DEMETRIS MORENO RESIDENT Medical Necessity Reason Pt with a Central, PICC or Fol: No Reason for mcdonald catheter: Sixto. Abd Surgery Subjective Review of Systems 1-year-old male patient who presented to the emergency department with complaints of worsening intermittent generalized abdominal pain that began 7 day prior to admission. He attributed the pain to consuming hensley. The patient was diagnosed with the complicated ruptured acute appendicitis and underwent an open appendectomy. Postoperatively, the patient initially demonstrated signs of intra-abdominal infection and was started on piperacillin tazobactam on 09/27/2024. Since surgery, the patient has reported gradual improvement. He denies current abdominal pain, nausea or vomiting. He has resumed normal bowel movements and flatulence and is tolerating a full liquid diet. Physical therapy was ordered to encourage ambulation. On 09/30/2024 the patient is on the 4th day of the retirement tazobactam. Despite some residual purulent drainage from surgical wound the drainage has decreased compared to earlier days. The wound was redressed and during these assessment vital signs remained stable and the patient is afebrile. White blood cell count has normalized. Patient was evaluated today and denies any acute complaints at this time. The patient is tolerating a clear liquid diet, we going to advance it to full liquid Fever its being managed with tylenol and cooling measures The patient will remain under close observation to assess symptom resolution and overall recovery. KUV pending Review of systems Constitutional: No: Chills, Sweats, Weakness, Malaise, Other Eyes: No: Pain, Vision change, Conjunctivae inflammation, Eyelid inflammation, Other, Redness ENT: No: Ear pain, Ear discharge, Nose pain, Nose discharge, Nose congestion, Mouth pain, Mouth swelling, Throat pain, Throat swelling, Other Respiratory: No Wheezing, Hemoptysis, Pleuritic Pain, Sputum, Wheezing, Other Cardiovascular: No: Chest Pain, Palpitations, Orthopnea, Paroxysmal Noc. Dyspnea, Edema, Lt Headedness, Other Gastrointestinal: yes:mild abdominal pain, WALTER Drain on place No: Nausea, Vomiting, Diarrhea, Constipation, Melena, Hematochezia, Other Musculoskeletal: No: other, neck pain, shoulder pain, arm pain, back pain, hand pain, leg pain, foot pain Neurological:; No: Weakness, Numbness, Incoordination, Change in speech, Confusion, Seizures Patient reports: Feels better Changes from previous H/P or p: Changes Objective vital signs Vital Sign Date Time Temp Pulse Resp B/P (MAP) Pulse Ox O2 Delivery O2 Flow Rate FiO2 10/03/24 05:00 99.2 103 17 118/69 (85) 95 99.2 10/02/24 20:10 Room Air* 0 21 Total Intake and Output 10/02/24 10/02/24 10/03/24 15:00 23:00 07:00 Intake Total 100 ml 100 ml 350 ml Output Total 800 ml 100 ml 650 ml Balance -700 ml 0 ml -300 ml medications Current Medications Medications Dose Ordered Sig/Prosper Route Start Time Stop Time Status Last Admin Dose Admin Ondansetron HCl 4 mg Q4HP PRN IV 09/23/24 16:00 Nitroglycerin 0.4 mg Q5MINP PRN SL 09/23/24 16:15 Pantoprazole Sodium 40 mg DAILY IV 09/24/24 10:00 10/03/24 09:18 40 MG Ergocalciferol 50,000 unit Q7D PO 09/24/24 14:45 10/01/24 16:50 50,000 UNIT Acetaminophen 650 mg Q6HP PRN PO 09/24/24 21:45 10/02/24 21:43 650 MG Melatonin 5 mg HS PRN PO 09/24/24 21:45 09/30/24 21:05 5 MG Magnesium Oxide 400 mg BID PO 09/28/24 10:00 10/03/24 09:18 400 MG Potassium Chloride 10 meq DAILY PO 09/28/24 10:00 10/03/24 09:19 10 MEQ Dextrose/Lactated Ringer's 1,000 ml @ 50 mls/hr Q20H IV 09/29/24 20:30 10/03/24 01:13 50 MLS/HR Piperacillin Sod/ Tazobactam Sod 100 ml @ 25 mls/hr Q6H IV 10/02/24 05:00 10/03/24 04:44 25 MLS/HR Acetaminophen/ Hydrocodone Bitart 1 tab Q6HPRN PRN PO 10/02/24 12:15 Examination General Appearance: Alert, Oriented X3, Cooperative, No acute distress Respiratory: Clear to auscultation, Normal air movement Cardiovascular: Regular rate, Normal S1, Normal S2 Abdominal: Surgical scar in the middle of the abdomen,normal bowel sounds, WALTER drain on place Extremities: No cyanosis, No edema, Normal pulses, No tenderness/swelling Skin: No rashes, No breakdown Neuro: Normal speech, Strength at 5/5 X4 ext, Normal tone, Sensation intact, Cranial nerves 3-12 NL, Reflexes 2+ Psych/Mental Status: Mental status NL, Mood NL laboratory and microbiology Laboratory Tests 10/03/24 06:39 Test 10/03/24 06:39 Range/Units Serum Glucose 114 H 74-106 mg/dL Microbiology Date/Time Source Procedure Growth Status 10/01/24 18:04 Aspirate Gram Stain - Final Resulted 10/01/24 18:04 Body Fluid Culture - Preliminary Escherichia coli Resulted 09/23/24 23:01 Blood Blood Culture - Final NO GROWTH AFTER 5 DAYS OF INCUBATION. Complete 09/23/24 17:30 Abdomen Gram Stain - Final Complete 09/23/24 17:30 Abdomen Anaerobic Culture - Final Complete 09/23/24 17:30 Aerobic Culture - Final Escherichia coli Complete Problem List/Assessment/Plan Problem List/Assessment/Plan Sepsis likely due to acute gangrenous appendicitis with perforation Large approximately 12.5 x 11.9 cm fluid collection in the right lower abdomen Surgical culture evidence E coli which is multi sensory to antibiotics. Due to purulent discharge and register is a fever IV ceftriaxone 1g CT guided drainage was performed without complications Cooling measures and Tylenol to control the fever Acute appendicitis complicated by rupture s/p open appendectomy Evidence in abdomen and pelvis CT on admission: Showed ruptured acute appendicitis nuclear medicine specialist on board: Completed open appendectomy on 09/23/2024. Presents WALTER drainage which still contains purulent discharge Patient is on SCDs, indicate mobilization at this point to avoid blood thinners. Physical therapy Likely postoperative ileus due to comorbidities - resolved Patient currently tolerating full liquid diet NEO hemodynamically mediated due to VMN with strong POA Continue IVF Monitor lab Pneumonia was ruled out Hepatic steatosis Lifestyle modification and dietary habits Vitamin D deficiency Replenished Hypokalemia Replenished Diet Full liquid Case discussed with Dr. Carranza Goals of care discussed with the patient for 39 minutes Code status: Full code Plan discussed with: Patient My Orders My Orders Orders - DEMETRIS MORENO RESIDENT Procedure Category Date Status Time Hydrocodone-Acet PHA 10/02/24 In Process 5/325mg Tab ([place] 12:15 Dietary Evaluation Review Comments: 1) Advance pt diet when medically feasible 2) Continue current plan of care Expected Outcomes/Goals: 1) Pt diet to advance 2) F/U in 2-3 days Date of Service: Oct 03, 2024 Billing Provider: NORBERT CARRANZA MD Common Visit Codes: [id number] INP/OBS CARE(HIGH) DEMETRIS MORENO RESIDENT Oct 03, 2024 09:44 NORBERT CARRANZA MD Oct 03, 2024 20:29
[2024-10-03] MEDS: cefTRIAXone 1GM/50ML D5W 50 ML IV ONE (10:17)
--- NOTE | 2024-10-03 16:38 | DVHPN2 ---
Consult Progress Note Date Seen: Oct 02, 2024 Subjective Patient reports: Feels better (febrile to 102.2) Objective vital signs Vital Sign Date Time Temp Pulse Resp B/P (MAP) Pulse Ox O2 Delivery O2 Flow Rate FiO2 10/03/24 13:00 99.6 103 16 113/70 (84) 95 99.6 10/03/24 08:10 Room Air* 0 21 Total Intake and Output 10/02/24 10/02/24 10/03/24 15:00 23:00 07:00 Intake Total 100 ml 100 ml 350 ml Output Total 800 ml 100 ml 650 ml Balance -700 ml 0 ml -300 ml medications Current Medications Medications Dose Ordered Sig/Prosper Route Start Time Stop Time Status Last Admin Dose Admin Ondansetron HCl 4 mg Q4HP PRN IV 09/23/24 16:00 Nitroglycerin 0.4 mg Q5MINP PRN SL 09/23/24 16:15 Pantoprazole Sodium 40 mg DAILY IV 09/24/24 10:00 10/03/24 09:18 40 MG Ergocalciferol 50,000 unit Q7D PO 09/24/24 14:45 10/01/24 16:50 50,000 UNIT Acetaminophen 650 mg Q6HP PRN PO 09/24/24 21:45 10/02/24 21:43 650 MG Melatonin 5 mg HS PRN PO 09/24/24 21:45 09/30/24 21:05 5 MG Magnesium Oxide 400 mg BID PO 09/28/24 10:00 10/03/24 09:18 400 MG Potassium Chloride 10 meq DAILY PO 09/28/24 10:00 10/03/24 09:19 10 MEQ Dextrose/Lactated Ringer's 1,000 ml @ 50 mls/hr Q20H IV 09/29/24 20:30 10/03/24 01:13 50 MLS/HR Acetaminophen/ Hydrocodone Bitart 1 tab Q6HPRN PRN PO 10/02/24 12:15 Ceftriaxone Sodium 50 ml @ 100 mls/hr DAILY@09 IV 10/04/24 09:00 Physical Exam: General: Appears ill. Neck: Supple. No masses. HEENT: PERRL. Normal lids and conjunctiva. Moist mucous membranes. Oropharynx without lesions, exudates, or excessive erythema. Normal appearance of the external aspects of the nose and ears. Heart: Regular rhythm, tachycardic. No murmur. No lower extremity edema. Lungs: Normal respiratory effort. Clear to auscultation bilaterally. No wheezes. No crackles. Abdomen: Distended. Tender to palpation. No masses or abdominal hernia. MSK: No digital cyanosis. Normal strength and tone in all four limbs. Skin: Warm and dry, no rashes. Neuro: Alert. No facial droop or slurred speech. Extraocular movements intact. Sensation intact to soft touch in all four limbs. Psych: Appropriate mood. Full affect. Oriented to person, place, time, and situation. laboratory and microbiology Laboratory Tests 10/03/24 06:39 Test 10/03/24 06:39 Range/Units Serum Glucose 114 H 74-106 mg/dL Problem List/Assessment/Plan Problems(with codes): (1) Intra-abdominal abscess (2) Acute renal injury (3) Elevated liver enzymes (4) Leukocytosis, unspecified (5) Electrolyte imbalance (6) Acute abdominal pain (7) Bowel obstruction (8) Pneumonia, unspecified organism (9) Ruptured appendicitis Problem List/Assessment/Plan ASSESSMENT AND PLAN: ID Problem List: - Intra-abdominal abscesses - Perforated appendicitis - Sepsis - E. coli infection - Ileus - Small bowel obstruction Assessment This is a [age not provided] y.o. male with no significant past medical history who presents with a perforated appendicitis complicated by intra-abdominal abscesses and sepsis. The patient underwent a laparoscopic lysis of adhesions, open drainage of intra- abdominal abscesses, and an open appendectomy on September 23. Operative findings included a distended peritoneum due to ileus, free air, distention of small and large intestines with serosal traction and ischemia, and a perforated appendix. A 19 Fr Noe drainage tube was placed. Currently, the patient has purulent drainage from the Noe drain, with intra- abdominal cultures growing E. coli. White blood cell count remains elevated at 21 on September 25. Repeat imaging revealed multiloculated abscesses in the right paracolic gutter, the largest measuring 14.6 cm. Multiple other fluid collections are inadequately drained. Bowel dilation may be due to ileus. sp Two (2) CT guided placement of 10.2 and 12 Ukrainian pigtail drain into a right paracolic gutter abscess. Plan: - continue cefTRIAXone - Continue to monitor WBC count and vital signs - Send any new aspirate samples from drains for aerobic and anaerobic cultures - Follow up on blood cultures Isolation Precautions: Standard Assessment and plan were discussed with the patient as written above. Plan is subject to change pending incorporation of new incoming information/diagnostics. Updates may be added as addendum at the bottom (OR TOP) of this note. Thank you for the interesting consult. ID will continue to follow. Please contact Infectious Disease for any questions or concerns. Plan discussed with: Patient Dietary Evaluation Review Comments: 1) Advance pt diet when medically feasible 2) Continue current plan of care Expected Outcomes/Goals: 1) Pt diet to advance 2) F/U in 2-3 days JERRY TINEO MD Oct 03, 2024 16:38
--- NOTE | 2024-10-03 17:51 | DVHPN2 ---
Progress Note Date Seen: Oct 03, 2024 Medical Necessity Reason Pt with a Central, PICC or Fol: No Reason for mcdonald catheter: Sixto. Abd Surgery Objective vital signs Vital Sign Date Time Temp Pulse Resp B/P (MAP) Pulse Ox O2 Delivery O2 Flow Rate FiO2 10/03/24 17:00 100.1 109 14 115/69 (84) 96 100.1 10/03/24 08:10 Room Air* 0 21 Total Intake and Output 10/02/24 10/02/24 10/03/24 15:00 23:00 07:00 Intake Total 100 ml 100 ml 350 ml Output Total 800 ml 100 ml 650 ml Balance -700 ml 0 ml -300 ml medications Current Medications Medications Dose Ordered Sig/Prosper Route Start Time Stop Time Status Last Admin Dose Admin Ondansetron HCl 4 mg Q4HP PRN IV 09/23/24 16:00 Nitroglycerin 0.4 mg Q5MINP PRN SL 09/23/24 16:15 Pantoprazole Sodium 40 mg DAILY IV 09/24/24 10:00 10/03/24 09:18 40 MG Ergocalciferol 50,000 unit Q7D PO 09/24/24 14:45 10/01/24 16:50 50,000 UNIT Acetaminophen 650 mg Q6HP PRN PO 09/24/24 21:45 10/02/24 21:43 650 MG Melatonin 5 mg HS PRN PO 09/24/24 21:45 09/30/24 21:05 5 MG Magnesium Oxide 400 mg BID PO 09/28/24 10:00 10/03/24 09:18 400 MG Potassium Chloride 10 meq DAILY PO 09/28/24 10:00 10/03/24 09:19 10 MEQ Dextrose/Lactated Ringer's 1,000 ml @ 50 mls/hr Q20H IV 09/29/24 20:30 10/03/24 01:13 50 MLS/HR Acetaminophen/ Hydrocodone Bitart 1 tab Q6HPRN PRN PO 10/02/24 12:15 Ceftriaxone Sodium 50 ml @ 100 mls/hr DAILY@09 IV 10/04/24 09:00 Cancel Ampicillin Sodium/ Sulbactam Sodium 3 gm/Sodium Chloride 100 ml @ 100 mls/hr Q6H IV 10/03/24 16:30 laboratory and microbiology Laboratory Tests 10/03/24 06:39 Test 10/03/24 06:39 Range/Units Serum Glucose 114 H 74-106 mg/dL Microbiology Date/Time Source Procedure Growth Status 10/01/24 18:04 Aspirate Gram Stain - Final Resulted 10/01/24 18:04 Body Fluid Culture - Preliminary Escherichia coli Resulted 09/23/24 23:01 Blood Blood Culture - Final NO GROWTH AFTER 5 DAYS OF INCUBATION. Complete 09/23/24 17:30 Abdomen Gram Stain - Final Complete 09/23/24 17:30 Abdomen Anaerobic Culture - Final Complete 09/23/24 17:30 Aerobic Culture - Final Escherichia coli Complete Problem List/Assessment/Plan Problem List/Assessment/Plan AFEBRILE T max 100.7 VSS ABD SOFT LESS DISTENDED ABD WOUND IR DRAINAGE 20 CC PURULENT DRESSING CHANGED BM + FLATUS + WBC WNL IV ABX CT SCAN IR DRAINAGE DONE TWO CATHS PLACED NURSE AND FAMILY AT BEDSIDE CONTINUE CLOSE OBSERVATION KUB CONTRAST IN COLON NO FREE AIR Plan discussed with: Patient Dietary Evaluation Review Comments: 1) Advance pt diet when medically feasible 2) Continue current plan of care Expected Outcomes/Goals: 1) Pt diet to advance 2) F/U in 2-3 days EDISON NUÑEZ MD Oct 03, 2024 17:51
[2024-10-03] MEDS: AMPICILLIN & SULBACTAM SODIUM 3 GM in SODIUM CHL 0.9% 100 ML IV SCH (18:30)
--- NOTE | 2024-10-03 22:09 | DVHPN2 ---
Consult Progress Note Date Seen: Oct 03, 2024 Subjective Patient reports: Other (no longer having fevers , some elevated temps of 99.6. White count is 9.2, the lower right quadrant has multiple prelince producing drains with 450ccs have come out of [facility] in the last 24 hours.) Objective vital signs Vital Sign Date Time Temp Pulse Resp B/P (MAP) Pulse Ox O2 Delivery O2 Flow Rate FiO2 10/03/24 20:00 19 Room Air* 0 21 10/03/24 17:00 100.1 109 115/69 (84) 96 100.1 Total Intake and Output 10/02/24 10/02/24 10/03/24 15:00 23:00 07:00 Intake Total 100 ml 100 ml 350 ml Output Total 800 ml 100 ml 650 ml Balance -700 ml 0 ml -300 ml medications Current Medications Medications Dose Ordered Sig/Prosper Route Start Time Stop Time Status Last Admin Dose Admin Ondansetron HCl 4 mg Q4HP PRN IV 09/23/24 16:00 Nitroglycerin 0.4 mg Q5MINP PRN SL 09/23/24 16:15 Pantoprazole Sodium 40 mg DAILY IV 09/24/24 10:00 10/03/24 09:18 40 MG Ergocalciferol 50,000 unit Q7D PO 09/24/24 14:45 10/01/24 16:50 50,000 UNIT Acetaminophen 650 mg Q6HP PRN PO 09/24/24 21:45 10/02/24 21:43 650 MG Melatonin 5 mg HS PRN PO 09/24/24 21:45 09/30/24 21:05 5 MG Magnesium Oxide 400 mg BID PO 09/28/24 10:00 10/03/24 21:20 400 MG Potassium Chloride 10 meq DAILY PO 09/28/24 10:00 10/03/24 09:19 10 MEQ Dextrose/Lactated Ringer's 1,000 ml @ 50 mls/hr Q20H IV 09/29/24 20:30 10/03/24 21:52 50 MLS/HR Acetaminophen/ Hydrocodone Bitart 1 tab Q6HPRN PRN PO 10/02/24 12:15 Ceftriaxone Sodium 50 ml @ 100 mls/hr DAILY@09 IV 10/04/24 09:00 Cancel Ampicillin Sodium/ Sulbactam Sodium 3 gm/Sodium Chloride 100 ml @ 100 mls/hr Q6H IV 10/03/24 16:30 10/03/24 18:30 100 MLS/HR Physical Exam: General: Appears ill. Neck: Supple. No masses. HEENT: PERRL. Normal lids and conjunctiva. Moist mucous membranes. Oropharynx without lesions, exudates, or excessive erythema. Normal appearance of the external aspects of the nose and ears. Heart: Regular rhythm, tachycardic. No murmur. No lower extremity edema. Lungs: Normal respiratory effort. Clear to auscultation bilaterally. No wheezes. No crackles. Abdomen: Distended. Tender to palpation. No masses or abdominal hernia. MSK: No digital cyanosis. Normal strength and tone in all four limbs. Skin: Warm and dry, no rashes. Neuro: Alert. No facial droop or slurred speech. Extraocular movements intact. Sensation intact to soft touch in all four limbs. Psych: Appropriate mood. Full affect. Oriented to person, place, time, and situation. laboratory and microbiology Laboratory Tests 10/03/24 06:39 Test 10/03/24 06:39 Range/Units Serum Glucose 114 H 74-106 mg/dL Problem List/Assessment/Plan Problems(with codes): (1) Pneumonia, unspecified organism (2) Bowel obstruction (3) Acute abdominal pain (4) Electrolyte imbalance (5) Leukocytosis, unspecified (6) Elevated liver enzymes (7) Ruptured appendicitis (8) Acute renal injury (9) Intra-abdominal abscess Problem List/Assessment/Plan ASSESSMENT AND PLAN: ID Problem List: - Intra-abdominal abscesses - Perforated appendicitis - Sepsis - E. coli infection - Ileus - Small bowel obstruction Assessment This is a [age not provided] y.o. male with no significant past medical history who presents with a perforated appendicitis complicated by intra-abdominal abscesses and sepsis. The patient underwent a laparoscopic lysis of adhesions, open drainage of intra- abdominal abscesses, and an open appendectomy on September 23. Operative findings included a distended peritoneum due to ileus, free air, distention of small and large intestines with serosal traction and ischemia, and a perforated appendix. A 19 Fr Noe drainage tube was placed. Currently, the patient has purulent drainage from the Noe drain, with intra- abdominal cultures growing E. coli. White blood cell count remains elevated at 21 on September 25. Repeat imaging revealed multiloculated abscesses in the right paracolic gutter, the largest measuring 14.6 cm. Multiple other fluid collections are inadequately drained. Bowel dilation may be due to ileus. sp Two (2) CT guided placement of 10.2 and 12 Romansh pigtail drain into a right paracolic gutter abscess. 10/03: abdominal ct done after multiple drain placemetn shows 12.5 by 11.9 cm fluid collection in right lower quadrant with mildly thickening wall containings pockets of air . drainage catheter wich is not positioned within the fluid collection correlation , proper catheter is recommended. Small dialated multiple bowel loops in the left abdomen with airflow levels , no focal transition point identified. theres nondialated small bowel loops in the right abdomen , a post changes in illio secqual junction may relate to illieus , theres hepatic seratosis and a passing right lung with may represent a lectusus vs airspace disease . Aspirate from drain placemtn is growing E coli from 10/01 and from 09/30 are growing E coli and enterococcus Plan: - unclear if patients drain is placed correctly but there is a significant amount of output defer to interventional radiology for any adjustments that may be necessary - stop cefTRIAXone, Start unison which will cover organisms found during surgery as well as for pneumonia , patient will likely need iv antibiotics and a piccline but may be able to go home on all antibiotic therapy if there is a sufficient amount of drain output occurs in the next 1-2 days - continue to monitor - Continue to monitor WBC count and vital signs - Send any new aspirate samples from drains for aerobic and anaerobic cultures - Follow up on blood cultures Isolation Precautions: Standard Assessment and plan were discussed with the patient as written above. Plan is subject to change pending incorporation of new incoming information/diagnostics. Updates may be added as addendum at the bottom (OR TOP) of this note. Thank you for the interesting consult. ID will continue to follow. Please contact Infectious Disease for any questions or concerns. Plan discussed with: Other Dietary Evaluation Review Comments: 1) Advance pt diet when medically feasible 2) Continue current plan of care Expected Outcomes/Goals: 1) Pt diet to advance 2) F/U in 2-3 days JERRY TINEO MD Oct 03, 2024 22:09
[2024-10-04] VITALS (7 sets, daily range): BP systolic 107–126; BP diastolic 65–76; PULSE 101–116; RESP 16–20; TEMP 97.9–98.8; O2SAT 94–96
[2024-10-04] MEDS ORDERED: cefTRIAXone 1GM/50ML D5W 50 ML IV SCH (09:00)
--- NOTE | 2024-10-04 17:16 | DVHPNRES ---
Progress Note Date Seen: Oct 04, 2024 Resident Creating Document: DEMETRIS MORENO RESIDENT Medical Necessity Reason Pt with a Central, PICC or Fol: No Reason for mcdonald catheter: Sixto. Abd Surgery Subjective Review of Systems 29-year-old male patient who presented to the emergency department with complaints of worsening intermittent generalized abdominal pain that began 7 day prior to admission. He attributed the pain to consuming hensley. The patient was diagnosed with the complicated ruptured acute appendicitis and underwent an open appendectomy. Postoperatively, the patient initially demonstrated signs of intra-abdominal infection and was started on piperacillin tazobactam on 09/27/2024. Since surgery, the patient has reported gradual improvement. He denies current abdominal pain, nausea or vomiting. He has resumed normal bowel movements and flatulence and is tolerating a full liquid diet. Physical therapy was ordered to encourage ambulation. On 09/30/2024 the patient is on the 4th day of the long term tazobactam. Despite some residual purulent drainage from surgical wound the drainage has decreased compared to earlier days. The wound was redressed and during these assessment vital signs remained stable and the patient is afebrile. White blood cell count has normalized. Patient was evaluated today and denies any acute complaints at this time. The patient is tolerating a clear liquid diet, we going to advance it to full liquid Fever its being managed with tylenol and cooling measures, microbiology results showed E,Coli and E. Faecalis, atb was changed to ampicilin sulbatam IV The patient will remain under close observation to assess symptom resolution and overall recovery. Review of systems Constitutional: No: Chills, Sweats, Weakness, Malaise, Other Eyes: No: Pain, Vision change, Conjunctivae inflammation, Eyelid inflammation, Other, Redness ENT: No: Ear pain, Ear discharge, Nose pain, Nose discharge, Nose congestion, Mouth pain, Mouth swelling, Throat pain, Throat swelling, Other Respiratory: No Wheezing, Hemoptysis, Pleuritic Pain, Sputum, Wheezing, Other Cardiovascular: No: Chest Pain, Palpitations, Orthopnea, Paroxysmal Noc. Dyspnea, Edema, Lt Headedness, Other Gastrointestinal: yes:mild abdominal pain, WALTER Drain on place No: Nausea, Vomiting, Diarrhea, Constipation, Melena, Hematochezia, Other Musculoskeletal: No: other, neck pain, shoulder pain, arm pain, back pain, hand pain, leg pain, foot pain Neurological:; No: Weakness, Numbness, Incoordination, Change in speech, Confusion, Seizures Objective vital signs Vital Sign Date Time Temp Pulse Resp B/P (MAP) Pulse Ox O2 Delivery O2 Flow Rate FiO2 10/04/24 17:01 97.9 110 19 121/69 (86) 94 97.9 10/04/24 08:00 Room Air* 0 21 Total Intake and Output 10/03/24 10/03/24 10/04/24 15:00 23:00 07:00 Intake Total 1480 ml 800 ml Output Total 751 ml Balance 1480 ml 49 ml medications Current Medications Medications Dose Ordered Sig/Prosper Route Start Time Stop Time Status Last Admin Dose Admin Ondansetron HCl 4 mg Q4HP PRN IV 09/23/24 16:00 Nitroglycerin 0.4 mg Q5MINP PRN SL 09/23/24 16:15 Pantoprazole Sodium 40 mg DAILY IV 09/24/24 10:00 10/04/24 10:28 40 MG Ergocalciferol 50,000 unit Q7D PO 09/24/24 14:45 10/01/24 16:50 50,000 UNIT Acetaminophen 650 mg Q6HP PRN PO 09/24/24 21:45 10/02/24 21:43 650 MG Melatonin 5 mg HS PRN PO 09/24/24 21:45 09/30/24 21:05 5 MG Magnesium Oxide 400 mg BID PO 09/28/24 10:00 10/04/24 10:29 400 MG Potassium Chloride 10 meq DAILY PO 09/28/24 10:00 10/04/24 10:29 10 MEQ Dextrose/Lactated Ringer's 1,000 ml @ 50 mls/hr Q20H IV 09/29/24 20:30 10/03/24 21:52 50 MLS/HR Acetaminophen/ Hydrocodone Bitart 1 tab Q6HPRN PRN PO 10/02/24 12:15 Ceftriaxone Sodium 50 ml @ 100 mls/hr DAILY@09 IV 10/04/24 09:00 Cancel Ampicillin Sodium/ Sulbactam Sodium 3 gm/Sodium Chloride 100 ml @ 100 mls/hr Q6H IV 10/03/24 16:30 10/04/24 16:16 100 MLS/HR Examination General Appearance: Alert, Oriented X3, Cooperative, No acute distress Respiratory: Clear to auscultation, Normal air movement Cardiovascular: Regular rate, Normal S1, Normal S2 Abdominal: Surgical scar in the middle of the abdomen,normal bowel sounds, WALTER drain on place Extremities: No cyanosis, No edema, Normal pulses, No tenderness/swelling Skin: No rashes, No breakdown Neuro: Normal speech, Strength at 5/5 X4 ext, Normal tone, Sensation intact, Cranial nerves 3-12 NL, Reflexes 2+ Psych/Mental Status: Mental status NL, Mood NL laboratory and microbiology Laboratory Tests 10/03/24 06:39 Test 10/03/24 06:39 Range/Units Serum Glucose 114 H 74-106 mg/dL Microbiology Date/Time Source Procedure Growth Status 10/01/24 18:04 Aspirate Gram Stain - Final Complete 10/01/24 18:04 Body Fluid Culture - Final Escherichia coli Enterococcus faecalis Complete 09/23/24 23:01 Blood Blood Culture - Final NO GROWTH AFTER 5 DAYS OF INCUBATION. Complete 09/23/24 17:30 Abdomen Gram Stain - Final Complete 09/23/24 17:30 Abdomen Anaerobic Culture - Final Complete 09/23/24 17:30 Aerobic Culture - Final Escherichia coli Complete Problem List/Assessment/Plan Problem List/Assessment/Plan Sepsis likely due to acute gangrenous appendicitis with perforation Large approximately 12.5 x 11.9 cm fluid collection in the right lower abdomen Surgical culture evidence E coli and E.Faecalis IV Ampicilin-sulbactam CT guided drainage was performed without complications Cooling measures and Tylenol to control the fever Acute appendicitis complicated by rupture s/p open appendectomy Evidence in abdomen and pelvis CT on admission: Showed ruptured acute appendicitis specialist physicians on board: Completed open appendectomy on 09/23/2024. Presents WALTER drainage which still contains purulent discharge Patient is on SCDs, indicate mobilization at this point to avoid blood thinners. Physical therapy Likely postoperative ileus due to comorbidities - resolved Patient currently tolerating full liquid diet NEO hemodynamically mediated due to VMN with strong POA Continue IVF Monitor lab Pneumonia was ruled out Hepatic steatosis Lifestyle modification and dietary habits Vitamin D deficiency Replenished Hypokalemia Replenished Diet Full liquid Case discussed with Dr. Carranza Goals of care discussed with the patient for 39 minutes Code status: Full code Plan discussed with: Patient Dietary Evaluation Review Comments: 1) Advance pt diet when medically feasible 2) Continue current plan of care Expected Outcomes/Goals: 1) Pt diet to advance 2) F/U in 2-3 days Date of Service: Oct 04, 2024 Billing Provider: NORBERT CARRANZA MD Common Visit Codes: [id number] INP/OBS CARE(HIGH) DEMETRIS MORENO RESIDENT Oct 04, 2024 17:16 NORBERT CARRANZA MD Oct 04, 2024 22:42
--- NOTE | 2024-10-04 17:20 | DVHPN2 ---
Progress Note Date Seen: Oct 04, 2024 Medical Necessity Reason Pt with a Central, PICC or Fol: No Reason for mcdonald catheter: Sixto. Abd Surgery Objective vital signs Vital Sign Date Time Temp Pulse Resp B/P (MAP) Pulse Ox O2 Delivery O2 Flow Rate FiO2 10/04/24 17:01 97.9 110 19 121/69 (86) 94 97.9 10/04/24 08:00 Room Air* 0 21 Total Intake and Output 10/03/24 10/03/24 10/04/24 15:00 23:00 07:00 Intake Total 1480 ml 800 ml Output Total 751 ml Balance 1480 ml 49 ml medications Current Medications Medications Dose Ordered Sig/Prosper Route Start Time Stop Time Status Last Admin Dose Admin Ondansetron HCl 4 mg Q4HP PRN IV 09/23/24 16:00 Nitroglycerin 0.4 mg Q5MINP PRN SL 09/23/24 16:15 Pantoprazole Sodium 40 mg DAILY IV 09/24/24 10:00 10/04/24 10:28 40 MG Ergocalciferol 50,000 unit Q7D PO 09/24/24 14:45 10/01/24 16:50 50,000 UNIT Acetaminophen 650 mg Q6HP PRN PO 09/24/24 21:45 10/02/24 21:43 650 MG Melatonin 5 mg HS PRN PO 09/24/24 21:45 09/30/24 21:05 5 MG Magnesium Oxide 400 mg BID PO 09/28/24 10:00 10/04/24 10:29 400 MG Potassium Chloride 10 meq DAILY PO 09/28/24 10:00 10/04/24 10:29 10 MEQ Dextrose/Lactated Ringer's 1,000 ml @ 50 mls/hr Q20H IV 09/29/24 20:30 10/03/24 21:52 50 MLS/HR Acetaminophen/ Hydrocodone Bitart 1 tab Q6HPRN PRN PO 10/02/24 12:15 Ceftriaxone Sodium 50 ml @ 100 mls/hr DAILY@09 IV 10/04/24 09:00 Cancel Ampicillin Sodium/ Sulbactam Sodium 3 gm/Sodium Chloride 100 ml @ 100 mls/hr Q6H IV 10/03/24 16:30 10/04/24 16:16 100 MLS/HR laboratory and microbiology Laboratory Tests 10/03/24 06:39 Test 10/03/24 06:39 Range/Units Serum Glucose 114 H 74-106 mg/dL Microbiology Date/Time Source Procedure Growth Status 10/01/24 18:04 Aspirate Gram Stain - Final Complete 10/01/24 18:04 Body Fluid Culture - Final Escherichia coli Enterococcus faecalis Complete 09/23/24 23:01 Blood Blood Culture - Final NO GROWTH AFTER 5 DAYS OF INCUBATION. Complete 09/23/24 17:30 Abdomen Gram Stain - Final Complete 09/23/24 17:30 Abdomen Anaerobic Culture - Final Complete 09/23/24 17:30 Aerobic Culture - Final Escherichia coli Complete Problem List/Assessment/Plan Problem List/Assessment/Plan AFEBRILE VSS ABD SOFT LESS DISTENDED ABD WOUND IR DRAINAGE 10 CC PURULENT DRESSING CHANGED BM + FLATUS + WBC WNL IV ABX NURSE AND FAMILY AT BEDSIDE CONTINUE CLOSE OBSERVATION Plan discussed with: Patient Dietary Evaluation Review Comments: 1) Advance pt diet when medically feasible 2) Continue current plan of care Expected Outcomes/Goals: 1) Pt diet to advance 2) F/U in 2-3 days EDISON NUÑEZ MD Oct 04, 2024 17:20
--- NOTE | 2024-10-04 22:55 | DVHPN2 ---
Consult Progress Note Date Seen: Oct 04, 2024 Subjective Patient reports: Other (a bit short of breath , is tachycardic but has clear lungs . Has dark murky purulent drainage coming out of his drain at 450ccs ) Objective vital signs Vital Sign Date Time Temp Pulse Resp B/P (MAP) Pulse Ox O2 Delivery O2 Flow Rate FiO2 10/04/24 21:00 98.6 116 18 107/65 (79) 96 98.6 10/04/24 08:00 Room Air* 0 21 Total Intake and Output 10/03/24 10/03/24 10/04/24 14:59 22:59 06:59 Intake Total 1480 ml 800 ml Output Total 751 ml Balance 1480 ml 49 ml medications Current Medications Medications Dose Ordered Sig/Prosper Route Start Time Stop Time Status Last Admin Dose Admin Ondansetron HCl 4 mg Q4HP PRN IV 09/23/24 16:00 Nitroglycerin 0.4 mg Q5MINP PRN SL 09/23/24 16:15 Pantoprazole Sodium 40 mg DAILY IV 09/24/24 10:00 10/04/24 10:28 40 MG Ergocalciferol 50,000 unit Q7D PO 09/24/24 14:45 10/01/24 16:50 50,000 UNIT Acetaminophen 650 mg Q6HP PRN PO 09/24/24 21:45 10/02/24 21:43 650 MG Melatonin 5 mg HS PRN PO 09/24/24 21:45 09/30/24 21:05 5 MG Magnesium Oxide 400 mg BID PO 09/28/24 10:00 10/04/24 21:26 400 MG Potassium Chloride 10 meq DAILY PO 09/28/24 10:00 10/04/24 10:29 10 MEQ Dextrose/Lactated Ringer's 1,000 ml @ 50 mls/hr Q20H IV 09/29/24 20:30 10/04/24 21:26 50 MLS/HR Acetaminophen/ Hydrocodone Bitart 1 tab Q6HPRN PRN PO 10/02/24 12:15 Ceftriaxone Sodium 50 ml @ 100 mls/hr DAILY@09 IV 10/04/24 09:00 Cancel Ampicillin Sodium/ Sulbactam Sodium 3 gm/Sodium Chloride 100 ml @ 100 mls/hr Q6H IV 10/03/24 16:30 10/04/24 21:26 100 MLS/HR Physical Exam: General: Appears ill. Neck: Supple. No masses. HEENT: PERRL. Normal lids and conjunctiva. Moist mucous membranes. Oropharynx without lesions, exudates, or excessive erythema. Normal appearance of the external aspects of the nose and ears. Heart: Regular rhythm, tachycardic. No murmur. No lower extremity edema. Lungs: Normal respiratory effort. Clear to auscultation bilaterally. No wheezes. No crackles. Abdomen: Distended. Tender to palpation. No masses or abdominal hernia. MSK: No digital cyanosis. Normal strength and tone in all four limbs. Skin: Warm and dry, no rashes. Neuro: Alert. No facial droop or slurred speech. Extraocular movements intact. Sensation intact to soft touch in all four limbs. Psych: Appropriate mood. Full affect. Oriented to person, place, time, and situation. laboratory and microbiology Laboratory Tests 10/03/24 06:39 Test 10/03/24 06:39 Range/Units Serum Glucose 114 H 74-106 mg/dL Problem List/Assessment/Plan Problems(with codes): (1) Intra-abdominal abscess (2) Acute renal injury (3) Ruptured appendicitis (4) Elevated liver enzymes (5) Leukocytosis, unspecified (6) Electrolyte imbalance (7) Acute abdominal pain (8) Bowel obstruction (9) Pneumonia, unspecified organism Problem List/Assessment/Plan ASSESSMENT AND PLAN: ID Problem List: - Intra-abdominal abscesses - Perforated appendicitis - Sepsis - E. coli infection - Ileus - Small bowel obstruction Assessment This is a [age not provided] y.o. male with no significant past medical history who presents with a perforated appendicitis complicated by intra-abdominal abscesses and sepsis. The patient underwent a laparoscopic lysis of adhesions, open drainage of intra- abdominal abscesses, and an open appendectomy on September 23. Operative findings included a distended peritoneum due to ileus, free air, distention of small and large intestines with serosal traction and ischemia, and a perforated appendix. A 19 Fr Noe drainage tube was placed. Currently, the patient has purulent drainage from the Noe drain, with intra- abdominal cultures growing E. coli. White blood cell count remains elevated at 21 on September 25. Repeat imaging revealed multiloculated abscesses in the right paracolic gutter, the largest measuring 14.6 cm. Multiple other fluid collections are inadequately drained. Bowel dilation may be due to ileus. sp Two (2) CT guided placement of 10.2 and 12 Danish pigtail drain into a right paracolic gutter abscess. 10/03: abdominal ct done after multiple drain placemetn shows 12.5 by 11.9 cm fluid collection in right lower quadrant with mildly thickening wall containings pockets of air . drainage catheter wich is not positioned within the fluid collection correlation , proper catheter is recommended. Small dialated multiple bowel loops in the left abdomen with airflow levels , no focal transition point identified. theres nondialated small bowel loops in the right abdomen , a post changes in illio secqual junction may relate to illieus , theres hepatic seratosis and a passing right lung with may represent a lectusus vs airspace disease . Aspirate from drain placemtn is growing E coli from 10/01 and from 09/30 are growing E coli and enterococcus 10/04: ongoing heavy output on drain , growing enterococcus and E coli on intra abdominal culture aspirate. white count is 7.4 Plan: - unclear if patients drain is placed correctly but there is a significant amount of output defer to interventional radiology for any adjustments that may be necessary - Continue Unasyn which will cover organisms found during surgery as well as for pneumonia , patient will likely need iv antibiotics and a piccline but may be able to go home on all antibiotic therapy if there is a sufficient amount of drain output occurs in the next 1-2 days - continue to monitor - Continue to monitor WBC count and vital signs - Send any new aspirate samples from drains for aerobic and anaerobic cultures - Follow up on blood cultures Isolation Precautions: Standard Assessment and plan were discussed with the patient as written above. Plan is subject to change pending incorporation of new incoming information/diagnostics. Updates may be added as addendum at the bottom (OR TOP) of this note. Thank you for the interesting consult. ID will continue to follow. Please contact Infectious Disease for any questions or concerns. Plan discussed with: Other Dietary Evaluation Review Comments: 1) Advance pt diet when medically feasible 2) Continue current plan of care Expected Outcomes/Goals: 1) Pt diet to advance 2) F/U in 2-3 days JERRY TINEO MD Oct 04, 2024 22:55
[2024-10-05] VITALS (8 sets, daily range): BP systolic 105–136; BP diastolic 64–76; PULSE 65–118; RESP 17–20; TEMP 98.2–101.9; O2SAT 92–99
[2024-10-05 10:39] LABS: Basophils # (auto) 0 10 ^3/uL (0-0.2); Basophils % (auto) 0.5 % (0.0-2.0); Eosinophils # (auto) 0 10 ^3/uL (0-0.8); Eosinophils % (auto) 0.7 % (0.0-7.0); Hematocrit 32.2 % (41.0-53.0); Hemoglobin 11.1 g/dL (13.5-17.5); Lymphocytes # (auto) 0.8 10 ^3/uL (0.4-5.4); Lymphocytes % (auto) 11.9 % (10.0-50.0); Mean Corpuscular Hemoglobin 32.3 pg (28.0-32.0); Mean Corpuscular Hgb Conc. 34.4 g/dL (32.0-36.0); Mean Corpuscular Volume 93.7 fL (80.0-100.0); Monocytes # (auto) 0.6 10 ^3/uL (0-1.3); Neutrophils # (auto) 5.4 10 ^3/uL (1.6-8.6); Neutrophils % (auto) 77.9 % (37.0-80.0); Platelet Count (auto) 253 10^3/uL (140-450); Red Blood Cells 3.43 10^6/uL (4.5-5.90); Red Cell Distribution Width 12.5 % (11.8-14.3); White Blood Cell 6.9 10^3/uL (4.4-10.8)
[2024-10-05 10:46] LABS: Chloride 102 mmol/L (98-107); Potassium 3.6 mmol/L (3.5-5.1)
[2024-10-05 10:47] LABS: Anion Gap 8 (5-15); Carbon Dioxide 25 mmol/L (20-31)
[2024-10-05 10:48] LABS: Calcium 9.1 mg/dL (8.7-10.4)
[2024-10-05 10:52] LABS: BUN/Creatinine Ratio 7.3 (10.0-20.0)
[2024-10-05 10:53] LABS: Blood Urea Nitrogen 6 mg/dL (9-23); Glucose 111 mg/dL (74-106); Sodium 135 mmol/L (136-145)
--- NOTE | 2024-10-05 11:44 | DVHPN2 ---
Progress Note Date Seen: Oct 05, 2024 Medical Necessity Reason Pt with a Central, PICC or Fol: No Reason for mcdonald catheter: Sixto. Abd Surgery Objective vital signs Vital Sign Date Time Temp Pulse Resp B/P (MAP) Pulse Ox O2 Delivery O2 Flow Rate FiO2 10/05/24 08:49 98.7 104 18 105/64 (78) 93 98.7 10/04/24 20:00 Room Air* 0 21 Total Intake and Output 10/04/24 10/04/24 10/05/24 14:59 22:59 06:59 Intake Total 100 ml 750 ml 900 ml Output Total 500 ml Balance 100 ml 750 ml 400 ml medications Current Medications Medications Dose Ordered Sig/Prosper Route Start Time Stop Time Status Last Admin Dose Admin Ondansetron HCl 4 mg Q4HP PRN IV 09/23/24 16:00 Nitroglycerin 0.4 mg Q5MINP PRN SL 09/23/24 16:15 Pantoprazole Sodium 40 mg DAILY IV 09/24/24 10:00 10/05/24 09:40 40 MG Ergocalciferol 50,000 unit Q7D PO 09/24/24 14:45 10/01/24 16:50 50,000 UNIT Acetaminophen 650 mg Q6HP PRN PO 09/24/24 21:45 10/02/24 21:43 650 MG Melatonin 5 mg HS PRN PO 09/24/24 21:45 09/30/24 21:05 5 MG Magnesium Oxide 400 mg BID PO 09/28/24 10:00 10/05/24 09:40 400 MG Potassium Chloride 10 meq DAILY PO 09/28/24 10:00 10/05/24 09:40 10 MEQ Dextrose/Lactated Ringer's 1,000 ml @ 50 mls/hr Q20H IV 09/29/24 20:30 10/04/24 21:26 50 MLS/HR Acetaminophen/ Hydrocodone Bitart 1 tab Q6HPRN PRN PO 10/02/24 12:15 Ceftriaxone Sodium 50 ml @ 100 mls/hr DAILY@09 IV 10/04/24 09:00 Cancel Ampicillin Sodium/ Sulbactam Sodium 3 gm/Sodium Chloride 100 ml @ 100 mls/hr Q6H IV 10/03/24 16:30 10/05/24 09:49 100 MLS/HR laboratory and microbiology Laboratory Tests 10/05/24 10:09 Test 10/05/24 10:09 Range/Units Serum Glucose 111 H 74-106 mg/dL Microbiology Date/Time Source Procedure Growth Status 10/01/24 18:04 Aspirate Gram Stain - Final Complete 10/01/24 18:04 Body Fluid Culture - Final Escherichia coli Enterococcus faecalis Complete 09/23/24 23:01 Blood Blood Culture - Final NO GROWTH AFTER 5 DAYS OF INCUBATION. Complete 09/23/24 17:30 Abdomen Gram Stain - Final Complete 09/23/24 17:30 Abdomen Anaerobic Culture - Final Complete 09/23/24 17:30 Aerobic Culture - Final Escherichia coli Complete Problem List/Assessment/Plan Problem List/Assessment/Plan AFEBRILE VSS ABD SOFT LESS DISTENDED ABD WOUND IR DRAINAGE 10 CC PURULENT DRESSING CHANGED BM + FLATUS + WBC WNL IV ABX ADVANCE TO SOFT DIET NURSE AND FAMILY AT BEDSIDE CONTINUE CLOSE OBSERVATION Plan discussed with: Patient Dietary Evaluation Review Comments: 1) Advance pt diet when medically feasible 2) Continue current plan of care Expected Outcomes/Goals: 1) Pt diet to advance 2) F/U in 2-3 days EDISON NUÑEZ MD Oct 05, 2024 11:44
--- NOTE | 2024-10-05 14:29 | DVHPNRES ---
Progress Note Date Seen: Oct 05, 2024 Resident Creating Document: AAKASH SEWELL RESIDENT Medical Necessity Reason Pt with a Central, PICC or Fol: No Reason for mcdonald catheter: Sixto. Abd Surgery Subjective Review of Systems 29-year-old male patient who presented to the emergency department with complaints of worsening intermittent generalized abdominal pain that began 7 day prior to admission. He attributed the pain to consuming hensley. The patient was diagnosed with the complicated ruptured acute appendicitis and underwent an open appendectomy. Postoperatively, the patient initially demonstrated signs of intra-abdominal infection and was started on piperacillin tazobactam on 09/27/2024. Since surgery, the patient has reported gradual improvement. He denies current abdominal pain, nausea or vomiting. He has resumed normal bowel movements and flatulence and is tolerating a full liquid diet. Physical therapy was ordered to encourage ambulation. On 09/30/2024 the patient is on the 4th day of the correction tazobactam. Despite some residual purulent drainage from surgical wound the drainage has decreased compared to earlier days. The wound was redressed and during these assessment vital signs remained stable and the patient is afebrile. White blood cell count has normalized. Patient was evaluated today and denies any acute complaints at this time. The patient is tolerating a clear liquid diet, we going to advance it to full liquid Fever its being managed with tylenol and cooling measures, microbiology results showed E,Coli and E. Faecalis, atb was changed to Unasyn 3 gm IV q.6h The patient will remain under close observation to assess symptom resolution and overall recovery. Review of systems Constitutional: No: Chills, Sweats, Weakness, Malaise, Other Eyes: No: Pain, Vision change, Conjunctivae inflammation, Eyelid inflammation, Other, Redness ENT: No: Ear pain, Ear discharge, Nose pain, Nose discharge, Nose congestion, Mouth pain, Mouth swelling, Throat pain, Throat swelling, Other Respiratory: No Wheezing, Hemoptysis, Pleuritic Pain, Sputum, Wheezing, Other Cardiovascular: No: Chest Pain, Palpitations, Orthopnea, Paroxysmal Noc. Dyspnea, Edema, Lt Headedness, Other Gastrointestinal: yes:mild abdominal pain, WALTER Drain on place No: Nausea, Vomiting, Diarrhea, Constipation, Melena, Hematochezia, Other Musculoskeletal: No: other, neck pain, shoulder pain, arm pain, back pain, hand pain, leg pain, foot pain Neurological:; No: Weakness, Numbness, Incoordination, Change in speech, Confusion, Seizures Objective vital signs Vital Sign Date Time Temp Pulse Resp B/P (MAP) Pulse Ox O2 Delivery O2 Flow Rate FiO2 10/05/24 13:00 98.9 117 18 112/66 (81) 92 98.9 10/04/24 20:00 Room Air* 0 21 Total Intake and Output 10/04/24 10/04/24 10/05/24 15:00 23:00 07:00 Intake Total 100 ml 750 ml 900 ml Output Total 500 ml Balance 100 ml 750 ml 400 ml medications Current Medications Medications Dose Ordered Sig/Prosper Route Start Time Stop Time Status Last Admin Dose Admin Ondansetron HCl 4 mg Q4HP PRN IV 09/23/24 16:00 Nitroglycerin 0.4 mg Q5MINP PRN SL 09/23/24 16:15 Pantoprazole Sodium 40 mg DAILY IV 09/24/24 10:00 10/05/24 09:40 40 MG Ergocalciferol 50,000 unit Q7D PO 09/24/24 14:45 10/01/24 16:50 50,000 UNIT Acetaminophen 650 mg Q6HP PRN PO 09/24/24 21:45 10/02/24 21:43 650 MG Melatonin 5 mg HS PRN PO 09/24/24 21:45 09/30/24 21:05 5 MG Magnesium Oxide 400 mg BID PO 09/28/24 10:00 10/05/24 09:40 400 MG Potassium Chloride 10 meq DAILY PO 09/28/24 10:00 10/05/24 09:40 10 MEQ Dextrose/Lactated Ringer's 1,000 ml @ 50 mls/hr Q20H IV 09/29/24 20:30 10/04/24 21:26 50 MLS/HR Acetaminophen/ Hydrocodone Bitart 1 tab Q6HPRN PRN PO 10/02/24 12:15 Ceftriaxone Sodium 50 ml @ 100 mls/hr DAILY@09 IV 10/04/24 09:00 Cancel Ampicillin Sodium/ Sulbactam Sodium 3 gm/Sodium Chloride 100 ml @ 100 mls/hr Q6H IV 10/03/24 16:30 10/05/24 09:49 100 MLS/HR Examination General Appearance: Alert, Oriented X3, Cooperative, No acute distress Respiratory: Clear to auscultation, Normal air movement Cardiovascular: Regular rate, Normal S1, Normal S2 Abdominal: Surgical scar in the middle of the abdomen,normal bowel sounds, WALTER drain on place Extremities: No cyanosis, No edema, Normal pulses, No tenderness/swelling Skin: No rashes, No breakdown Neuro: Normal speech, Strength at 5/5 X4 ext, Normal tone, Sensation intact, Cranial nerves 3-12 NL, Reflexes 2+ Psych/Mental Status: Mental status NL, Mood NL laboratory and microbiology Laboratory Tests 10/05/24 10:09 Test 10/05/24 10:09 Range/Units Serum Glucose 111 H 74-106 mg/dL Microbiology Date/Time Source Procedure Growth Status 10/01/24 18:04 Aspirate Gram Stain - Final Complete 10/01/24 18:04 Body Fluid Culture - Final Escherichia coli Enterococcus faecalis Complete 09/23/24 23:01 Blood Blood Culture - Final NO GROWTH AFTER 5 DAYS OF INCUBATION. Complete 09/23/24 17:30 Abdomen Gram Stain - Final Complete 09/23/24 17:30 Abdomen Anaerobic Culture - Final Complete 09/23/24 17:30 Aerobic Culture - Final Escherichia coli Complete Problem List/Assessment/Plan Problem List/Assessment/Plan Sepsis likely due to acute gangrenous appendicitis with perforation Large approximately 12.5 x 11.9 cm fluid collection in the right lower abdomen Surgical culture evidence E coli and E.Faecalis Unasyn [address] guided drainage was performed without complications Cooling measures and Tylenol to control the fever Acute appendicitis complicated by rupture s/p open appendectomy Evidence in abdomen and pelvis CT on admission: Showed 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 Presents WALTER drainage which still contains purulent discharge Patient is on SCDs, indicate mobilization at this point to avoid blood thinners. Physical therapy Likely postoperative ileus due to comorbidities - resolved Patient currently tolerating full liquid diet NEO hemodynamically mediated due to VMN with strong POA Continue IVF Monitor lab Pneumonia was ruled out Hepatic steatosis Lifestyle modification and dietary habits Vitamin D deficiency Replenished Hypokalemia Replenished Case discussed with Dr. Carranza Goals of care discussed with the patient for 21 minutes Code status: Full code Plan discussed with: Patient Dietary Evaluation Review Comments: 1) Advance pt diet when medically feasible 2) Continue current plan of care Expected Outcomes/Goals: 1) Pt diet to advance 2) F/U in 2-3 days Date of Service: Oct 05, 2024 Billing Provider: NORBERT CARRANZA MD Common Visit Codes: [id number] INP/OBS CARE(HIGH) AAKASH SEWELL RESIDENT Oct 05, 2024 14:29 NORBERT CARRANZA MD Oct 07, 2024 17:11
--- NOTE | 2024-10-05 23:13 | DVHPN2 ---
Consult Progress Note Date Seen: Oct 05, 2024 Subjective Patient reports: Other (tolerating diet , no abdomen pain , mildly tachycardic with 30ccs of murkey fluid coming from drain ) Objective vital signs Vital Sign Date Time Temp Pulse Resp B/P (MAP) Pulse Ox O2 Delivery O2 Flow Rate FiO2 10/05/24 21:40 101.1 10/05/24 20:00 18 96 Room Air* 0 21 10/05/24 16:51 107 121/72 (88) Total Intake and Output 10/04/24 10/04/24 10/05/24 15:00 23:00 07:00 Intake Total 100 ml 750 ml 900 ml Output Total 500 ml Balance 100 ml 750 ml 400 ml medications Current Medications Medications Dose Ordered Sig/Prosper Route Start Time Stop Time Status Last Admin Dose Admin Ondansetron HCl 4 mg Q4HP PRN IV 09/23/24 16:00 Nitroglycerin 0.4 mg Q5MINP PRN SL 09/23/24 16:15 Pantoprazole Sodium 40 mg DAILY IV 09/24/24 10:00 10/05/24 09:40 40 MG Ergocalciferol 50,000 unit Q7D PO 09/24/24 14:45 10/01/24 16:50 50,000 UNIT Acetaminophen 650 mg Q6HP PRN PO 09/24/24 21:45 10/05/24 21:40 650 MG Melatonin 5 mg HS PRN PO 09/24/24 21:45 09/30/24 21:05 5 MG Magnesium Oxide 400 mg BID PO 09/28/24 10:00 10/05/24 21:39 400 MG Potassium Chloride 10 meq DAILY PO 09/28/24 10:00 10/05/24 09:40 10 MEQ Dextrose/Lactated Ringer's 1,000 ml @ 50 mls/hr Q20H IV 09/29/24 20:30 10/05/24 14:41 50 MLS/HR Acetaminophen/ Hydrocodone Bitart 1 tab Q6HPRN PRN PO 10/02/24 12:15 Ceftriaxone Sodium 50 ml @ 100 mls/hr DAILY@09 IV 10/04/24 09:00 Cancel Ampicillin Sodium/ Sulbactam Sodium 3 gm/Sodium Chloride 100 ml @ 100 mls/hr Q6H IV 10/03/24 16:30 10/05/24 21:39 100 MLS/HR Physical Exam: General: Appears ill. Neck: Supple. No masses. HEENT: PERRL. Normal lids and conjunctiva. Moist mucous membranes. Oropharynx without lesions, exudates, or excessive erythema. Normal appearance of the external aspects of the nose and ears. Heart: Regular rhythm, tachycardic. No murmur. No lower extremity edema. Lungs: Normal respiratory effort. Clear to auscultation bilaterally. No wheezes. No crackles. Abdomen: Distended. Tender to palpation. No masses or abdominal hernia. MSK: No digital cyanosis. Normal strength and tone in all four limbs. Skin: Warm and dry, no rashes. Neuro: Alert. No facial droop or slurred speech. Extraocular movements intact. Sensation intact to soft touch in all four limbs. Psych: Appropriate mood. Full affect. Oriented to person, place, time, and situation. laboratory and microbiology Laboratory Tests 10/05/24 10:09 Test 10/05/24 10:09 Range/Units Serum Glucose 111 H 74-106 mg/dL Problem List/Assessment/Plan Problems(with codes): (1) Pneumonia, unspecified organism (2) Bowel obstruction (3) Acute abdominal pain (4) Electrolyte imbalance (5) Leukocytosis, unspecified (6) Elevated liver enzymes (7) Ruptured appendicitis (8) Acute renal injury (9) Intra-abdominal abscess Problem List/Assessment/Plan ASSESSMENT AND PLAN: ID Problem List: - Intra-abdominal abscesses - Perforated appendicitis - Sepsis - E. coli infection - Ileus - Small bowel obstruction Assessment This is a [age not provided] y.o. male with no significant past medical history who presents with a perforated appendicitis complicated by intra-abdominal abscesses and sepsis. The patient underwent a laparoscopic lysis of adhesions, open drainage of intra- abdominal abscesses, and an open appendectomy on September 23. Operative findings included a distended peritoneum due to ileus, free air, distention of small and large intestines with serosal traction and ischemia, and a perforated appendix. A 19 Fr Noe drainage tube was placed. Currently, the patient has purulent drainage from the Noe drain, with intra- abdominal cultures growing E. coli. White blood cell count remains elevated at 21 on September 25. Repeat imaging revealed multiloculated abscesses in the right paracolic gutter, the largest measuring 14.6 cm. Multiple other fluid collections are inadequately drained. Bowel dilation may be due to ileus. sp Two (2) CT guided placement of 10.2 and 12 Jamaican pigtail drain into a right paracolic gutter abscess. 10/03: abdominal ct done after multiple drain placemetn shows 12.5 by 11.9 cm fluid collection in right lower quadrant with mildly thickening wall containings pockets of air . drainage catheter wich is not positioned within the fluid collection correlation , proper catheter is recommended. Small dialated multiple bowel loops in the left abdomen with airflow levels , no focal transition point identified. theres nondialated small bowel loops in the right abdomen , a post changes in illio secqual junction may relate to illieus , theres hepatic seratosis and a passing right lung with may represent a lectusus vs airspace disease . Aspirate from drain placemtn is growing E coli from 10/01 and from 09/30 are growing E coli and enterococcus 10/04: ongoing heavy output on drain , growing enterococcus and E coli on intra abdominal culture aspirate. white count is 7.4 Plan: - recommend repeat ct image to confirm decrease in size of abscess and decide if patient can go home with oral or IV antibiotics - unclear if patients drain is placed correctly but there is a significant amount of output defer to interventional radiology for any adjustments that may be necessary - Continue Unasyn which will cover organisms found during surgery as well as for pneumonia , patient will likely need iv antibiotics and a piccline but may be able to go home on all antibiotic therapy if there is a sufficient amount of drain output occurs in the next 1-2 days - continue to monitor - Continue to monitor WBC count and vital signs - Send any new aspirate samples from drains for aerobic and anaerobic cultures - Follow up on blood cultures Isolation Precautions: Standard Assessment and plan were discussed with the patient as written above. Plan is subject to change pending incorporation of new incoming information/diagnostics. Updates may be added as addendum at the bottom (OR TOP) of this note. Thank you for the interesting consult. ID will continue to follow. Please contact Infectious Disease for any questions or concerns. Plan discussed with: Other Dietary Evaluation Review Comments: 1) Advance pt diet when medically feasible 2) Continue current plan of care Expected Outcomes/Goals: 1) Pt diet to advance 2) F/U in 2-3 days JERRY TINEO MD Oct 05, 2024 23:13
[2024-10-06 07:12] LABS: Basophils # (auto) 0 10 ^3/uL (0-0.2); Basophils % (auto) 0.4 % (0.0-2.0); Eosinophils # (auto) 0.1 10 ^3/uL (0-0.8); Eosinophils % (auto) 1.8 % (0.0-7.0); Hematocrit 32.2 % (41.0-53.0); Hemoglobin 11.1 g/dL (13.5-17.5); Lymphocytes # (auto) 0.8 10 ^3/uL (0.4-5.4); Lymphocytes % (auto) 11.8 % (10.0-50.0); Mean Corpuscular Hemoglobin 32.6 pg (28.0-32.0); Mean Corpuscular Hgb Conc. 34.6 g/dL (32.0-36.0); Mean Corpuscular Volume 94.2 fL (80.0-100.0); Monocytes # (auto) 0.7 10 ^3/uL (0-1.3); Monocytes % (auto) 10.2 % (0.0-12.0); Neutrophils # (auto) 5.2 10 ^3/uL (1.6-8.6); Neutrophils % (auto) 75.8 % (37.0-80.0); Nucleated Red Blood Cells % 0.2 %; Platelet Count (auto) 244 10^3/uL (140-450); Red Blood Cells 3.42 10^6/uL (4.5-5.90); Red Cell Distribution Width 12.5 % (11.8-14.3); White Blood Cell 6.8 10^3/uL (4.4-10.8)
[2024-10-06 07:20] LABS: Anion Gap 7 (5-15); Carbon Dioxide 25 mmol/L (20-31); Chloride 103 mmol/L (98-107); Potassium 3.7 mmol/L (3.5-5.1)
[2024-10-06 07:21] LABS: Calcium 9.2 mg/dL (8.7-10.4)
[2024-10-06 07:26] LABS: BUN/Creatinine Ratio 10.1 (10.0-20.0); Glucose 103 mg/dL (74-106)
[2024-10-06 07:34] LABS: Blood Urea Nitrogen 8 mg/dL (9-23); Sodium 135 mmol/L (136-145)
[2024-10-06 09:00] VITALS: BP 116/68; PULSE 99; RESP 18; TEMP 98.1; O2SAT 95
--- NOTE | 2024-10-06 09:17 | DVHPNRES ---
Progress Note Date Seen: Oct 06, 2024 Resident Creating Document: DEMETRIS MORENO RESIDENT Medical Necessity Reason Pt with a Central, PICC or Fol: No Reason for mcdonald catheter: Sixto. Abd Surgery Subjective Review of Systems 29-year-old male patient who presented to the emergency department with complaints of worsening intermittent generalized abdominal pain that began 7 day prior to admission. He attributed the pain to consuming hensley. The patient was diagnosed with the complicated ruptured acute appendicitis and underwent an open appendectomy. Postoperatively, the patient initially demonstrated signs of intra-abdominal infection and was started on piperacillin tazobactam on 09/27/2024. Since surgery, the patient has reported gradual improvement. He denies current abdominal pain, nausea or vomiting. He has resumed normal bowel movements and flatulence and is tolerating a full liquid diet. On 09/30/2024 the patient is on the 4th day of the piperazilin-tazobactam. Despite some residual purulent drainage from surgical wound the drainage has decreased compared to earlier days. The wound was redressed and during these assessment vital signs remained stable and the patient is afebrile. White blood cell count has normalized. Patient was examined at bedside, he reports feeling better, upon evaluation, the WALTER drain showed purulent fluid but less than before. Likely the drainage will be removed in the coming days, with plans for ongoing monitoring thereafter. The patient is currently receiving Unasyn 3 times daily, which will be continued. Close follow-up and monitoring we will remain priority to assess the patient's progress and ensure resolution of the condition. The patient is currently on full liquid diet Fever its being managed with tylenol and cooling measures, microbiology results showed E,Coli and E. Faecalis, atb was changed to ampicilin sulbatam IV The patient will remain under close observation to assess symptom resolution and overall recovery. Patient reports: Feels better Changes from previous H/P or p: Changes Objective vital signs Vital Sign Date Time Temp Pulse Resp B/P (MAP) Pulse Ox O2 Delivery O2 Flow Rate FiO2 10/05/24 22:40 98.9 10/05/24 21:00 116 18 112/67 (82) 94 10/05/24 20:00 Room Air* 0 21 Total Intake and Output 10/05/24 10/05/24 10/06/24 15:00 23:00 07:00 Intake Total 100 ml 200 ml 110 ml Balance 100 ml 200 ml 110 ml medications Current Medications Medications Dose Ordered Sig/Prosper Route Start Time Stop Time Status Last Admin Dose Admin Ondansetron HCl 4 mg Q4HP PRN IV 09/23/24 16:00 Nitroglycerin 0.4 mg Q5MINP PRN SL 09/23/24 16:15 Pantoprazole Sodium 40 mg DAILY IV 09/24/24 10:00 10/05/24 09:40 40 MG Ergocalciferol 50,000 unit Q7D PO 09/24/24 14:45 10/01/24 16:50 50,000 UNIT Acetaminophen 650 mg Q6HP PRN PO 09/24/24 21:45 10/05/24 21:40 650 MG Melatonin 5 mg HS PRN PO 09/24/24 21:45 09/30/24 21:05 5 MG Magnesium Oxide 400 mg BID PO 09/28/24 10:00 10/05/24 21:39 400 MG Potassium Chloride 10 meq DAILY PO 09/28/24 10:00 10/05/24 09:40 10 MEQ Dextrose/Lactated Ringer's 1,000 ml @ 50 mls/hr Q20H IV 09/29/24 20:30 10/05/24 14:41 50 MLS/HR Acetaminophen/ Hydrocodone Bitart 1 tab Q6HPRN PRN PO 10/02/24 12:15 Ceftriaxone Sodium 50 ml @ 100 mls/hr DAILY@09 IV 10/04/24 09:00 Cancel Ampicillin Sodium/ Sulbactam Sodium 3 gm/Sodium Chloride 100 ml @ 100 mls/hr Q6H IV 10/03/24 16:30 10/06/24 04:30 100 MLS/HR Examination: GENERAL:Normal, HEENT:Normal, NECK:Normal, LUNGS:Normal, CVS:Normal, ABDOMEN:Normal, MSK:Normal, SKIN:Normal, NEURO:Normal laboratory and microbiology Laboratory Tests 10/06/24 05:43 Test 10/06/24 05:43 Range/Units Serum Glucose 103 74-106 mg/dL Microbiology Date/Time Source Procedure Growth Status 10/01/24 18:04 Aspirate Gram Stain - Final Complete 10/01/24 18:04 Body Fluid Culture - Final Escherichia coli Enterococcus faecalis Complete 09/23/24 23:01 Blood Blood Culture - Final NO GROWTH AFTER 5 DAYS OF INCUBATION. Complete 09/23/24 17:30 Abdomen Gram Stain - Final Complete 09/23/24 17:30 Abdomen Anaerobic Culture - Final Complete 09/23/24 17:30 Aerobic Culture - Final Escherichia coli Complete Problem List/Assessment/Plan Problem List/Assessment/Plan Sepsis likely due to acute gangrenous appendicitis with perforation Large approximately 12.5 x 11.9 cm fluid collection in the right lower abdomen Surgical culture evidence E coli and E.Faecalis IV Ampicilin-sulbactam CT guided drainage was performed without complications Cooling measures and Tylenol to control the fever Acute appendicitis complicated by rupture s/p open appendectomy Evidence in abdomen and pelvis CT on admission: Showed 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 Presents WALTER drainage which still contains purulent discharge Patient is on SCDs, indicate mobilization at this point to avoid blood thinners. Physical therapy Likely postoperative ileus due to comorbidities - resolved Patient currently tolerating full liquid diet NEO hemodynamically mediated due to VMN with strong POA Continue IVF Monitor lab Pneumonia was ruled out Hepatic steatosis Lifestyle modification and dietary habits Vitamin D deficiency Replenished Hypokalemia Replenished Diet Full liquid Case discussed with Dr. Carranza Goals of care discussed with the patient for 39 minutes Code status: Full code Plan discussed with: Patient Dietary Evaluation Review Comments: 1) Advance pt diet when medically feasible 2) Continue current plan of care Expected Outcomes/Goals: 1) Pt diet to advance 2) F/U in 2-3 days Date of Service: Oct 06, 2024 Billing Provider: NORBERT CARRANZA MD Common Visit Codes: [id number] INP/OBS CARE(HIGH) DEMETRIS MORENO RESIDENT Oct 06, 2024 09:17 NORBERT CARRANZA MD Oct 07, 2024 17:12
--- NOTE | 2024-10-06 10:35 | DVHPN2 ---
Progress Note Date Seen: Oct 06, 2024 Medical Necessity Reason Pt with a Central, PICC or Fol: No Reason for mcdonald catheter: Sixto. Abd Surgery Objective vital signs Vital Sign Date Time Temp Pulse Resp B/P (MAP) Pulse Ox O2 Delivery O2 Flow Rate FiO2 10/06/24 09:00 98.1 99 18 116/68 (84) 95 98.1 10/05/24 20:00 Room Air* 0 21 Total Intake and Output 10/05/24 10/05/24 10/06/24 15:00 23:00 07:00 Intake Total 100 ml 200 ml 110 ml Balance 100 ml 200 ml 110 ml medications Current Medications Medications Dose Ordered Sig/Prosper Route Start Time Stop Time Status Last Admin Dose Admin Ondansetron HCl 4 mg Q4HP PRN IV 09/23/24 16:00 Nitroglycerin 0.4 mg Q5MINP PRN SL 09/23/24 16:15 Pantoprazole Sodium 40 mg DAILY IV 09/24/24 10:00 10/05/24 09:40 40 MG Ergocalciferol 50,000 unit Q7D PO 09/24/24 14:45 10/01/24 16:50 50,000 UNIT Acetaminophen 650 mg Q6HP PRN PO 09/24/24 21:45 10/05/24 21:40 650 MG Melatonin 5 mg HS PRN PO 09/24/24 21:45 09/30/24 21:05 5 MG Magnesium Oxide 400 mg BID PO 09/28/24 10:00 10/05/24 21:39 400 MG Potassium Chloride 10 meq DAILY PO 09/28/24 10:00 10/05/24 09:40 10 MEQ Dextrose/Lactated Ringer's 1,000 ml @ 50 mls/hr Q20H IV 09/29/24 20:30 10/05/24 14:41 50 MLS/HR Acetaminophen/ Hydrocodone Bitart 1 tab Q6HPRN PRN PO 10/02/24 12:15 Ceftriaxone Sodium 50 ml @ 100 mls/hr DAILY@09 IV 10/04/24 09:00 Cancel Ampicillin Sodium/ Sulbactam Sodium 3 gm/Sodium Chloride 100 ml @ 100 mls/hr Q6H IV 10/03/24 16:30 10/06/24 04:30 100 MLS/HR laboratory and microbiology Laboratory Tests 10/06/24 05:43 Test 12/22/24 05:43 Range/Units Serum Glucose 103 74-106 mg/dL Microbiology Date/Time Source Procedure Growth Status 10/01/24 18:04 Aspirate Gram Stain - Final Complete 10/01/24 18:04 Body Fluid Culture - Final Escherichia coli Enterococcus faecalis Complete 09/23/24 23:01 Blood Blood Culture - Final NO GROWTH AFTER 5 DAYS OF INCUBATION. Complete 09/23/24 17:30 Abdomen Gram Stain - Final Complete 09/23/24 17:30 Abdomen Anaerobic Culture - Final Complete 09/23/24 17:30 Aerobic Culture - Final Escherichia coli Complete Problem List/Assessment/Plan Problem List/Assessment/Plan AFEBRILE T MAX 101 VSS ABD SOFT LESS DISTENDED ABD WOUND IR DRAINAGE 20 CC PURULENT DRESSING CHANGED BM + FLATUS + WBC WNL IV ABX NURSE AT BEDSIDE CONTINUE CLOSE OBSERVATION CT SCAN ABD PELVIS WITH PO CONTRAST AM Plan discussed with: Patient My Orders My Orders Orders - EDISON NUÑEZ MD Procedure Category Date Status Time Soft Diet DIET 10/05/24 Transmitted Lunch Dietary Evaluation Review Comments: 1) Advance pt diet when medically feasible 2) Continue current plan of care Expected Outcomes/Goals: 1) Pt diet to advance 2) F/U in 2-3 days EDISON NUÑEZ MD Oct 06, 2024 10:35
[2024-10-06 13:00] VITALS: BP 117/66; PULSE 102; RESP 18; TEMP 98.1; O2SAT 94
[2024-10-06 17:00] VITALS: BP 115/75; PULSE 105; RESP 17; TEMP 98; O2SAT 94
[2024-10-06 20:00] VITALS: PULSE 105; RESP 17; O2SAT 94
[2024-10-06 21:00] VITALS: BP 112/66; PULSE 115; RESP 17; TEMP 100.8; O2SAT 93
--- NOTE | 2024-10-06 23:07 | DVHPN2 ---
Consult Progress Note Date Seen: Oct 06, 2024 Subjective Patient reports: Other (fevers as high as 101 otherwise feeling comfortable and tolerating diet . has 25 ccs of drainage coming from [place] drain ) Objective vital signs Vital Sign Date Time Temp Pulse Resp B/P (MAP) Pulse Ox O2 Delivery O2 Flow Rate FiO2 10/06/24 21:06 100.8 10/06/24 21:00 115 17 112/66 (81) 93 10/06/24 08:00 Room Air* 0 21 Total Intake and Output 10/05/24 10/05/24 10/06/24 15:00 23:00 07:00 Intake Total 100 ml 200 ml 110 ml Balance 100 ml 200 ml 110 ml medications Current Medications Medications Dose Ordered Sig/Prosper Route Start Time Stop Time Status Last Admin Dose Admin Ondansetron HCl 4 mg Q4HP PRN IV 09/23/24 16:00 Nitroglycerin 0.4 mg Q5MINP PRN SL 09/23/24 16:15 Pantoprazole Sodium 40 mg DAILY IV 09/24/24 10:00 10/06/24 10:59 40 MG Ergocalciferol 50,000 unit Q7D PO 09/24/24 14:45 10/01/24 16:50 50,000 UNIT Acetaminophen 650 mg Q6HP PRN PO 09/24/24 21:45 10/06/24 21:06 650 MG Melatonin 5 mg HS PRN PO 09/24/24 21:45 09/30/24 21:05 5 MG Magnesium Oxide 400 mg BID PO 09/28/24 10:00 10/06/24 22:32 400 MG Potassium Chloride 10 meq DAILY PO 09/28/24 10:00 10/06/24 11:00 10 MEQ Dextrose/Lactated Ringer's 1,000 ml @ 50 mls/hr Q20H IV 09/29/24 20:30 10/06/24 13:45 50 MLS/HR Acetaminophen/ Hydrocodone Bitart 1 tab Q6HPRN PRN PO 10/02/24 12:15 Ceftriaxone Sodium 50 ml @ 100 mls/hr DAILY@09 IV 10/04/24 09:00 Cancel Ampicillin Sodium/ Sulbactam Sodium 3 gm/Sodium Chloride 100 ml @ 100 mls/hr Q6H IV 10/03/24 16:30 10/06/24 22:35 100 MLS/HR Physical Exam: General: Appears ill. Neck: Supple. No masses. HEENT: PERRL. Normal lids and conjunctiva. Moist mucous membranes. Oropharynx without lesions, exudates, or excessive erythema. Normal appearance of the external aspects of the nose and ears. Heart: Regular rhythm, tachycardic. No murmur. No lower extremity edema. Lungs: Normal respiratory effort. Clear to auscultation bilaterally. No wheezes. No crackles. Abdomen: Distended. Tender to palpation. No masses or abdominal hernia. MSK: No digital cyanosis. Normal strength and tone in all four limbs. Skin: Warm and dry, no rashes. Neuro: Alert. No facial droop or slurred speech. Extraocular movements intact. Sensation intact to soft touch in all four limbs. Psych: Appropriate mood. Full affect. Oriented to person, place, time, and situation. laboratory and microbiology Laboratory Tests 10/06/24 05:43 Test 10/06/24 05:43 Range/Units Serum Glucose 103 74-106 mg/dL Problem List/Assessment/Plan Problems(with codes): (1) Intra-abdominal abscess (2) Acute renal injury (3) Ruptured appendicitis (4) Elevated liver enzymes (5) Leukocytosis, unspecified (6) Electrolyte imbalance (7) Acute abdominal pain (8) Bowel obstruction (9) Pneumonia, unspecified organism Problem List/Assessment/Plan ASSESSMENT AND PLAN: ID Problem List: - Intra-abdominal abscesses - Perforated appendicitis - Sepsis - E. coli infection - Ileus - Small bowel obstruction Assessment This is a [age not provided] y.o. male with no significant past medical history who presents with a perforated appendicitis complicated by intra-abdominal abscesses and sepsis. The patient underwent a laparoscopic lysis of adhesions, open drainage of intra- abdominal abscesses, and an open appendectomy on September 23. Operative findings included a distended peritoneum due to ileus, free air, distention of small and large intestines with serosal traction and ischemia, and a perforated appendix. A 19 Fr Noe drainage tube was placed. Currently, the patient has purulent drainage from the Noe drain, with intra- abdominal cultures growing E. coli. White blood cell count remains elevated at 21 on September 25. Repeat imaging revealed multiloculated abscesses in the right paracolic gutter, the largest measuring 14.6 cm. Multiple other fluid collections are inadequately drained. Bowel dilation may be due to ileus. sp Two (2) CT guided placement of 10.2 and 12 Turkish pigtail drain into a right paracolic gutter abscess. 10/03: abdominal ct done after multiple drain placemetn shows 12.5 by 11.9 cm fluid collection in right lower quadrant with mildly thickening wall containings pockets of air . drainage catheter wich is not positioned within the fluid collection correlation , proper catheter is recommended. Small dialated multiple bowel loops in the left abdomen with airflow levels , no focal transition point identified. theres nondialated small bowel loops in the right abdomen , a post changes in illio secqual junction may relate to illieus , theres hepatic seratosis and a passing right lung with may represent a lectusus vs airspace disease . Aspirate from drain placemtn is growing E coli from 10/01 and from 09/30 are growing E coli and enterococcus 10/04: ongoing heavy output on drain , growing enterococcus and E coli on intra abdominal culture aspirate. white count is 7.4 Plan: - recommend repeat ct image to confirm decrease in size of abscess and decide if patient can go home with oral or IV antibiotics - unclear if patients drain is placed correctly but there is a significant amount of output defer to interventional radiology for any adjustments that may be necessary - Continue Unasyn which will cover organisms found during surgery as well as for pneumonia , patient will likely need iv antibiotics and a piccline but may be able to go home on all antibiotic therapy if there is a sufficient amount of drain output occurs in the next 1-2 days - continue to monitor - Continue to monitor WBC count and vital signs - Send any new aspirate samples from drains for aerobic and anaerobic cultures - Follow up on blood cultures Isolation Precautions: Standard Assessment and plan were discussed with the patient as written above. Plan is subject to change pending incorporation of new incoming information/diagnostics. Updates may be added as addendum at the bottom (OR TOP) of this note. Thank you for the interesting consult. ID will continue to follow. Please contact Infectious Disease for any questions or concerns. Plan discussed with: Other Dietary Evaluation Review Comments: 1) Advance pt diet when medically feasible 2) Continue current plan of care Expected Outcomes/Goals: 1) Pt diet to advance 2) F/U in 2-3 days JERRY TINEO MD Oct 06, 2024 23:07
[2024-10-07] VITALS (7 sets, daily range): BP systolic 113–123; BP diastolic 69–76; PULSE 94–114; RESP 16–21; TEMP 98.1–100.3; O2SAT 92–95
[2024-10-07 05:45] LABS: Basophils # (auto) 0 10 ^3/uL (0-0.2); Basophils % (auto) 0.5 % (0.0-2.0); Eosinophils # (auto) 0.2 10 ^3/uL (0-0.8); Eosinophils % (auto) 2.1 % (0.0-7.0); Hematocrit 32.3 % (41.0-53.0); Hemoglobin 11.1 g/dL (13.5-17.5); Lymphocytes # (auto) 0.7 10 ^3/uL (0.4-5.4); Lymphocytes % (auto) 8.5 % (10.0-50.0); Mean Corpuscular Hemoglobin 32.3 pg (28.0-32.0); Mean Corpuscular Hgb Conc. 34.5 g/dL (32.0-36.0); Mean Corpuscular Volume 93.5 fL (80.0-100.0); Monocytes # (auto) 0.7 10 ^3/uL (0-1.3); Monocytes % (auto) 8.1 % (0.0-12.0); Neutrophils # (auto) 6.7 10 ^3/uL (1.6-8.6); Neutrophils % (auto) 80.8 % (37.0-80.0); Platelet Count (auto) 251 10^3/uL (140-450); Red Blood Cells 3.45 10^6/uL (4.5-5.90); Red Cell Distribution Width 12.4 % (11.8-14.3); White Blood Cell 8.3 10^3/uL (4.4-10.8)
[2024-10-07 05:54] LABS: Chloride 102 mmol/L (98-107); Potassium 3.8 mmol/L (3.5-5.1)
[2024-10-07 05:55] LABS: Anion Gap 8 (5-15); Calcium 9.2 mg/dL (8.7-10.4); Carbon Dioxide 26 mmol/L (20-31)
[2024-10-07 06:00] LABS: BUN/Creatinine Ratio 11.3 (10.0-20.0); Glucose 102 mg/dL (74-106)
[2024-10-07 06:03] LABS: Blood Urea Nitrogen 9 mg/dL (9-23); Sodium 136 mmol/L (136-145)
[2024-10-07] MEDS: GASTROGRAFIN 30 ML SOL ONE ×2 (07:44→14:36)
--- NOTE | 2024-10-07 11:05 | DVH ---
CT ABDOMEN AND PELVIS WITHOUT CONTRAST CLINICAL HISTORY: Repeat. New onset Fever. s/p appendectomy and abd. abcesses TECHNIQUE: Multiple contiguous axial images of the abdomen and pelvis without intravenous and with or al contrast. The images were reformatted degenerate coronal and sagittal reconstructions. All CT scans at this medical facility are performed using dose modulation techniques as appropriate t o a performed exam including the following:Automated exposure control was utilized; adjustment of the MA and/or KV according to patient size; and use of iterative reconstruction technique. Radiation Dose Information: CT Dose: CTDI volume is 10.63 mGy. Dose-length product is 642.29 mGy*cm Comparison: CT CT AB PEL WITH ORAL CON ONLY on DOS: 10/01/24, CT CT AB PEL WO CON-NO ORAL OR IV on DO S: 09/30/24 FINDINGS: Evaluation of the abdomen and pelvis is limited without intravenous contrast. There has been interval placement of 2 pigtail drainage catheters in the previously seen right lower quadrant fluid collection. The fluid collections are smaller in size in comparison with the prior samuel dy and again contained pockets of air with thickened valiente and surrounding fat stranding. The collect ion measures approximately 8.5 x 9.4 cm on the current study. There is oral contrast seen in the stomach and in the small bowel loops. There is minimal contrast se en in the cecum. Again seen are dilated small bowel loops in the left abdomen with air-fluid levels. There is no focal transition point. There are nondilated small bowel loops in the right abdomen. The re are again postsurgical changes seen at the ileocecal junction. There are no dilated large bowel lo ops. There is diffuse fatty infiltration of the liver. The gallbladder, pancreas, kidneys, adrenal glan ds, and spleen appear within normal limits. There is no gross evidence of abdominal lymphadenopathy. The stomach grossly appears unremarkable. The abdominal aorta and IVC appear within normal limits. The bladder appears unremarkable for the degree of distention. Pelvic organ appears within normal avalos its. There is no gross evidence of a pelvic mass. There is no free fluid collection. Again seen is opacity in the posterior right lung base which may represent atelectasis versus airspac e disease. There is no acute osseous abnormality. IMPRESSION: 1. Interval placement of 2 pigtail drainage catheters in the right lower quadrant fluid collection. The collection is smaller in size, now measuring approximately 8.5 x 9.4 cm. Fluid collection again c ontains pockets of air with thickened valiente and surrounding fat stranding. 2. Redemonstrated are multiple dilated small bowel loops in the left abdomen with air-fluid levels. T here is no focal transition point. There are again postsurgical changes at the ileocecal junction. Fi ndings again May relate to ileus. 3. Hepatic steatosis. 4. Again seen is opacity in the posterior right lung base which may represent atelectasis versus airs pace disease. HS:Y
--- NOTE | 2024-10-07 14:06 | DVHPN2 ---
Progress Note Date Seen: Oct 07, 2024 Medical Necessity Reason Pt with a Central, PICC or Fol: No Reason for mcdonald catheter: Sixto. Abd Surgery Objective vital signs Vital Sign Date Time Temp Pulse Resp B/P (MAP) Pulse Ox O2 Delivery O2 Flow Rate FiO2 10/07/24 09:00 98.1 102 21 116/70 (85) 95 98.1 10/06/24 20:00 Room Air* 0 21 Total Intake and Output 10/06/24 10/06/24 10/07/24 15:00 23:00 07:00 Intake Total 1660 ml 700 ml Output Total 55 ml 728 ml Balance 1605 ml -28 ml medications Current Medications Medications Dose Ordered Sig/Prosper Route Start Time Stop Time Status Last Admin Dose Admin Ondansetron HCl 4 mg Q4HP PRN IV 09/23/24 16:00 Nitroglycerin 0.4 mg Q5MINP PRN SL 09/23/24 16:15 Pantoprazole Sodium 40 mg DAILY IV 09/24/24 10:00 10/07/24 09:35 40 MG Ergocalciferol 50,000 unit Q7D PO 09/24/24 14:45 10/01/24 16:50 50,000 UNIT Acetaminophen 650 mg Q6HP PRN PO 09/24/24 21:45 10/06/24 21:06 650 MG Melatonin 5 mg HS PRN PO 09/24/24 21:45 09/30/24 21:05 5 MG Magnesium Oxide 400 mg BID PO 09/28/24 10:00 10/07/24 09:35 400 MG Potassium Chloride 10 meq DAILY PO 09/28/24 10:00 10/07/24 09:35 10 MEQ Dextrose/Lactated Ringer's 1,000 ml @ 50 mls/hr Q20H IV 09/29/24 20:30 10/07/24 08:30 50 MLS/HR Acetaminophen/ Hydrocodone Bitart 1 tab Q6HPRN PRN PO 10/02/24 12:15 Ceftriaxone Sodium 50 ml @ 100 mls/hr DAILY@09 IV 10/04/24 09:00 Cancel Ampicillin Sodium/ Sulbactam Sodium 3 gm/Sodium Chloride 100 ml @ 100 mls/hr Q6H IV 10/03/24 16:30 10/07/24 09:45 100 MLS/HR laboratory and microbiology Laboratory Tests 10/07/24 05:23 Test 10/07/24 05:23 Range/Units Serum Glucose 102 74-106 mg/dL Microbiology Date/Time Source Procedure Growth Status 10/01/24 18:04 Aspirate Gram Stain - Final Complete 10/01/24 18:04 Body Fluid Culture - Final Escherichia coli Enterococcus faecalis Complete 09/23/24 23:01 Blood Blood Culture - Final NO GROWTH AFTER 5 DAYS OF INCUBATION. Complete 09/23/24 17:30 Abdomen Gram Stain - Final Complete 09/23/24 17:30 Abdomen Anaerobic Culture - Final Complete 09/23/24 17:30 Aerobic Culture - Final Escherichia coli Complete Problem List/Assessment/Plan Problem List/Assessment/Plan AFEBRILE VSS ABD SOFT LESS DISTENDED ABD WOUND IR DRAINAGE 20 CC PURULENT DRESSING CHANGED BM + FLATUS + WBC WNL IV ABX NURSE AT BEDSIDE CONTINUE CLOSE OBSERVATION CT SCAN ABD PELVIS WITH PO CONTRAST AM RESIDUAL COLLECTION IR DRAINS FLUSHED DISCUSSED WITH RADIOLOGY TO PROCEED WITH PLACEMENT OF NEW DRAINAGE CATH FAMILY AND NURSE AT BEDSIDE Plan discussed with: Patient My Orders My Orders Orders - EDISON NUÑEZ MD Procedure Category Date Status Time * Radiologist Consult CONS 10/07/24 Transmitted 13:33 Communication Order ORDERS 10/07/24 Transmitted 13:33 Dietary Evaluation Review Comments: 1) Advance pt diet when medically feasible 2) Continue current plan of care Expected Outcomes/Goals: 1) Pt diet to advance 2) F/U in 2-3 days EDISON NUÑEZ MD Oct 07, 2024 14:06
--- NOTE | 2024-10-07 14:30 | DVHPNRES ---
Progress Note Date Seen: Oct 07, 2024 Resident Creating Document: DEMETRIS MORENO RESIDENT Medical Necessity Reason Pt with a Central, PICC or Fol: No Reason for mcdonald catheter: Sixto. Abd Surgery Subjective Review of Systems 29-year-old male patient who presented to the emergency department with complaints of worsening intermittent generalized abdominal pain that began 7 day prior to admission. He attributed the pain to consuming hensley. The patient was diagnosed with the complicated ruptured acute appendicitis and underwent an open appendectomy. Postoperatively, the patient initially demonstrated signs of intra-abdominal infection and was started on piperacillin tazobactam on 09/27/2024. Since surgery, the patient has reported gradual improvement. He denies current abdominal pain, nausea or vomiting. He has resumed normal bowel movements and flatulence and is tolerating a full liquid diet. On 09/30/2024 the patient is on the 4th day of the piperazilin-tazobactam. Despite some residual purulent drainage from surgical wound the drainage has decreased compared to earlier days. The wound was redressed and during these assessment vital signs remained stable and the patient is afebrile. White blood cell count has normalized. Patient was examined at bedside, he reports feeling better, upon evaluation, the WALTER drain showed purulent fluid but less than before. Likely the drainage will be removed in the coming days, with plans for ongoing monitoring thereafter. The patient is currently receiving Unasyn 3 times daily, which will be continued. Close follow-up and monitoring we will remain priority to assess the patient's progress and ensure resolution of the condition. The patient is currently on full liquid diet Fever its being managed with tylenol and cooling measures, microbiology results showed E,Coli and E. Faecalis, atb was changed to ampicilin sulbatam IV CT abdomen showed 8.5 x 9.4 cm of Fluid collection , Surgery evaluated the imagen and recommended IR drains flushed and discussed with radiology to proceed with placement of new drainage cath . Patient reports: Feels better Changes from previous H/P or p: Changes Objective vital signs Vital Sign Date Time Temp Pulse Resp B/P (MAP) Pulse Ox O2 Delivery O2 Flow Rate FiO2 10/07/24 13:00 98.4 107 20 120/76 (91) 94 98.4 10/06/24 20:00 Room Air* 0 21 Total Intake and Output 10/06/24 10/06/2410/07/24 14:59 22:59 06:59 Intake Total 1660 ml 700 ml Output Total 55 ml 728 ml Balance 1605 ml -28 ml medications Current Medications Medications Dose Ordered Sig/Prosper Route Start Time Stop Time Status Last Admin Dose Admin Ondansetron HCl 4 mg Q4HP PRN IV 09/23/24 16:00 Nitroglycerin 0.4 mg Q5MINP PRN SL 09/23/24 16:15 Pantoprazole Sodium 40 mg DAILY IV 09/24/24 10:00 10/07/24 09:35 40 MG Ergocalciferol 50,000 unit Q7D PO 09/24/24 14:45 10/01/24 16:50 50,000 UNIT Acetaminophen 650 mg Q6HP PRN PO 09/24/24 21:45 10/06/24 21:06 650 MG Melatonin 5 mg HS PRN PO 09/24/24 21:45 09/30/24 21:05 5 MG Magnesium Oxide 400 mg BID PO 09/28/24 10:00 10/07/24 09:35 400 MG Potassium Chloride 10 meq DAILY PO 09/28/24 10:00 10/07/24 09:35 10 MEQ Dextrose/Lactated Ringer's 1,000 ml @ 50 mls/hr Q20H IV 09/29/24 20:30 10/07/24 08:30 50 MLS/HR Acetaminophen/ Hydrocodone Bitart 1 tab Q6HPRN PRN PO 10/02/24 12:15 Ceftriaxone Sodium 50 ml @ 100 mls/hr DAILY@09 IV 10/04/24 09:00 Cancel Ampicillin Sodium/ Sulbactam Sodium 3 gm/Sodium Chloride 100 ml @ 100 mls/hr Q6H IV 10/03/24 16:30 10/07/24 09:45 100 MLS/HR Examination: GENERAL:Normal, HEENT:Normal, NECK:Normal, LUNGS:Normal, CVS:Normal, ABDOMEN:Abnormal, MSK:Normal, SKIN:Normal, NEURO:Normal, :Normal laboratory and microbiology Laboratory Tests 10/07/24 05:23 Test 10/07/24 05:23 Range/Units Serum Glucose 102 74-106 mg/dL Microbiology Date/Time Source Procedure Growth Status 10/01/24 18:04 Aspirate Gram Stain - Final Complete 10/01/24 18:04 Body Fluid Culture - Final Escherichia coli Enterococcus faecalis Complete 09/23/24 23:01 Blood Blood Culture - Final NO GROWTH AFTER 5 DAYS OF INCUBATION. Complete 09/23/24 17:30 Abdomen Gram Stain - Final Complete 09/23/24 17:30 Abdomen Anaerobic Culture - Final Complete 09/23/24 17:30 Aerobic Culture - Final Escherichia coli Complete Problem List/Assessment/Plan Problem List/Assessment/Plan Sepsis likely due to acute gangrenous appendicitis with perforation 9.5 to 8.5 fluid collection in the right lower abdomen Surgical culture evidence E coli and E.Faecalis IV Ampicilin-sulbactam CT guided drainage was performed without complications Cooling measures and Tylenol to control the fever IR Drains flushed Radiology to proceed with placement of new drainage cath Acute appendicitis complicated by rupture s/p open appendectomy Evidence in abdomen and pelvis CT on admission: Showed ruptured 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 Presents WALTER drainage which still contains purulent discharge Patient is on SCDs, indicate mobilization at this point to avoid blood thinners. Physical therapy Likely postoperative ileus due to comorbidities - resolved Patient currently tolerating soft diet NEO hemodynamically mediated due to VMN with strong POA Continue IVF Monitor lab Pneumonia was ruled out Hepatic steatosis Lifestyle modification and dietary habits Vitamin D deficiency Replenished Hypokalemia Replenished Diet soft diet Case discussed with Dr. Carranza Goals of care discussed with the patient for 39 minutes Code status: Full code Plan discussed with: Patient Dietary Evaluation Review Comments: 1) Advance pt diet when medically feasible 2) Continue current plan of care Expected Outcomes/Goals: 1) Pt diet to advance 2) F/U in 2-3 days Date of Service: Oct 07, 2024 Billing Provider: NORBERT CARRANZA MD Common Visit Codes: [id number] INP/OBS CARE(HIGH) DEMETRIS MORENO RESIDENT Oct 07, 2024 14:30 NORBERT CARRANZA MD Oct 07, 2024 17:12
[2024-10-07] MEDS: LIDOCAINE 2%HCL (LOCAL ANESTH.) INJ 10ml MDV ONE (14:37)
[2024-10-08 05:00] VITALS: BP 102/68; PULSE 69; RESP 20; TEMP 98.5; O2SAT 95
[2024-10-08 06:31] LABS: Anion Gap 8 (5-15); Carbon Dioxide 26 mmol/L (20-31); Chloride 102 mmol/L (98-107); Potassium 3.7 mmol/L (3.5-5.1)
[2024-10-08 06:32] LABS: Calcium 9.4 mg/dL (8.7-10.4)
[2024-10-08 06:37] LABS: BUN/Creatinine Ratio 10.3 (10.0-20.0); Blood Urea Nitrogen 9 mg/dL (9-23); Glucose 104 mg/dL (74-106); Sodium 136 mmol/L (136-145)
[2024-10-08 06:42] LABS: Basophils # (auto) 0 10 ^3/uL (0-0.2); Basophils % (auto) 0.4 % (0.0-2.0); Eosinophils # (auto) 0.1 10 ^3/uL (0-0.8); Eosinophils % (auto) 1.7 % (0.0-7.0); Hematocrit 32.1 % (41.0-53.0); Hemoglobin 11.2 g/dL (13.5-17.5); Lymphocytes # (auto) 0.7 10 ^3/uL (0.4-5.4); Mean Corpuscular Hemoglobin 32.5 pg (28.0-32.0); Mean Corpuscular Hgb Conc. 34.9 g/dL (32.0-36.0); Mean Corpuscular Volume 93.1 fL (80.0-100.0); Monocytes # (auto) 0.8 10 ^3/uL (0-1.3); Monocytes % (auto) 9.4 % (0.0-12.0); Neutrophils # (auto) 6.5 10 ^3/uL (1.6-8.6); Neutrophils % (auto) 79.5 % (37.0-80.0); Nucleated Red Blood Cells % 0.2 %; Platelet Count (auto) 255 10^3/uL (140-450); Red Blood Cells 3.44 10^6/uL (4.5-5.90); Red Cell Distribution Width 12.6 % (11.8-14.3); White Blood Cell 8.2 10^3/uL (4.4-10.8)
[2024-10-08 08:00] VITALS: RESP 20
[2024-10-08 09:00] VITALS: BP 116/70; PULSE 104; RESP 20; TEMP 98.1; O2SAT 93
[2024-10-08] MEDS: LIDOCAINE 2%HCL (LOCAL ANESTH.) INJ 10ml MDV ONE (09:10)
[2024-10-08] MEDS: fentaNYL CITRATE 100 MCG/2 ML VL IV ONE (09:15)
[2024-10-08] MEDS: MIDAZOLAM HCL 2MG/2ML 2ml VIAL (1mg/ml) IV ONE (09:15)
--- NOTE | 2024-10-08 13:27 | DVH ---
CT ABDOMEN WITHOUT CONTRAST, HISTORY: ABSCESS DRAIN COMPARISON: None PROCEDURE: Informed consent was obtained. The patient was placed prone on the CT scanner. IV sedation was administered. The abdominal fluid collection was localized under CT scan and the overlying skin prepped with chlorhexidine which was allowed to dry and draped in the usual sterile fashion and infil trated with Xylocaine. Time out was performed. The two existing drains were also cleaned with chlorhe xidine, sutures removed, and the drains repositioned inward. Next, a new drain will be placed. With CT guidance, a 19-gauge centesis needle catheter was advanced into the fluid collection. Following a spiration of a small amount of fluid, a 0.035 wire was advanced into the fluid collection. Placement was confirmed with CT scan. After serial dilatation, a 12 Green[place]ic multipurpose pigtail drain was place d into the collection. Approximately 150 cc of foul purulent fluid was aspirated, with specimen sent for appropriate laboratory/cytology/laboratory and cytology evaluation. The drain was sutured at the skin surface and connected to suction drainage. No immediate complication was noted. Post procedure C T imaging through the drain site was obtained. DLP =2220 mGy-cm. SEDATION: Dr. La Lutz was personally responsible for the administration of moderate sedation during the procedure performed, including the use of an independent trained observer who had no other duties during the procedure. The drugs utilized were IV fentanyl and versed (see nursing log for details). The total time of supervision by the attending physician was approximately 45 minutes. FINDINGS: Limited CT scan of through the abdomen demonstrates a medium sized fluid collection in the right paracolic gutter. Collection appears complex. Post procedure scan shows pigtail drain within th e collection , which is decreased in size. No immediate complication was identified. IMPRESSION: Reposition of the two existing abdominal drains deeper into the abdomen. CT guided placement of a new 12 Greenlandic pigtail drain into a paracolic gutter abscess. 150 mL foul pur ulent fluid was aspirated. PLAN: Please flush the drains once a day with 5 mL saline to maintain patency. Continue IV antibiotic s.
--- NOTE | 2024-10-08 16:12 | DVHPNRES ---
Progress Note Date Seen: Oct 08, 2024 Resident Creating Document: DEMETRIS MORENO RESIDENT Medical Necessity Reason Pt with a Central, PICC or Fol: No Reason for mcdonald catheter: Sixto. Abd Surgery Subjective Review of Systems 29-year-old male patient who presented to the emergency department with complaints of worsening intermittent generalized abdominal pain that began 7 day prior to admission. He attributed the pain to consuming hensley. The patient was diagnosed with the complicated ruptured acute appendicitis and underwent an open appendectomy. Postoperatively, the patient initially demonstrated signs of intra-abdominal infection and was started on piperacillin tazobactam on 09/27/2024. Since surgery, the patient has reported gradual improvement. He denies current abdominal pain, nausea or vomiting. He has resumed normal bowel movements and flatulence and is tolerating a full liquid diet. On 09/30/2024 the patient is on the 4th day of the piperazilin-tazobactam. Despite some residual purulent drainage from surgical wound the drainage has decreased compared to earlier days. The wound was redressed and during these assessment vital signs remained stable and the patient is afebrile. White blood cell count has normalized. Patient was examined at bedside, he reports feeling better, upon evaluation, the WALTER drain showed purulent fluid but less than before. Likely the drainage will be removed in the coming days, with plans for ongoing monitoring thereafter. The patient is currently receiving Unasyn 3 times daily, which will be continued. Close follow-up and monitoring we will remain priority to assess the patient's progress and ensure resolution of the condition. The patient is currently on full liquid diet Fever its being managed with tylenol and cooling measures, microbiology results showed E,Coli and E. Faecalis, atb was changed to ampicilin sulbatam IV CT abdomen showed 8.5 x 9.4 cm of Fluid collection IR reposition intervention was made today: -Reposition of the two existing abdominal drains deeper into the abdomen. -CT guided placement of a new 12 Indonesian pigtail drain into a paracolic gutter abscess. 150 mL foul purulent fluid was aspirated. -PLAN: Please flush the drains once a day with 5 mL saline to maintain patency. Continue IV antibiotics. Patient reports: Feels better Changes from previous H/P or p: Changes Objective vital signs Vital Sign Date Time Temp Pulse Resp B/P (MAP) Pulse Ox O2 Delivery O2 Flow Rate FiO2 10/08/24 09:15 115/78 10/08/24 09:00 98.1 104 20 93 98.1 10/08/24 08:00 Room Air* 0 21 Total Intake and Output 10/07/24 10/07/24 10/08/24 15:00 23:00 07:00 Intake Total 750 ml 1280 ml 600 ml Output Total 600 ml Balance 750 ml 680 ml 600 ml medications Current Medications Medications Dose Ordered Sig/Prosper Route Start Time Stop Time Status Last Admin Dose Admin Ondansetron HCl 4 mg Q4HP PRN IV 09/23/24 16:00 Nitroglycerin 0.4 mg Q5MINP PRN SL 09/23/24 16:15 Pantoprazole Sodium 40 mg DAILY IV 09/24/24 10:00 10/08/24 09:35 40 MG Ergocalciferol 50,000 unit Q7D PO 09/24/24 14:45 10/01/24 16:50 50,000 UNIT Acetaminophen 650 mg Q6HP PRN PO 09/24/24 21:45 10/07/24 21:30 650 MG Melatonin 5 mg HS PRN PO 09/24/24 21:45 09/30/24 21:05 5 MG Magnesium Oxide 400 mg BID PO 09/28/24 10:00 10/08/24 13:14 400 MG Potassium Chloride 10 meq DAILY PO 09/28/24 10:00 10/08/24 13:15 10 MEQ Dextrose/Lactated Ringer's 1,000 ml @ 50 mls/hr Q20H IV 09/29/24 20:30 10/07/24 18:51 50 MLS/HR Acetaminophen/ Hydrocodone Bitart 1 tab Q6HPRN PRN PO 10/02/24 12:15 Ceftriaxone Sodium 50 ml @ 100 mls/hr DAILY@09 IV 10/04/24 09:00 Cancel Ampicillin Sodium/ Sulbactam Sodium 3 gm/Sodium Chloride 100 ml @ 100 mls/hr Q6H IV 10/03/24 16:30 10/08/24 13:14 100 MLS/HR Examination: GENERAL:Normal, HEENT:Normal, NECK:Normal, LUNGS:Normal, CVS:Normal, ABDOMEN:Abnormal, MSK:Normal, SKIN:Normal, NEURO:Normal, :Normal laboratory and microbiology Laboratory Tests 10/08/24 05:46 Test 10/08/24 05:46 Range/Units Serum Glucose 104 74-106 mg/dL Microbiology Date/Time Source Procedure Growth Status 10/01/24 18:04 Aspirate Gram Stain - Final Complete 10/01/24 18:04 Body Fluid Culture - Final Escherichia coli Enterococcus faecalis Complete 09/23/24 23:01 Blood Blood Culture - Final NO GROWTH AFTER 5 DAYS OF INCUBATION. Complete 09/23/24 17:30 Abdomen Gram Stain - Final Complete 09/23/24 17:30 Abdomen Anaerobic Culture - Final Complete 09/23/24 17:30 Aerobic Culture - Final Escherichia coli Complete Problem List/Assessment/Plan Problem List/Assessment/Plan #Sepsis likely due to acute gangrenous appendicitis with perforation #Acute appendicitis complicated by rupture s/p open appendectomy on 09/23/2024. #9.5 to 8.5 fluid collection in the right lower abdomen - Surgical culture evidence E coli and E.Faecalis - IV Ampicilin-sulbactam - Reposition of the two existing abdominal drains deeper into the abdomen was made by IR today. - CT guided placement of a new 12 Indonesian pigtail drain into a paracolic gutter abscess. 150 mL foul purulent fluid was aspirated. - Flush the drains once a day with 5 mL saline to maintain patency. - Continue IV antibiotics. Likely postoperative ileus due to comorbidities - resolved Patient currently tolerating soft diet NEO hemodynamically mediated due to VMN with strong POA Continue IVF Monitor lab Pneumonia was ruled out Hepatic steatosis Lifestyle modification and dietary habits Vitamin D deficiency Replenished Hypokalemia Replenished Diet soft diet Case discussed with Dr. Carranza Goals of care discussed with the patient for 39 minutes Code status: Full code Plan discussed with: Patient My Orders My Orders Orders - DEMETRIS MORENO Procedure Category Date Status Time Ct Guidance For CT 10/08/24 Resulted Needle Placeme 09:[address] 10/08/24 Resulted Contrast 09:05 Dietary Evaluation Review Comments: 1) Advance pt diet when medically feasible 2) Continue current plan of care Expected Outcomes/Goals: 1) Pt diet to advance 2) F/U in 2-3 days Date of Service: Oct 08, 2024 Billing Provider: NORBERT CARRANZA MD Common Visit Codes: [id number] INP/OBS CARE(HIGH) DEMETRIS MORENO RESIDENT Oct 08, 2024 16:12 NORBERT CARRANZA MD Oct 09, 2024 10:42
[2024-10-08 16:52] VITALS: BP 113/66; PULSE 112; RESP 20; TEMP 100; O2SAT 94
[2024-10-08 20:00] VITALS: PULSE 114; RESP 20; O2SAT 95
[2024-10-08 21:00] VITALS: BP 114/66; PULSE 114; RESP 20; TEMP 99.7; O2SAT 93
--- NOTE | 2024-10-08 23:47 | DVHPN2 ---
Consult Progress Note Date Seen: Oct 07, 2024 Subjective Patient reports: Feels better (fevers curve improving) Objective vital signs Vital Sign Date Time Temp Pulse Resp B/P (MAP) Pulse Ox O2 Delivery O2 Flow Rate FiO2 10/08/24 21:00 99.7 114 20 114/66 (82) 93 99.7 10/08/24 08:00 Room Air* 0 21 Total Intake and Output 10/07/24 10/07/24 10/08/24 15:00 23:00 07:00 Intake Total 750 ml 1280 ml 600 ml Output Total 600 ml Balance 750 ml 680 ml 600 ml medications Current Medications Medications Dose Ordered Sig/Prosper Route Start Time Stop Time Status Last Admin Dose Admin Ondansetron HCl 4 mg Q4HP PRN IV 09/23/24 16:00 Nitroglycerin 0.4 mg Q5MINP PRN SL 09/23/24 16:15 Pantoprazole Sodium 40 mg DAILY IV 09/24/24 10:00 10/08/24 09:35 40 MG Ergocalciferol 50,000 unit Q7D PO 09/24/24 14:45 10/08/24 18:32 50,000 UNIT Acetaminophen 650 mg Q6HP PRN PO 09/24/24 21:45 10/07/24 21:30 650 MG Melatonin 5 mg HS PRN PO 09/24/24 21:45 09/30/24 21:05 5 MG Magnesium Oxide 400 mg BID PO 09/28/24 10:00 10/08/24 22:33 400 MG Potassium Chloride 10 meq DAILY PO 09/28/24 10:00 10/08/24 13:15 10 MEQ Dextrose/Lactated Ringer's 1,000 ml @ 50 mls/hr Q20H IV 09/29/24 20:30 10/07/24 18:51 50 MLS/HR Acetaminophen/ Hydrocodone Bitart 1 tab Q6HPRN PRN PO 10/02/24 12:15 Ceftriaxone Sodium 50 ml @ 100 mls/hr DAILY@09 IV 10/04/24 09:00 Cancel Ampicillin Sodium/ Sulbactam Sodium 3 gm/Sodium Chloride 100 ml @ 100 mls/hr Q6H IV 10/03/24 16:30 10/08/24 22:33 100 MLS/HR PHYSICAL EXAM: - GENERAL: Alert and oriented x 3. No acute distress. Well-nourished. - EYES: EOMI. Anicteric. - HENT: Moist mucous membranes. No scleral icterus. No cervical lymphadenopathy. - LUNGS: Clear to auscultation bilaterally. No accessory muscle use. - CARDIOVASCULAR: Regular rate and rhythm. No murmur. No JVD. - ABDOMEN: Soft, non-tender and non-distended. No palpable masses. - EXTREMITIES: No edema. Non-tender.?SKIN: No rashes or lesions. Warm. - NEUROLOGIC: No focal neurological deficits. CN II-XII grossly intact, but not individually tested - PSYCHIATRIC: Cooperative. Appropriate mood and affect. laboratory and microbiology Laboratory Tests 10/08/24 05:46 Test 10/08/24 05:46 Range/Units Serum Glucose 104 74-106 mg/dL Problem List/Assessment/Plan Problem List/Assessment/Plan ASSESSMENT AND PLAN: ID Problem List: - Intra-abdominal abscesses - Perforated appendicitis - Sepsis - E. coli infection - Ileus - Small bowel obstruction Assessment This is a [age not provided] y.o. male with no significant past medical history who presents with a perforated appendicitis complicated by intra-abdominal abscesses and sepsis. The patient underwent a laparoscopic lysis of adhesions, open drainage of intra- abdominal abscesses, and an open appendectomy on September 23. Operative findings included a distended peritoneum due to ileus, free air, distention of small and large intestines with serosal traction and ischemia, and a perforated appendix. A 19 Fr Noe drainage tube was placed. Currently, the patient has purulent drainage from the Noe drain, with intra- abdominal cultures growing E. coli. White blood cell count remains elevated at 21 on September 25. Repeat imaging revealed multiloculated abscesses in the right paracolic gutter, the largest measuring 14.6 cm. Multiple other fluid collections are inadequately drained. Bowel dilation may be due to ileus. sp Two (2) CT guided placement of 10.2 and 12 Cam[place]onian pigtail drain into a right paracolic gutter abscess. 10/03: abdominal ct done after multiple drain placemetn shows 12.5 by 11.9 cm fluid collection in right lower quadrant with mildly thickening wall containings pockets of air . drainage catheter wich is not positioned within the fluid collection correlation , proper catheter is recommended. Small dialated multiple bowel loops in the left abdomen with airflow levels , no focal transition point identified. theres nondialated small bowel loops in the right abdomen , a post changes in illio secqual junction may relate to illieus , theres hepatic seratosis and a passing right lung with may represent a lectusus vs airspace disease . Aspirate from drain placemtn is growing E coli from 10/01 and from 09/30 are growing E coli and enterococcus 10/04: ongoing heavy output on drain , growing enterococcus and E coli on intra abdominal culture aspirate. white count is 7.4 10/07: CT: 1. Interval placement of 2 pigtail drainage catheters in the right lower quadrant fluid collection. The collection is smaller in size, now measuring approximately 8.5 x 9.4 cm. Fluid collection again contains pockets of air with thickened valiente and surrounding fat stranding. 2. Redemonstrated are multiple dilated small bowel loops in the left abdomen with air-fluid levels. There is no focal transition point. There are again postsurgical changes at the ileocecal junction. Findings again May relate to ileus. 3. Hepatic steatosis. 4. Again seen is opacity in the posterior right lung base which may represent atelectasis versus airspace disease. Plan: - ongoing large abscesses: defer to interventional radiology for any adjustments that may be necessary to CT drains - Continue Unasyn which will cover organisms found during surgery as well as for pneumonia , recommend PICC line placement - continue to monitor - Continue to monitor WBC count and vital signs - Send any new aspirate samples from drains for aerobic and anaerobic cultures - Follow up on blood cultures Isolation Precautions: Standard Assessment and plan were discussed with the patient as written above. Plan is subject to change pending incorporation of new incoming information/diagnostics. Updates may be added as addendum at the bottom (OR TOP) of this note. Thank you for the interesting consult. ID will continue to follow. Please contact Infectious Disease for any questions or concerns. Plan discussed with: Patient Dietary Evaluation Review Comments: 1) Advance pt diet when medically feasible 2) Continue current plan of care Expected Outcomes/Goals: 1) Pt diet to advance 2) F/U in 2-3 days JERRY TINEO MD Oct 08, 2024 23:47
--- NOTE | 2024-10-08 23:47 | DVHPN2 ---
Consult Progress Note Date Seen: Oct 08, 2024 Subjective Patient reports: Feels better (abdomina pain at new catheter site) Objective vital signs Vital Sign Date Time Temp Pulse Resp B/P (MAP) Pulse Ox O2 Delivery O2 Flow Rate FiO2 10/08/24 21:00 99.7 114 20 114/66 (82) 93 99.7 10/08/24 08:00 Room Air* 0 21 Total Intake and Output 10/07/24 10/07/24 10/08/24 15:00 23:00 07:00 Intake Total 750 ml 1280 ml 600 ml Output Total 600 ml Balance 750 ml 680 ml 600 ml medications Current Medications Medications Dose Ordered Sig/Prosper Route Start Time Stop Time Status Last Admin Dose Admin Ondansetron HCl 4 mg Q4HP PRN IV 09/23/24 16:00 Nitroglycerin 0.4 mg Q5MINP PRN SL 09/23/24 16:15 Pantoprazole Sodium 40 mg DAILY IV 09/24/24 10:00 10/08/24 09:35 40 MG Ergocalciferol 50,000 unit Q7D PO 09/24/24 14:45 10/08/24 18:32 50,000 UNIT Acetaminophen 650 mg Q6HP PRN PO 09/24/24 21:45 10/07/24 21:30 650 MG Melatonin 5 mg HS PRN PO 09/24/24 21:45 09/30/24 21:05 5 MG Magnesium Oxide 400 mg BID PO 09/28/24 10:00 10/08/24 22:33 400 MG Potassium Chloride 10 meq DAILY PO 09/28/24 10:00 10/08/24 13:15 10 MEQ Dextrose/Lactated Ringer's 1,000 ml @ 50 mls/hr Q20H IV 09/29/24 20:30 10/07/24 18:51 50 MLS/HR Acetaminophen/ Hydrocodone Bitart 1 tab Q6HPRN PRN PO 10/02/24 12:15 Ceftriaxone Sodium 50 ml @ 100 mls/hr DAILY@09 IV 10/04/24 09:00 Cancel Ampicillin Sodium/ Sulbactam Sodium 3 gm/Sodium Chloride 100 ml @ 100 mls/hr Q6H IV 10/03/24 16:30 10/08/24 22:33 100 MLS/HR PHYSICAL EXAM: - GENERAL: Alert and oriented x 3. No acute distress. Well-nourished. - EYES: EOMI. Anicteric. - HENT: Moist mucous membranes. No scleral icterus. No cervical lymphadenopathy. - LUNGS: Clear to auscultation bilaterally. No accessory muscle use. - CARDIOVASCULAR: Regular rate and rhythm. No murmur. No JVD. - ABDOMEN: Soft, non-tender and non-distended. No palpable masses. - EXTREMITIES: No edema. Non-tender.?SKIN: No rashes or lesions. Warm. CT drain in placement - NEUROLOGIC: No focal neurological deficits. CN II-XII grossly intact, but not individually tested - PSYCHIATRIC: Cooperative. Appropriate mood and affect. laboratory and microbiology Laboratory Tests 10/08/24 05:46 Test 10/08/24 05:46 Range/Units Serum Glucose 104 74-106 mg/dL Problem List/Assessment/Plan Problem List/Assessment/Plan ASSESSMENT AND PLAN: ID Problem List: - Intra-abdominal abscesses - Perforated appendicitis - Sepsis - E. coli infection - Ileus - Small bowel obstruction Assessment This is a [age not provided] y.o. male with no significant past medical history who presents with a perforated appendicitis complicated by intra-abdominal abscesses and sepsis. The patient underwent a laparoscopic lysis of adhesions, open drainage of intra- abdominal abscesses, and an open appendectomy on September 23. Operative findings included a distended peritoneum due to ileus, free air, distention of small and large intestines with serosal traction and ischemia, and a perforated appendix. A 19 Fr Noe drainage tube was placed. Currently, the patient has purulent drainage from the Noe drain, with intra- abdominal cultures growing E. coli. White blood cell count remains elevated at 21 on September 25. Repeat imaging revealed multiloculated abscesses in the right paracolic gutter, the largest measuring 14.6 cm. Multiple other fluid collections are inadequately drained. Bowel dilation may be due to ileus. sp Two (2) CT guided placement of 10.2 and 12 [place]ambian pigtail drain into a right paracolic gutter abscess. 10/03: abdominal ct done after multiple drain placemetn shows 12.5 by 11.9 cm fluid collection in right lower quadrant with mildly thickening wall containings pockets of air . drainage catheter wich is not positioned within the fluid collection correlation , proper catheter is recommended. Small dialated multiple bowel loops in the left abdomen with airflow levels , no focal transition point identified. theres nondialated small bowel loops in the right abdomen , a post changes in illio secqual junction may relate to illieus , theres hepatic seratosis and a passing right lung with may represent a lectusus vs airspace disease . Aspirate from drain placemtn is growing E coli from 10/01 and from 09/30 are growing E coli and enterococcus 10/04: ongoing heavy output on drain , growing enterococcus and E coli on intra abdominal culture aspirate. white count is 7.4 10/07: ongoing large abscesses 8cm on CT 10/08: sp CT guided placement of a new 12 [place]ambian pigtail drain into a paracolic gutter abscess. 150 mL foul purulent fluid was aspirated. Plan: - will fu on drainage output from new drainage catheter - Continue Unasyn which will cover organisms found during surgery as well as for pneumonia , recommend PICC line placement - continue to monitor - Continue to monitor WBC count and vital signs - Send any new aspirate samples from drains for aerobic and anaerobic cultures - Follow up on blood cultures Isolation Precautions: Standard Assessment and plan were discussed with the patient as written above. Plan is subject to change pending incorporation of new incoming information/diagnostics. Updates may be added as addendum at the bottom (OR TOP) of this note. Thank you for the interesting consult. ID will continue to follow. Please contact Infectious Disease for any questions or concerns. Plan discussed with: Patient Dietary Evaluation Review Comments: 1) Advance pt diet when medically feasible 2) Continue current plan of care Expected Outcomes/Goals: 1) Pt diet to advance 2) F/U in 2-3 days JERRY TINEO MD Oct 08, 2024 23:47
[2024-10-09] VITALS (8 sets, daily range): BP systolic 108–121; BP diastolic 60–72; PULSE 101–110; RESP 18–20; TEMP 98–99.5; O2SAT 92–95
[2024-10-09 05:54] LABS: Basophils # (auto) 0 10 ^3/uL (0-0.2); Basophils % (auto) 0.4 % (0.0-2.0); Eosinophils # (auto) 0.1 10 ^3/uL (0-0.8); Eosinophils % (auto) 1.4 % (0.0-7.0); Hemoglobin 11.2 g/dL (13.5-17.5); Lymphocytes # (auto) 0.7 10 ^3/uL (0.4-5.4); Lymphocytes % (auto) 8.2 % (10.0-50.0); Mean Corpuscular Hemoglobin 32.5 pg (28.0-32.0); Mean Corpuscular Hgb Conc. 35.1 g/dL (32.0-36.0); Mean Corpuscular Volume 92.7 fL (80.0-100.0); Monocytes # (auto) 0.8 10 ^3/uL (0-1.3); Monocytes % (auto) 9.2 % (0.0-12.0); Neutrophils % (auto) 80.8 % (37.0-80.0); Platelet Count (auto) 259 10^3/uL (140-450); Red Blood Cells 3.45 10^6/uL (4.5-5.90); Red Cell Distribution Width 12.6 % (11.8-14.3); White Blood Cell 8.7 10^3/uL (4.4-10.8)
[2024-10-09 06:04] LABS: Anion Gap 8 (5-15); Carbon Dioxide 26 mmol/L (20-31); Chloride 101 mmol/L (98-107); Potassium 4.1 mmol/L (3.5-5.1)
[2024-10-09 06:05] LABS: Calcium 9.5 mg/dL (8.7-10.4)
[2024-10-09 06:10] LABS: BUN/Creatinine Ratio 9.8 (10.0-20.0)
[2024-10-09 07:02] LABS: Blood Urea Nitrogen 9 mg/dL (9-23); Glucose 110 mg/dL (74-106); Sodium 135 mmol/L (136-145)
--- NOTE | 2024-10-09 14:09 | DVHPN2 ---
Progress Note Date Seen: Oct 09, 2024 Medical Necessity Reason Pt with a Central, PICC or Fol: No Reason for mcdonald catheter: Sixto. Abd Surgery Objective vital signs Vital Sign Date Time Temp Pulse Resp B/P (MAP) Pulse Ox O2 Delivery O2 Flow Rate FiO2 10/09/24 09:00 98.1 103 18 108/68 (81) 95 98.1 10/09/24 08:00 Room Air* 0 21 Total Intake and Output 10/08/24 10/08/24 10/09/24 15:00 23:00 07:00 Intake Total 600 ml 625 ml 1560 ml Output Total 532 ml Balance 600 ml 625 ml 1028 ml medications Current Medications Medications Dose Ordered Sig/Prosper Route Start Time Stop Time Status Last Admin Dose Admin Ondansetron HCl 4 mg Q4HP PRN IV 09/23/24 16:00 Nitroglycerin 0.4 mg Q5MINP PRN SL 09/23/24 16:15 Pantoprazole Sodium 40 mg DAILY IV 09/24/24 10:00 10/09/24 10:02 40 MG Ergocalciferol 50,000 unit Q7D PO 09/24/24 14:45 10/08/24 18:32 50,000 UNIT Acetaminophen 650 mg Q6HP PRN PO 09/24/24 21:45 10/07/24 21:30 650 MG Melatonin 5 mg HS PRN PO 09/24/24 21:45 09/30/24 21:05 5 MG Magnesium Oxide 400 mg BID PO 09/28/24 10:00 10/09/24 10:02 400 MG Potassium Chloride 10 meq DAILY PO 09/28/24 10:00 10/09/24 10:03 10 MEQ Dextrose/Lactated Ringer's 1,000 ml @ 50 mls/hr Q20H IV 09/29/24 20:30 10/09/24 00:30 50 MLS/HR Acetaminophen/ Hydrocodone Bitart 1 tab Q6HPRN PRN PO 10/02/24 12:15 Ceftriaxone Sodium 50 ml @ 100 mls/hr DAILY@09 IV 10/04/24 09:00 Cancel Ampicillin Sodium/ Sulbactam Sodium 3 gm/Sodium Chloride 100 ml @ 100 mls/hr Q6H IV 10/03/24 16:30 10/09/24 10:03 100 MLS/HR laboratory and microbiology Laboratory Tests 10/09/24 05:25 Test 10/09/24 05:25 Range/Units Serum Glucose 110 H 74-106 mg/dL Microbiology Date/Time Source Procedure Growth Status 10/08/24 13:50 Aspirate Gram Stain Pending Resulted 10/08/24 13:50 Aspirate Body Fluid Culture - Preliminary Resulted 09/23/24 23:01 Blood Blood Culture - Final NO GROWTH AFTER 5 DAYS OF INCUBATION. Complete 09/23/24 17:30 Abdomen Gram Stain - Final Complete 09/23/24 17:30 Abdomen Anaerobic Culture - Final Complete 09/23/24 17:30 Aerobic Culture - Final Escherichia coli Complete Problem List/Assessment/Plan Problem List/Assessment/Plan AFEBRILE VSS ABD SOFT ABD WOUND IR DRAINAGE 20 CC PURULENT DRESSING CHANGED BM + FLATUS + WBC WNL IV ABX NURSE AT BEDSIDE CONTINUE CLOSE OBSERVATION IR EVAL FOR DRAIN REMOVAL Plan discussed with: Patient Dietary Evaluation Review Comments: 1) Advance pt diet when medically feasible 2) Continue current plan of care Expected Outcomes/Goals: 1) Pt diet to advance 2) F/U in 2-3 days EDISON NUÑEZ MD Oct 09, 2024 14:09
[2024-10-09] MEDS: SODIUM CHLORIDE 0.9% 1,000 ML IV SCH (16:35)
[2024-10-09] MEDS: ENOXAPARIN SOD 40 MG/0.4 ML SYRINGE SC ONE (16:35)
[2024-10-09] MEDS: ACETAMINOPHEN 325 MG TAB PO ONE (17:43)
--- NOTE | 2024-10-09 19:31 | DVHPNRES ---
Progress Note Date Seen: Oct 09, 2024 Resident Creating Document: DEMETRIS MORENO RESIDENT Medical Necessity Reason Pt with a Central, PICC or Fol: No Reason for mcdonald catheter: Sixto. Abd Surgery Subjective Review of Systems 29-year-old male patient who presented to the emergency department with complaints of worsening intermittent generalized abdominal pain that began 7 day prior to admission. He attributed the pain to consuming hensley. The patient was diagnosed with the complicated ruptured acute appendicitis and underwent an open appendectomy. Postoperatively, the patient initially demonstrated signs of intra-abdominal infection . Since surgery, the patient has reported gradual improvement. He denies current abdominal pain, nausea or vomiting. He has resumed normal bowel movements and flatulence and is tolerating a full liquid diet. Despite some residual purulent drainage from surgical wound the drainage has decreased compared to earlier days. The wound was redressed and during these assessment vital signs remained stable and the patient is afebrile. White blood cell count has normalized. The patient is currently receiving Unasyn 3 times daily, which will be continued. IR reposition intervention was made. -Reposition of the two existing abdominal drains deeper into the abdomen. -CT guided placement of a new 12 [place]ian pigtail drain into a paracolic gutter abscess. 150 mL foul purulent fluid was aspirated. Plan is continue on the same antibiotics regimen, and monitoring fever episodes. Acetaminophen and cooling measures to control the fever. patient was examined at bedside, stable at this time , vital sign WNL, and without acute symptoms, clinical status improving. Enoxaparin 40 mg SC for DVT prophylaxis. Patient reports: Feels better Changes from previous H/P or p: Changes Objective vital signs Vital Sign Date Time Temp Pulse Resp B/P (MAP) Pulse Ox O2 Delivery O2 Flow Rate FiO2 10/09/24 17:00 98.3 107 18 112/69 (83) 94 98.3 10/09/24 08:00 Room Air* 0 21 Total Intake and Output 10/08/24 10/08/24 10/09/24 15:00 23:00 07:00 Intake Total 600 ml 625 ml 1560 ml Output Total 40 ml 532 ml Balance 600 ml 585 ml 1028 ml medications Current Medications Medications Dose Ordered Sig/Prosper Route Start Time Stop Time Status Last Admin Dose Admin Ondansetron HCl 4 mg Q4HP PRN IV 09/23/24 16:00 Nitroglycerin 0.4 mg Q5MINP PRN SL 09/23/24 16:15 Pantoprazole Sodium 40 mg DAILY IV 09/24/24 10:00 10/09/24 10:02 40 MG Ergocalciferol 50,000 unit Q7D PO 09/24/24 14:45 10/08/24 18:32 50,000 UNIT Acetaminophen 650 mg Q6HP PRN PO 09/24/24 21:45 10/07/24 21:30 650 MG Melatonin 5 mg HS PRN PO 09/24/24 21:45 09/30/24 21:05 5 MG Magnesium Oxide 400 mg BID PO 09/28/24 10:00 10/09/24 10:02 400 MG Potassium Chloride 10 meq DAILY PO 09/28/24 10:00 10/09/24 10:03 10 MEQ Acetaminophen/ Hydrocodone Bitart 1 tab Q6HPRN PRN PO 10/02/24 12:15 Ceftriaxone Sodium 50 ml @ 100 mls/hr DAILY@09 IV 10/04/24 09:00 Cancel Ampicillin Sodium/ Sulbactam Sodium 3 gm/Sodium Chloride 100 ml @ 100 mls/hr Q6H IV 10/03/24 16:30 10/09/24 17:36 100 MLS/HR Sodium Chloride 1,000 ml @ 100 mls/hr Q10H IV 10/09/24 14:45 10/09/24 16:35 100 MLS/HR Enoxaparin Sodium 40 mg DAILY SC 10/10/24 10:00 Examination Examination General Appearance: Alert, Oriented X3, Cooperative, No acute distress Respiratory: Clear to auscultation, Normal air movement Cardiovascular: Regular rate, Normal S1, Normal S2 Abdominal: non tender , non distended, surgcal wound not leaking purulen fluid. Extremities: No cyanosis, No edema, Normal pulses, No tenderness/swelling Neuro: Normal speech, Strength at 5/5 X4 ext, Normal tone, Sensation intact laboratory and microbiology Laboratory Tests 10/09/24 05:25 Test 10/09/24 05:25 Range/Units Serum Glucose 110 H 74-106 mg/dL Microbiology Date/Time Source Procedure Growth Status 10/08/24 13:50 Aspirate Gram Stain - Final Resulted 10/08/24 13:50 Aspirate Body Fluid Culture - Preliminary Resulted 12/9/24 23:01 Blood Blood Culture - Final NO GROWTH AFTER 5 DAYS OF INCUBATION. Complete 09/23/24 17:30 Abdomen Gram Stain - Final Complete 09/23/24 17:30 Abdomen Anaerobic Culture - Final Complete 09/23/24 17:30 Aerobic Culture - Final Escherichia coli Complete Problem List/Assessment/Plan Problem List/Assessment/Plan #Sepsis likely due to acute gangrenous appendicitis with perforation #Acute appendicitis complicated by rupture s/p open appendectomy on 09/23/2024. - Surgical culture evidence E coli and E.Faecalis - IV Ampicilin-sulbactam - Reposition of the existing abdominal drains deeper into the abdomen was made by IR - CT guided placement of a new 12 [place]ian pigtail drain into a paracolic gutter abscess. 150 mL foul purulent fluid was aspirated. - NS 0.9% 100ml/h Likely postoperative ileus due to comorbidities - resolved Patient currently tolerating soft diet NEO hemodynamically mediated due to VMN with strong POA Continue IVF Monitor lab Hepatic steatosis Lifestyle modification and dietary habits Vitamin D deficiency Replenished Hypokalemia Replenished Diet soft diet DVT prophylaxis - lovenox 40 m SC Case discussed with Goals of care discussed with the patient for 39 minutes Code status: Full code Plan discussed with: Patient, Other (father) My Orders My Orders Orders - DEMETRIS MORENO RESIDENT Procedure Category Date Status Time Sodium Chloride 0.9% PHA 10/09/24 In Process 14:45 Enoxaparin Sodium PHA 10/10/24 In Process (Lovenox) 10:00 Dietary Evaluation Review Comments: 1) Advance pt diet when medically feasible 2) Continue current plan of care Expected Outcomes/Goals: 1) Pt diet to advance 2) F/U in 2-3 days Date of Service: Oct 09, 2024 Billing Provider: CELESTINA SUE MD Common Visit Codes: [id number] INP/OBS CARE(HIGH) DEMETRIS MORENO RESIDENT Oct 09, 2024 19:31 CELESTINA SUE MD Oct 10, 2024 11:34
[2024-10-10 01:00] VITALS: BP 117/70; PULSE 103; RESP 18; TEMP 98.4; O2SAT 94
[2024-10-10 05:00] VITALS: BP 118/71; PULSE 105; RESP 18; TEMP 98.6; O2SAT 94
[2024-10-10 09:00] VITALS: BP 115/71; PULSE 104; RESP 17; TEMP 98; O2SAT 93
[2024-10-10] MEDS: ENOXAPARIN SOD 40 MG/0.4 ML SYRINGE SC SCH (10:00)
--- NOTE | 2024-10-10 10:19 | DVHPN2 ---
Progress Note Date Seen: Oct 10, 2024 Medical Necessity Reason Pt with a Central, PICC or Fol: No Reason for mcdonald catheter: Sixto. Abd Surgery Objective vital signs Vital Sign Date Time Temp Pulse Resp B/P (MAP) Pulse Ox O2 Delivery O2 Flow Rate FiO2 10/10/24 09:00 98.0 104 17 115/71 (86) 93 98.0 10/09/24 20:00 Room Air* 0 21 Total Intake and Output 10/09/24 10/09/24 10/10/24 15:00 23:00 07:00 Intake Total 980 ml 2360 ml 340 ml Output Total 1030 ml 300 ml Balance 980 ml 1330 ml 40 ml medications Current Medications Medications Dose Ordered Sig/Prosper Route Start Time Stop Time Status Last Admin Dose Admin Ondansetron HCl 4 mg Q4HP PRN IV 09/23/24 16:00 Nitroglycerin 0.4 mg Q5MINP PRN SL 09/23/24 16:15 Pantoprazole Sodium 40 mg DAILY IV 09/24/24 10:00 10/09/24 10:02 40 MG Ergocalciferol 50,000 unit Q7D PO 09/24/24 14:45 10/08/24 18:32 50,000 UNIT Acetaminophen 650 mg Q6HP PRN PO 09/24/24 21:45 10/07/24 21:30 650 MG Melatonin 5 mg HS PRN PO 09/24/24 21:45 09/30/24 21:05 5 MG Magnesium Oxide 400 mg BID PO 09/28/24 10:00 10/09/24 21:17 400 MG Potassium Chloride 10 meq DAILY PO 09/28/24 10:00 10/09/24 10:03 10 MEQ Acetaminophen/ Hydrocodone Bitart 1 tab Q6HPRN PRN PO 10/02/24 12:15 Ceftriaxone Sodium 50 ml @ 100 mls/hr DAILY@09 IV 10/04/24 09:00 Cancel Ampicillin Sodium/ Sulbactam Sodium 3 gm/Sodium Chloride 100 ml @ 100 mls/hr Q6H IV 10/03/24 16:30 10/10/24 04:46 100 MLS/HR Sodium Chloride 1,000 ml @ 100 mls/hr Q10H IV 10/09/24 14:45 10/09/24 16:35 100 MLS/HR Enoxaparin Sodium 40 mg DAILY SC 10/10/24 10:00 laboratory and microbiology Laboratory Tests 10/09/24 05:25 Test 10/09/24 05:25 Range/Units Serum Glucose 110 H 74-106 mg/dL Microbiology Date/Time Source Procedure Growth Status 10/08/24 13:50 Aspirate Gram Stain - Final Resulted 10/08/24 13:50 Body Fluid Culture - Preliminary Escherichia coli Resulted 09/23/24 23:01 Blood Blood Culture - Final NO GROWTH AFTER 5 DAYS OF INCUBATION. Complete 09/23/24 17:30 Abdomen Gram Stain - Final Complete 09/23/24 17:30 Abdomen Anaerobic Culture - Final Complete 09/23/24 17:30 Aerobic Culture - Final Escherichia coli Complete Problem List/Assessment/Plan Problem List/Assessment/Plan AFEBRILE VSS ABD SOFT ABD WOUND IR BACK DRAINAGE 20 CC PURULENT DRESSING CHANGED BM + FLATUS + WBC WNL IV ABX NURSE AT BEDSIDE CONTINUE CLOSE OBSERVATION IR EVAL FOR DRAIN REMOVAL 1 AND 2 PLACED PREVIOUSLY R LQ KEEP THE DRAIN PLACED MORE RECENTLY IN THE BACK Plan discussed with: Patient Dietary Evaluation Review Comments: 1) Advance pt diet when medically feasible 2) Continue current plan of care Expected Outcomes/Goals: 1) Pt diet to advance 2) F/U in 2-3 days EDISON NUÑEZ MD Oct 10, 2024 10:19
--- NOTE | 2024-10-10 11:41 | DVHPNRES ---
Progress Note Date Seen: Oct 10, 2024 Resident Creating Document: DEMETRIS MORENO RESIDENT Medical Necessity Reason Pt with a Central, PICC or Fol: No Reason for mcdonald catheter: Sixto. Abd Surgery Subjective Review of Systems 29-year-old male patient who presented to the emergency department with complaints of worsening intermittent generalized abdominal pain that began 7 day prior to admission. He attributed the pain to consuming hensley. The patient was diagnosed with the complicated ruptured acute appendicitis and underwent an open appendectomy. Postoperatively, the patient initially demonstrated signs of intra-abdominal infection . Since surgery, the patient has reported gradual improvement. He denies current abdominal pain, nausea or vomiting. He has resumed normal bowel movements and flatulence and is tolerating a full liquid diet. Despite some residual purulent drainage from surgical wound the drainage has decreased compared to earlier days. The wound was redressed and during these assessment vital signs remained stable and the patient is afebrile. White blood cell count has normalized. The patient is currently receiving Unasyn 3 times daily, which will be continued. IR reposition intervention was made. -Reposition of the two existing abdominal drains deeper into the abdomen. -CT guided placement of a new 12 [place] pigtail drain into a paracolic gutter abscess. 150 mL foul purulent fluid was aspirated. Plan is continue on the same antibiotics regimen, and monitoring fever episodes. Microbiology showed E faecalis and E coli infection, ampicillin sulbactam and IV q.8 hours we will continue as antibiotic therapy. patient was examined at bedside, stable at this time , vital sign WNL, and without acute symptoms, clinical status improving. The lateral drains will be removed tomorrow. The 3rd drain located in the bag will remain in place. The patient will be re-evaluated tomorrow for potential discharged on review for [facility] care on an outpatient basis. We will continue monitor clinical status, vital signs are lab results. Enoxaparin 40 mg SC for DVT prophylaxis. Patient reports: Feels better Changes from previous H/P or p: Changes Objective vital signs Vital Sign Date Time Temp Pulse Resp B/P (MAP) Pulse Ox O2 Delivery O2 Flow Rate FiO2 10/10/24 09:00 98.0 104 17 115/71 (86) 93 98.0 10/09/24 20:00 Room Air* 0 21 Total Intake and Output 10/09/24 10/09/24 10/10/24 15:00 23:00 07:00 Intake Total 980 ml 2360 ml 340 ml Output Total 1030 ml 300 ml Balance 980 ml 1330 ml 40 ml medications Current Medications Medications Dose Ordered Sig/Prosper Route Start Time Stop Time Status Last Admin Dose Admin Ondansetron HCl 4 mg Q4HP PRN IV 09/23/24 16:00 Nitroglycerin 0.4 mg Q5MINP PRN SL 09/23/24 16:15 Pantoprazole Sodium 40 mg DAILY IV 09/24/24 10:00 10/10/24 10:22 40 MG Ergocalciferol 50,000 unit Q7D PO 09/24/24 14:45 10/08/24 18:32 50,000 UNIT Acetaminophen 650 mg Q6HP PRN PO 09/24/24 21:45 10/07/24 21:30 650 MG Melatonin 5 mg HS PRN PO 09/24/24 21:45 09/30/24 21:05 5 MG Magnesium Oxide 400 mg BID PO 09/28/24 10:00 10/10/24 10:22 400 MG Potassium Chloride 10 meq DAILY PO 09/28/24 10:00 10/10/24 10:22 10 MEQ Acetaminophen/ Hydrocodone Bitart 1 tab Q6HPRN PRN PO 10/02/24 12:15 Ceftriaxone Sodium 50 ml @ 100 mls/hr DAILY@09 IV 10/04/24 09:00 Cancel Ampicillin Sodium/ Sulbactam Sodium 3 gm/Sodium Chloride 100 ml @ 100 mls/hr Q6H IV 10/03/24 16:30 10/10/24 10:37 100 MLS/HR Sodium Chloride 1,000 ml @ 100 mls/hr Q10H IV 10/09/24 14:45 10/09/24 16:35 100 MLS/HR Enoxaparin Sodium 40 mg DAILY SC 10/10/24 10:00 Examination Neck: Supple. No masses. HEENT: PERRL. Normal lids and conjunctiva. Moist mucous membranes. Oropharynx without lesions, exudates, or excessive erythema. Normal appearance of the external aspects of the nose and ears. Heart: Regular rhythm, tachycardic. No murmur. No lower extremity edema. Lungs: Normal respiratory effort. Clear to auscultation bilaterally. No wheezes. No crackles. Abdomen: No distended not tender on palpation no masses, 2 drains placed in the lateral side 1 placed in the back, surgical scar without leaking of purulent fluid. MSK: No digital cyanosis. Normal strength and tone in all four limbs. Skin: Warm and dry, no rashes. Neuro: Alert. No facial droop or slurred speech. Extraocular movements intact. Sensation intact to soft touch in all four limbs. Psych: Appropriate mood. Full affect. Oriented to person, place, time, and situation. laboratory and microbiology Laboratory Tests 10/09/24 05:25 Test 10/09/24 05:25 Range/Units Serum Glucose 110 H 74-106 mg/dL Microbiology Date/Time Source Procedure Growth Status 10/08/24 13:50 Aspirate Gram Stain - Final Resulted 10/08/24 13:50 Body Fluid Culture - Preliminary Escherichia coli Resulted 09/23/24 23:01 Blood Blood Culture - Final NO GROWTH AFTER 5 DAYS OF INCUBATION. Complete 09/23/24 17:30 Abdomen Gram Stain - Final Complete 09/23/24 17:30 Abdomen Anaerobic Culture - Final Complete 09/23/24 17:30 Aerobic Culture - Final Escherichia coli Complete Problem List/Assessment/Plan Problem List/Assessment/Plan #Sepsis likely due to acute gangrenous appendicitis with perforation #Acute appendicitis complicated by rupture s/p open appendectomy on 09/23/2024. - Surgical culture evidence E coli and E.Faecalis - IV Ampicilin-sulbactam - Reposition of the existing abdominal drains deeper into the abdomen was made by IR - CT guided placement of a new 12 [place] pigtail drain into a paracolic gutter abscess. 150 mL foul purulent fluid was aspirated. - NS 0.9% 100ml/h - natural drains will be removed tomorrow by surgical team. Likely postoperative ileus due to comorbidities - resolved Patient currently tolerating soft diet NEO hemodynamically mediated due to VMN with strong POA Continue IVF Monitor lab Hepatic steatosis Lifestyle modification and dietary habits Vitamin D deficiency Replenished Hypokalemia Replenished Diet soft diet DVT prophylaxis - lovenox 40 m SC Case discussed with Goals of care discussed with the patient for 39 minutes Code status: Full code Plan discussed with: Patient My Orders My Orders Orders - DEMETRIS MORENO RESIDENT Procedure Category Date Status Time Sodium Chloride 0.9% PHA 12/25/24 In Process 14:45 Enoxaparin Sodium PHA 10/10/24 In Process (Lovenox) 10:00 Dietary Evaluation Review Comments: 1) Advance pt diet when medically feasible 2) Continue current plan of care Expected Outcomes/Goals: 1) Pt diet to advance 2) F/U in 2-3 days Date of Service: Oct 10, 2024 Billing Provider: CELESTINA SUE MD Common Visit Codes: [id number] INP/OBS CARE(HIGH) DEMETRIS MORENO RESIDENT Oct 10, 2024 11:41 CELESTINA SUE MD Oct 10, 2024 18:12
[2024-10-10 13:28] VITALS: BP 113/69; PULSE 104; RESP 16; TEMP 98.3; O2SAT 94
[2024-10-10 17:14] VITALS: BP 121/80; PULSE 113; RESP 18; TEMP 100; O2SAT 94
[2024-10-10] MEDS: ACETAMINOPHEN 325 MG TAB PO ONE (21:50)
[2024-10-10 22:00] VITALS: BP 119/71; PULSE 118; RESP 18; TEMP 99.5; O2SAT 91
--- NOTE | 2024-10-10 23:24 | DVHPN2 ---
Consult Progress Note Date Seen: Oct 09, 2024 Subjective Patient reports: Feels better (no diarrhea or rash) Objective vital signs Vital Sign Date Time Temp Pulse Resp B/P (MAP) Pulse Ox O2 Delivery O2 Flow Rate FiO2 10/10/24 22:00 99.5 118 18 119/71 (87) 91 99.5 10/10/24 08:00 Room Air* 0 21 Total Intake and Output 10/09/24 10/09/24 10/10/24 15:00 23:00 07:00 Intake Total 980 ml 2360 ml 340 ml Output Total 1030 ml 300 ml Balance 980 ml 1330 ml 40 ml medications Current Medications Medications Dose Ordered Sig/Prosper Route Start Time Stop Time Status Last Admin Dose Admin Ondansetron HCl 4 mg Q4HP PRN IV 09/23/24 16:00 Nitroglycerin 0.4 mg Q5MINP PRN SL 09/23/24 16:15 Pantoprazole Sodium 40 mg DAILY IV 09/24/24 10:00 10/10/24 10:22 40 MG Ergocalciferol 50,000 unit Q7D PO 09/24/24 14:45 10/08/24 18:32 50,000 UNIT Acetaminophen 650 mg Q6HP PRN PO 09/24/24 21:45 10/07/24 21:30 650 MG Melatonin 5 mg HS PRN PO 09/24/24 21:45 09/30/24 21:05 5 MG Magnesium Oxide 400 mg BID PO 09/28/24 10:00 10/10/24 21:52 400 MG Potassium Chloride 10 meq DAILY PO 09/28/24 10:00 10/10/24 10:22 10 MEQ Acetaminophen/ Hydrocodone Bitart 1 tab Q6HPRN PRN PO 10/02/24 12:15 Ceftriaxone Sodium 50 ml @ 100 mls/hr DAILY@09 IV 10/04/24 09:00 Cancel Ampicillin Sodium/ Sulbactam Sodium 3 gm/Sodium Chloride 100 ml @ 100 mls/hr Q6H IV 10/03/24 16:30 10/10/24 21:54 100 MLS/HR Sodium Chloride 1,000 ml @ 100 mls/hr Q10H IV 10/09/24 14:45 10/10/24 12:01 100 MLS/HR Enoxaparin Sodium 40 mg DAILY SC 10/10/24 10:00 PHYSICAL EXAM: - GENERAL: Alert and oriented x 3. No acute distress. Well-nourished. - EYES: EOMI. Anicteric. - HENT: Moist mucous membranes. No scleral icterus. No cervical lymphadenopathy. - LUNGS: Clear to auscultation bilaterally. No accessory muscle use. - CARDIOVASCULAR: Regular rate and rhythm. No murmur. No JVD. - ABDOMEN: Soft, non-tender and non-distended. No palpable masses. - EXTREMITIES: No edema. Non-tender.?SKIN: No rashes or lesions. Warm. - NEUROLOGIC: No focal neurological deficits. CN II-XII grossly intact, but not individually tested - PSYCHIATRIC: Cooperative. Appropriate mood and affect. - laboratory and microbiology Laboratory Tests 10/09/24 05:25 Test 10/09/24 05:25 Range/Units Serum Glucose 110 H 74-106 mg/dL Problem List/Assessment/Plan Problem List/Assessment/Plan ASSESSMENT AND PLAN: ID Problem List: - Intra-abdominal abscesses - Perforated appendicitis - Sepsis - E. coli infection - Ileus - Small bowel obstruction Assessment This is a [age not provided] y.o. male with no significant past medical history who presents with a perforated appendicitis complicated by intra-abdominal abscesses and sepsis. The patient underwent a laparoscopic lysis of adhesions, open drainage of intra- abdominal abscesses, and an open appendectomy on September 23. Operative findings included a distended peritoneum due to ileus, free air, distention of small and large intestines with serosal traction and ischemia, and a perforated appendix. A 19 Fr Noe drainage tube was placed. Currently, the patient has purulent drainage from the Noe drain, with intra- abdominal cultures growing E. coli. White blood cell count remains elevated at 21 on September 25. Repeat imaging revealed multiloculated abscesses in the right paracolic gutter, the largest measuring 14.6 cm. Multiple other fluid collections are inadequately drained. Bowel dilation may be due to ileus. sp Two (2) CT guided placement of 10.2 and 12 Swiss pigtail drain into a right paracolic gutter abscess. 10/03: abdominal ct done after multiple drain placemetn shows 12.5 by 11.9 cm fluid collection in right lower quadrant with mildly thickening wall containings pockets of air . drainage catheter wich is not positioned within the fluid collection correlation , proper catheter is recommended. Small dialated multiple bowel loops in the left abdomen with airflow levels , no focal transition point identified. theres nondialated small bowel loops in the right abdomen , a post changes in illio secqual junction may relate to illieus , theres hepatic seratosis and a passing right lung with may represent a lectusus vs airspace disease . Aspirate from drain placemtn is growing E coli from 10/01 and from 09/30 are growing E coli and enterococcus 10/04: ongoing heavy output on drain , growing enterococcus and E coli on intra abdominal culture aspirate. white count is 7.4 10/07: ongoing large abscesses 8cm on CT 10/08: sp CT guided placement of a new 12 Swiss pigtail drain into a paracolic gutter abscess. 150 mL foul purulent fluid was aspirated. Plan: - will fu on drainage output from new drainage catheter - Continue Unasyn which will cover organisms found during surgery as well as for pneumonia , recommend PICC line placement - continue to monitor - Continue to monitor WBC count and vital signs - Send any new aspirate samples from drains for aerobic and anaerobic cultures - Follow up on blood cultures Isolation Precautions: Standard Assessment and plan were discussed with the patient as written above. Plan is subject to change pending incorporation of new incoming information/diagnostics. Updates may be added as addendum at the bottom (OR TOP) of this note. Thank you for the interesting consult. ID will continue to follow. Please contact Infectious Disease for any questions or concerns. Plan discussed with: Patient Dietary Evaluation Review Comments: 1) Advance pt diet when medically feasible 2) Continue current plan of care Expected Outcomes/Goals: 1) Pt diet to advance 2) F/U in 2-3 days JERRY TINEO MD Oct 10, 2024 23:24
[2024-10-11 01:00] VITALS: BP 107/64; PULSE 96; RESP 18; TEMP 98; O2SAT 93
[2024-10-11 05:00] VITALS: BP 129/74; PULSE 102; RESP 18; TEMP 98.3; O2SAT 94
[2024-10-11 07:29] LABS: Basophils # (auto) 0 10 ^3/uL (0-0.2); Basophils % (auto) 0.2 % (0.0-2.0); Eosinophils # (auto) 0.1 10 ^3/uL (0-0.8); Eosinophils % (auto) 1.4 % (0.0-7.0); Hematocrit 33.6 % (41.0-53.0); Hemoglobin 11.7 g/dL (13.5-17.5); Lymphocytes # (auto) 0.6 10 ^3/uL (0.4-5.4); Lymphocytes % (auto) 7.6 % (10.0-50.0); Mean Corpuscular Hemoglobin 32.3 pg (28.0-32.0); Mean Corpuscular Hgb Conc. 34.8 g/dL (32.0-36.0); Mean Corpuscular Volume 92.9 fL (80.0-100.0); Monocytes # (auto) 0.6 10 ^3/uL (0-1.3); Monocytes % (auto) 8.2 % (0.0-12.0); Neutrophils # (auto) 6.5 10 ^3/uL (1.6-8.6); Neutrophils % (auto) 82.6 % (37.0-80.0); Nucleated Red Blood Cells % 0.1 %; Platelet Count (auto) 259 10^3/uL (140-450); Red Blood Cells 3.62 10^6/uL (4.5-5.90); Red Cell Distribution Width 12.9 % (11.8-14.3); White Blood Cell 7.8 10^3/uL (4.4-10.8)
[2024-10-11 07:31] LABS: Anion Gap 10 (5-15); Carbon Dioxide 23 mmol/L (20-31); Chloride 102 mmol/L (98-107); Potassium 3.7 mmol/L (3.5-5.1)
[2024-10-11 07:32] LABS: Calcium 9.4 mg/dL (8.7-10.4)
[2024-10-11 07:34] LABS: Sodium 135 mmol/L (136-145)
[2024-10-11 07:37] LABS: BUN/Creatinine Ratio 12.5 (10.0-20.0); Glucose 94 mg/dL (74-106)
[2024-10-11 07:38] LABS: Blood Urea Nitrogen 9 mg/dL (9-23)
[2024-10-11] MEDS: HYDROcodone-ACET 5/325MG TAB PO PRN (07:47)
[2024-10-11 09:00] VITALS: BP 115/73; PULSE 103; RESP 17; TEMP 97.5; O2SAT 93
[2024-10-11 12:45] VITALS: BP 106/64; PULSE 108; RESP 18; TEMP 98.2; O2SAT 94
--- NOTE | 2024-10-11 15:18 | DVHPN2 ---
Progress Note Date Seen: Oct 11, 2024 Medical Necessity Reason Pt with a Central, PICC or Fol: No Reason for mcdonald catheter: Sixto. Abd Surgery Objective vital signs Vital Sign Date Time Temp Pulse Resp B/P (MAP) Pulse Ox O2 Delivery O2 Flow Rate FiO2 10/11/24 12:45 98.2 108 18 106/64 (78) 94 98.2 10/11/24 08:00 Room Air* 0 21 Total Intake and Output 10/10/24 10/10/24 10/11/24 15:00 23:00 07:00 Intake Total 420 ml 590 ml 1750 ml Output Total 800 ml 1250 ml Balance 420 ml -210 ml 500 ml medications Current Medications Medications Dose Ordered Sig/Prosper Route Start Time Stop Time Status Last Admin Dose Admin Ondansetron HCl 4 mg Q4HP PRN IV 09/23/24 16:00 Nitroglycerin 0.4 mg Q5MINP PRN SL 09/23/24 16:15 Pantoprazole Sodium 40 mg DAILY IV 09/24/24 10:00 10/11/24 10:35 40 MG Ergocalciferol 50,000 unit Q7D PO 09/24/24 14:45 10/08/24 18:32 50,000 UNIT Acetaminophen 650 mg Q6HP PRN PO 09/24/24 21:45 10/07/24 21:30 650 MG Melatonin 5 mg HS PRN PO 09/24/24 21:45 09/30/24 21:05 5 MG Magnesium Oxide 400 mg BID PO 09/28/24 10:00 10/11/24 10:35 400 MG Potassium Chloride 10 meq DAILY PO 09/28/24 10:00 10/11/24 10:36 10 MEQ Acetaminophen/ Hydrocodone Bitart 1 tab Q6HPRN PRN PO 10/02/24 12:15 10/11/24 07:47 1 TAB Ceftriaxone Sodium 50 ml @ 100 mls/hr DAILY@09 IV 10/04/24 09:00 Cancel Ampicillin Sodium/ Sulbactam Sodium 3 gm/Sodium Chloride 100 ml @ 100 mls/hr Q6H IV 10/03/24 16:30 10/11/24 10:34 100 MLS/HR Sodium Chloride 1,000 ml @ 100 mls/hr Q10H IV 10/09/24 14:45 10/11/24 12:22 100 MLS/HR Enoxaparin Sodium 40 mg DAILY SC 10/10/24 10:00 laboratory and microbiology Laboratory Tests 10/11/24 07:05 Test 10/11/24 07:05 Range/Units Serum Glucose 94 74-106 mg/dL Microbiology Date/Time Source Procedure Growth Status 10/08/24 13:50 Aspirate Gram Stain - Final Resulted 10/08/24 13:50 Body Fluid Culture - Preliminary Escherichia coli Resulted 09/23/24 23:01 Blood Blood Culture - Final NO GROWTH AFTER 5 DAYS OF INCUBATION. Complete 09/23/24 17:30 Abdomen Gram Stain - Final Complete 09/23/24 17:30 Abdomen Anaerobic Culture - Final Complete 09/23/24 17:30 Aerobic Culture - Final Escherichia coli Complete Problem List/Assessment/Plan Problem List/Assessment/Plan AFEBRILE VSS ABD SOFT ABD WOUND IR BACK DRAINAGE 50 CC PURULENT DRESSING CHANGED BM + FLATUS + WBC WNL IV ABX NURSE AT BEDSIDE CONTINUE CLOSE OBSERVATION CT SCAN ABD PELVIS WITH PO CONTRAST Plan discussed with: Patient Dietary Evaluation Review Comments: 1) Advance pt diet when medically feasible 2) Continue current plan of care Expected Outcomes/Goals: 1) Pt diet to advance 2) F/U in 2-3 days EDISON NUÑEZ MD Oct 11, 2024 15:18
[2024-10-11] MEDS: IOHEXOL 300 MG/ML 100ML BOTTLE IJ ONE (15:38)
[2024-10-11 18:00] VITALS: BP 110/73; PULSE 112; RESP 18; TEMP 100.2; O2SAT 96
[2024-10-11] MEDS: ACETAMINOPHEN 325 MG TAB PO ONE (18:15)
--- NOTE | 2024-10-11 18:32 | DVHPNRES ---
Progress Note Date Seen: Oct 11, 2024 Resident Creating Document: DEMETRIS MORENO RESIDENT Medical Necessity Reason Pt with a Central, PICC or Fol: No Reason for mcdonald catheter: Sixto. Abd Surgery Subjective Review of Systems 29-year-old male patient who presented to the emergency department with complaints of worsening intermittent generalized abdominal pain that began 7 day prior to admission. He attributed the pain to consuming hensley. The patient was diagnosed with the complicated ruptured acute appendicitis and underwent an open appendectomy. Postoperatively, the patient initially demonstrated signs of intra-abdominal infection . Microbiology showed E faecalis and E coli infection, ampicillin sulbactam and IV q.8 hours we will continue as antibiotic therapy. patient was examined at bedside, stable at this time , vital sign WNL, and without acute symptoms, clinical status improving. The lateral drains were removed today. Patient was examined at bedside, moderate amount of brownish purulent fluid were found after removal of 2 wall drains. Based on the findings and after discussion with Dr. Almaraz we consider to order CT abdomen/pelvis with oral contrast and continue with the antibiotic therapy. We will continue monitor clinical status, vital signs are lab results. CT abdomen/pelvis with p.o. contrast still pending. Patient reports: Feels better Changes from previous H/P or p: Changes Objective vital signs Vital Sign Date Time Temp Pulse Resp B/P (MAP) Pulse Ox O2 Delivery O2 Flow Rate FiO2 10/11/24 18:00 100.2 112 18 110/73 (85) 96 100.2 10/11/24 08:00 Room Air* 0 21 Total Intake and Output 10/10/24 10/10/24 10/11/24 15:00 23:00 07:00 Intake Total 420 ml 590 ml 1750 ml Output Total 800 ml 1250 ml Balance 420 ml -210 ml 500 ml medications Current Medications Medications Dose Ordered Sig/Prosper Route Start Time Stop Time Status Last Admin Dose Admin Ondansetron HCl 4 mg Q4HP PRN IV 09/23/24 16:00 Nitroglycerin 0.4 mg Q5MINP PRN SL 09/23/24 16:15 Pantoprazole Sodium 40 mg DAILY IV 09/24/24 10:00 10/11/24 10:35 40 MG Ergocalciferol 50,000 unit Q7D PO 09/24/24 14:45 10/08/24 18:32 50,000 UNIT Acetaminophen 650 mg Q6HP PRN PO 09/24/24 21:45 10/11/24 17:10 650 MG Melatonin 5 mg HS PRN PO 09/24/24 21:45 09/30/24 21:05 5 MG Magnesium Oxide 400 mg BID PO 09/28/24 10:00 10/11/24 10:35 400 MG Potassium Chloride 10 meq DAILY PO 09/28/24 10:00 10/11/24 10:36 10 MEQ Ceftriaxone Sodium 50 ml @ 100 mls/hr DAILY@09 IV 10/04/24 09:00 Cancel Ampicillin Sodium/ Sulbactam Sodium 3 gm/Sodium Chloride 100 ml @ 100 mls/hr Q6H IV 10/03/24 16:30 10/11/24 17:10 100 MLS/HR Sodium Chloride 1,000 ml @ 100 mls/hr Q10H IV 10/09/24 14:45 10/11/24 12:22 100 MLS/HR Enoxaparin Sodium 40 mg DAILY SC 10/10/24 10:00 Examination Heart: Regular rhythm, tachycardic. No murmur. No lower extremity edema. Lungs: Normal respiratory effort. Clear to auscultation bilaterally. No wheezes. No crackles. Abdomen: No distended not tender on palpation no masses, 1 drain placed in the back, surgical scar without leaking of purulent fluid. MSK: No digital cyanosis. Normal strength and tone in all four limbs. Skin: Warm and dry, no rashes. Neuro: Alert. No facial droop or slurred speech. Extraocular movements intact. Sensation intact to soft touch in all four limbs. Psych: Appropriate mood. Full affect. Oriented to person, place, time, and situation. laboratory and microbiology Laboratory Tests 10/11/24 07:05 Test 10/11/24 07:05 Range/Units Serum Glucose 94 74-106 mg/dL Microbiology Date/Time Source Procedure Growth Status 10/08/24 13:50 Aspirate Gram Stain - Final Resulted 10/08/24 13:50 Body Fluid Culture - Preliminary Escherichia coli Resulted 09/23/24 23:01 Blood Blood Culture - Final NO GROWTH AFTER 5 DAYS OF INCUBATION. Complete 09/23/24 17:30 Abdomen Gram Stain - Final Complete 09/23/24 17:30 Abdomen Anaerobic Culture - Final Complete 09/23/24 17:30 Aerobic Culture - Final Escherichia coli Complete Problem List/Assessment/Plan Problem List/Assessment/Plan #Sepsis likely due to acute gangrenous appendicitis with perforation #Acute appendicitis complicated by rupture s/p open appendectomy on 09/23/2024. - IV Ampicilin-sulbactam -back drainage 50 cc purulent -Continue close observation -CT scan abdomen and pelvis with p.o. contrast, pending Likely postoperative ileus due to comorbidities - resolved Patient currently tolerating soft diet NEO hemodynamically mediated due to VMN with strong POA Continue IVF Monitor lab Hepatic steatosis Lifestyle modification and dietary habits Vitamin D deficiency Replenished Hypokalemia Replenished Diet soft diet DVT prophylaxis - lovenox 40 m SC Case discussed with Goals of care discussed with the patient for 39 minutes Code status: Full code Plan discussed with: Patient, Other (father) My Orders My Orders Orders - DEMETRIS MORENO RESIDENT Procedure Category Date Status Time Electrocardigram EKG 10/11/24 Logged 11:48 Electrocardigram EKG 10/11/24 Logged 12:48 Full Liq Diet DIET 10/11/24 Transmitted Dinner Abdomen Contrast Only CT 10/11/24 Taken 14:00 Dietary Evaluation Review Comments: 1) Advance pt diet when medically feasible 2) Continue current plan of care Expected Outcomes/Goals: 1) Pt diet to advance 2) F/U in 2-3 days Date of Service: Oct 11, 2024 Billing Provider: CELESTINA SUE MD Common Visit Codes: [id number] INP/OBS CARE(HIGH) DEMETRIS MORENO RESIDENT Oct 11, 2024 18:32 CELESTINA SUE MD Oct 12, 2024 10:29
--- NOTE | 2024-10-11 18:43 | DVH ---
Exam: CT ABDOMEN CONTRAST ONLY History: ABD ABCESS Comparison Study: None available at time of dictation. Contrast: Type of contrast: Omnipaque 300 Contrast injected: 80 mL Contrast wasted: 0 TECHNIQUE: A digital rolled gold plater image was obtained. During the uneventful, intravenous administration of c ontrast material, multislice data acquisition was obtained through the abdomen and pelvis. The data s et was subsequently reconstructed into axial images. Images were reviewed on a work station using a c ombination of axial and multiplanar using a variety of window levels and settings. Radiation Dose Information: CT Dose: CTDI volume is 13.1 mGy. Dose-length product is 637.33 mGy*cm FINDINGS: Lung Bases: Atelectasis or scarring is noted in the right posterior costophrenic angle. finding. Nor mal heart size. No pleural or pericardial effusion. Liver: The liver is normal in size. No focal lesions. Normal hepatic vascular enhancement. Gallbladder and Biliary Tree: Unremarkable Spleen: Unremarkable Pancreas: The pancreas is normal in appearance without focal lesions or abnormal enhancement. Adrenal Glands: Unremarkable Kidneys: Kidneys demonstrate normal symmetric enhancement without focal lesions, calculi or hydroneph rosis. Bladder: Unremarkable Bowel: The stomach is grossly normal in appearance. Small bowel and colon are normal in caliber and d istribution. The appendix is not visualized; however, no secondary findings of acute appendicitis id entified. Ascites: Absent Lymphadenopathy: No mesenteric, retroperitoneal or periportal lymphadenopathy. Abdominal Wall and Mesentery: Pigtail catheter is noted in a fluid collection in the right lateral pe ritoneal cavity. In comparison with 10/08/2024 there is decreased amount of fluid. Vasculature: The visualized abdominal aorta is normal in size and caliber. Abdominal and pelvic vess els demonstrate normal enhancement. Pelvic Organs: Unremarkable Musculoskeletal: No aggressive focal bony lesions, acute fractures or dislocation. Soft tissues: Unremarkable. IMPRESSION: 1. In comparison with 10/08/2024 there is now only 1 drainage tube in the right flank with persistent fluid and small bubble suggesting abscess collection along the right lateral abdominal wall. 2. 2nd drainage tube has been removed. 3. Fluid collection appears smaller than on 10/08/[address] scans at this medical facility are performed using dose modulation techniques as appropriate t o a performed exam including the following: Automated exposure control was utilized; adjustment of th e MA and/or KV according to patient size; and use of iterative reconstruction technique.
[2024-10-11 21:00] VITALS: BP 115/71; PULSE 112; RESP 16; TEMP 98.5; O2SAT 95
[2024-10-12 05:00] VITALS: BP 109/60; PULSE 113; RESP 18; TEMP 98.3; O2SAT 93
[2024-10-12 08:20] VITALS: PULSE 105; RESP 18; O2SAT 94
[2024-10-12 12:26] VITALS: BP 114/71; PULSE 103; RESP 18; O2SAT 94
--- NOTE | 2024-10-12 14:35 | DVHPN2 ---
Progress Note Date Seen: Oct 12, 2024 Medical Necessity Reason Pt with a Central, PICC or Fol: No Reason for mcdonald catheter: Sixto. Abd Surgery Objective vital signs Vital Sign Date Time Temp Pulse Resp B/P (MAP) Pulse Ox O2 Delivery O2 Flow Rate FiO2 10/12/24 12:26 103 18 114/71 (85) 94 10/12/24 05:00 98.3 98.3 10/11/24 20:00 Room Air* 0 21 Total Intake and Output 10/11/24 10/11/24 10/12/24 15:00 23:00 07:00 Intake Total 390 ml 980 ml 1445 ml Output Total 500 ml Balance 390 ml 980 ml 945 ml medications Current Medications Medications Dose Ordered Sig/Prosper Route Start Time Stop Time Status Last Admin Dose Admin Ondansetron HCl 4 mg Q4HP PRN IV 09/23/24 16:00 Nitroglycerin 0.4 mg Q5MINP PRN SL 09/23/24 16:15 Pantoprazole Sodium 40 mg DAILY IV 09/24/24 10:00 10/12/24 09:42 40 MG Ergocalciferol 50,000 unit Q7D PO 09/24/24 14:45 10/08/24 18:32 50,000 UNIT Acetaminophen 650 mg Q6HP PRN PO 09/24/24 21:45 10/11/24 17:10 650 MG Melatonin 5 mg HS PRN PO 09/24/24 21:45 09/30/24 21:05 5 MG Magnesium Oxide 400 mg BID PO 09/28/24 10:00 10/12/24 09:43 400 MG Potassium Chloride 10 meq DAILY PO 09/28/24 10:00 10/12/24 09:43 10 MEQ Ceftriaxone Sodium 50 ml @ 100 mls/hr DAILY@09 IV 10/04/24 09:00 Cancel Ampicillin Sodium/ Sulbactam Sodium 3 gm/Sodium Chloride 100 ml @ 100 mls/hr Q6H IV 10/03/24 16:30 10/12/24 09:48 100 MLS/HR Sodium Chloride 1,000 ml @ 100 mls/hr Q10H IV 10/09/24 14:45 10/12/24 01:53 100 MLS/HR Enoxaparin Sodium 40 mg DAILY SC 10/10/24 10:00 10/12/24 09:43 40 MG laboratory and microbiology Laboratory Tests 10/11/24 07:05 Test 10/11/24 07:05 Range/Units Serum Glucose 94 74-106 mg/dL Microbiology Date/Time Source Procedure Growth Status 10/08/24 13:50 Aspirate Gram Stain - Final Complete 10/08/24 13:50 Body Fluid Culture - Final Escherichia coli Complete 09/23/24 23:01 Blood Blood Culture - Final NO GROWTH AFTER 5 DAYS OF INCUBATION. Complete 09/23/24 17:30 Abdomen Gram Stain - Final Complete 09/23/24 17:30 Abdomen Anaerobic Culture - Final Complete 09/23/24 17:30 Aerobic Culture - Final Escherichia coli Complete Problem List/Assessment/Plan Problem List/Assessment/Plan AFEBRILE T MAX 100.5 VSS ABD SOFT ABD WOUND IR BACK DRAINAGE 0 CC DRESSING CHANGED BM + FLATUS + WBC WNL IV ABX NURSE AT BEDSIDE CONTINUE CLOSE OBSERVATION CT SCAN ABD PELVIS WITHOUT PO CONTRAST DECREASING COLLECTION DRAINAGE TUBE FLUSHED WITH 10 CC SALINE AND BAG CHANGED AT BEDSIDE Plan discussed with: Patient Dietary Evaluation Review Comments: 1) Advance pt diet when medically feasible 2) Continue current plan of care Expected Outcomes/Goals: 1) Pt diet to advance 2) F/U in 2-3 days EDISON NUÑEZ MD Oct 12, 2024 14:35
[2024-10-12 17:21] VITALS: BP 122/68; PULSE 115; RESP 16; TEMP 100.3; O2SAT 94
--- NOTE | 2024-10-12 17:34 | DVHPNRES ---
Progress Note Date Seen: Oct 12, 2024 Resident Creating Document: DEMETRIS MORENO RESIDENT Medical Necessity Reason Pt with a Central, PICC or Fol: No Reason for mcdonald catheter: Sixto. Abd Surgery Subjective Review of Systems 29-year-old male patient who presented to the emergency department with complaints of worsening intermittent generalized abdominal pain that began 7 day prior to admission. He attributed the pain to consuming hensley. The patient was diagnosed with the complicated ruptured acute appendicitis and underwent an open appendectomy. Postoperatively, the patient initially demonstrated signs of intra-abdominal infection . Microbiology showed E faecalis and E coli infection, ampicillin sulbactam and IV q.8 hours we will continue as antibiotic therapy. patient was examined at bedside, stable at this time , vital sign WNL, and without acute symptoms, clinical status improving. Patient is still having peaks of fever, he will need to continue on close observation, CT scan abdomen pelvis without p.o. contrast decreasing collection of purulent fluid and drainage tube flush with 10 cc sudden and bag change at bedside, back drainage 0CC . Patient reports: Feels better Changes from previous H/P or p: Changes Objective vital signs Vital Sign Date Time Temp Pulse Resp B/P (MAP) Pulse Ox O2 Delivery O2 Flow Rate FiO2 10/12/24 12:26 103 18 114/71 (85) 94 10/12/24 08:20 Room Air* 0 21 10/12/24 05:00 98.3 98.3 Total Intake and Output 10/11/24 10/11/24 10/12/24 15:00 23:00 07:00 Intake Total 390 ml 980 ml 1445 ml Output Total 500 ml Balance 390 ml 980 ml 945 ml medications Current Medications Medications Dose Ordered Sig/Prosper Route Start Time Stop Time Status Last Admin Dose Admin Ondansetron HCl 4 mg Q4HP PRN IV 09/23/24 16:00 Nitroglycerin 0.4 mg Q5MINP PRN SL 09/23/24 16:15 Pantoprazole Sodium 40 mg DAILY IV 09/24/24 10:00 10/12/24 09:42 40 MG Ergocalciferol 50,000 unit Q7D PO 09/24/24 14:45 10/08/24 18:32 50,000 UNIT Acetaminophen 650 mg Q6HP PRN PO 09/24/24 21:45 10/11/24 17:10 650 MG Melatonin 5 mg HS PRN PO 09/24/24 21:45 09/30/24 21:05 5 MG Magnesium Oxide 400 mg BID PO 09/28/24 10:00 10/12/24 09:43 400 MG Potassium Chloride 10 meq DAILY PO 09/28/24 10:00 10/12/24 09:43 10 MEQ Ceftriaxone Sodium 50 ml @ 100 mls/hr DAILY@09 IV 10/04/24 09:00 Cancel Ampicillin Sodium/ Sulbactam Sodium 3 gm/Sodium Chloride 100 ml @ 100 mls/hr Q6H IV 10/03/24 16:30 10/12/24 09:48 100 MLS/HR Sodium Chloride 1,000 ml @ 100 mls/hr Q10H IV 10/09/24 14:45 10/12/24 14:56 100 MLS/HR Enoxaparin Sodium 40 mg DAILY SC 10/10/24 10:00 10/12/24 09:43 40 MG Examination: GENERAL:Normal, HEENT:Normal, NECK:Normal, NECK:Abnormal, CVS:Normal, ABDOMEN:Abnormal, MSK:Normal, SKIN:Normal, NEURO:Normal, :Normal laboratory and microbiology Laboratory Tests 10/11/24 07:05 Test 10/11/24 07:05 Range/Units Serum Glucose 94 74-106 mg/dL Microbiology Date/Time Source Procedure Growth Status 10/08/24 13:50 Aspirate Gram Stain - Final Complete 10/08/24 13:50 Body Fluid Culture - Final Escherichia coli Complete 09/23/24 23:01 Blood Blood Culture - Final NO GROWTH AFTER 5 DAYS OF INCUBATION. Complete 09/23/24 17:30 Abdomen Gram Stain - Final Complete 09/23/24 17:30 Abdomen Anaerobic Culture - Final Complete 09/23/24 17:30 Aerobic Culture - Final Escherichia coli Complete Problem List/Assessment/Plan Problem List/Assessment/Plan #Sepsis likely due to acute gangrenous appendicitis with perforation #Acute appendicitis complicated by rupture s/p open appendectomy on 09/23/2024. - IV Ampicilin-sulbactam -back drainage 50 cc purulent -Continue close observation -CT scan abdomen and pelvis with p.o. contrast, pending Likely postoperative ileus due to comorbidities - resolved Patient currently tolerating soft diet NEO hemodynamically mediated due to VMN with strong POA Continue IVF Monitor lab Hepatic steatosis Lifestyle modification and dietary habits Vitamin D deficiency Replenished Hypokalemia Replenished Diet soft diet DVT prophylaxis - lovenox 40 m SC Case discussed with Goals of care discussed with the patient for 39 minutes Code status: Full code Plan discussed with: Patient My Orders My Orders Orders - DEMETRIS MORENO RESIDENT Procedure Category Date Status Time Abdomen Contrast Only CT 10/11/24 Resulted 14:00 * Wound Consult CONS 10/12/24 Transmitted Mechanical Soft Diet DIET 10/12/24 Transmitted Lunch Covid19 Antigen [facility] 10/12/24 Logged Rapid Influenza [facility]B [facility] 10/12/24 Logged 15:33 Dietary Evaluation Review Comments: 1) Advance pt diet when medically feasible 2) Continue current plan of care Expected Outcomes/Goals: 1) Pt diet to advance 2) F/U in 2-3 days Date of Service: Oct 12, 2024 Billing Provider: CELESTINA SUE MD Common Visit Codes: [id number] INP/OBS CARE(MOD) DEMETRIS MORENO RESIDENT Oct 12, 2024 17:34 CELESTINA SUE MD Oct 13, 2024 10:38
[2024-10-12 20:15] LABS: COVID19 ANTIGEN SOFIA FIA NEGATIVE (NEGATIVE); Rapid Influenza A Negative (Negative); Rapid Influenza B Negative (Negative)
[2024-10-12 21:00] VITALS: BP 119/74; PULSE 107; RESP 18; TEMP 98.6; O2SAT 96
--- NOTE | 2024-10-12 23:12 | DVHPN2 ---
Consult Progress Note Date Seen: Oct 11, 2024 Subjective Patient reports: Feels better (150cc green drainage from nadira drain) Objective vital signs Vital Sign Date Time Temp Pulse Resp B/P (MAP) Pulse Ox O2 Delivery O2 Flow Rate FiO2 10/12/24 21:00 98.6 107 18 119/74 (89) 96 98.6 10/12/24 08:20 Room Air* 0 21 Total Intake and Output 10/11/24 10/11/24 10/12/24 15:00 23:00 07:00 Intake Total 390 ml 980 ml 1445 ml Output Total 500 ml Balance 390 ml 980 ml 945 ml medications Current Medications Medications Dose Ordered Sig/Prosper Route Start Time Stop Time Status Last Admin Dose Admin Ondansetron HCl 4 mg Q4HP PRN IV 09/23/24 16:00 Nitroglycerin 0.4 mg Q5MINP PRN SL 09/23/24 16:15 Pantoprazole Sodium 40 mg DAILY IV 09/24/24 10:00 10/12/24 09:42 40 MG Ergocalciferol 50,000 unit Q7D PO 09/24/24 14:45 10/08/24 18:32 50,000 UNIT Acetaminophen 650 mg Q6HP PRN PO 09/24/24 21:45 10/12/24 17:26 650 MG Melatonin 5 mg HS PRN PO 09/24/24 21:45 09/30/24 21:05 5 MG Magnesium Oxide 400 mg BID PO 09/28/24 10:00 10/12/24 22:34 400 MG Potassium Chloride 10 meq DAILY PO 09/28/24 10:00 10/12/24 09:43 10 MEQ Ceftriaxone Sodium 50 ml @ 100 mls/hr DAILY@09 IV 10/04/24 09:00 Cancel Ampicillin Sodium/ Sulbactam Sodium 3 gm/Sodium Chloride 100 ml @ 100 mls/hr Q6H IV 10/03/24 16:30 10/12/24 22:28 100 MLS/HR Sodium Chloride 1,000 ml @ 100 mls/hr Q10H IV 10/09/24 14:45 10/12/24 14:56 100 MLS/HR Enoxaparin Sodium 40 mg DAILY SC 10/10/24 10:00 10/12/24 09:43 40 MG PHYSICAL EXAM: - GENERAL: Alert and oriented x 3. No acute distress. Well-nourished. - EYES: EOMI. Anicteric. - HENT: Moist mucous membranes. No scleral icterus. No cervical lymphadenopathy. - LUNGS: Clear to auscultation bilaterally. No accessory muscle use. - CARDIOVASCULAR: Regular rate and rhythm. No murmur. No JVD. - ABDOMEN: Soft, non-tender and non-distended. No palpable masses. - EXTREMITIES: No edema. Non-tender.?SKIN: No rashes or lesions. Warm. - NEUROLOGIC: No focal neurological deficits. CN II-XII grossly intact, but not individually tested - PSYCHIATRIC: Cooperative. Appropriate mood and affect. - laboratory and microbiology Laboratory Tests 10/11/24 07:05 Test 10/11/24 07:05 Range/Units Serum Glucose 94 74-106 mg/dL Problem List/Assessment/Plan Problem List/Assessment/Plan ASSESSMENT AND PLAN: ID Problem List: - Intra-abdominal abscesses - Perforated appendicitis - Sepsis - E. coli infection - Ileus - Small bowel obstruction Assessment This is a [age not provided] y.o. male with no significant past medical history who presents with a perforated appendicitis complicated by intra-abdominal abscesses and sepsis. The patient underwent a laparoscopic lysis of adhesions, open drainage of intra- abdominal abscesses, and an open appendectomy on September 23. Operative findings included a distended peritoneum due to ileus, free air, distention of small and large intestines with serosal traction and ischemia, and a perforated appendix. A 19 Fr Noe drainage tube was placed. Currently, the patient has purulent drainage from the Noe drain, with intra- abdominal cultures growing E. coli. White blood cell count remains elevated at 21 on September 25. Repeat imaging revealed multiloculated abscesses in the right paracolic gutter, the largest measuring 14.6 cm. Multiple other fluid collections are inadequately drained. Bowel dilation may be due to ileus. sp Two (2) CT guided placement of 10.2 and 12 Arabic pigtail drain into a right paracolic gutter abscess. 10/03: abdominal ct done after multiple drain placemetn shows 12.5 by 11.9 cm fluid collection in right lower quadrant with mildly thickening wall containings pockets of air . drainage catheter wich is not positioned within the fluid collection correlation , proper catheter is recommended. Small dialated multiple bowel loops in the left abdomen with airflow levels , no focal transition point identified. theres nondialated small bowel loops in the right abdomen , a post changes in illio secqual junction may relate to illieus , theres hepatic seratosis and a passing right lung with may represent a lectusus vs airspace disease . Aspirate from drain placemtn is growing E coli from 10/01 and from 09/30 are growing E coli and enterococcus 10/04: ongoing heavy output on drain , growing enterococcus and E coli on intra abdominal culture aspirate. white count is 7.4 10/07: ongoing large abscesses 8cm on CT 10/08: sp CT guided placement of a new 12 Arabic pigtail drain into a paracolic gutter abscess. 150 mL foul purulent fluid was aspirated. Plan: - will fu on drainage output from new drainage catheter - Continue Unasyn which will cover organisms found during surgery as well as for pneumonia , recommend PICC line placement - continue to monitor - Continue to monitor WBC count and vital signs - Send any new aspirate samples from drains for aerobic and anaerobic cultures - Follow up on blood cultures Isolation Precautions: Standard Assessment and plan were discussed with the patient as written above. Plan is subject to change pending incorporation of new incoming information/diagnostics. Updates may be added as addendum at the bottom (OR TOP) of this note. Thank you for the interesting consult. ID will continue to follow. Please contact Infectious Disease for any questions or concerns. Plan discussed with: Patient Dietary Evaluation Review Comments: 1) Advance pt diet when medically feasible 2) Continue current plan of care Expected Outcomes/Goals: 1) Pt diet to advance 2) F/U in 2-3 days JERRY TINEO MD Oct 12, 2024 23:12
--- NOTE | 2024-10-12 23:47 | DVHPN2 ---
Consult Progress Note Date Seen: Oct 12, 2024 Subjective Patient reports: Other (his WALTER drain needs to be adjusted and Dr Almaraz made an adjustment today . no abdomen pain but is tachycardic and still having fevers of 100.3) Objective vital signs Vital Sign Date Time Temp Pulse Resp B/P (MAP) Pulse Ox O2 Delivery O2 Flow Rate FiO2 10/12/24 21:00 98.6 107 18 119/74 (89) 96 98.6 10/12/24 08:20 Room Air* 0 21 Total Intake and Output 10/11/24 10/11/24 10/12/24 15:00 23:00 07:00 Intake Total 390 ml 980 ml 1445 ml Output Total 500 ml Balance 390 ml 980 ml 945 ml medications Current Medications Medications Dose Ordered Sig/Prosper Route Start Time Stop Time Status Last Admin Dose Admin Ondansetron HCl 4 mg Q4HP PRN IV 09/23/24 16:00 Nitroglycerin 0.4 mg Q5MINP PRN SL 09/23/24 16:15 Pantoprazole Sodium 40 mg DAILY IV 09/24/24 10:00 10/12/24 09:42 40 MG Ergocalciferol 50,000 unit Q7D PO 09/24/24 14:45 10/08/24 18:32 50,000 UNIT Acetaminophen 650 mg Q6HP PRN PO 09/24/24 21:45 10/12/24 17:26 650 MG Melatonin 5 mg HS PRN PO 09/24/24 21:45 09/30/24 21:05 5 MG Magnesium Oxide 400 mg BID PO 09/28/24 10:00 10/12/24 22:34 400 MG Potassium Chloride 10 meq DAILY PO 09/28/24 10:00 10/12/24 09:43 10 MEQ Ceftriaxone Sodium 50 ml @ 100 mls/hr DAILY@09 IV 10/04/24 09:00 Cancel Ampicillin Sodium/ Sulbactam Sodium 3 gm/Sodium Chloride 100 ml @ 100 mls/hr Q6H IV 10/03/24 16:30 10/12/24 22:28 100 MLS/HR Sodium Chloride 1,000 ml @ 100 mls/hr Q10H IV 10/09/24 14:45 10/12/24 14:56 100 MLS/HR Enoxaparin Sodium 40 mg DAILY SC 10/10/24 10:00 10/12/24 09:43 40 MG PHYSICAL EXAM: - GENERAL: Alert and oriented x 3. No acute distress. Well-nourished. - EYES: EOMI. Anicteric. - HENT: Moist mucous membranes. No scleral icterus. No cervical lymphadenopathy. - LUNGS: Clear to auscultation bilaterally. No accessory muscle use. - CARDIOVASCULAR: Regular rate and rhythm. No murmur. No JVD. - ABDOMEN: Soft, non-tender and non-distended. No palpable masses. - EXTREMITIES: No edema. Non-tender.?SKIN: No rashes or lesions. Warm. - NEUROLOGIC: No focal neurological deficits. CN II-XII grossly intact, but not individually tested - PSYCHIATRIC: Cooperative. Appropriate mood and affect. laboratory and microbiology Laboratory Tests 10/11/24 07:05 Test 10/11/24 07:05 Range/Units Serum Glucose 94 74-106 mg/dL Problem List/Assessment/Plan Problems(with codes): (1) Intra-abdominal abscess (2) Acute renal injury (3) Ruptured appendicitis (4) Elevated liver enzymes (5) Leukocytosis, unspecified (6) Electrolyte imbalance (7) Acute abdominal pain (8) Bowel obstruction (9) Pneumonia, unspecified organism Problem List/Assessment/Plan ASSESSMENT AND PLAN: ID Problem List: - Intra-abdominal abscesses - Perforated appendicitis - Sepsis - E. coli infection - Ileus - Small bowel obstruction Assessment This is a [age not provided] y.o. male with no significant past medical history who presents with a perforated appendicitis complicated by intra-abdominal abscesses and sepsis. The patient underwent a laparoscopic lysis of adhesions, open drainage of intra- abdominal abscesses, and an open appendectomy on September 23. Operative findings included a distended peritoneum due to ileus, free air, distention of small and large intestines with serosal traction and ischemia, and a perforated appendix. A 19 Fr Noe drainage tube was placed. Currently, the patient has purulent drainage from the Noe drain, with intra- abdominal cultures growing E. coli. White blood cell count remains elevated at 21 on September 25. Repeat imaging revealed multiloculated abscesses in the right paracolic gutter, the largest measuring 14.6 cm. Multiple other fluid collections are inadequately drained. Bowel dilation may be due to ileus. sp Two (2) CT guided placement of 10.2 and 12 Haitian pigtail drain into a right paracolic gutter abscess. 10/03: abdominal ct done after multiple drain placemetn shows 12.5 by 11.9 cm fluid collection in right lower quadrant with mildly thickening wall containings pockets of air . drainage catheter wich is not positioned within the fluid collection correlation , proper catheter is recommended. Small dialated multiple bowel loops in the left abdomen with airflow levels , no focal transition point identified. theres nondialated small bowel loops in the right abdomen , a post changes in illio secqual junction may relate to illieus , theres hepatic seratosis and a passing right lung with may represent a lectusus vs airspace disease . Aspirate from drain placemtn is growing E coli from 10/01 and from 09/30 are growing E coli and enterococcus 10/04: ongoing heavy output on drain , growing enterococcus and E coli on intra abdominal culture aspirate. white count is 7.4 10/07: ongoing large abscesses 8cm on CT 10/08: sp CT guided placement of a new 12 Haitian pigtail drain into a paracolic gutter abscess. 150 mL foul purulent fluid was aspirated. 10/12: Ct scan shows one drainage tube in the right flank with persistant fluid and small bowel suggesting abscess collection allong the right abdominal wall. the second drain has been removed , fluid collection appears smaller than last on 10/08 Plan: - recoomend patient get Unasyn for an additional month via IV - patient follow up with infectious diseas in 4 weeks - follow up on drain output from new catheter - will fu on drainage output from new drainage catheter - continue to monitor - Continue to monitor WBC count and vital signs - Send any new aspirate samples from drains for aerobic and anaerobic cultures - Follow up on blood cultures Isolation Precautions: Standard Assessment and plan were discussed with the patient as written above. Plan is subject to change pending incorporation of new incoming information/diagnostics. Updates may be added as addendum at the bottom (OR TOP) of this note. Thank you for the interesting consult. ID will continue to follow. Please contact Infectious Disease for any questions or concerns. Plan discussed with: Other Dietary Evaluation Review Comments: 1) Advance pt diet when medically feasible 2) Continue current plan of care Expected Outcomes/Goals: 1) Pt diet to advance 2) F/U in 2-3 days JERRY TINEO MD Oct 12, 2024 23:47
[2024-10-13 01:00] VITALS: BP 129/75; PULSE 113; RESP 18; TEMP 98.4; O2SAT 94
[2024-10-13 05:00] VITALS: BP 118/72; PULSE 109; RESP 18; TEMP 98.7; O2SAT 94
[2024-10-13 07:21] LABS: Anion Gap 10 (5-15); Carbon Dioxide 23 mmol/L (20-31); Chloride 102 mmol/L (98-107); Potassium 3.7 mmol/L (3.5-5.1)
[2024-10-13 07:22] LABS: Calcium 9.2 mg/dL (8.7-10.4)
[2024-10-13 07:27] LABS: BUN/Creatinine Ratio 6.7 (10.0-20.0); Glucose 98 mg/dL (74-106)
[2024-10-13 07:32] LABS: Basophils # (auto) 0 10 ^3/uL (0-0.2); Basophils % (auto) 0.5 % (0.0-2.0); Eosinophils # (auto) 0.1 10 ^3/uL (0-0.8); Eosinophils % (auto) 1.4 % (0.0-7.0); Hematocrit 31.4 % (41.0-53.0); Hemoglobin 10.8 g/dL (13.5-17.5); Lymphocytes # (auto) 0.6 10 ^3/uL (0.4-5.4); Lymphocytes % (auto) 8.7 % (10.0-50.0); Mean Corpuscular Hemoglobin 32.4 pg (28.0-32.0); Mean Corpuscular Hgb Conc. 34.3 g/dL (32.0-36.0); Mean Corpuscular Volume 94.7 fL (80.0-100.0); Monocytes # (auto) 0.7 10 ^3/uL (0-1.3); Monocytes % (auto) 9.6 % (0.0-12.0); Neutrophils # (auto) 5.4 10 ^3/uL (1.6-8.6); Neutrophils % (auto) 79.8 % (37.0-80.0); Platelet Count (auto) 260 10^3/uL (140-450); Red Blood Cells 3.32 10^6/uL (4.5-5.90); Red Cell Distribution Width 12.6 % (11.8-14.3); White Blood Cell 6.8 10^3/uL (4.4-10.8)
[2024-10-13 07:35] LABS: Blood Urea Nitrogen 5 mg/dL (9-23); Sodium 135 mmol/L (136-145)
[2024-10-13 08:17] LABS: INR 1.22 (0.9-1.15); Partial Thromboplastin Time 27.5 SEC (24.5-34.5); Prothrombin Time 12.7 sec (9.3-11.8)
[2024-10-13 09:00] VITALS: BP 123/76; PULSE 105; RESP 17; TEMP 98.5; O2SAT 94
[2024-10-13 13:00] VITALS: BP 122/75; PULSE 110; RESP 17; TEMP 98.6; O2SAT 96
--- NOTE | 2024-10-13 13:40 | DVHPN2 ---
Progress Note Date Seen: Oct 13, 2024 Medical Necessity Reason Pt with a Central, PICC or Fol: No Reason for mcdonald catheter: Sixto. Abd Surgery Objective vital signs Vital Sign Date Time Temp Pulse Resp B/P (MAP) Pulse Ox O2 Delivery O2 Flow Rate FiO2 10/13/24 09:00 98.5 105 17 123/76 (92) 94 98.5 10/13/24 07:45 Room Air* 0 21 Total Intake and Output 10/12/24 10/12/24 10/13/24 15:00 23:00 07:00 Intake Total 1936 ml 882 ml 900 ml Output Total 2100 ml 650 ml Balance 1936 ml -1218 ml 250 ml medications Current Medications Medications Dose Ordered Sig/Prosper Route Start Time Stop Time Status Last Admin Dose Admin Ondansetron HCl 4 mg Q4HP PRN IV 09/23/24 16:00 Nitroglycerin 0.4 mg Q5MINP PRN SL 09/23/24 16:15 Pantoprazole Sodium 40 mg DAILY IV 09/24/24 10:00 10/13/24 09:07 40 MG Ergocalciferol 50,000 unit Q7D PO 09/24/24 14:45 10/08/24 18:32 50,000 UNIT Acetaminophen 650 mg Q6HP PRN PO 09/24/24 21:45 10/12/24 17:26 650 MG Melatonin 5 mg HS PRN PO 09/24/24 21:45 09/30/24 21:05 5 MG Magnesium Oxide 400 mg BID PO 09/28/24 10:00 10/13/24 09:06 400 MG Potassium Chloride 10 meq DAILY PO 09/28/24 10:00 10/13/24 09:06 10 MEQ Ceftriaxone Sodium 50 ml @ 100 mls/hr DAILY@09 IV 10/04/24 09:00 Cancel Ampicillin Sodium/ Sulbactam Sodium 3 gm/Sodium Chloride 100 ml @ 100 mls/hr Q6H IV 10/03/24 16:30 10/13/24 09:05 100 MLS/HR Sodium Chloride 1,000 ml @ 100 mls/hr Q10H IV 10/09/24 14:45 10/13/24 02:55 100 MLS/HR Enoxaparin Sodium 40 mg DAILY SC 10/10/24 10:00 10/13/24 09:05 40 MG laboratory and microbiology Laboratory Tests 10/13/24 06:03 Test 10/13/24 06:03 Range/Units Serum Glucose 98 74-106 mg/dL Microbiology Date/Time Source Procedure Growth Status 10/08/24 13:50 Aspirate Gram Stain - Final Complete 10/08/24 13:50 Body Fluid Culture - Final Escherichia coli Complete 09/23/24 23:01 Blood Blood Culture - Final NO GROWTH AFTER 5 DAYS OF INCUBATION. Complete 09/23/24 17:30 Abdomen Gram Stain - Final Complete 09/23/24 17:30 Abdomen Anaerobic Culture - Final Complete 09/23/24 17:30 Aerobic Culture - Final Escherichia coli Complete Problem List/Assessment/Plan Problem List/Assessment/Plan AFEBRILE VSS ABD SOFT ABD WOUND IR BACK DRAINAGE 0 CC LEAKAGE AROUND THE TUBE DRESSING CHANGED BM + FLATUS + WBC WNL IV ABX NURSE AT BEDSIDE CONTINUE CLOSE OBSERVATION CT SCAN ABD PELVIS WITH PO CONTRAST FOR IR TUBE REPLACEMENT DRAINAGE TUBE FLUSHED WITH 10 CC SALINE NO DRAINAGE FAMILY AT BEDSIDE ALTERNATE MAIN WOUND LADY REMOVED Plan discussed with: Patient Dietary Evaluation Review Recommendations by RD: Protein Supplementation Comments: 1) Arpan @ 1 pk bid 2) Vitamin C @ 500 mg bid 3) Zinc sulfate @ 220 mg qd 4) Continue to monitor PO intake and wound Expected Outcomes/Goals: 1) wound to improve 2) diet texture to advance to regular when medically feasible 2) appetite and labs to improve 3) f/u in 3-5 days EDISON NUÑEZ MD Oct 13, 2024 13:40
--- NOTE | 2024-10-13 14:30 | DVHPNRES ---
Progress Note Date Seen: Oct 13, 2024 Resident Creating Document: AAKASH SEWELL RESIDENT Medical Necessity Reason Pt with a Central, PICC or Fol: No Reason for mcdonald catheter: Sixto. Abd Surgery Subjective Review of Systems 29-year-old male patient who presented to the emergency department with complaints of worsening intermittent generalized abdominal pain that began 7 day prior to admission. He attributed the pain to consuming hensley. The patient was diagnosed with the complicated ruptured acute appendicitis and underwent an open appendectomy. Postoperatively, the patient initially demonstrated signs of intra-abdominal infection . Microbiology showed E faecalis and E coli infection, ampicillin sulbactam and IV q.8 hours we will continue as antibiotic therapy. patient was examined at bedside, stable at this time , vital sign WNL, and without acute symptoms, clinical status improving. Patient is still having peaks of fever, he will need to continue on close observation, CT scan abdomen pelvis without p.o. contrast. DRAINAGE TUBE FLUSHED WITH 10 CC SALINE NO DRAINAGE. Objective vital signs Vital Sign Date Time Temp Pulse Resp B/P (MAP) Pulse Ox O2 Delivery O2 Flow Rate FiO2 10/13/24 13:00 98.6 110 17 122/75 (91) 96 98.6 10/13/24 07:45 Room Air* 0 21 Total Intake and Output 10/12/24 10/12/24 10/13/24 15:00 23:00 07:00 Intake Total 1936 ml 882 ml 900 ml Output Total 2100 ml 650 ml Balance 1936 ml -1218 ml 250 ml medications Current Medications Medications Dose Ordered Sig/Prosper Route Start Time Stop Time Status Last Admin Dose Admin Ondansetron HCl 4 mg Q4HP PRN IV 09/23/24 16:00 Nitroglycerin 0.4 mg Q5MINP PRN SL 09/23/24 16:15 Pantoprazole Sodium 40 mg DAILY IV 09/24/24 10:00 10/13/24 09:07 40 MG Ergocalciferol 50,000 unit Q7D PO 09/24/24 14:45 10/08/24 18:32 50,000 UNIT Acetaminophen 650 mg Q6HP PRN PO 09/24/24 21:45 10/12/24 17:26 650 MG Melatonin 5 mg HS PRN PO 09/24/24 21:45 09/30/24 21:05 5 MG Magnesium Oxide 400 mg BID PO 09/28/24 10:00 10/13/24 09:06 400 MG Potassium Chloride 10 meq DAILY PO 09/28/24 10:00 10/13/24 09:06 10 MEQ Ceftriaxone Sodium 50 ml @ 100 mls/hr DAILY@09 IV 10/04/24 09:00 Cancel Ampicillin Sodium/ Sulbactam Sodium 3 gm/Sodium Chloride 100 ml @ 100 mls/hr Q6H IV 10/03/24 16:30 10/13/24 09:05 100 MLS/HR Sodium Chloride 1,000 ml @ 100 mls/hr Q10H IV 10/09/24 14:45 10/13/24 02:55 100 MLS/HR Enoxaparin Sodium 40 mg DAILY SC 10/10/24 10:00 10/13/24 09:05 40 MG Examination GENERAL:Normal, HEENT:Normal, NECK:Normal, NECK:Abnormal, CVS:Normal, ABDOMEN:Abnormal, MSK:Normal, SKIN:Normal, NEURO:Normal, :Normal laboratory and microbiology Laboratory Tests 10/13/24 06:03 Test 10/13/24 06:03 Range/Units Serum Glucose 98 74-106 mg/dL Microbiology Date/Time Source Procedure Growth Status 10/08/24 13:50 Aspirate Gram Stain - Final Complete 10/08/24 13:50 Body Fluid Culture - Final Escherichia coli Complete 09/23/24 23:01 Blood Blood Culture - Final NO GROWTH AFTER 5 DAYS OF INCUBATION. Complete 09/23/24 17:30 Abdomen Gram Stain - Final Complete 09/23/24 17:30 Abdomen Anaerobic Culture - Final Complete 09/23/24 17:30 Aerobic Culture - Final Escherichia coli Complete Problem List/Assessment/Plan Problem List/Assessment/Plan #Sepsis likely due to acute gangrenous appendicitis with perforation #Acute appendicitis complicated by rupture s/p open appendectomy on 09/23/2024. - IV Ampicilin-sulbactam -back drainage 50 cc purulent -Continue close observation -CT scan abdomen and pelvis with p.o. contrast, pending Likely postoperative ileus due to comorbidities - resolved Patient currently tolerating soft diet NEO hemodynamically mediated due to VMN with strong POA Continue IVF Monitor lab Hepatic steatosis Lifestyle modification and dietary habits Vitamin D deficiency Replenished Hypokalemia Replenished Diet soft diet DVT prophylaxis - lovenox 40 m SC Case discussed with Dr. Carranza Goals of care discussed with the patient for 21 minutes Code status: Full code Plan discussed with: Patient Dietary Evaluation Review Recommendations by RD: Protein Supplementation Comments: 1) Arpan @ 1 pk bid 2) Vitamin C @ 500 mg bid 3) Zinc sulfate @ 220 mg qd 4) Continue to monitor PO intake and wound Expected Outcomes/Goals: 1) wound to improve 2) diet texture to advance to regular when medically feasible 2) appetite and labs to improve 3) f/u in 3-5 days Date of Service: Oct 13, 2024 Billing Provider: NORBERT CARRANZA MD Common Visit Codes: [id number] INP/OBS CARE(HIGH) AAKASH SEWELL RESIDENT Oct 13, 2024 14:30 NORBERT CARRANZA MD Oct 14, 2024 16:51
[2024-10-13 17:00] VITALS: BP 118/70; PULSE 119; RESP 19; TEMP 100.5; O2SAT 95
[2024-10-13 21:00] VITALS: BP 121/76; PULSE 101; RESP 18; TEMP 98.1; O2SAT 96
[2024-10-14 01:00] VITALS: BP 122/78; PULSE 116; RESP 18; TEMP 100.4; O2SAT 95
[2024-10-14 05:00] VITALS: BP 111/74; PULSE 102; RESP 17; TEMP 98; O2SAT 94
[2024-10-14 07:27] LABS: Basophils # (auto) 0 10 ^3/uL (0-0.2); Basophils % (auto) 0.6 % (0.0-2.0); Eosinophils # (auto) 0.1 10 ^3/uL (0-0.8); Eosinophils % (auto) 2.1 % (0.0-7.0); Hematocrit 29.7 % (41.0-53.0); Hemoglobin 10.3 g/dL (13.5-17.5); Lymphocytes # (auto) 0.6 10 ^3/uL (0.4-5.4); Lymphocytes % (auto) 11.2 % (10.0-50.0); Mean Corpuscular Hemoglobin 32.5 pg (28.0-32.0); Mean Corpuscular Hgb Conc. 34.9 g/dL (32.0-36.0); Mean Corpuscular Volume 93.3 fL (80.0-100.0); Monocytes # (auto) 0.6 10 ^3/uL (0-1.3); Monocytes % (auto) 12.3 % (0.0-12.0); Neutrophils # (auto) 3.9 10 ^3/uL (1.6-8.6); Neutrophils % (auto) 73.8 % (37.0-80.0); Platelet Count (auto) 246 10^3/uL (140-450); Red Blood Cells 3.18 10^6/uL (4.5-5.90); Red Cell Distribution Width 12.5 % (11.8-14.3); White Blood Cell 5.3 10^3/uL (4.4-10.8)
[2024-10-14 08:06] LABS: Alanine Aminotransferase 25 U/L (7-40); Alkaline Phosphatase 62 U/L (46-116); Anion Gap 10 (5-15); BUN/Creatinine Ratio 9.5 (10.0-20.0); Calcium 9.3 mg/dL (8.7-10.4); Carbon Dioxide 23 mmol/L (20-31); Chloride 102 mmol/L (98-107); Glucose 90 mg/dL (74-106); Potassium 3.5 mmol/L (3.5-5.1)
[2024-10-14 08:07] LABS: Blood Urea Nitrogen 7 mg/dL (9-23); Sodium 135 mmol/L (136-145)
[2024-10-14 08:08] LABS: Albumin 3.5 g/dL (3.2-4.8); Aspartate Aminotransferase 21 U/L (13-40); Bilirubin, Total 0.3 mg/dL (0.2-1.0)
[2024-10-14 09:00] VITALS: BP 123/73; PULSE 107; RESP 19; TEMP 98.5; O2SAT 93
[2024-10-14 13:00] VITALS: BP 131/78; PULSE 117; RESP 19; TEMP 100.3; O2SAT 97
[2024-10-14] MEDS: GASTROGRAFIN 30 ML SOL ONE (16:06)
--- NOTE | 2024-10-14 16:20 | DVH ---
CT CT AB PEL WITH ORAL CON ONLY INDICATION: ABDOMINA ABSCESS EXAM DATE: 10/14/2024 03:29 PM COMPARISON: CT CT AB PEL WITH ORAL CON ONLY on DOS: 10/07/24, CT CT AB PEL WITH ORAL CON ONLY on DOS: 10/01/24, CT CT AB PEL WO CON-NO ORAL OR IV on DOS: 09/30/24 RADIATION DOSE: CTDIvol: 15.98 mGy, DLP: 988.48 mGy*cm PROCEDURE: Helical CT images were obtained of the abdomen and pelvis without IV contrast Sagittal an d coronal reconstructions are provided. ORAL CONTRAST: None. ADDITIONAL IMAGES / REFORMATS: None All CT scans at this medical facility are performed using dose modulation techniques as appropriate t o a performed exam including the following: Automated exposure control was utilized; adjustment of th e MA and/or KV according to patient size; and use of iterative reconstruction technique. FINDINGS: LUNG BASE: Bibasilar atelectasis. LIVER: Normal. GALLBLADDER AND BILIARY TREE: No calcified gallstones. Normal caliber wall. No intra- or extrahepatic biliary ductal dilation. PANCREAS: Normal. SPLEEN: Normal. BOWEL: Oral contrast material reaches the cecum. ADRENALS: Normal. KIDNEYS AND URETER: Normal. BLADDER: Normal. REPRODUCTIVE ORGANS: Normal. LYMPH NODES:No lymphadenopathy. PERITONEUM: No ascites or free air. No other fluid collection. VESSELS: Normal. RETROPERITONEUM: Similar right paracolic gutter/retroperitoneal abscess with a pigtail drain within t he fluid collection, appears similar to prior CT from 10/11. ABDOMINAL WALL: Normal. BONES: Normal. IMPRESSION: Similar right paracolic gutter/retroperitoneal abscess with a pigtail drain within the fluid collecti on, appears similar to prior CT from 10/11. Oral contrast material reaches the cecum. No extravasation of oral contrast material is seen in the a bdominal cavity.
[2024-10-14 16:43] VITALS: BP 130/78; PULSE 110; RESP 19; TEMP 98.2; O2SAT 96
--- NOTE | 2024-10-14 18:45 | DVHPNRES ---
Progress Note Date Seen: Oct 14, 2024 Resident Creating Document: DEMETRIS MORENO RESIDENT Medical Necessity Reason Pt with a Central, PICC or Fol: No Reason for mcdonald catheter: Sixto. Abd Surgery Subjective Review of Systems 29-year-old male patient who presented to the emergency department with complaints of worsening intermittent generalized abdominal pain that began 7 day prior to admission. He attributed the pain to consuming hensley. The patient was diagnosed with the complicated ruptured acute appendicitis and underwent an open appendectomy. Postoperatively, the patient initially demonstrated signs of intra-abdominal infection . Microbiology showed E faecalis and E coli infection, ampicillin sulbactam and IV q.8 hours we will continue as antibiotic therapy. patient was examined at bedside, stable at this time , vital sign WNL, and without acute symptoms, clinical status improving. Patient is still having peaks of fever, he will need to continue on close observation, CT Abd/Pel with PO contrast performed today showed Similar right paracolic gutter/retroperitoneal abscess with a pigtail drain within the fluid collection, appears similar to prior CT from 10/11.Oral contrast material reaches the cecum. No extravasation of oral contrast material is seen in the abdominal cavity. Patient reports: Feels better Changes from previous H/P or p: Changes Objective vital signs Vital Sign Date Time Temp Pulse Resp B/P (MAP) Pulse Ox O2 Delivery O2 Flow Rate FiO2 10/14/24 16:43 98.2 110 19 130/78 (95) 96 98.2 10/14/24 08:05 Room Air* 0 21 Total Intake and Output 10/13/24 10/13/24 10/14/24 15:00 23:00 07:00 Intake Total 100 ml 2650 ml 1400 ml Output Total 700 ml Balance 100 ml 2650 ml 700 ml medications Current Medications Medications Dose Ordered Sig/Prosper Route Start Time Stop Time Status Last Admin Dose Admin Ondansetron HCl 4 mg Q4HP PRN IV 09/23/24 16:00 Nitroglycerin 0.4 mg Q5MINP PRN SL 09/23/24 16:15 Pantoprazole Sodium 40 mg DAILY IV 09/24/24 10:00 10/14/24 09:26 40 MG Ergocalciferol 50,000 unit Q7D PO 09/24/24 14:45 10/08/24 18:32 50,000 UNIT Acetaminophen 650 mg Q6HP PRN PO 09/24/24 21:45 10/14/24 13:26 650 MG Melatonin 5 mg HS PRN PO 09/24/24 21:45 09/30/24 21:05 5 MG Magnesium Oxide 400 mg BID PO 09/28/24 10:00 10/14/24 09:27 400 MG Potassium Chloride 10 meq DAILY PO 09/28/24 10:00 10/14/24 09:27 10 MEQ Ceftriaxone Sodium 50 ml @ 100 mls/hr DAILY@09 IV 10/04/24 09:00 Cancel Ampicillin Sodium/ Sulbactam Sodium 3 gm/Sodium Chloride 100 ml @ 100 mls/hr Q6H IV 10/03/24 16:30 10/14/24 16:24 100 MLS/HR Sodium Chloride 1,000 ml @ 100 mls/hr Q10H IV 10/09/24 14:45 10/14/24 06:56 100 MLS/HR Enoxaparin Sodium 40 mg DAILY SC 10/10/24 10:00 10/14/24 09:26 40 MG Examination: GENERAL:Normal, HEENT:Normal, NECK:Normal, LUNGS:Normal, CVS:Normal, ABDOMEN:Normal, MSK:Normal, SKIN:Normal, NEURO:Normal, :Normal laboratory and microbiology Laboratory Tests 10/14/24 06:08 Test 10/14/24 06:08 Range/Units Serum Glucose 90 74-106 mg/dL Microbiology Date/Time Source Procedure Growth Status 10/08/24 13:50 Aspirate Gram Stain - Final Complete 10/08/24 13:50 Body Fluid Culture - Final Escherichia coli Complete 09/23/24 23:01 Blood Blood Culture - Final NO GROWTH AFTER 5 DAYS OF INCUBATION. Complete 09/23/24 17:30 Abdomen Gram Stain - Final Complete 09/23/24 17:30 Abdomen Anaerobic Culture - Final Complete 09/23/24 17:30 Aerobic Culture - Final Escherichia coli Complete Problem List/Assessment/Plan Problem List/Assessment/Plan #Sepsis likely due to acute gangrenous appendicitis with perforation #Acute appendicitis complicated by rupture s/p open appendectomy on 09/23/2024. - IV Ampicilin-sulbactam -back drainage 50 cc purulent -Continue close observation -CT scan abdomen and pelvis with p.o. contrast showed * Similar right paracolic gutter/retroperitoneal abscess with a pigtail drain within the fluid collection, appears similar to prior CT from 10/11. * Oral contrast material reaches the cecum. No extravasation of oral contrast material is seen in the abdominal cavity. Likely postoperative ileus due to comorbidities - resolved Patient currently tolerating soft diet NEO hemodynamically mediated due to VMN with strong POA Continue IVF Monitor lab Hepatic steatosis Lifestyle modification and dietary habits Vitamin D deficiency Replenished Hypokalemia Replenished Diet soft diet DVT prophylaxis - lovenox 40 m SC Case discussed with Goals of care discussed with the patient for 39 minutes Code status: Full code Plan discussed with: Patient My Orders My Orders Orders - DEMETRIS MORENO RESIDENT Procedure Category Date Status Time Ct Ab Pel With Oral CT 10/14/24 Resulted Con Only 13:29 Npo (Nothing By DIET 10/14/24 Transmitted Mouth) Diet Lunch Dietary Evaluation Review Recommendations by RD: Protein Supplementation Comments: 1) Arpan @ 1 pk bid 2) Vitamin C @ 500 mg bid 3) Zinc sulfate @ 220 mg qd 4) Continue to monitor PO intake and wound Expected Outcomes/Goals: 1) wound to improve 2) diet texture to advance to regular when medically feasible 2) appetite and labs to improve 3) f/u in 3-5 days Date of Service: Oct 14, 2024 Billing Provider: DANNY AVILA MD Common Visit Codes: [id number] INP/OBS CARE(HIGH) DEMETRIS MORENO Oct 14, 2024 18:45 DANNY AVILA MD Oct 15, 2024 13:48
[2024-10-14 21:00] VITALS: BP 130/73; PULSE 125; RESP 19; TEMP 98.9; O2SAT 95
--- NOTE | 2024-10-14 22:19 | DVHPN2 ---
Consult Progress Note Date Seen: Oct 13, 2024 Subjective Patient reports: Feels better (no diarrhea or rash, minimal drainage from WALTER drain, persistent fevers) Objective vital signs Vital Sign Date Time Temp Pulse Resp B/P (MAP) Pulse Ox O2 Delivery O2 Flow Rate FiO2 10/14/24 21:00 98.9 125 19 130/73 (92) 95 98.9 10/14/24 08:05 Room Air* 0 21 Total Intake and Output 10/13/24 10/13/24 10/14/24 15:00 23:00 07:00 Intake Total 100 ml 2650 ml 1400 ml Output Total 700 ml Balance 100 ml 2650 ml 700 ml medications Current Medications Medications Dose Ordered Sig/Prosper Route Start Time Stop Time Status Last Admin Dose Admin Ondansetron HCl 4 mg Q4HP PRN IV 09/23/24 16:00 Nitroglycerin 0.4 mg Q5MINP PRN SL 09/23/24 16:15 Pantoprazole Sodium 40 mg DAILY IV 09/24/24 10:00 10/14/24 09:26 40 MG Ergocalciferol 50,000 unit Q7D PO 09/24/24 14:45 10/08/24 18:32 50,000 UNIT Acetaminophen 650 mg Q6HP PRN PO 09/24/24 21:45 10/14/24 13:26 650 MG Melatonin 5 mg HS PRN PO 09/24/24 21:45 09/30/24 21:05 5 MG Magnesium Oxide 400 mg BID PO 09/28/24 10:00 10/14/24 22:14 400 MG Potassium Chloride 10 meq DAILY PO 09/28/24 10:00 10/14/24 09:27 10 MEQ Ceftriaxone Sodium 50 ml @ 100 mls/hr DAILY@09 IV 10/04/24 09:00 Cancel Sodium Chloride 1,000 ml @ 100 mls/hr Q10H IV 10/09/24 14:45 10/14/24 22:14 100 MLS/HR Enoxaparin Sodium 40 mg DAILY SC 10/10/24 10:00 10/14/24 09:26 40 MG PHYSICAL EXAM: - GENERAL: Alert and oriented x 3. No acute distress. Well-nourished. - EYES: EOMI. Anicteric. - HENT: Moist mucous membranes. No scleral icterus. No cervical lymphadenopathy. - LUNGS: Clear to auscultation bilaterally. No accessory muscle use. - CARDIOVASCULAR: Regular rate and rhythm. No murmur. No JVD. - ABDOMEN: Soft, non-tender and non-distended. No palpable masses. - EXTREMITIES: No edema. Non-tender.?SKIN: No rashes or lesions. Warm. - NEUROLOGIC: No focal neurological deficits. CN II-XII grossly intact, but not individually tested - PSYCHIATRIC: Cooperative. Appropriate mood and affect. laboratory and microbiology Laboratory Tests 10/14/24 06:08 Test 10/14/24 06:08 Range/Units Serum Glucose 90 74-106 mg/dL Problem List/Assessment/Plan Problem List/Assessment/Plan ASSESSMENT AND PLAN: ID Problem List: - Intra-abdominal abscesses - Perforated appendicitis - Sepsis - E. coli infection - Ileus - Small bowel obstruction Assessment This is a [age not provided] y.o. male with no significant past medical history who presents with a perforated appendicitis complicated by intra-abdominal abscesses and sepsis. The patient underwent a laparoscopic lysis of adhesions, open drainage of intra- abdominal abscesses, and an open appendectomy on September 23. Operative findings included a distended peritoneum due to ileus, free air, distention of small and large intestines with serosal traction and ischemia, and a perforated appendix. A 19 Fr Noe drainage tube was placed. Currently, the patient has purulent drainage from the Noe drain, with intra- abdominal cultures growing E. coli. White blood cell count remains elevated at 21 on September 25. Repeat imaging revealed multiloculated abscesses in the right paracolic gutter, the largest measuring 14.6 cm. Multiple other fluid collections are inadequately drained. Bowel dilation may be due to ileus. sp Two (2) CT guided placement of 10.2 and 12 [place]raini pigtail drain into a right paracolic gutter abscess. 10/03: abdominal ct done after multiple drain placemetn shows 12.5 by 11.9 cm fluid collection in right lower quadrant with mildly thickening wall containings pockets of air . drainage catheter wich is not positioned within the fluid collection correlation , proper catheter is recommended. Small dialated multiple bowel loops in the left abdomen with airflow levels , no focal transition point identified. theres nondialated small bowel loops in the right abdomen , a post changes in illio secqual junction may relate to illieus , theres hepatic seratosis and a passing right lung with may represent a lectusus vs airspace disease . Aspirate from drain placemtn is growing E coli from 10/01 and from 09/30 are growing E coli and enterococcus 10/04: ongoing heavy output on drain , growing enterococcus and E coli on intra abdominal culture aspirate. white count is 7.4 10/07: ongoing large abscesses 8cm on CT 10/08: sp CT guided placement of a new 12 [place]raini pigtail drain into a paracolic gutter abscess. 150 mL foul purulent fluid was aspirated. 10/12: Ct scan shows one drainage tube in the right flank with persistant fluid and small bowel suggesting abscess collection allong the right abdominal wall. the second drain has been removed , fluid collection appears smaller than last on 10/08 Plan: - recoomend patient get Unasyn for an additional month via IV - patient follow up with infectious diseas in 4 weeks - follow up on drain output from new catheter - will fu on drainage output from new drainage catheter - continue to monitor - Continue to monitor WBC count and vital signs - Send any new aspirate samples from drains for aerobic and anaerobic cultures - Follow up on blood cultures Isolation Precautions: Standard Assessment and plan were discussed with the patient as written above. Plan is subject to change pending incorporation of new incoming information/diagnostics. Updates may be added as addendum at the bottom (OR TOP) of this note. Thank you for the interesting consult. ID will continue to follow. Please contact Infectious Disease for any questions or concerns. Plan discussed with: Patient Dietary Evaluation Review Recommendations by RD: Protein Supplementation Comments: 1) Arpan @ 1 pk bid 2) Vitamin C @ 500 mg bid 3) Zinc sulfate @ 220 mg qd 4) Continue to monitor PO intake and wound Expected Outcomes/Goals: 1) wound to improve 2) diet texture to advance to regular when medically feasible 2) appetite and labs to improve 3) f/u in 3-5 days JERRY TINEO MD Oct 14, 2024 22:19
--- NOTE | 2024-10-14 22:20 | DVHPN2 ---
Consult Progress Note Date Seen: Oct 15, 2024 Subjective Patient reports: Feels better (recurrent fevers to 101) Objective vital signs Vital Sign Date Time Temp Pulse Resp B/P (MAP) Pulse Ox O2 Delivery O2 Flow Rate FiO2 10/14/24 21:00 98.9 125 19 130/73 (92) 95 98.9 10/14/24 08:05 Room Air* 0 21 Total Intake and Output 10/13/24 10/13/24 10/14/24 15:00 23:00 07:00 Intake Total 100 ml 2650 ml 1400 ml Output Total 700 ml Balance 100 ml 2650 ml 700 ml medications Current Medications Medications Dose Ordered Sig/Prosper Route Start Time Stop Time Status Last Admin Dose Admin Ondansetron HCl 4 mg Q4HP PRN IV 09/23/24 16:00 Nitroglycerin 0.4 mg Q5MINP PRN SL 09/23/24 16:15 Pantoprazole Sodium 40 mg DAILY IV 09/24/24 10:00 10/14/24 09:26 40 MG Ergocalciferol 50,000 unit Q7D PO 09/24/24 14:45 10/08/24 18:32 50,000 UNIT Acetaminophen 650 mg Q6HP PRN PO 09/24/24 21:45 10/14/24 13:26 650 MG Melatonin 5 mg HS PRN PO 09/24/24 21:45 09/30/24 21:05 5 MG Magnesium Oxide 400 mg BID PO 09/28/24 10:00 10/14/24 22:14 400 MG Potassium Chloride 10 meq DAILY PO 09/28/24 10:00 10/14/24 09:27 10 MEQ Ceftriaxone Sodium 50 ml @ 100 mls/hr DAILY@09 IV 10/04/24 09:00 Cancel Sodium Chloride 1,000 ml @ 100 mls/hr Q10H IV 10/09/24 14:45 10/14/24 22:14 100 MLS/HR Enoxaparin Sodium 40 mg DAILY SC 10/10/24 10:00 10/14/24 09:26 40 MG PHYSICAL EXAM: - GENERAL: Alert and oriented x 3. No acute distress. Well-nourished. - EYES: EOMI. Anicteric. - HENT: Moist mucous membranes. No scleral icterus. No cervical lymphadenopathy. - LUNGS: Clear to auscultation bilaterally. No accessory muscle use. - CARDIOVASCULAR: Regular rate and rhythm. No murmur. No JVD. - ABDOMEN: Soft, non-tender and non-distended. No palpable masses. - EXTREMITIES: No edema. Non-tender.?SKIN: No rashes or lesions. Warm. - NEUROLOGIC: No focal neurological deficits. CN II-XII grossly intact, but not individually tested - PSYCHIATRIC: Cooperative. Appropriate mood and affect. laboratory and microbiology Laboratory Tests 10/14/24 06:08 Test 10/14/24 06:08 Range/Units Serum Glucose 90 74-106 mg/dL Problem List/Assessment/Plan Problem List/Assessment/Plan ASSESSMENT AND PLAN: ID Problem List: - Intra-abdominal abscesses - Perforated appendicitis - Sepsis - E. coli infection - Ileus - Small bowel obstruction Assessment This is a [age not provided] y.o. male with no significant past medical history who presents with a perforated appendicitis complicated by intra-abdominal abscesses and sepsis. The patient underwent a laparoscopic lysis of adhesions, open drainage of intra- abdominal abscesses, and an open appendectomy on September 23. Operative findings included a distended peritoneum due to ileus, free air, distention of small and large intestines with serosal traction and ischemia, and a perforated appendix. A 19 Fr Noe drainage tube was placed. Currently, the patient has purulent drainage from the Noe drain, with intra- abdominal cultures growing E. coli. White blood cell count remains elevated at 21 on September 25. Repeat imaging revealed multiloculated abscesses in the right paracolic gutter, the largest measuring 14.6 cm. Multiple other fluid collections are inadequately drained. Bowel dilation may be due to ileus. sp Two (2) CT guided placement of 10.2 and 12 Lebanese pigtail drain into a right paracolic gutter abscess. 10/03: abdominal ct done after multiple drain placemetn shows 12.5 by 11.9 cm fluid collection in right lower quadrant with mildly thickening wall containings pockets of air . drainage catheter wich is not positioned within the fluid collection correlation , proper catheter is recommended. Small dialated multiple bowel loops in the left abdomen with airflow levels , no focal transition point identified. theres nondialated small bowel loops in the right abdomen , a post changes in illio secqual junction may relate to illieus , theres hepatic seratosis and a passing right lung with may represent a lectusus vs airspace disease . Aspirate from drain placemtn is growing E coli from 10/01 and from 09/30 are growing E coli and enterococcus 10/04: ongoing heavy output on drain , growing enterococcus and E coli on intra abdominal culture aspirate. white count is 7.4 10/07: ongoing large abscesses 8cm on CT 10/08: sp CT guided placement of a new 12 Lebanese pigtail drain into a paracolic gutter abscess. 150 mL foul purulent fluid was aspirated. 10/12: Ct scan shows one drainage tube in the right flank with persistant fluid and small bowel suggesting abscess collection allong the right abdominal wall. the second drain has been removed , fluid collection appears smaller than last on 10/08 Plan: - fevers could be drug related, recommend switch to non-betalactam --> switch to levofloxacin 500mg qd - patient follow up with infectious disease in 4 weeks - follow up on drain output from new catheter - will fu on drainage output from new drainage catheter - continue to monitor - Continue to monitor WBC count and vital signs - Send any new aspirate samples from drains for aerobic and anaerobic cultures - Follow up on blood cultures Isolation Precautions: Standard Assessment and plan were discussed with the patient as written above. Plan is subject to change pending incorporation of new incoming information/diagnostics. Updates may be added as addendum at the bottom (OR TOP) of this note. Thank you for the interesting consult. ID will continue to follow. Please contact Infectious Disease for any questions or concerns. Plan discussed with: Patient Dietary Evaluation Review Recommendations by RD: Protein Supplementation Comments: 1) Arpan @ 1 pk bid 2) Vitamin C @ 500 mg bid 3) Zinc sulfate @ 220 mg qd 4) Continue to monitor PO intake and wound Expected Outcomes/Goals: 1) wound to improve 2) diet texture to advance to regular when medically feasible 2) appetite and labs to improve 3) f/u in 3-5 days JERRY TINEO MD Oct 14, 2024 22:20
[2024-10-15] VITALS (8 sets, daily range): BP systolic 116–134; BP diastolic 70–77; PULSE 110–122; RESP 16–19; TEMP 99–101; O2SAT 93–96
[2024-10-15 08:05] LABS: Anion Gap 12 (5-15); Carbon Dioxide 21 mmol/L (20-31); Chloride 99 mmol/L (98-107); Potassium 3.5 mmol/L (3.5-5.1)
[2024-10-15 08:06] LABS: Calcium 9.4 mg/dL (8.7-10.4)
[2024-10-15 08:07] LABS: Sodium 132 mmol/L (136-145)
[2024-10-15 08:11] LABS: BUN/Creatinine Ratio 10.4 (10.0-20.0); Blood Urea Nitrogen 8 mg/dL (9-23); Glucose 85 mg/dL (74-106)
--- NOTE | 2024-10-15 13:28 | DVHPN2 ---
Consult Progress Note Date Seen: Oct 15, 2024 Subjective Patient reports: Feels better (ongoing fevers) Objective vital signs Vital Sign Date Time Temp Pulse Resp B/P (MAP) Pulse Ox O2 Delivery O2 Flow Rate FiO2 10/15/24 13:00 99.4 114 18 126/73 (90) 94 99.4 10/14/24 20:00 Room Air* 0 21 Total Intake and Output 10/14/24 10/14/24 10/15/24 15:00 23:00 07:00 Intake Total 100 ml 500 ml 0 ml Output Total 500 ml 700 ml Balance 100 ml 0 ml -700 ml medications Current Medications Medications Dose Ordered Sig/Prosper Route Start Time Stop Time Status Last Admin Dose Admin Ondansetron HCl 4 mg Q4HP PRN IV 09/23/24 16:00 Nitroglycerin 0.4 mg Q5MINP PRN SL 09/23/24 16:15 Pantoprazole Sodium 40 mg DAILY IV 09/24/24 10:00 10/15/24 10:12 40 MG Ergocalciferol 50,000 unit Q7D PO 09/24/24 14:45 10/08/24 18:32 50,000 UNIT Acetaminophen 650 mg Q6HP PRN PO 09/24/24 21:45 10/14/24 13:26 650 MG Melatonin 5 mg HS PRN PO 09/24/24 21:45 09/30/24 21:05 5 MG Magnesium Oxide 400 mg BID PO 09/28/24 10:00 10/15/24 10:12 400 MG Potassium Chloride 10 meq DAILY PO 09/28/24 10:00 10/15/24 10:16 10 MEQ Ceftriaxone Sodium 50 ml @ 100 mls/hr DAILY@09 IV 10/04/24 09:00 Cancel Sodium Chloride 1,000 ml @ 100 mls/hr Q10H IV 10/09/24 14:45 10/15/24 07:41 100 MLS/HR Enoxaparin Sodium 40 mg DAILY SC 10/10/24 10:00 10/15/24 10:12 40 MG PHYSICAL EXAM: - GENERAL: Alert and oriented x 3. No acute distress. Well-nourished. - EYES: EOMI. Anicteric. - HENT: Moist mucous membranes. No scleral icterus. No cervical lymphadenopathy. - LUNGS: Clear to auscultation bilaterally. No accessory muscle use. - CARDIOVASCULAR: Regular rate and rhythm. No murmur. No JVD. - ABDOMEN: Soft, non-tender and non-distended. No palpable masses. - EXTREMITIES: No edema. Non-tender.?SKIN: No rashes or lesions. Warm. - NEUROLOGIC: No focal neurological deficits. CN II-XII grossly intact, but not individually tested - PSYCHIATRIC: Cooperative. Appropriate mood and affect. laboratory and microbiology Laboratory Tests 10/15/24 06:09 10/14/24 06:08 Test 10/15/24 06:09 Range/Units Serum Glucose 85 74-106 mg/dL Problem List/Assessment/Plan Problem List/Assessment/Plan ASSESSMENT AND PLAN: ID Problem List: - Intra-abdominal abscesses - Perforated appendicitis - Sepsis - E. coli infection - Ileus - Small bowel obstruction Assessment This is a [age not provided] y.o. male with no significant past medical history who presents with a perforated appendicitis complicated by intra-abdominal abscesses and sepsis. The patient underwent a laparoscopic lysis of adhesions, open drainage of intra- abdominal abscesses, and an open appendectomy on September 23. Operative findings included a distended peritoneum due to ileus, free air, distention of small and large intestines with serosal traction and ischemia, and a perforated appendix. A 19 Fr Noe drainage tube was placed. Currently, the patient has purulent drainage from the Noe drain, with intra- abdominal cultures growing E. coli. White blood cell count remains elevated at 21 on September 25. Repeat imaging revealed multiloculated abscesses in the right paracolic gutter, the largest measuring 14.6 cm. Multiple other fluid collections are inadequately drained. Bowel dilation may be due to ileus. sp Two (2) CT guided placement of 10.2 and 12 [place]adian pigtail drain into a right paracolic gutter abscess. 10/03: abdominal ct done after multiple drain placemetn shows 12.5 by 11.9 cm fluid collection in right lower quadrant with mildly thickening wall containings pockets of air . drainage catheter wich is not positioned within the fluid collection correlation , proper catheter is recommended. Small dialated multiple bowel loops in the left abdomen with airflow levels , no focal transition point identified. theres nondialated small bowel loops in the right abdomen , a post changes in illio secqual junction may relate to illieus , theres hepatic seratosis and a passing right lung with may represent a lectusus vs airspace disease . Aspirate from drain placemtn is growing E coli from 10/01 and from 09/30 are growing E coli and enterococcus 10/04: ongoing heavy output on drain , growing enterococcus and E coli on intra abdominal culture aspirate. white count is 7.4 10/07: ongoing large abscesses 8cm on CT 10/08: sp CT guided placement of a new 12 [place]adian pigtail drain into a paracolic gutter abscess. 150 mL foul purulent fluid was aspirated. 10/12: Ct scan shows one drainage tube in the right flank with persistant fluid and small bowel suggesting abscess collection allong the right abdominal wall. the second drain has been removed , fluid collection appears smaller than last on 10/08 10/14: oral contrast CT IMPRESSION: Similar right paracolic gutter/retroperitoneal abscess with a pigtail drain within the fluid collection, appears similar to prior CT from 10/11. Oral contrast material reaches the cecum. No extravasation of oral contrast material is seen in the abdominal cavity. Plan: - fevers could be drug related, recommend switch to non-beta lactam --> switch to levofloxacin 500mg qd - patient follow up with infectious disease in 4 weeks - follow up on drain output from new catheter - will fu on drainage output from new drainage catheter - continue to monitor - Continue to monitor WBC count and vital signs - Send any new aspirate samples from drains for aerobic and anaerobic cultures - Follow up on blood cultures Isolation Precautions: Standard Assessment and plan were discussed with the patient as written above. Plan is subject to change pending incorporation of new incoming information/diagnostics. Updates may be added as addendum at the bottom (OR TOP) of this note. Thank you for the interesting consult. ID will continue to follow. Please contact Infectious Disease for any questions or concerns. Plan discussed with: Patient Dietary Evaluation Review Recommendations by RD: Protein Supplementation Comments: 1) Arpan @ 1 pk bid 2) Vitamin C @ 500 mg bid 3) Zinc sulfate @ 220 mg qd 4) Continue to monitor PO intake and wound Expected Outcomes/Goals: 1) wound to improve 2) diet texture to advance to regular when medically feasible 2) appetite and labs to improve 3) f/u in 3-5 days JERRY TINEO MD Oct 15, 2024 13:28
[2024-10-15] MEDS ORDERED: levoFLOXacin 500MG 100 ML IV SCH (13:30)
--- NOTE | 2024-10-15 13:41 | DVHPN2 ---
Progress Note Date Seen: Oct 15, 2024 Medical Necessity Reason Pt with a Central, PICC or Fol: No Reason for mcdonald catheter: Sixto. Abd Surgery Objective vital signs Vital Sign Date Time Temp Pulse Resp B/P (MAP) Pulse Ox O2 Delivery O2 Flow Rate FiO2 10/15/24 13:00 99.4 114 18 126/73 (90) 94 99.4 10/14/24 20:00 Room Air* 0 21 Total Intake and Output 10/14/24 10/14/24 10/15/24 15:00 23:00 07:00 Intake Total 100 ml 500 ml 0 ml Output Total 500 ml 700 ml Balance 100 ml 0 ml -700 ml medications Current Medications Medications Dose Ordered Sig/Prosper Route Start Time Stop Time Status Last Admin Dose Admin Ondansetron HCl 4 mg Q4HP PRN IV 09/23/24 16:00 Nitroglycerin 0.4 mg Q5MINP PRN SL 09/23/24 16:15 Pantoprazole Sodium 40 mg DAILY IV 09/24/24 10:00 10/15/24 10:12 40 MG Ergocalciferol 50,000 unit Q7D PO 09/24/24 14:45 10/15/24 13:28 50,000 UNIT Acetaminophen 650 mg Q6HP PRN PO 09/24/24 21:45 10/14/24 13:26 650 MG Melatonin 5 mg HS PRN PO 09/24/24 21:45 09/30/24 21:05 5 MG Magnesium Oxide 400 mg BID PO 09/28/24 10:00 10/15/24 10:12 400 MG Potassium Chloride 10 meq DAILY PO 09/28/24 10:00 10/15/24 10:16 10 MEQ Ceftriaxone Sodium 50 ml @ 100 mls/hr DAILY@09 IV 10/04/24 09:00 Cancel Sodium Chloride 1,000 ml @ 100 mls/hr Q10H IV 10/09/24 14:45 10/15/24 07:41 100 MLS/HR Enoxaparin Sodium 40 mg DAILY SC 10/10/24 10:00 10/15/24 10:12 40 MG Levofloxacin/ Dextrose 100 ml @ 100 mls/hr DAILY IV 10/15/24 13:30 UNV laboratory and microbiology Laboratory Tests 10/15/24 06:09 10/14/24 06:08 Test 10/15/24 06:09 Range/Units Serum Glucose 85 74-106 mg/dL Microbiology Date/Time Source Procedure Growth Status 10/08/24 13:50 Aspirate Gram Stain - Final Complete 10/08/24 13:50 Body Fluid Culture - Final Escherichia coli Complete 09/23/24 23:01 Blood Blood Culture - Final NO GROWTH AFTER 5 DAYS OF INCUBATION. Complete 09/23/24 17:30 Abdomen Gram Stain - Final Complete 09/23/24 17:30 Abdomen Anaerobic Culture - Final Complete 09/23/24 17:30 Aerobic Culture - Final Escherichia coli Complete Problem List/Assessment/Plan Problem List/Assessment/Plan AFEBRILE TMAX 100.5 VSS ABD SOFT ABD WOUND IR BACK DRAINAGE 0 CC LEAKAGE AROUND THE TUBE ONGOING DRESSING CHANGED BM + FLATUS + WBC WNL IV ABX STOPPED NURSE AT BEDSIDE CONTINUE CLOSE OBSERVATION CT SCAN ABD PELVIS WITH PO CONTRAST FOR IR TUBE REPLACEMENT DISCUSSED WITH RADIOLOGY FAMILY AT BEDSIDE RESUME IV ABX PER ID Plan discussed with: Patient Dietary Evaluation Review Recommendations by RD: Protein Supplementation Comments: 1) Arpan @ 1 pk bid 2) Vitamin C @ 500 mg bid 3) Zinc sulfate @ 220 mg qd 4) Continue to monitor PO intake and wound Expected Outcomes/Goals: 1) wound to improve 2) diet texture to advance to regular when medically feasible 2) appetite and labs to improve 3) f/u in 3-5 days EDISON NUÑEZ MD Oct 15, 2024 13:41
[2024-10-15] MEDS: LIDOCAINE 2%HCL (LOCAL ANESTH.) INJ 10ml MDV ONE (14:05)
[2024-10-15] MEDS: MIDAZOLAM HCL 2MG/2ML 2ml VIAL (1mg/ml) ONE (14:23)
[2024-10-15] MEDS: fentaNYL CITRATE 100 MCG/2 ML VL ONE (14:23)
--- NOTE | 2024-10-15 15:06 | DVH ---
CT ABDOMEN WITHOUT CONTRAST, HISTORY: ABSCESS DRAIN upsize. COMPARISON: CT ABDOMEN WITHOUT CONTRAST on DOS: 10/08/24 PROCEDURE: Informed consent was obtained. The patient was placed prone on the CT scanner. IV sedation was administered. The fluid collection was localized under CT scan and the overlying skin prepped wi th chlorhexidine which was allowed to dry and draped in the usual sterile fashion and infiltrated wit h Xylocaine. Time out was performed. With CT guidance, the existing prior drain was cut. A wire place d through the drain into the abscess. The tract was dilated and a new 16 Fr pigtail drain was placed into the abdominal abscess. Approximately 35 cc of foul purulent fluid was aspirated . The drain wa s sutured at the skin surface and connected to suction drainage. No immediate complication was noted. Post procedure CT imaging through the drain site was obtained. DLP =1133 mGy-cm. SEDATION: Dr. La Lutz was personally responsible for the administration of moderate sedation during the procedure performed, including the use of an independent trained observer who had no other duties during the procedure. The drugs utilized were IV fentanyl and versed (see nursing log for details). The total time of supervision by the attending physician was approximately 40 minutes. FINDINGS: Limited CT scan of through the abdomen/pelvis demonstrates a fluid collection in the abdome n. Collection appears complex. Post procedure scan shows pigtail drain within the collection.No immed iate complication was identified. IMPRESSION: CT guided upsize of the abdominal abscess drain to 16 Fr. 35 mL of foul purulent fluid was aspirated.
--- NOTE | 2024-10-15 16:49 | DVHPNRES ---
Progress Note Date Seen: Oct 15, 2024 Resident Creating Document: DEMETRIS MORENO RESIDENT Medical Necessity Reason Pt with a Central, PICC or Fol: No Reason for mcdonald catheter: Sixto. Abd Surgery Subjective Review of Systems 29-year-old male patient who presented to the emergency department with complaints of worsening intermittent generalized abdominal pain that began 7 day prior to admission. He attributed the pain to consuming hensley. The patient was diagnosed with the complicated ruptured acute appendicitis and underwent an open appendectomy. Postoperatively, the patient initially demonstrated signs of intra-abdominal infection . Microbiology showed E faecalis and E coli infection. With the to continue close observation, recent CT scan of the abdomen and pelvis with p.o. contrast Similar right paracolic gutter/retroperitoneal abscess with a pigtail drain within the fluid collection, appears similar to prior CT from 10/11.Oral contrast material reaches the cecum. No extravasation of oral contrast material is seen in the abdominal cavity. Today the existing drain tube was removed, dilator was placed over wire and then removed. The pigtail was inserted over wire and pigtail suture in place by Dr. Lutz, 35 mL of purulent fluid was aspirated from that side and then connected to a drain bag. Recent fever episodes could be drug related, recommended switch to non beta lactamase antibiotic, levofloxacin 500 mg q.d. was started. Follow-up on drain output from new catheter. Continue monitor of the cell count and vital signs. Patient reports: No new complaints Objective vital signs Vital Sign Date Time Temp Pulse Resp B/P (MAP) Pulse Ox O2 Delivery O2 Flow Rate FiO2 10/15/24 13:00 99.4 114 18 126/73 (90) 94 99.4 10/15/24 08:00 Room Air* 0 21 Total Intake and Output 10/14/24 10/14/24 10/15/24 15:00 23:00 07:00 Intake Total 100 ml 500 ml 0 ml Output Total 500 ml 700 ml Balance 100 ml 0 ml -700 ml medications Current Medications Medications Dose Ordered Sig/Prosper Route Start Time Stop Time Status Last Admin Dose Admin Ondansetron HCl 4 mg Q4HP PRN IV 09/23/24 16:00 Nitroglycerin 0.4 mg Q5MINP PRN SL 09/23/24 16:15 Pantoprazole Sodium 40 mg DAILY IV 09/24/24 10:00 10/15/24 10:12 40 MG Ergocalciferol 50,000 unit Q7D PO 09/24/24 14:45 10/15/24 13:28 50,000 UNIT Acetaminophen 650 mg Q6HP PRN PO 09/24/24 21:45 10/14/24 13:26 650 MG Melatonin 5 mg HS PRN PO 09/24/24 21:45 09/30/24 21:05 5 MG Magnesium Oxide 400 mg BID PO 09/28/24 10:00 10/15/24 10:12 400 MG Potassium Chloride 10 meq DAILY PO 09/28/24 10:00 10/15/24 10:16 10 MEQ Ceftriaxone Sodium 50 ml @ 100 mls/hr DAILY@09 IV 10/04/24 09:00 Cancel Sodium Chloride 1,000 ml @ 100 mls/hr Q10H IV 10/09/24 14:45 10/15/24 07:41 100 MLS/HR Enoxaparin Sodium 40 mg DAILY SC 10/10/24 10:00 10/15/24 10:12 40 MG Levofloxacin/ Dextrose 100 ml @ 100 mls/hr DAILY IV 10/15/24 13:30 UNV Examination: GENERAL:Normal, HEENT:Normal, NECK:Normal, LUNGS:Normal, CVS:Normal, ABDOMEN:Normal, MSK:Normal, SKIN:Abnormal, NEURO:Normal, :Normal laboratory and microbiology Laboratory Tests 10/15/24 06:09 10/14/24 06:08 Test 10/15/24 06:09 Range/Units Serum Glucose 85 74-106 mg/dL Microbiology Date/Time Source Procedure Growth Status 10/08/24 13:50 Aspirate Gram Stain - Final Complete 10/08/24 13:50 Body Fluid Culture - Final Escherichia coli Complete 09/23/24 23:01 Blood Blood Culture - Final NO GROWTH AFTER 5 DAYS OF INCUBATION. Complete 09/23/24 17:30 Abdomen Gram Stain - Final Complete 09/23/24 17:30 Abdomen Anaerobic Culture - Final Complete 09/23/24 17:30 Aerobic Culture - Final Escherichia coli Complete Problem List/Assessment/Plan Problem List/Assessment/Plan #Sepsis likely due to acute gangrenous appendicitis with perforation #Acute appendicitis complicated by rupture s/p open appendectomy on 09/23/2024. - IV Ampicilin-sulbactam -back drainage 50 cc purulent -Continue close observation -CT scan abdomen and pelvis with p.o. contrast showed * Similar right paracolic gutter/retroperitoneal abscess with a pigtail drain within the fluid collection, appears similar to prior CT from 10/11. * Oral contrast material reaches the cecum. No extravasation of oral contrast material is seen in the abdominal cavity. - IR intervetion: 35 mL of purulent fluid was aspirated from that side and then connected to a drain bag. - Recent fever episodes could be drug related, recommended switch to non beta lactamase antibiotic, levofloxacin 500 mg q.d. was started. - Follow-up on drain output from new catheter. - Continue monitor of the cell count and vital signs. Likely postoperative ileus due to comorbidities - resolved Patient currently tolerating soft diet NEO hemodynamically mediated due to VMN with strong POA Continue IVF Monitor lab Hepatic steatosis Lifestyle modification and dietary habits Vitamin D deficiency Replenished Hypokalemia Replenished Diet soft diet DVT prophylaxis - lovenox 40 m SC Case discussed with Goals of care discussed with the patient for 39 minutes Code status: Full code Plan discussed with: Patient, Other (father) My Orders My Orders Orders - DEMETRIS MORENO RESIDENT Procedure Category Date Status Time Ct Guidance For CT 10/15/24 Resulted Needle Placeme 13:[address] 10/15/24 Resulted Contrast 13:23 Dietary Evaluation Review Recommendations by RD: Protein Supplementation Comments: 1) Arpan @ 1 pk bid 2) Vitamin C @ 500 mg bid 3) Zinc sulfate @ 220 mg qd 4) Continue to monitor PO intake and wound Expected Outcomes/Goals: 1) wound to improve 2) diet texture to advance to regular when medically feasible 2) appetite and labs to improve 3) f/u in 3-5 days Date of Service: Oct 15, 2024 Billing Provider: DANNY AVILA MD Common Visit Codes: [id number] INP/OBS CARE(HIGH) DEMETRIS MORENO RESIDENT Oct 15, 2024 16:49 DANNY AVILA MD Oct 15, 2024 23:45
[2024-10-15] MEDS: ACETAMINOPHEN 325 MG TAB PO ONE (22:34)
[2024-10-16] VITALS (7 sets, daily range): BP systolic 115–126; BP diastolic 67–77; PULSE 110–127; RESP 16–20; TEMP 98.6–100.2; O2SAT 94–95
[2024-10-16 07:24] LABS: Basophils # (auto) 0 10 ^3/uL (0-0.2); Basophils % (auto) 0.3 % (0.0-2.0); Eosinophils # (auto) 0 10 ^3/uL (0-0.8); Eosinophils % (auto) 0.4 % (0.0-7.0); Hematocrit 34.7 % (41.0-53.0); Hemoglobin 12.1 g/dL (13.5-17.5); Lymphocytes # (auto) 0.5 10 ^3/uL (0.4-5.4); Lymphocytes % (auto) 6.7 % (10.0-50.0); Mean Corpuscular Hemoglobin 32.2 pg (28.0-32.0); Mean Corpuscular Hgb Conc. 34.7 g/dL (32.0-36.0); Mean Corpuscular Volume 92.7 fL (80.0-100.0); Monocytes # (auto) 0.8 10 ^3/uL (0-1.3); Monocytes % (auto) 10.6 % (0.0-12.0); Neutrophils # (auto) 6.4 10 ^3/uL (1.6-8.6); Platelet Count (auto) 289 10^3/uL (140-450); Red Blood Cells 3.75 10^6/uL (4.5-5.90); Red Cell Distribution Width 12.9 % (11.8-14.3); White Blood Cell 7.8 10^3/uL (4.4-10.8)
[2024-10-16 07:53] LABS: Alanine Aminotransferase 32 U/L (7-40); Alkaline Phosphatase 70 U/L (46-116); Anion Gap 12 (5-15); Aspartate Aminotransferase 34 U/L (13-40); BUN/Creatinine Ratio 11.9 (10.0-20.0); Blood Urea Nitrogen 10 mg/dL (9-23); Calcium 9.6 mg/dL (8.7-10.4); Carbon Dioxide 21 mmol/L (20-31); Chloride 99 mmol/L (98-107); Glucose 104 mg/dL (74-106); Potassium 3.7 mmol/L (3.5-5.1)
[2024-10-16 07:54] LABS: Bilirubin, Total 0.4 mg/dL (0.2-1.0)
[2024-10-16 08:01] LABS: Sodium 132 mmol/L (136-145)
[2024-10-16] MEDS: guaiFENesin 200 MG/10 ML UD PO ONE (12:06)
--- NOTE | 2024-10-16 14:11 | ECG ---
[facility] Test Date: 2024-10-10 Test Time: 16:10:04 Pat Name: TOMER HUNTER Department: Respiratoy Room: 0240 A Gender: M [employer]: : 1995 Requested By: DEMETRIS ASKEW Order Number: [id number] Reading MD: Klever Butt Measurements Intervals [place] Rate: 111 P: 35 ME: 124 QRS: 57 QRSD: 114 T: 15 QT: 313 QTc: 426 Interpretive Statements Sinus tachycardia Probable Inferior infarct, old Electronically Signed On 10-16-2024 20:38:03 PST by Klever Butt Please click the below link to view image of tracing.
--- NOTE | 2024-10-16 15:18 | DVHPN2 ---
Progress Note Date Seen: Oct 16, 2024 Medical Necessity Reason Pt with a Central, PICC or Fol: No Reason for mcdonald catheter: Sixto. Abd Surgery Objective vital signs Vital Sign Date Time Temp Pulse Resp B/P (MAP) Pulse Ox O2 Delivery O2 Flow Rate FiO2 10/16/24 13:00 99.6 119 20 123/71 (88) 95 99.6 10/16/24 08:00 Room Air* 0 21 Total Intake and Output 10/15/24 10/15/24 10/16/24 14:59 22:59 06:59 Intake Total 1280 ml 250 ml 0 ml Output Total 0 ml Balance 1280 ml 250 ml 0 ml medications Current Medications Medications Dose Ordered Sig/Prosper Route Start Time Stop Time Status Last Admin Dose Admin Ondansetron HCl 4 mg Q4HP PRN IV 09/23/24 16:00 Nitroglycerin 0.4 mg Q5MINP PRN SL 09/23/24 16:15 Pantoprazole Sodium 40 mg DAILY IV 09/24/24 10:00 10/15/24 10:12 40 MG Ergocalciferol 50,000 unit Q7D PO 09/24/24 14:45 10/15/24 13:28 50,000 UNIT Acetaminophen 650 mg Q6HP PRN PO 09/24/24 21:45 10/15/24 16:37 650 MG Melatonin 5 mg HS PRN PO 09/24/24 21:45 09/30/24 21:05 5 MG Magnesium Oxide 400 mg BID PO 09/28/24 10:00 10/16/24 10:02 400 MG Potassium Chloride 10 meq DAILY PO 09/28/24 10:00 10/16/24 10:02 10 MEQ Ceftriaxone Sodium 50 ml @ 100 mls/hr DAILY@09 IV 10/04/24 09:00 Cancel Sodium Chloride 1,000 ml @ 100 mls/hr Q10H IV 10/09/24 14:45 10/15/24 07:41 100 MLS/HR Enoxaparin Sodium 40 mg DAILY SC 10/10/24 10:00 10/15/24 10:12 40 MG Levofloxacin/ Dextrose 100 ml @ 100 mls/hr DAILY IV 10/15/24 13:30 Hold laboratory and microbiology Laboratory Tests 10/16/24 06:25 Test 10/16/24 06:25 Range/Units Serum Glucose 104 74-106 mg/dL Microbiology Date/Time Source Procedure Growth Status 10/08/24 13:50 Aspirate Gram Stain - Final Complete 10/08/24 13:50 Body Fluid Culture - Final Escherichia coli Complete 09/23/24 23:01 Blood Blood Culture - Final NO GROWTH AFTER 5 DAYS OF INCUBATION. Complete 09/23/24 17:30 Abdomen Gram Stain - Final Complete 09/23/24 17:30 Abdomen Anaerobic Culture - Final Complete 09/23/24 17:30 Aerobic Culture - Final Escherichia coli Complete Problem List/Assessment/Plan Problem List/Assessment/Plan AFEBRILE TMAX 100.5 VSS ABD SOFT ABD WOUND IR BACK DRAINAGE 0 CC LEAKAGE AROUND THE TUBE ONGOING DRESSING CHANGED BM + FLATUS + WBC WNL IV ABX NURSE AT BEDSIDE CONSIDER E LAP DRAINAGE OF INTRAABD ABSCESS, POSSIBLE BOWEL RESECTION POSSIBLE COLOSTOMY Plan discussed with: Patient Dietary Evaluation Review Recommendations by RD: Protein Supplementation Comments: 1) Arpan @ 1 pk bid 2) Vitamin C @ 500 mg bid 3) Zinc sulfate @ 220 mg qd 4) Continue to monitor PO intake and wound Expected Outcomes/Goals: 1) wound to improve 2) diet texture to advance to regular when medically feasible 2) appetite and labs to improve 3) f/u in 3-5 days EDISON NUÑEZ MD Oct 16, 2024 15:18
[2024-10-16] MEDS: GOLYTELY 4L KIT PO ONE (18:00)
[2024-10-16] MEDS: diphenhdrAMINE HCL 50 MG/1 ML VL IV ONE (18:00)
--- NOTE | 2024-10-16 18:41 | DVHPNRES ---
Progress Note Date Seen: Oct 16, 2024 Resident Creating Document: DEMETRIS MORENO RESIDENT Medical Necessity Reason Pt with a Central, PICC or Fol: No Reason for mcdonald catheter: Sixto. Abd Surgery Subjective Review of Systems 29-year-old male patient who presented to the emergency department with complaints of worsening intermittent generalized abdominal pain that began 7 day prior to admission. He attributed the pain to consuming hensley. The patient was diagnosed with the complicated ruptured acute appendicitis and underwent an open appendectomy. Postoperatively, the patient initially demonstrated signs of intra-abdominal infection . Microbiology showed E faecalis and E coli infection. With the to continue close observation monitoring CBC,CMP and vital signs. Purulent leakage around the tube , 0cc on back drainage, patient will need to continue the same antibiotic therapy and consider lap of intraluminal abscess, possible bowel resection possible colostomy tomorrow, patient will need to stay NPO. Patient reports: Other Changes from previous H/P or p: Changes Objective vital signs Vital Sign Date Time Temp Pulse Resp B/P (MAP) Pulse Ox O2 Delivery O2 Flow Rate FiO2 10/16/24 17:00 100.2 127 20 117/77 (90) 94 100.2 10/16/24 08:00 Room Air* 0 21 Total Intake and Output 10/15/24 10/15/24 10/16/24 15:00 23:00 07:00 Intake Total 1280 ml 250 ml 0 ml Output Total 0 ml Balance 1280 ml 250 ml 0 ml medications Current Medications Medications Dose Ordered Sig/Prosper Route Start Time Stop Time Status Last Admin Dose Admin Ondansetron HCl 4 mg Q4HP PRN IV 09/23/24 16:00 Nitroglycerin 0.4 mg Q5MINP PRN SL 09/23/24 16:15 Pantoprazole Sodium 40 mg DAILY IV 09/24/24 10:00 10/15/24 10:12 40 MG Ergocalciferol 50,000 unit Q7D PO 09/24/24 14:45 10/15/24 13:28 50,000 UNIT Acetaminophen 650 mg Q6HP PRN PO 09/24/24 21:45 10/15/24 16:37 650 MG Melatonin 5 mg HS PRN PO 09/24/24 21:45 09/30/24 21:05 5 MG Magnesium Oxide 400 mg BID PO 09/28/24 10:00 10/16/24 10:02 400 MG Potassium Chloride 10 meq DAILY PO 09/28/24 10:00 10/16/24 10:02 10 MEQ Ceftriaxone Sodium 50 ml @ 100 mls/hr DAILY@09 IV 10/04/24 09:00 Cancel Sodium Chloride 1,000 ml @ 100 mls/hr Q10H IV 10/09/24 14:45 10/15/24 07:41 100 MLS/HR Enoxaparin Sodium 40 mg DAILY SC 10/10/24 10:00 10/15/24 10:12 40 MG Levofloxacin/ Dextrose 100 ml @ 100 mls/hr DAILY IV 10/15/24 13:30 Hold Examination Examination General Appearance: Alert, Oriented X3, Cooperative, moderate distress HEENT: EOMI Respiratory: Clear to auscultation, Normal air movement Cardiovascular: Regular rate, Normal S1, Normal S2 Abdominal: Normal bowel sounds. Purulent leakage around the tube , 0cc on back drainage, Extremities: No cyanosis, No edema, Normal pulses, No tenderness/swelling Skin: No rashes, No breakdown Neuro: Normal gait, Normal speech, Strength at 5/5 X4 ext, Normal tone, Sensation intact, Cranial nerves 3-12 NL, Reflexes 2+ Psych/Mental Status: Mental status NL, Mood NL laboratory and microbiology Laboratory Tests 10/16/24 06:25 Test 10/16/24 06:25 Range/Units Serum Glucose 104 74-106 mg/dL Microbiology Date/Time Source Procedure Growth Status 10/08/24 13:50 Aspirate Gram Stain - Final Complete 10/08/24 13:50 Body Fluid Culture - Final Escherichia coli Complete 09/23/24 23:01 Blood Blood Culture - Final NO GROWTH AFTER 5 DAYS OF INCUBATION. Complete 09/23/24 17:30 Abdomen Gram Stain - Final Complete 09/23/24 17:30 Abdomen Anaerobic Culture - Final Complete 09/23/24 17:30 Aerobic Culture - Final Escherichia coli Complete Problem List/Assessment/Plan Problem List/Assessment/Plan #Sepsis likely due to acute gangrenous appendicitis with perforation #Acute appendicitis complicated by rupture s/p open appendectomy on 09/23/2024. - IV Ampicilin-sulbactam -back drainage 50 cc purulent -Continue close observation -CT scan abdomen and pelvis with p.o. contrast showed * Similar right paracolic gutter/retroperitoneal abscess with a pigtail drain within the fluid collection, appears similar to prior CT from 10/11. * Oral contrast material reaches the cecum. No extravasation of oral contrast material is seen in the abdominal cavity. - IR intervetion: 35 mL of purulent fluid was aspirated from that side and then connected to a drain bag. - Recent fever episodes could be drug related, recommended switch to non beta lactamase antibiotic, levofloxacin 500 mg q.d. was started. - Follow-up on drain output from new catheter. - Continue monitor of the cell count and vital signs. Likely postoperative ileus due to comorbidities - resolved Patient currently tolerating soft diet NEO hemodynamically mediated due to VMN with strong POA Continue IVF Monitor lab Hepatic steatosis Lifestyle modification and dietary habits Vitamin D deficiency Replenished Hypokalemia Replenished Diet soft diet DVT prophylaxis - lovenox 40 m SC Case discussed with Dr Escalante Goals of care discussed with the patient for 39 minutes Code status: Full code Plan discussed with: Patient, Other (father) My Orders My Orders Orders - DEMETRIS MORENO Procedure Category Date Status Time Npo After Midnight DIET 10/16/24 Transmitted Breakfast Dietary Evaluation Review Recommendations by RD: Protein Supplementation Comments: 1) Arpan @ 1 pk bid 2) Vitamin C @ 500 mg bid 3) Zinc sulfate @ 220 mg qd 4) Continue to monitor PO intake and wound Expected Outcomes/Goals: 1) wound to improve 2) diet texture to advance to regular when medically feasible 2) appetite and labs to improve 3) f/u in 3-5 days Date of Service: Oct 16, 2024 Billing Provider: ZAC ESCALANTE MD Common Visit Codes: [id number] INP/OBS CARE(HIGH) DEMETRIS MORENO RESIDENT Oct 16, 2024 18:41 ZAC ESCALANTE MD Oct 16, 2024 20:00
--- NOTE | 2024-10-16 22:52 | DVHPN2 ---
Consult Progress Note Date Seen: Oct 16, 2024 Subjective Patient reports: Other (still having fevers of 100.2 , his GP drain with no output in the last several days . is tachycardic and has a mildly distended abdomen ) Objective vital signs Vital Sign Date Time Temp Pulse Resp B/P (MAP) Pulse Ox O2 Delivery O2 Flow Rate FiO2 10/16/24 21:00 99.9 120 16 119/69 (86) 94 99.9 10/16/24 08:00 Room Air* 0 21 Total Intake and Output 10/15/24 10/15/24 10/16/24 15:00 23:00 07:00 Intake Total 1280 ml 250 ml 0 ml Output Total 0 ml Balance 1280 ml 250 ml 0 ml medications Current Medications Medications Dose Ordered Sig/Prosper Route Start Time Stop Time Status Last Admin Dose Admin Ondansetron HCl 4 mg Q4HP PRN IV 09/23/24 16:00 Nitroglycerin 0.4 mg Q5MINP PRN SL 09/23/24 16:15 Pantoprazole Sodium 40 mg DAILY IV 09/24/24 10:00 10/15/24 10:12 40 MG Ergocalciferol 50,000 unit Q7D PO 09/24/24 14:45 10/15/24 13:28 50,000 UNIT Acetaminophen 650 mg Q6HP PRN PO 09/24/24 21:45 10/15/24 16:37 650 MG Melatonin 5 mg HS PRN PO 09/24/24 21:45 09/30/24 21:05 5 MG Magnesium Oxide 400 mg BID PO 09/28/24 10:00 10/16/24 10:02 400 MG Potassium Chloride 10 meq DAILY PO 09/28/24 10:00 10/16/24 10:02 10 MEQ Ceftriaxone Sodium 50 ml @ 100 mls/hr DAILY@09 IV 10/04/24 09:00 Cancel Sodium Chloride 1,000 ml @ 100 mls/hr Q10H IV 10/09/24 14:45 10/15/24 07:41 100 MLS/HR Enoxaparin Sodium 40 mg DAILY SC 10/10/24 10:00 10/15/24 10:12 40 MG Levofloxacin/ Dextrose 100 ml @ 100 mls/hr DAILY IV 10/15/24 13:30 Hold PHYSICAL EXAM: - GENERAL: Alert and oriented x 3. No acute distress. Well-nourished. - EYES: EOMI. Anicteric. - HENT: Moist mucous membranes. No scleral icterus. No cervical lymphadenopathy. - LUNGS: Clear to auscultation bilaterally. No accessory muscle use. - CARDIOVASCULAR: Regular rate and rhythm. No murmur. No JVD. - ABDOMEN: Soft, non-tender and non-distended. No palpable masses. - EXTREMITIES: No edema. Non-tender.?SKIN: No rashes or lesions. Warm. - NEUROLOGIC: No focal neurological deficits. CN II-XII grossly intact, but not individually tested - PSYCHIATRIC: Cooperative. Appropriate mood and affect. laboratory and microbiology Laboratory Tests 10/16/24 06:25 Test 10/16/24 06:25 Range/Units Serum Glucose 104 74-106 mg/dL Problem List/Assessment/Plan Problems(with codes): (1) Pneumonia, unspecified organism (2) Bowel obstruction (3) Acute abdominal pain (4) Electrolyte imbalance (5) Elevated liver enzymes (6) Leukocytosis, unspecified (7) Ruptured appendicitis (8) Acute renal injury (9) Intra-abdominal abscess Problem List/Assessment/Plan ASSESSMENT AND PLAN: ID Problem List: - Intra-abdominal abscesses - Perforated appendicitis - Sepsis - E. coli infection - Ileus - Small bowel obstruction Assessment This is a [age not provided] y.o. male with no significant past medical history who presents with a perforated appendicitis complicated by intra-abdominal abscesses and sepsis. The patient underwent a laparoscopic lysis of adhesions, open drainage of intra- abdominal abscesses, and an open appendectomy on September 23. Operative findings included a distended peritoneum due to ileus, free air, distention of small and large intestines with serosal traction and ischemia, and a perforated appendix. A 19 Fr Noe drainage tube was placed. Currently, the patient has purulent drainage from the Noe drain, with intra- abdominal cultures growing E. coli. White blood cell count remains elevated at 21 on September 25. Repeat imaging revealed multiloculated abscesses in the right paracolic gutter, the largest measuring 14.6 cm. Multiple other fluid collections are inadequately drained. Bowel dilation may be due to ileus. sp Two (2) CT guided placement of 10.2 and 12 M[place]gas[place] pigtail drain into a right paracolic gutter abscess. 10/03: abdominal ct done after multiple drain placemetn shows 12.5 by 11.9 cm fluid collection in right lower quadrant with mildly thickening wall containings pockets of air . drainage catheter wich is not positioned within the fluid collection correlation , proper catheter is recommended. Small dialated multiple bowel loops in the left abdomen with airflow levels , no focal transition point identified. theres nondialated small bowel loops in the right abdomen , a post changes in illio secqual junction may relate to illieus , theres hepatic seratosis and a passing right lung with may represent a lectusus vs airspace disease . Aspirate from drain placemtn is growing E coli from 10/01 and from 09/30 are growing E coli and enterococcus 10/04: ongoing heavy output on drain , growing enterococcus and E coli on intra abdominal culture aspirate. white count is 7.4 10/07: ongoing large abscesses 8cm on CT 10/08: sp CT guided placement of a new 12 M[place]gasque pigtail drain into a paracolic gutter abscess. 150 mL foul purulent fluid was aspirated. 10/12: Ct scan shows one drainage tube in the right flank with persistant fluid and small bowel suggesting abscess collection allong the right abdominal wall. the second drain has been removed , fluid collection appears smaller than last on 10/08 10/14: oral contrast CT 10/16: 35ccs of prelimary aspirated frm CT drain that was placed yesterday , persistant tachycardia is concering for ongoing sepsis as well as aongoing drainage when catheters changed out IMPRESSION: Similar right paracolic gutter/retroperitoneal abscess with a pigtail drain within the fluid collection, appears similar to prior CT from 10/11. Oral contrast material reaches the cecum. No extravasation of oral contrast material is seen in the abdominal cavity. Plan: - defer to general surgery for need of additional source control , and addressing any potential bowel leak although image does not shows any overleakage - continue levofloxacin - fevers could be drug related, recommend switch to non-beta lactam --> switch to levofloxacin 500mg qd - patient follow up with infectious disease in 4 weeks - follow up on drain output from new catheter - will fu on drainage output from new drainage catheter - continue to monitor - Continue to monitor WBC count and vital signs - Send any new aspirate samples from drains for aerobic and anaerobic cultures - Follow up on blood cultures Isolation Precautions: Standard Assessment and plan were discussed with the patient as written above. Plan is subject to change pending incorporation of new incoming information/diagnostics. Updates may be added as addendum at the bottom (OR TOP) of this note. Thank you for the interesting consult. ID will continue to follow. Please contact Infectious Disease for any questions or concerns. Plan discussed with: Other Dietary Evaluation Review Recommendations by RD: Protein Supplementation Comments: 1) Arpan @ 1 pk bid 2) Vitamin C @ 500 mg bid 3) Zinc sulfate @ 220 mg qd 4) Continue to monitor PO intake and wound Expected Outcomes/Goals: 1) wound to improve 2) diet texture to advance to regular when medically feasible 2) appetite and labs to improve 3) f/u in 3-5 days JERRY TINEO MD Oct 16, 2024 22:52
[2024-10-17] VITALS (8 sets, daily range): BP systolic 103–115; BP diastolic 64–71; PULSE 105–138; RESP 16–18; TEMP 97.6–100.7; O2SAT 94–95
[2024-10-17 07:51] LABS: INR 1.24 (0.9-1.15); Partial Thromboplastin Time 29.5 SEC (24.5-34.5); Prothrombin Time 12.9 sec (9.3-11.8)
[2024-10-17 07:55] LABS: Basophils # (auto) 0 10 ^3/uL (0-0.2); Basophils % (auto) 0.5 % (0.0-2.0); Eosinophils # (auto) 0 10 ^3/uL (0-0.8); Eosinophils % (auto) 0.4 % (0.0-7.0); Hematocrit 31.7 % (41.0-53.0); Hemoglobin 10.7 g/dL (13.5-17.5); Lymphocytes # (auto) 0.4 10 ^3/uL (0.4-5.4); Lymphocytes % (auto) 7.7 % (10.0-50.0); Mean Corpuscular Hemoglobin 31.4 pg (28.0-32.0); Mean Corpuscular Hgb Conc. 33.6 g/dL (32.0-36.0); Mean Corpuscular Volume 93.4 fL (80.0-100.0); Monocytes # (auto) 0.8 10 ^3/uL (0-1.3); Monocytes % (auto) 14.8 % (0.0-12.0); Neutrophils # (auto) 3.9 10 ^3/uL (1.6-8.6); Neutrophils % (auto) 76.6 % (37.0-80.0); Platelet Count (auto) 237 10^3/uL (140-450); Red Cell Distribution Width 12.7 % (11.8-14.3); White Blood Cell 5.1 10^3/uL (4.4-10.8)
[2024-10-17 08:00] LABS: Alanine Aminotransferase 36 U/L (7-40); Albumin 3.6 g/dL (3.2-4.8); Alkaline Phosphatase 59 U/L (46-116); Anion Gap 12 (5-15); Aspartate Aminotransferase 31 U/L (13-40); BUN/Creatinine Ratio 15.3 (10.0-20.0); Blood Urea Nitrogen 11 mg/dL (9-23); Calcium 9.1 mg/dL (8.7-10.4); Carbon Dioxide 21 mmol/L (20-31); Chloride 101 mmol/L (98-107); Glucose 97 mg/dL (74-106); Potassium 3.6 mmol/L (3.5-5.1)
[2024-10-17 08:01] LABS: Bilirubin, Total 0.3 mg/dL (0.2-1.0); Total Protein 7.2 g/dL (5.7-8.2)
[2024-10-17 08:08] LABS: Sodium 134 mmol/L (136-145)
[2024-10-17] MEDS: ceFAZolin 2 GM/D5W100ml 100 ML IV ONE (09:22)
[2024-10-17] MEDS ORDERED: HYDROmorphone HCL 2 MG/ML VL/or syr IV PRN (09:30)
[2024-10-17] MEDS ORDERED: fentaNYL CITRATE 100 MCG/2 ML VL IV PRN (09:30)
[2024-10-17] MEDS ORDERED: MORPHINE SULFATE INJ 2 MG/ml SYRG IV PRN (09:30)
[2024-10-17] MEDS: METOCLOPRAMIDE HCL 5MG/ml INJ 2ml VIAL IV ONE (09:30)
[2024-10-17] MEDS ORDERED: KETAMINE 50mg/ML 1ml syringe ONE (09:38)
[2024-10-17] MEDS ORDERED: HYDROmorphone HCL 2 MG/ML VL/or syr ONE (09:38)
[2024-10-17] MEDS ORDERED: MIDAZOLAM HCL 2MG/2ML 2ml VIAL (1mg/ml) ONE (09:39)
[2024-10-17] MEDS ORDERED: fentaNYL CITRATE 100 MCG/2 ML VL ONE (09:39)
[2024-10-17] MEDS ORDERED: LIDOCAINE HCL 100 MG/5ML (2%) SYRG INJ IV ONE (09:39)
[2024-10-17] MEDS ORDERED: MEPERIDINE HCL (25 MG/ML) 1ML VIAL ONE (09:39)
[2024-10-17] MEDS ORDERED: LIDOCAINE HCL 2% TOP JELLY 5ML TOP ONE (09:39)
[2024-10-17] MEDS ORDERED: DexAMETHasone SOD PHOS 10MG/1ML VIAL INJ ONE (09:39)
[2024-10-17] MEDS ORDERED: PROPOFOL 10 MG/ML 20 ML IV ONE (09:39)
[2024-10-17] MEDS ORDERED: LIDOCAINE 1% INJ PF 5ML AMP ONE (09:39)
[2024-10-17] MEDS ORDERED: SODIUM CHLORIDE LOCK 10 ML ONE (09:39)
[2024-10-17] MEDS ORDERED: NEOSTIGMINE 1 MG/ML INJ (10mg/10ML VIAL) ONE (10:45)
[2024-10-17] MEDS ORDERED: GLYCOPYRROLATE 0.2 MG/ML 1ML VIAL ONE (10:45)
--- NOTE | 2024-10-17 11:36 | DVHOP2 ---
Operative Report [id number] RESIDUAL R RETROPERITONEAL ABSCES/COLLECTION E LAP, CHRIS DRAINAGE OF RETROPERITONEAL ABSCESS EBL 25 CC ONE DRAIN IR DRAIN LEFT IN THE SAME LOCATION NO COMPLICATIONS EDISON NUÑEZ MD Oct 17, 2024 11:35
[2024-10-17] MEDS: HYDROmorphone HCL 2 MG/ML VL/or syr IV PRN (12:02)
--- NOTE | 2024-10-17 12:05 | DVHOP ---
DATE OF SURGERY: 10/17/2024 PREOPERATIVE DIAGNOSIS: Residual retroperitoneal abscess. POSTOPERATIVE DIAGNOSIS: Residual retroperitoneal abscess. PROCEDURES: Exploratory laparotomy, extensive lysis of adhesions and drainage of the residual retroperitoneal abscess that was attempted drainage by IR multiple times, which explained the reason why he had multiple CT scans that was to avoid an open surgery, but because the catheter done by IR was not functional and had failed to remove the collection, presumably due to tissue and necrotic tissue plugging the catheter and that is where there was leakage around the tube from the back side that is where the IR catheter had been placed. So, the procedure was justified and waiting this for out helped exposure because the ileus had resolved, the bowel obstruction had resolved and it allowed more efficient access for the retroperitoneal tissues to avoid major injuries to the major structures in that location. SURGEON: Olvin Almaraz MD COMPUTING CONSULTANT: None. ANESTHESIA: General. BLOOD LOSS: Close to 25 mL DRAINS: One drain was used. COMPLICATIONS: No complications were encountered. DESCRIPTION OF PROCEDURE: The patient was prepped and draped in the usual sterile fashion in the supine position. The residual sarah were removed and the abdomen was entered through the previous incision site meticulously, making sure that there were no injuries occurred to the bowel at any time. Omental adhesions were taken down and with suitable retraction, the paracolic gutter was exposed and the ileum and the cecum were completely viable, with no issues at all, no perforation noted, excellent healing with no residual intraabdominal abscess noted. Majority of the area was retroperitoneal and that was discovered after the ascending colon was released from the paracolic gutter and a cavity was found that was suctioned out. Cultures were sent. Thorough irrigation was performed. It was almost going up to the right upper quadrant close to the hepatic flexure and all of this was drained out and suctioned out. The IR catheter was also found coiled in that location. The necrotic tissue had plugged it up so that also was removed. The IR catheter was left in place. The irrigation performed. Hemostasis was secured. Kev powder was applied for hemostasis and a size 19 Noe drainage tube was placed to drain the right upper quadrant, right paracolic location and right lower quadrant, the pelvis and bring it out from the left side of the abdomen through a separate incision and securing it with a silk suture. With this being done, the sponge count, needle count was reported correct. The bowel was replaced back in its anatomic location after irrigation had been carried out and the closure was then commenced using a PDS suture for the fascia and skin incisions were brought together using a stapling device. To drain the subcutaneous tissues, a 1/4-inch Del drain was placed and brought out from the lower portion of the incision and secured with a silk suture. The dressing was applied for the main wound. The patient tolerated the procedure well and was taken back to the recovery room in stable condition. The details of the procedure and the findings of the procedure were explained to the family. All questions were answered and all the help given to the patient was much appreciated by the family. MD ARLIN Dewitt/ROQUE/JUAN TID: [id number] RECEIPT: [id number] cc: Az Arellano
--- NOTE | 2024-10-17 17:24 | DVHPNRES ---
Progress Note Date Seen: Oct 17, 2024 Resident Creating Document: DEMETRIS MORENO RESIDENT Medical Necessity Reason Pt with a Central, PICC or Fol: No Reason for mcdonald catheter: Sixto. Abd Surgery Subjective Review of Systems 29-year-old male patient who presented to the emergency department with complaints of worsening intermittent generalized abdominal pain that began 7 day prior to admission. He attributed the pain to consuming hensley. The patient was diagnosed with the complicated ruptured acute appendicitis and underwent an open appendectomy. Microbiology showed E faecalis and E coli infection. Today patient underwent lap surgery to remove residual retroperitoneal abscess, EBL 25 cc, surgery was performed without complications. We will continue monitoring closely. Continue with the same antibiotic regimen. Patient reports: Feels better Changes from previous H/P or p: Changes Objective vital signs Vital Sign Date Time Temp Pulse Resp B/P (MAP) Pulse Ox O2 Delivery O2 Flow Rate FiO2 10/17/24 13:20 111 13 109/60 (76) 94 10/17/24 11:32 Room Air 10/17/24 11:32 97.2 97.2 10/17/24 11:32 95 10/17/24 08:00 0 Total Intake and Output 10/16/24 10/16/24 10/17/24 15:00 23:00 07:00 Intake Total 50 ml 400 ml Output Total 0 ml 600 ml Balance 50 ml -200 ml medications Current Medications Medications Dose Ordered Sig/Prosper Route Start Time Stop Time Status Last Admin Dose Admin Ondansetron HCl 4 mg Q4HP PRN IV 09/23/24 16:00 Nitroglycerin 0.4 mg Q5MINP PRN SL 09/23/24 16:15 Pantoprazole Sodium 40 mg DAILY IV 09/24/24 10:00 10/15/24 10:12 40 MG Ergocalciferol 50,000 unit Q7D PO 09/24/24 14:45 10/15/24 13:28 50,000 UNIT Acetaminophen 650 mg Q6HP PRN PO 09/24/24 21:45 10/17/24 08:46 650 MG Melatonin 5 mg HS PRN PO 09/24/24 21:45 09/30/24 21:05 5 MG Magnesium Oxide 400 mg BID PO 09/28/24 10:00 10/17/24 10:00 400 MG Potassium Chloride 10 meq DAILY PO 09/28/24 10:00 10/17/24 10:00 10 MEQ Ceftriaxone Sodium 50 ml @ 100 mls/hr DAILY@09 IV 10/04/24 09:00 Cancel Sodium Chloride 1,000 ml @ 100 mls/hr Q10H IV 10/09/24 14:45 10/17/24 12:45 100 MLS/HR Enoxaparin Sodium 40 mg DAILY SC 10/10/24 10:00 10/15/24 10:12 40 MG Levofloxacin/ Dextrose 100 ml @ 100 mls/hr DAILY IV 10/15/24 13:30 Hold Examination: GENERAL:Normal, HEENT:Normal, NECK:Normal, LUNGS:Normal, CVS:Normal, ABDOMEN:Normal, SKIN:Abnormal, NEURO:Normal, :Normal laboratory and microbiology Laboratory Tests 10/17/24 06:30 Test 10/17/24 06:30 Range/Units Serum Glucose 97 74-106 mg/dL Microbiology Date/Time Source Procedure Growth Status 10/08/24 13:50 Aspirate Gram Stain - Final Complete 10/08/24 13:50 Body Fluid Culture - Final Escherichia coli Complete 09/23/24 23:01 Blood Blood Culture - Final NO GROWTH AFTER 5 DAYS OF INCUBATION. Complete 09/23/24 17:30 Abdomen Gram Stain - Final Complete 09/23/24 17:30 Abdomen Anaerobic Culture - Final Complete 09/23/24 17:30 Aerobic Culture - Final Escherichia coli Complete Problem List/Assessment/Plan Problem List/Assessment/Plan #Sepsis likely due to acute gangrenous appendicitis with perforation #Acute appendicitis complicated by rupture s/p open appendectomy on 09/23/2024. - IV Ampicilin-sulbactam -back drainage 50 cc purulent -Continue close observation -CT scan abdomen and pelvis with p.o. contrast showed * Similar right paracolic gutter/retroperitoneal abscess with a pigtail drain within the fluid collection, appears similar to prior CT from 10/11. * Oral contrast material reaches the cecum. No extravasation of oral contrast material is seen in the abdominal cavity. - IR intervetion: 35 mL of purulent fluid was aspirated from that side and then connected to a drain bag. - Recent fever episodes could be drug related, recommended switch to non beta lactamase antibiotic, levofloxacin 500 mg q.d. was started. - surgery was performed today, successfully. - Continue monitor WBC and vital signs. - clear liquid diet, advance as tolerated. Likely postoperative ileus due to comorbidities - resolved Patient currently tolerating soft diet NEO hemodynamically mediated due to VMN with strong POA Continue IVF Monitor lab Hepatic steatosis Lifestyle modification and dietary habits Vitamin D deficiency Replenished Hypokalemia Replenished Diet soft diet DVT prophylaxis - lovenox 40 m SC Case discussed with Goals of care discussed with the patient for 39 minutes Code status: Full code Plan discussed with: Patient Dietary Evaluation Review Recommendations by RD: Protein Supplementation Comments: 1) Arpan @ 1 pk bid 2) Vitamin C @ 500 mg bid 3) Zinc sulfate @ 220 mg qd 4) Continue to monitor PO intake and wound Expected Outcomes/Goals: 1) wound to improve 2) diet texture to advance to regular when medically feasible 2) appetite and labs to improve 3) f/u in 3-5 days Date of Service: Oct 17, 2024 Billing Provider: DANNY AVILA MD Common Visit Codes: [id number] INP/OBS CARE(HIGH) DEMETRIS MORENO RESIDENT Oct 17, 2024 17:24 DANNY AVILA MD Oct 18, 2024 08:44
--- NOTE | 2024-10-17 22:47 | DVHPN2 ---
Consult Progress Note Date Seen: Oct 17, 2024 Subjective Patient reports: Other (went operrative ex lap , has a new drain in place and stomach has original incision with sutures in place ) Objective vital signs Vital Sign Date Time Temp Pulse Resp B/P (MAP) Pulse Ox O2 Delivery O2 Flow Rate FiO2 10/17/24 21:00 98.7 109 17 103/71 (82) 94 98.7 10/17/24 20:05 Room Air* 0 21 Total Intake and Output 10/16/24 10/16/24 10/17/24 15:00 23:00 07:00 Intake Total 50 ml 400 ml Output Total 0 ml 600 ml Balance 50 ml -200 ml medications Current Medications Medications Dose Ordered Sig/Prosper Route Start Time Stop Time Status Last Admin Dose Admin Ondansetron HCl 4 mg Q4HP PRN IV 09/23/24 16:00 Nitroglycerin 0.4 mg Q5MINP PRN SL 09/23/24 16:15 Pantoprazole Sodium 40 mg DAILY IV 09/24/24 10:00 10/15/24 10:12 40 MG Ergocalciferol 50,000 unit Q7D PO 09/24/24 14:45 10/15/24 13:28 50,000 UNIT Acetaminophen 650 mg Q6HP PRN PO 09/24/24 21:45 10/17/24 21:16 650 MG Melatonin 5 mg HS PRN PO 09/24/24 21:45 09/30/24 21:05 5 MG Magnesium Oxide 400 mg BID PO 09/28/24 10:00 10/17/24 21:16 400 MG Potassium Chloride 10 meq DAILY PO 09/28/24 10:00 10/17/24 10:00 10 MEQ Ceftriaxone Sodium 50 ml @ 100 mls/hr DAILY@09 IV 10/04/24 09:00 Cancel Sodium Chloride 1,000 ml @ 100 mls/hr Q10H IV 10/09/24 14:45 10/17/24 12:45 100 MLS/HR Enoxaparin Sodium 40 mg DAILY SC 10/10/24 10:00 10/15/24 10:12 40 MG Levofloxacin/ Dextrose 100 ml @ 100 mls/hr DAILY IV 10/15/24 13:30 Hold PHYSICAL EXAM: - GENERAL: Alert and oriented x 3. No acute distress. Well-nourished. - EYES: EOMI. Anicteric. - HENT: Moist mucous membranes. No scleral icterus. No cervical lymphadenopathy. - LUNGS: Clear to auscultation bilaterally. No accessory muscle use. - CARDIOVASCULAR: Regular rate and rhythm. No murmur. No JVD. - ABDOMEN: Soft, non-tender and non-distended. No palpable masses. - EXTREMITIES: No edema. Non-tender.?SKIN: No rashes or lesions. Warm. - NEUROLOGIC: No focal neurological deficits. CN II-XII grossly intact, but not individually tested - PSYCHIATRIC: Cooperative. Appropriate mood and affect. laboratory and microbiology Laboratory Tests 10/17/24 06:30 Test 10/17/24 06:30 Range/Units Serum Glucose 97 74-106 mg/dL Problem List/Assessment/Plan Problems(with codes): (1) Pneumonia, unspecified organism (2) Acute abdominal pain (3) Bowel obstruction (4) Electrolyte imbalance (5) Leukocytosis, unspecified (6) Elevated liver enzymes (7) Ruptured appendicitis (8) Acute renal injury (9) Intra-abdominal abscess Problem List/Assessment/Plan ASSESSMENT AND PLAN: ID Problem List: - Intra-abdominal abscesses - Perforated appendicitis - Sepsis - E. coli infection - Ileus - Small bowel obstruction Assessment This is a [age not provided] y.o. male with no significant past medical history who presents with a perforated appendicitis complicated by intra-abdominal abscesses and sepsis. The patient underwent a laparoscopic lysis of adhesions, open drainage of intra- abdominal abscesses, and an open appendectomy on September 23. Operative findings included a distended peritoneum due to ileus, free air, distention of small and large intestines with serosal traction and ischemia, and a perforated appendix. A 19 Fr Noe drainage tube was placed. Currently, the patient has purulent drainage from the Noe drain, with intra- abdominal cultures growing E. coli. White blood cell count remains elevated at 21 on September 25. Repeat imaging revealed multiloculated abscesses in the right paracolic gutter, the largest measuring 14.6 cm. Multiple other fluid collections are inadequately drained. Bowel dilation may be due to ileus. sp Two (2) CT guided placement of 10.2 and 12 Irish pigtail drain into a right paracolic gutter abscess. 10/03: abdominal ct done after multiple drain placemetn shows 12.5 by 11.9 cm fluid collection in right lower quadrant with mildly thickening wall containings pockets of air . drainage catheter wich is not positioned within the fluid collection correlation , proper catheter is recommended. Small dialated multiple bowel loops in the left abdomen with airflow levels , no focal transition point identified. theres nondialated small bowel loops in the right abdomen , a post changes in illio secqual junction may relate to illieus , theres hepatic seratosis and a passing right lung with may represent a lectusus vs airspace disease . Aspirate from drain placemtn is growing E coli from 10/01 and from 09/30 are growing E coli and enterococcus 10/04: ongoing heavy output on drain , growing enterococcus and E coli on intra abdominal culture aspirate. white count is 7.4 10/07: ongoing large abscesses 8cm on CT 10/08: sp CT guided placement of a new 12 Irish pigtail drain into a paracolic gutter abscess. 150 mL foul purulent fluid was aspirated. 10/12: Ct scan shows one drainage tube in the right flank with persistant fluid and small bowel suggesting abscess collection allong the right abdominal wall. the second drain has been removed , fluid collection appears smaller than last on 10/08 10/14: oral contrast CT 10/16: 35ccs of prelimary aspirated frm CT drain that was placed yesterday , persistant tachycardia is concering for ongoing sepsis as well as aongoing drainage when catheters changed out 10/17: S/P Xlap extensive lysis of adhesion was found as well as retroperitoneal abcess that extened to hepatic flexture that was cleaned out . the previous catheter placed by IR was clogged due to necrotic tissue but was removed and Ir catheter was left in place and an addition drain was placed in right upper quadrant IMPRESSION: Similar right paracolic gutter/retroperitoneal abscess with a pigtail drain within the fluid collection, appears similar to prior CT from 10/11. Oral contrast material reaches the cecum. No extravasation of oral contrast material is seen in the abdominal cavity. Plan: - follow up on operative cultures - follow up on new drain output - continue levofloxacin - fevers could be drug related, recommend switch to non-beta lactam --> switch to levofloxacin 500mg qd - patient follow up with infectious disease in 4 weeks - follow up on drain output from new catheter - will fu on drainage output from new drainage catheter - continue to monitor - Continue to monitor WBC count and vital signs - Send any new aspirate samples from drains for aerobic and anaerobic cultures - Follow up on blood cultures Isolation Precautions: Standard Assessment and plan were discussed with the patient as written above. Plan is subject to change pending incorporation of new incoming information/diagnostics. Updates may be added as addendum at the bottom (OR TOP) of this note. Thank you for the interesting consult. ID will continue to follow. Please contact Infectious Disease for any questions or concerns. Plan discussed with: Other Dietary Evaluation Review Recommendations by RD: Protein Supplementation Comments: 1) Arpan @ 1 pk bid 2) Vitamin C @ 500 mg bid 3) Zinc sulfate @ 220 mg qd 4) Continue to monitor PO intake and wound Expected Outcomes/Goals: 1) wound to improve 2) diet texture to advance to regular when medically feasible 2) appetite and labs to improve 3) f/u in 3-5 days JERRY TINEO MD Oct 17, 2024 22:47
[2024-10-18] VITALS (7 sets, daily range): BP systolic 107–126; BP diastolic 65–80; PULSE 95–118; RESP 17–20; TEMP 98.1–100.3; O2SAT 92–97
[2024-10-18] MEDS: MORPHINE SULFATE INJ 2 MG/ml SYRG IV ONE (00:23)
[2024-10-18 07:40] LABS: Chloride 99 mmol/L (98-107); Potassium 3.9 mmol/L (3.5-5.1)
[2024-10-18 07:41] LABS: Anion Gap 10 (5-15); Carbon Dioxide 23 mmol/L (20-31)
[2024-10-18 07:46] LABS: BUN/Creatinine Ratio 16.7 (10.0-20.0); Blood Urea Nitrogen 10 mg/dL (9-23); Glucose 104 mg/dL (74-106)
[2024-10-18 07:47] LABS: Sodium 132 mmol/L (136-145)
[2024-10-18 07:58] LABS: Basophils # (auto) 0 10 ^3/uL (0-0.2); Basophils % (auto) 0.2 % (0.0-2.0); Eosinophils # (auto) 0 10 ^3/uL (0-0.8); Eosinophils % (auto) 0.1 % (0.0-7.0); Hematocrit 29.3 % (41.0-53.0); Lymphocytes # (auto) 0.5 10 ^3/uL (0.4-5.4); Lymphocytes % (auto) 5.9 % (10.0-50.0); Mean Corpuscular Hgb Conc. 34.3 g/dL (32.0-36.0); Mean Corpuscular Volume 93.2 fL (80.0-100.0); Monocytes # (auto) 0.7 10 ^3/uL (0-1.3); Monocytes % (auto) 8.9 % (0.0-12.0); Neutrophils # (auto) 6.9 10 ^3/uL (1.6-8.6); Neutrophils % (auto) 84.9 % (37.0-80.0); Platelet Count (auto) 257 10^3/uL (140-450); Red Blood Cells 3.14 10^6/uL (4.5-5.90); Red Cell Distribution Width 12.6 % (11.8-14.3); White Blood Cell 8.2 10^3/uL (4.4-10.8)
[2024-10-18] MEDS: MORPHINE SULFATE INJ 2 MG/ml SYRG IV PRN (10:31)
[2024-10-18] MEDS ORDERED: AZTREONAM 1GM INJ 1 GM in D5W 5% 50 ML IV SCH (14:00)
[2024-10-18] MEDS: AZTREONAM 1GM INJ 1 GM in D5W 5% 50 ML IV SCH (14:42)
[2024-10-18] MEDS: guaiFENesin 200 MG/10 ML UD PO ONE (18:12)
--- NOTE | 2024-10-18 20:24 | DVHPNRES ---
Progress Note Date Seen: Oct 18, 2024 Resident Creating Document: DEMETRIS MORENO RESIDENT Medical Necessity Reason Pt with a Central, PICC or Fol: No Reason for mcdonald catheter: Sixto. Abd Surgery Subjective Review of Systems 29-year-old male patient who presented to the emergency department with complaints of worsening intermittent generalized abdominal pain that began 7 day prior to admission. He attributed the pain to consuming hensley. The patient was diagnosed with the complicated ruptured acute appendicitis and underwent an open appendectomy. Microbiology showed E faecalis and E coli infection. Patient is doing well after the surgery, is currently on pain management with morphine 2 mg IV Q 6 hours for moderate/severe pain. With a continue monitor vital signs , CBC and CMP. Patient will need to continue on antibiotics IV. We will continue monitoring closely. Objective vital signs Vital Sign Date Time Temp Pulse Resp B/P (MAP) Pulse Ox O2 Delivery O2 Flow Rate FiO2 10/18/24 18:43 105 16 122/68 10/18/24 16:45 99.7 92 99.7 10/18/24 08:00 Room Air* 0 21 Total Intake and Output 10/17/24 10/17/24 10/18/24 15:00 23:00 07:00 Intake Total 100 ml 400 ml 0 ml Output Total 30 ml 350 ml 900 ml Balance 70 ml 50 ml -900 ml medications Current Medications Medications Dose Ordered Sig/Prosper Route Start Time Stop Time Status Last Admin Dose Admin Ondansetron HCl 4 mg Q4HP PRN IV 09/23/24 16:00 Nitroglycerin 0.4 mg Q5MINP PRN SL 09/23/24 16:15 Pantoprazole Sodium 40 mg DAILY IV 09/24/24 10:00 10/18/24 10:30 40 MG Ergocalciferol 50,000 unit Q7D PO 09/24/24 14:45 10/15/24 13:28 50,000 UNIT Acetaminophen 650 mg Q6HP PRN PO 09/24/24 21:45 10/17/24 21:16 650 MG Melatonin 5 mg HS PRN PO 09/24/24 21:45 09/30/24 21:05 5 MG Magnesium Oxide 400 mg BID PO 09/28/24 10:00 10/17/24 21:16 400 MG Potassium Chloride 10 meq DAILY PO 09/28/24 10:00 10/17/24 10:00 10 MEQ Ceftriaxone Sodium 50 ml @ 100 mls/hr DAILY@09 IV 10/04/24 09:00 Cancel Sodium Chloride 1,000 ml @ 100 mls/hr Q10H IV 10/09/24 14:45 10/18/24 10:30 100 MLS/HR Enoxaparin Sodium 40 mg DAILY SC 10/10/24 10:00 10/15/24 10:12 40 MG Levofloxacin/ Dextrose 100 ml @ 100 mls/hr DAILY IV 10/15/24 13:30 Hold Morphine Sulfate 2 mg Q6HPRN PRN IV 10/18/24 10:00 10/18/24 18:13 2 MG Aztreonam 1 gm/ Dextrose 50 ml @ 100 mls/hr Q8HR IV 10/18/24 14:00 UNV Aztreonam 1 gm/ Dextrose 50 ml @ 100 mls/hr Q8HR IV 10/18/24 14:00 10/18/24 14:42 100 MLS/HR Guaifenesin 200 mg Q6HP PRN PO 10/18/24 17:45 laboratory and microbiology Laboratory Tests 10/18/24 06:19 Test 10/18/24 06:19 Range/Units Serum Glucose 104 74-106 mg/dL Microbiology Date/Time Source Procedure Growth Status 10/17/24 10:43 Peritoneal Fluid Gram Stain - Final Resulted 10/17/24 10:43 Peritoneal Fluid Anaerobic Culture - Preliminary Resulted 10/17/24 10:43 Peritoneal Fluid Aerobic Culture - Preliminary Resulted 09/23/24 23:01 Blood Blood Culture - Final NO GROWTH AFTER 5 DAYS OF INCUBATION. Complete 09/23/24 17:30 Abdomen Gram Stain - Final Complete 09/23/24 17:30 Abdomen Anaerobic Culture - Final Complete 09/23/24 17:30 Aerobic Culture - Final Escherichia coli Complete Problem List/Assessment/Plan Problem List/Assessment/Plan #Sepsis likely due to acute gangrenous appendicitis with perforation #Acute appendicitis complicated by rupture s/p open appendectomy on 09/23/2024. - IV Ampicilin-sulbactam -back drainage 50 cc purulent -Continue close observation -CT scan abdomen and pelvis with p.o. contrast showed * Similar right paracolic gutter/retroperitoneal abscess with a pigtail drain within the fluid collection, appears similar to prior CT from 10/11. * Oral contrast material reaches the cecum. No extravasation of oral contrast material is seen in the abdominal cavity. - IR intervetion: 35 mL of purulent fluid was aspirated from that side and then connected to a drain bag. - Recent fever episodes could be drug related, recommended switch to non beta lactamase antibiotic, levofloxacin 500 mg q.d. was started. - surgery was performed today, successfully. - Continue monitor WBC and vital signs. - clear liquid diet, advance as tolerated. Likely postoperative ileus due to comorbidities - resolved Patient currently tolerating soft diet NEO hemodynamically mediated due to VMN with strong POA Continue IVF Monitor lab Hepatic steatosis Lifestyle modification and dietary habits Vitamin D deficiency Replenished Hypokalemia Replenished Diet soft diet DVT prophylaxis - lovenox 40 m SC Case discussed with Goals of care discussed with the patient for 39 minutes Code status: Full code Plan discussed with: Patient, Other (Father) My Orders My Orders Orders - DEMETRIS MORENO Procedure Category Date Status Time Morphine Sulfate PHA 10/18/24 In Process Injection 10:00 Guaifenesin Plain PHA 10/18/24 In Process Liquid (Robitussin Naye 17:45 Dietary Evaluation Review Recommendations by RD: Protein Supplementation Comments: 1) Arpan @ 1 pk bid 2) Vitamin C @ 500 mg bid 3) Zinc sulfate @ 220 mg qd 4) Continue to monitor PO intake and wound Expected Outcomes/Goals: 1) wound to improve 2) diet texture to advance to regular when medically feasible 2) appetite and labs to improve 3) f/u in 3-5 days Date of Service: Oct 18, 2024 Billing Provider: DANNY AVILA MD Common Visit Codes: [id number] INP/OBS CARE(HIGH) DEMETRIS MORENO RESIDENT Oct 18, 2024 20:24 DANNY AVILA MD Oct 22, 2024 20:38
[2024-10-18] MEDS: ONDANSETRON HCL 4 MG/2 ML VIAL IV PRN (22:53)
[2024-10-19] VITALS (8 sets, daily range): BP systolic 115–136; BP diastolic 73–82; PULSE 70–111; RESP 14–20; TEMP 97.8–99.1; O2SAT 92–100
[2024-10-19] MEDS: guaiFENesin 200 MG/10 ML UD PO PRN (00:12)
[2024-10-19 06:21] LABS: Basophils # (auto) 0 10 ^3/uL (0-0.2); Basophils % (auto) 0.4 % (0.0-2.0); Eosinophils # (auto) 0 10 ^3/uL (0-0.8); Eosinophils % (auto) 0.2 % (0.0-7.0); Hematocrit 28.6 % (41.0-53.0); Lymphocytes # (auto) 0.5 10 ^3/uL (0.4-5.4); Lymphocytes % (auto) 8.4 % (10.0-50.0); Mean Corpuscular Volume 91.5 fL (80.0-100.0); Monocytes # (auto) 0.5 10 ^3/uL (0-1.3); Monocytes % (auto) 9.5 % (0.0-12.0); Neutrophils # (auto) 4.6 10 ^3/uL (1.6-8.6); Neutrophils % (auto) 81.5 % (37.0-80.0); Platelet Count (auto) 227 10^3/uL (140-450); Red Blood Cells 3.13 10^6/uL (4.5-5.90); Red Cell Distribution Width 12.9 % (11.8-14.3); White Blood Cell 5.6 10^3/uL (4.4-10.8)
[2024-10-19 06:39] LABS: Alanine Aminotransferase 109 U/L (7-40); Albumin 3.4 g/dL (3.2-4.8); Alkaline Phosphatase 131 U/L (46-116); Anion Gap 8 (5-15); Aspartate Aminotransferase 158 U/L (13-40); Bilirubin, Total 0.4 mg/dL (0.2-1.0); Blood Urea Nitrogen 9 mg/dL (9-23); Calcium 9.1 mg/dL (8.7-10.4); Carbon Dioxide 25 mmol/L (20-31); Chloride 100 mmol/L (98-107); Glucose 107 mg/dL (74-106); Potassium 3.3 mmol/L (3.5-5.1); Sodium 133 mmol/L (136-145); Total Protein 6.9 g/dL (5.7-8.2)
[2024-10-19] MEDS: POTASSIUM EFFERVESENT TAB 25 MEQ PO ONE (12:32)
[2024-10-19] MEDS: HYDROcodone-ACET 5/325MG TAB PO PRN (12:32)
[2024-10-19] MEDS: KETOROLAC TROMETH 30 MG/ML 1ML VIAL IV ONE (13:45)
[2024-10-19] MEDS ORDERED: MORPHINE SULFATE INJ 2 MG/ml SYRG IV PRN (13:45)
--- NOTE | 2024-10-19 15:20 | DVHPNRES ---
Progress Note Date Seen: Oct 19, 2024 Resident Creating Document: AAKASH SEWELL RESIDENT Medical Necessity Reason Pt with a Central, PICC or Fol: No Reason for mcdonald catheter: Sixto. Abd Surgery Subjective Review of Systems 29-year-old male patient who presented to the emergency department with complaints of worsening intermittent generalized abdominal pain that began 7 day prior to admission. He attributed the pain to consuming hensley. The patient was diagnosed with the complicated ruptured acute appendicitis and underwent an open appendectomy. Microbiology showed E faecalis and E coli infection. Patient is doing well after the surgery, is currently on pain management with morphine 2 mg IV Q 6 hours for moderate/severe pain. With a continue monitor vital signs , CBC and CMP. Patient will need to continue on antibiotics IV. We will continue monitoring closely. Objective vital signs Vital Sign Date Time Temp Pulse Resp B/P (MAP) Pulse Ox O2 Delivery O2 Flow Rate FiO2 10/19/24 12:55 98.3 103 18 121/74 (90) 95 98.3 10/19/24 08:00 Room Air* 0 21 Total Intake and Output 10/18/24 10/18/24 10/19/24 15:00 23:00 07:00 Intake Total 100 ml 200 ml Output Total 500 ml 650 ml Balance -400 ml -450 ml medications Current Medications Medications Dose Ordered Sig/Prosper Route Start Time Stop Time Status Last Admin Dose Admin Ondansetron HCl 4 mg Q4HP PRN IV 09/23/24 16:00 10/18/24 22:53 4 MG Nitroglycerin 0.4 mg Q5MINP PRN SL 09/23/24 16:15 Pantoprazole Sodium 40 mg DAILY IV 09/24/24 10:00 10/19/24 09:48 40 MG Ergocalciferol 50,000 unit Q7D PO 09/24/24 14:45 10/15/24 13:28 50,000 UNIT Acetaminophen 650 mg Q6HP PRN PO 09/24/24 21:45 10/19/24 09:50 650 MG Melatonin 5 mg HS PRN PO 09/24/24 21:45 09/30/24 21:05 5 MG Magnesium Oxide 400 mg BID PO 09/28/24 10:00 10/19/24 09:48 400 MG Potassium Chloride 10 meq DAILY PO 09/28/24 10:00 10/19/24 09:49 10 MEQ Ceftriaxone Sodium 50 ml @ 100 mls/hr DAILY@09 IV 10/04/24 09:00 Cancel Sodium Chloride 1,000 ml @ 100 mls/hr Q10H IV 10/09/24 14:45 10/19/24 07:23 100 MLS/HR Enoxaparin Sodium 40 mg DAILY SC 10/10/24 10:00 10/15/24 10:12 40 MG Levofloxacin/ Dextrose 100 ml @ 100 mls/hr DAILY IV 10/15/24 13:30 Hold Aztreonam 1 gm/ Dextrose 50 ml @ 100 mls/hr Q8HR IV 10/18/24 14:00 UNV Aztreonam 1 gm/ Dextrose 50 ml @ 100 mls/hr Q8HR IV 10/18/24 14:00 10/19/24 13:22 100 MLS/HR Guaifenesin 200 mg Q6HP PRN PO 10/18/24 17:45 10/19/24 10:30 200 MG Ketorolac Tromethamine 30 mg Q12HR IV 10/19/24 22:00 10/24/24 21:59 Morphine Sulfate 2 mg Q6HPRN PRN IV 10/19/24 13:45 Examination GENERAL:Normal, HEENT:Normal, NECK:Normal, LUNGS:Normal, CVS:Normal, ABDOMEN:Normal, SKIN:Abnormal, NEURO:Normal, :Normal laboratory and microbiology Laboratory Tests 10/19/24 05:30 Test 10/19/24 05:30 Range/Units Serum Glucose 107 H 74-106 mg/dL Microbiology Date/Time Source Procedure Growth Status 10/17/24 10:43 Peritoneal Fluid Gram Stain - Final Resulted 10/17/24 10:43 Peritoneal Fluid Anaerobic Culture - Preliminary Resulted 10/17/24 10:43 Peritoneal Fluid Aerobic Culture - Preliminary Resulted 09/23/24 23:01 Blood Blood Culture - Final NO GROWTH AFTER 5 DAYS OF INCUBATION. Complete 09/23/24 17:30 Abdomen Gram Stain - Final Complete 09/23/24 17:30 Abdomen Anaerobic Culture - Final Complete 09/23/24 17:30 Aerobic Culture - Final Escherichia coli Complete Problem List/Assessment/Plan Problem List/Assessment/Plan #Sepsis likely due to acute gangrenous appendicitis with perforation #Acute appendicitis complicated by rupture s/p open appendectomy on 09/23/2024. - IV Ampicilin-sulbactam -back drainage 50 cc purulent -Continue close observation -CT scan abdomen and pelvis with p.o. contrast showed Similar right paracolic gutter/retroperitoneal abscess with a pigtail drain within the fluid collection, appears similar to prior CT from 10/11. Oral contrast material reaches the cecum. No extravasation of oral contrast material is seen in the abdominal cavity. - IR intervetion: 35 mL of purulent fluid was aspirated from that side and then connected to a drain bag. - Recent fever episodes could be drug related, recommended switch to non beta lactamase antibiotic, levofloxacin 500 mg q.d. was started. - surgery was performed today, successfully. - Continue monitor WBC and vital signs. - clear liquid diet, advance as tolerated. Likely postoperative ileus due to comorbidities - resolved Patient currently tolerating soft diet NEO hemodynamically mediated due to VMN with strong POA Continue IVF Monitor lab Hepatic steatosis Lifestyle modification and dietary habits Vitamin D deficiency Replenished Hypokalemia Replenished Diet soft diet DVT prophylaxis - lovenox 40 m SC Case discussed with Goals of care discussed with the patient for 24 minutes Code status: Full code Plan discussed with: Patient My Orders My Orders Orders - AAKASH SEWELL RESIDENT Procedure Category Date Status Time Complete Blood Count LAB 10/20/24 Verified 04:00 Comprehensive LAB 10/20/24 Verified Metabolic Panel 04:00 Ketorolac Injection PHA 10/19/24 In Process (Toradol Injection) 22:00 Morphine Sulfate PHA 10/19/24 In Process Injection 13:45 Dietary Evaluation Review Recommendations by RD: Protein Supplementation Comments: 1) Arpan @ 1 pk bid 2) Vitamin C @ 500 mg bid 3) Zinc sulfate @ 220 mg qd 4) Continue to monitor PO intake and wound Expected Outcomes/Goals: 1) wound to improve 2) diet texture to advance to regular when medically feasible 2) appetite and labs to improve 3) f/u in 3-5 days Date of Service: Oct 19, 2024 Billing Provider: DANNY AVILA MD Common Visit Codes: [id number] INP/OBS CARE(HIGH) AAKASH SEWELL Oct 19, 2024 15:20 DANNY AVILA MD Oct 22, 2024 20:38
--- NOTE | 2024-10-19 16:25 | DVHPN2 ---
Progress Note Date Seen: Oct 18, 2024 Medical Necessity Reason Pt with a Central, PICC or Fol: No Reason for mcdonald catheter: Sixto. Abd Surgery Objective vital signs Vital Sign Date Time Temp Pulse Resp B/P (MAP) Pulse Ox O2 Delivery O2 Flow Rate FiO2 10/19/24 12:55 98.3 103 18 121/74 (90) 95 98.3 10/19/24 08:00 Room Air* 0 21 Total Intake and Output 10/18/24 10/18/24 10/19/24 15:00 23:00 07:00 Intake Total 100 ml 200 ml Output Total 500 ml 650 ml Balance -400 ml -450 ml medications Current Medications Medications Dose Ordered Sig/Prosper Route Start Time Stop Time Status Last Admin Dose Admin Ondansetron HCl 4 mg Q4HP PRN IV 09/23/24 16:00 10/18/24 22:53 4 MG Nitroglycerin 0.4 mg Q5MINP PRN SL 09/23/24 16:15 Pantoprazole Sodium 40 mg DAILY IV 09/24/24 10:00 10/19/24 09:48 40 MG Ergocalciferol 50,000 unit Q7D PO 09/24/24 14:45 10/15/24 13:28 50,000 UNIT Acetaminophen 650 mg Q6HP PRN PO 09/24/24 21:45 10/19/24 09:50 650 MG Melatonin 5 mg HS PRN PO 09/24/24 21:45 09/30/24 21:05 5 MG Magnesium Oxide 400 mg BID PO 09/28/24 10:00 10/19/24 09:48 400 MG Potassium Chloride 10 meq DAILY PO 09/28/24 10:00 10/19/24 09:49 10 MEQ Ceftriaxone Sodium 50 ml @ 100 mls/hr DAILY@09 IV 10/04/24 09:00 Cancel Sodium Chloride 1,000 ml @ 100 mls/hr Q10H IV 10/09/24 14:45 10/19/24 07:23 100 MLS/HR Enoxaparin Sodium 40 mg DAILY SC 10/10/24 10:00 10/15/24 10:12 40 MG Levofloxacin/ Dextrose 100 ml @ 100 mls/hr DAILY IV 10/15/24 13:30 Hold Aztreonam 1 gm/ Dextrose 50 ml @ 100 mls/hr Q8HR IV 10/18/24 14:00 UNV Aztreonam 1 gm/ Dextrose 50 ml @ 100 mls/hr Q8HR IV 10/18/24 14:00 10/19/24 13:22 100 MLS/HR Guaifenesin 200 mg Q6HP PRN PO 10/18/24 17:45 10/19/24 10:30 200 MG Ketorolac Tromethamine 30 mg Q12HR IV 10/19/24 22:00 10/24/24 21:59 Morphine Sulfate 2 mg Q6HPRN PRN IV 10/19/24 13:45 laboratory and microbiology Laboratory Tests 10/19/24 05:30 Test 10/19/24 05:30 Range/Units Serum Glucose 107 H 74-106 mg/dL Microbiology Date/Time Source Procedure Growth Status 10/17/24 10:43 Peritoneal Fluid Gram Stain - Final Resulted 10/17/24 10:43 Peritoneal Fluid Anaerobic Culture - Preliminary Resulted 10/17/24 10:43 Peritoneal Fluid Aerobic Culture - Preliminary Resulted 09/23/24 23:01 Blood Blood Culture - Final NO GROWTH AFTER 5 DAYS OF INCUBATION. Complete 09/23/24 17:30 Abdomen Gram Stain - Final Complete 09/23/24 17:30 Abdomen Anaerobic Culture - Final Complete 09/23/24 17:30 Aerobic Culture - Final Escherichia coli Complete Problem List/Assessment/Plan Problem List/Assessment/Plan AFEBRILE VSS ABD SOFT ABD WOUND IR BACK DRAINAGE NOTED DRESSING CHANGED BM + FLATUS + WBC WNL IV ABX NURSE AT BEDSIDE LLQ DRAIN SEROUS 10 CC NO COMPLICATIONS OP FINDINGS DISCUSSED FAMILY AT BEDSIDE Plan discussed with: Patient My Orders My Orders Orders - EDISON NUÑEZ MD Procedure Category Date Status Time Full Liq Diet DIET 10/19/24 Transmitted Lunch Dietary Evaluation Review Recommendations by RD: Protein Supplementation Comments: 1) Arpan @ 1 pk bid 2) Vitamin C @ 500 mg bid 3) Zinc sulfate @ 220 mg qd 4) Continue to monitor PO intake and wound Expected Outcomes/Goals: 1) wound to improve 2) diet texture to advance to regular when medically feasible 2) appetite and labs to improve 3) f/u in 3-5 days EDISON NUÑEZ MD Oct 19, 2024 16:25
--- NOTE | 2024-10-19 16:27 | DVHPN2 ---
Progress Note Date Seen: Oct 19, 2024 Medical Necessity Reason Pt with a Central, PICC or Fol: No Reason for mcdonald catheter: Sixto. Abd Surgery Objective vital signs Vital Sign Date Time Temp Pulse Resp B/P (MAP) Pulse Ox O2 Delivery O2 Flow Rate FiO2 10/19/24 12:55 98.3 103 18 121/74 (90) 95 98.3 10/19/24 08:00 Room Air* 0 21 Total Intake and Output 10/18/24 10/18/24 10/19/24 15:00 23:00 07:00 Intake Total 100 ml 200 ml Output Total 500 ml 650 ml Balance -400 ml -450 ml medications Current Medications Medications Dose Ordered Sig/Prosper Route Start Time Stop Time Status Last Admin Dose Admin Ondansetron HCl 4 mg Q4HP PRN IV 09/23/24 16:00 10/18/24 22:53 4 MG Nitroglycerin 0.4 mg Q5MINP PRN SL 09/23/24 16:15 Pantoprazole Sodium 40 mg DAILY IV 09/24/24 10:00 10/19/24 09:48 40 MG Ergocalciferol 50,000 unit Q7D PO 09/24/24 14:45 10/15/24 13:28 50,000 UNIT Acetaminophen 650 mg Q6HP PRN PO 09/24/24 21:45 10/19/24 09:50 650 MG Melatonin 5 mg HS PRN PO 09/24/24 21:45 09/30/24 21:05 5 MG Magnesium Oxide 400 mg BID PO 09/28/24 10:00 10/19/24 09:48 400 MG Potassium Chloride 10 meq DAILY PO 09/28/24 10:00 10/19/24 09:49 10 MEQ Ceftriaxone Sodium 50 ml @ 100 mls/hr DAILY@09 IV 10/04/24 09:00 Cancel Sodium Chloride 1,000 ml @ 100 mls/hr Q10H IV 10/09/24 14:45 10/19/24 07:23 100 MLS/HR Enoxaparin Sodium 40 mg DAILY SC 10/10/24 10:00 10/15/24 10:12 40 MG Levofloxacin/ Dextrose 100 ml @ 100 mls/hr DAILY IV 10/15/24 13:30 Hold Aztreonam 1 gm/ Dextrose 50 ml @ 100 mls/hr Q8HR IV 10/18/24 14:00 UNV Aztreonam 1 gm/ Dextrose 50 ml @ 100 mls/hr Q8HR IV 10/18/24 14:00 10/19/24 13:22 100 MLS/HR Guaifenesin 200 mg Q6HP PRN PO 10/18/24 17:45 10/19/24 10:30 200 MG Ketorolac Tromethamine 30 mg Q12HR IV 10/19/24 22:00 10/24/24 21:59 Morphine Sulfate 2 mg Q6HPRN PRN IV 10/19/24 13:45 laboratory and microbiology Laboratory Tests 10/19/24 05:30 Test 10/19/24 05:30 Range/Units Serum Glucose 107 H 74-106 mg/dL Microbiology Date/Time Source Procedure Growth Status 10/17/24 10:43 Peritoneal Fluid Gram Stain - Final Resulted 10/17/24 10:43 Peritoneal Fluid Anaerobic Culture - Preliminary Resulted 10/17/24 10:43 Peritoneal Fluid Aerobic Culture - Preliminary Resulted 09/23/24 23:01 Blood Blood Culture - Final NO GROWTH AFTER 5 DAYS OF INCUBATION. Complete 09/23/24 17:30 Abdomen Gram Stain - Final Complete 09/23/24 17:30 Abdomen Anaerobic Culture - Final Complete 09/23/24 17:30 Aerobic Culture - Final Escherichia coli Complete Problem List/Assessment/Plan Problem List/Assessment/Plan AFEBRILE VSS ABD SOFT S/P E LAP DRESSING CHANGED BM + FLATUS + WBC WNL IV ABX NURSE AT BEDSIDE LLQ DRAIN SEROUS 5 CC NO COMPLICATIONS FAMILY AT BEDSIDE ADVANCE DIET CHAIM Plan discussed with: Patient My Orders My Orders Orders - EDISON NUÑEZ MD Procedure Category Date Status Time Full Liq Diet DIET 10/19/24 Transmitted Lunch Dietary Evaluation Review Recommendations by RD: Protein Supplementation Comments: 1) Arpan @ 1 pk bid 2) Vitamin C @ 500 mg bid 3) Zinc sulfate @ 220 mg qd 4) Continue to monitor PO intake and wound Expected Outcomes/Goals: 1) wound to improve 2) diet texture to advance to regular when medically feasible 2) appetite and labs to improve 3) f/u in 3-5 days EDISON NUÑEZ MD Oct 19, 2024 16:27
--- NOTE | 2024-10-19 17:10 | MEDREC ---
[facility] Intervention Section I [facility] Intervention: IV to PO conversion (LEVOFLOXACIN IV IS NOT AVAILABLE FROM [facility]. PLEASE CONSIDER SWITCHING LEVOFLOXACIN IV TO PO SINCE PATIENT CAN EAT AND TAKE PO MEDICATIONS NOW. ) HOLLIE ESCALONA Oct 19, 2024 17:10
[2024-10-19] MEDS: KETOROLAC TROMETH 30 MG/ML 1ML VIAL IV SCH (21:18)
[2024-10-20 01:00] VITALS: BP 112/81; PULSE 103; RESP 18; TEMP 97.4; O2SAT 96
[2024-10-20 05:00] VITALS: BP 122/69; PULSE 109; RESP 19; TEMP 97.4; O2SAT 93
[2024-10-20 05:56] LABS: Basophils # (auto) 0 10 ^3/uL (0-0.2); Basophils % (auto) 0.6 % (0.0-2.0); Eosinophils # (auto) 0.1 10 ^3/uL (0-0.8); Hematocrit 29.2 % (41.0-53.0); Hemoglobin 9.8 g/dL (13.5-17.5); Lymphocytes # (auto) 0.6 10 ^3/uL (0.4-5.4); Lymphocytes % (auto) 10.4 % (10.0-50.0); Mean Corpuscular Hemoglobin 32.2 pg (28.0-32.0); Mean Corpuscular Hgb Conc. 33.5 g/dL (32.0-36.0); Mean Corpuscular Volume 96.3 fL (80.0-100.0); Monocytes # (auto) 0.5 10 ^3/uL (0-1.3); Monocytes % (auto) 8.5 % (0.0-12.0); Neutrophils # (auto) 4.5 10 ^3/uL (1.6-8.6); Neutrophils % (auto) 79.5 % (37.0-80.0); Nucleated Red Blood Cells % 0.1 %; Platelet Count (auto) 232 10^3/uL (140-450); Red Blood Cells 3.03 10^6/uL (4.5-5.90); Red Cell Distribution Width 12.6 % (11.8-14.3); White Blood Cell 5.6 10^3/uL (4.4-10.8)
[2024-10-20 06:15] LABS: Alkaline Phosphatase 111 U/L (46-116); Anion Gap 8 (5-15); BUN/Creatinine Ratio 10.5 (10.0-20.0); Carbon Dioxide 22 mmol/L (20-31); Chloride 102 mmol/L (98-107); Glucose 99 mg/dL (74-106); Potassium 3.8 mmol/L (3.5-5.1)
[2024-10-20 06:16] LABS: Albumin 3.3 g/dL (3.2-4.8)
[2024-10-20 06:17] LABS: Bilirubin, Total 0.3 mg/dL (0.2-1.0); Total Protein 6.8 g/dL (5.7-8.2)
[2024-10-20 06:33] LABS: Alanine Aminotransferase 79 U/L (7-40); Aspartate Aminotransferase 52 U/L (13-40); Blood Urea Nitrogen 6 mg/dL (9-23); Sodium 132 mmol/L (136-145)
[2024-10-20 09:00] VITALS: BP 109/77; PULSE 103; RESP 18; TEMP 97.4; O2SAT 96
[2024-10-20 13:00] VITALS: BP 117/79; PULSE 101; RESP 16; TEMP 98; O2SAT 97
[2024-10-20 17:34] VITALS: BP 120/79; PULSE 103; RESP 16; TEMP 98.1; O2SAT 97
--- NOTE | 2024-10-20 18:52 | DVHPNRES ---
Progress Note Date Seen: Oct 20, 2024 Resident Creating Document: DEMETRIS MORENO RESIDENT Medical Necessity Reason Pt with a Central, PICC or Fol: No Reason for mcdonald catheter: Sixto. Abd Surgery Subjective Review of Systems 29-year-old male patient who presented to the emergency department with complaints of worsening intermittent generalized abdominal pain that began 7 day prior to admission. He attributed the pain to consuming hensley. The patient was diagnosed with the complicated ruptured acute appendicitis and underwent an open appendectomy. Microbiology showed E faecalis and E coli infection. Patient is doing well after the surgery, is currently on pain management with morphine 2 mg IV Q 6 hours for moderate/severe pain. With a continue monitor vital signs , CBC and CMP. Patient will need to continue on antibiotics IV. We will continue monitoring closely. Patient examined at bedside, he reports feeling better, he has been walking and they was advanced to mechanical soft. Patient reports: Feels better Changes from previous H/P or p: Changes Review of Systems: HEENT:Normal, CVS:Normal, RESPIRATORY:Normal, GI:Normal, :Normal, MSK:Normal, NEURO:Normal Objective vital signs Vital Sign Date Time Temp Pulse Resp B/P (MAP) Pulse Ox O2 Delivery O2 Flow Rate FiO2 10/20/24 17:34 98.1 103 16 120/79 (93) 97 98.1 10/20/24 08:00 Room Air* 0 21 Total Intake and Output 10/19/24 10/19/24 10/20/24 15:00 23:00 07:00 Intake Total 1000 ml 410 ml 470 ml Output Total 1100 ml 1000 ml Balance 1000 ml -690 ml -530 ml medications Current Medications Medications Dose Ordered Sig/Prosper Route Start Time Stop Time Status Last Admin Dose Admin Ondansetron HCl 4 mg Q4HP PRN IV 09/23/24 16:00 10/18/24 22:53 4 MG Nitroglycerin 0.4 mg Q5MINP PRN SL 09/23/24 16:15 Pantoprazole Sodium 40 mg DAILY IV 09/24/24 10:00 10/20/24 09:36 40 MG Ergocalciferol 50,000 unit Q7D PO 09/24/24 14:45 10/15/24 13:28 50,000 UNIT Acetaminophen 650 mg Q6HP PRN PO 09/24/24 21:45 10/19/24 09:50 650 MG Melatonin 5 mg HS PRN PO 09/24/24 21:45 09/30/24 21:05 5 MG Magnesium Oxide 400 mg BID PO 09/28/24 10:00 10/20/24 09:37 400 MG Potassium Chloride 10 meq DAILY PO 09/28/24 10:00 10/20/24 09:39 10 MEQ Ceftriaxone Sodium 50 ml @ 100 mls/hr DAILY@09 IV 10/04/24 09:00 Cancel Sodium Chloride 1,000 ml @ 100 mls/hr Q10H IV 10/09/24 14:45 10/20/24 10:18 100 MLS/HR Enoxaparin Sodium 40 mg DAILY SC 10/10/24 10:00 10/15/24 10:12 40 MG Levofloxacin/ Dextrose 100 ml @ 100 mls/hr DAILY IV 10/15/24 13:30 Hold Aztreonam 1 gm/ Dextrose 50 ml @ 100 mls/hr Q8HR IV 10/18/24 14:00 UNV Aztreonam 1 gm/ Dextrose 50 ml @ 100 mls/hr Q8HR IV 10/18/24 14:00 10/20/24 14:22 100 MLS/HR Guaifenesin 200 mg Q6HP PRN PO 10/18/24 17:45 10/19/24 10:30 200 MG Ketorolac Tromethamine 30 mg Q12HR IV 10/19/24 22:00 10/24/24 21:59 10/20/24 09:37 30 MG Morphine Sulfate 2 mg Q6HPRN PRN IV 10/19/24 13:45 Examination: GENERAL:Normal, HEENT:Normal, NECK:Abnormal, LUNGS:Normal, CVS:Normal, ABDOMEN:Normal, MSK:Normal, SKIN:Normal, NEURO:Normal, :Normal laboratory and microbiology Laboratory Tests 10/20/24 05:48 Test 10/20/24 05:48 Range/Units Serum Glucose 99 74-106 mg/dL Microbiology Date/Time Source Procedure Growth Status 10/17/24 10:43 Peritoneal Fluid Gram Stain - Final Resulted 10/17/24 10:43 Anaerobic Culture - Preliminary Prevotella loescheii Resulted 10/17/24 10:43 Peritoneal Fluid Aerobic Culture - Preliminary Resulted 09/23/24 23:01 Blood Blood Culture - Final NO GROWTH AFTER 5 DAYS OF INCUBATION. Complete 09/23/24 17:30 Abdomen Gram Stain - Final Complete 09/23/24 17:30 Abdomen Anaerobic Culture - Final Complete 09/23/24 17:30 Aerobic Culture - Final Escherichia coli Complete Problem List/Assessment/Plan Problem List/Assessment/Plan #Sepsis likely due to acute gangrenous appendicitis with perforation #Acute appendicitis complicated by rupture s/p open appendectomy on 09/23/2024. - IV Ampicilin-sulbactam -back drainage 50 cc purulent -Continue close observation -CT scan abdomen and pelvis with p.o. contrast showed * Similar right paracolic gutter/retroperitoneal abscess with a pigtail drain within the fluid collection, appears similar to prior CT from 10/11. * Oral contrast material reaches the cecum. No extravasation of oral contrast material is seen in the abdominal cavity. - IR intervetion: 35 mL of purulent fluid was aspirated from that side and then connected to a drain bag. - Recent fever episodes could be drug related, recommended switch to non beta lactamase antibiotic, levofloxacin 500 mg q.d. was started. - surgery was performed today, successfully. - Continue monitor WBC and vital signs. - clear liquid diet, advance as tolerated. Likely postoperative ileus due to comorbidities - resolved Patient currently tolerating soft diet NEO hemodynamically mediated due to VMN with strong POA Continue IVF Monitor lab Hepatic steatosis Lifestyle modification and dietary habits Vitamin D deficiency Replenished Hypokalemia Replenished Diet soft diet DVT prophylaxis - lovenox 40 m SC Case discussed with Goals of care discussed with the patient for 39 minutes Code status: Full code Plan discussed with: Patient Dietary Evaluation Review Recommendations by RD: Protein Supplementation Comments: 1) Arpan @ 1 pk bid 2) Vitamin C @ 500 mg bid 3) Zinc sulfate @ 220 mg qd 4) Continue to monitor PO intake and wound Expected Outcomes/Goals: 1) wound to improve 2) diet texture to advance to regular when medically feasible 2) appetite and labs to improve 3) f/u in 3-5 days Date of Service: Oct 20, 2024 Billing Provider: DANNY AVILA MD Common Visit Codes: [id number] INP/OBS CARE(HIGH) DEMETRIS MORENO RESIDENT Oct 20, 2024 18:52 DANNY AVILA MD Oct 22, 2024 20:39
[2024-10-20 21:00] VITALS: BP 122/80; PULSE 109; RESP 17; TEMP 99.9; O2SAT 95
[2024-10-21 00:46] VITALS: BP 114/81; PULSE 100; RESP 17; TEMP 99.1; O2SAT 95
[2024-10-21 05:00] VITALS: BP 121/83; PULSE 104; RESP 17; TEMP 99.1; O2SAT 95
[2024-10-21 07:29] LABS: Anion Gap 8 (5-15); Carbon Dioxide 23 mmol/L (20-31); Chloride 103 mmol/L (98-107); Potassium 3.7 mmol/L (3.5-5.1)
[2024-10-21 07:35] LABS: BUN/Creatinine Ratio 13.6 (10.0-20.0)
[2024-10-21 07:42] LABS: Blood Urea Nitrogen 8 mg/dL (9-23); Glucose 106 mg/dL (74-106); Sodium 134 mmol/L (136-145)
[2024-10-21 08:49] VITALS: BP 117/76; PULSE 107; RESP 16; TEMP 99.1; O2SAT 94
[2024-10-21 12:53] VITALS: BP 120/83; PULSE 93; RESP 18; TEMP 97.8; O2SAT 96
[2024-10-21 16:33] VITALS: BP 119/81; PULSE 108; RESP 18; TEMP 98.1; O2SAT 96
--- NOTE | 2024-10-21 17:23 | DVHPN2 ---
Progress Note Date Seen: Oct 21, 2024 Medical Necessity Reason Pt with a Central, PICC or Fol: No Reason for mcdonald catheter: Sixto. Abd Surgery Objective vital signs Vital Sign Date Time Temp Pulse Resp B/P (MAP) Pulse Ox O2 Delivery O2 Flow Rate FiO2 10/21/24 16:33 98.1 108 18 119/81 (94) 96 98.1 10/21/24 08:00 Room Air* 0 21 Total Intake and Output 10/20/24 10/20/24 10/21/24 15:00 23:00 07:00 Intake Total 625 ml 750 ml Output Total 300 ml 400 ml Balance 325 ml 350 ml medications Current Medications Medications Dose Ordered Sig/Prosper Route Start Time Stop Time Status Last Admin Dose Admin Ondansetron HCl 4 mg Q4HP PRN IV 09/23/24 16:00 10/18/24 22:53 4 MG Nitroglycerin 0.4 mg Q5MINP PRN SL 09/23/24 16:15 Pantoprazole Sodium 40 mg DAILY IV 09/24/24 10:00 10/21/24 10:10 40 MG Ergocalciferol 50,000 unit Q7D PO 09/24/24 14:45 10/15/24 13:28 50,000 UNIT Acetaminophen 650 mg Q6HP PRN PO 09/24/24 21:45 10/19/24 09:50 650 MG Melatonin 5 mg HS PRN PO 09/24/24 21:45 09/30/24 21:05 5 MG Magnesium Oxide 400 mg BID PO 09/28/24 10:00 10/21/24 10:10 400 MG Potassium Chloride 10 meq DAILY PO 09/28/24 10:00 10/21/24 10:11 10 MEQ Ceftriaxone Sodium 50 ml @ 100 mls/hr DAILY@09 IV 10/04/24 09:00 Cancel Sodium Chloride 1,000 ml @ 100 mls/hr Q10H IV 10/09/24 14:45 10/20/24 10:18 100 MLS/HR Levofloxacin/ Dextrose 100 ml @ 100 mls/hr DAILY IV 10/15/24 13:30 Hold Aztreonam 1 gm/ Dextrose 50 ml @ 100 mls/hr Q8HR IV 10/18/24 14:00 UNV Aztreonam 1 gm/ Dextrose 50 ml @ 100 mls/hr Q8HR IV 10/18/24 14:00 10/21/24 15:35 100 MLS/HR Guaifenesin 200 mg Q6HP PRN PO 10/18/24 17:45 10/19/24 10:30 200 MG Ketorolac Tromethamine 30 mg Q12HR IV 10/19/24 22:00 10/24/24 21:59 10/21/24 10:10 30 MG Morphine Sulfate 2 mg Q6HPRN PRN IV 10/19/24 13:45 laboratory and microbiology Laboratory Tests 10/21/24 06:24 10/20/24 05:48 Test 10/21/24 06:24 Range/Units Serum Glucose 106 74-106 mg/dL Microbiology Date/Time Source Procedure Growth Status 10/17/24 10:43 Peritoneal Fluid Gram Stain - Final Resulted 10/17/24 10:43 Anaerobic Culture - Preliminary Prevotella loescheii Resulted 10/17/24 10:43 Peritoneal Fluid Aerobic Culture - Preliminary Resulted 09/23/24 23:01 Blood Blood Culture - Final NO GROWTH AFTER 5 DAYS OF INCUBATION. Complete 09/23/24 17:30 Abdomen Gram Stain - Final Complete 09/23/24 17:30 Abdomen Anaerobic Culture - Final Complete 09/23/24 17:30 Aerobic Culture - Final Escherichia coli Complete Problem List/Assessment/Plan Problem List/Assessment/Plan AFEBRILE VSS ABD SOFT S/P E LAP DRESSING CHANGED BM + FLATUS + WBC WNL IV ABX NURSE AT BEDSIDE LLQ DRAIN SEROUS 10 CC NO COMPLICATIONS FAMILY AT BEDSIDE DC IR DRAIN PER RADIOLOGY Plan discussed with: Patient Dietary Evaluation Review Recommendations by RD: Protein Supplementation Comments: 1) Arpan @ 1 pk bid 2) Vitamin C @ 500 mg bid 3) Zinc sulfate @ 220 mg qd 4) Continue to monitor PO intake and wound Expected Outcomes/Goals: 1) wound to improve 2) diet texture to advance to regular when medically feasible 2) appetite and labs to improve 3) f/u in 3-5 days EDISON NUÑEZ MD Oct 21, 2024 17:23
--- NOTE | 2024-10-21 18:21 | MEDREC ---
[facility] ASP Intervention Section I [facility] ASP Intervention: Review courses of therapy (PLEASE CONSIDER ADDING COVERAGE FOR ENTEROCOCCUS FAECALIS AND PREVOTELLA - AZTREONAM DOES NOT COVER FOR THOSE BACTERIA AND LEVOFLOXACIN IV IS BACKORDER) OLAYINKA AMAYA PHARMACIST Oct 21, 2024 18:21
--- NOTE | 2024-10-21 18:28 | DVHPNRES ---
Progress Note Date Seen: Oct 21, 2024 Resident Creating Document: DEMETRIS MORENO RESIDENT Medical Necessity Reason Pt with a Central, PICC or Fol: No Reason for mcdonald catheter: Sixto. Abd Surgery Subjective Review of Systems 29-year-old male patient who presented to the emergency department with complaints of worsening intermittent generalized abdominal pain that began 7 day prior to admission. He attributed the pain to consuming hensley. The patient was diagnosed with the complicated ruptured acute appendicitis and underwent an open appendectomy. Microbiology showed E faecalis and E coli infection. Patient is doing well after the surgery, is currently on pain management with morphine 2 mg IV Q 6 hours for moderate/severe pain. With a continue monitor vital signs , CBC and CMP. Patient will need to continue on antibiotics IV. We will continue monitoring closely. Patient examined at bedside, he reports feeling better, he has been walking and they was advanced to mechanical soft. Continue IR drain per Cardiology, no complications at this moment. Continue monitoring possible discharge tomorrow. Patient reports: Feels better Changes from previous H/P or p: Changes Objective vital signs Vital Sign Date Time Temp Pulse Resp B/P (MAP) Pulse Ox O2 Delivery O2 Flow Rate FiO2 10/21/24 16:33 98.1 108 18 119/81 (94) 96 98.1 10/21/24 08:00 Room Air* 0 21 Total Intake and Output 10/20/24 10/20/24 10/21/24 15:00 23:00 07:00 Intake Total 625 ml 750 ml Output Total 300 ml 400 ml Balance 325 ml 350 ml medications Current Medications Medications Dose Ordered Sig/Prosper Route Start Time Stop Time Status Last Admin Dose Admin Ondansetron HCl 4 mg Q4HP PRN IV 09/23/24 16:00 10/18/24 22:53 4 MG Nitroglycerin 0.4 mg Q5MINP PRN SL 09/23/24 16:15 Pantoprazole Sodium 40 mg DAILY IV 09/24/24 10:00 10/21/24 10:10 40 MG Ergocalciferol 50,000 unit Q7D PO 09/24/24 14:45 10/15/24 13:28 50,000 UNIT Acetaminophen 650 mg Q6HP PRN PO 09/24/24 21:45 10/19/24 09:50 650 MG Melatonin 5 mg HS PRN PO 09/24/24 21:45 09/30/24 21:05 5 MG Magnesium Oxide 400 mg BID PO 09/28/24 10:00 10/21/24 10:10 400 MG Potassium Chloride 10 meq DAILY PO 09/28/24 10:00 10/21/24 10:11 10 MEQ Ceftriaxone Sodium 50 ml @ 100 mls/hr DAILY@09 IV 10/04/24 09:00 Cancel Sodium Chloride 1,000 ml @ 100 mls/hr Q10H IV 10/09/24 14:45 10/20/24 10:18 100 MLS/HR Levofloxacin/ Dextrose 100 ml @ 100 mls/hr DAILY IV 10/15/24 13:30 Hold Aztreonam 1 gm/ Dextrose 50 ml @ 100 mls/hr Q8HR IV 10/18/24 14:00 UNV Aztreonam 1 gm/ Dextrose 50 ml @ 100 mls/hr Q8HR IV 10/18/24 14:00 10/21/24 15:35 100 MLS/HR Guaifenesin 200 mg Q6HP PRN PO 10/18/24 17:45 10/19/24 10:30 200 MG Ketorolac Tromethamine 30 mg Q12HR IV 10/19/24 22:00 10/24/24 21:59 10/21/24 10:10 30 MG Morphine Sulfate 2 mg Q6HPRN PRN IV 10/19/24 13:45 Examination: GENERAL:Normal, HEENT:Normal, NECK:Normal, LUNGS:Normal, CVS:Normal, ABDOMEN:Normal, MSK:Normal, SKIN:Normal, NEURO:Normal, :Normal laboratory and microbiology Laboratory Tests 10/21/24 06:24 10/20/24 05:48 Test 10/21/24 06:24 Range/Units Serum Glucose 106 74-106 mg/dL Microbiology Date/Time Source Procedure Growth Status 10/17/24 10:43 Peritoneal Fluid Gram Stain - Final Resulted 10/17/24 10:43 Anaerobic Culture - Preliminary Prevotella loescheii Resulted 10/17/24 10:43 Peritoneal Fluid Aerobic Culture - Preliminary Resulted 09/23/24 23:01 Blood Blood Culture - Final NO GROWTH AFTER 5 DAYS OF INCUBATION. Complete 09/23/24 17:30 Abdomen Gram Stain - Final Complete 09/23/24 17:30 Abdomen Anaerobic Culture - Final Complete 09/23/24 17:30 Aerobic Culture - Final Escherichia coli Complete Problem List/Assessment/Plan Problem List/Assessment/Plan #Sepsis likely due to acute gangrenous appendicitis with perforation #Acute appendicitis complicated by rupture s/p open appendectomy on 09/23/2024. - IV Ampicilin-sulbactam -back drainage 50 cc purulent -Continue close observation -CT scan abdomen and pelvis with p.o. contrast showed * Similar right paracolic gutter/retroperitoneal abscess with a pigtail drain within the fluid collection, appears similar to prior CT from 10/11. * Oral contrast material reaches the cecum. No extravasation of oral contrast material is seen in the abdominal cavity. - IR intervetion: 35 mL of purulent fluid was aspirated from that side and then connected to a drain bag. - Recent fever episodes could be drug related, recommended switch to non beta lactamase antibiotic, levofloxacin 500 mg q.d. was started. - surgery was performed today, successfully. - Continue monitor WBC and vital signs. -soft mechanical, advance as tolerated. Likely postoperative ileus due to comorbidities - resolved Patient currently tolerating soft diet NEO hemodynamically mediated due to VMN with strong POA Continue IVF Monitor lab Hepatic steatosis Lifestyle modification and dietary habits Vitamin D deficiency Replenished Hypokalemia Replenished Diet soft diet DVT prophylaxis - lovenox 40 m SC Case discussed with Goals of care discussed with the patient for 39 minutes Code status: Full code Plan discussed with: Patient, Other (Father) My Orders My Orders Orders - DEMETRIS MORENO Procedure Category Date Status Time Pt Request For Service PT 10/21/24 Logged 15:03 Dietary Evaluation Review Recommendations by RD: Protein Supplementation Comments: 1) Arpan @ 1 pk bid 2) Vitamin C @ 500 mg bid 3) Zinc sulfate @ 220 mg qd 4) Continue to monitor PO intake and wound Expected Outcomes/Goals: 1) wound to improve 2) diet texture to advance to regular when medically feasible 2) appetite and labs to improve 3) f/u in 3-5 days Date of Service: Oct 21, 2024 Billing Provider: NORBERT MA MD Common Visit Codes: [id number] INP/OBS CARE(HIGH) DEMETRIS MOERNO RESIDENT Oct 21, 2024 18:28 NORBERT MA MD Oct 21, 2024 19:30
[2024-10-21 21:00] VITALS: BP 115/76; PULSE 109; RESP 20; TEMP 99.4; O2SAT 95
[2024-10-22 01:00] VITALS: BP 117/83; PULSE 59; RESP 18; TEMP 98.6; O2SAT 97
[2024-10-22 05:00] VITALS: BP 120/79; PULSE 97; RESP 18; TEMP 98.7; O2SAT 95
[2024-10-22 07:47] LABS: Chloride 103 mmol/L (98-107); Potassium 3.5 mmol/L (3.5-5.1); Sodium 136 mmol/L (136-145)
[2024-10-22 07:55] LABS: Calcium 9.2 mg/dL (8.7-10.4)
[2024-10-22 07:58] LABS: Anion Gap 10 (5-15); Carbon Dioxide 23 mmol/L (20-31)
[2024-10-22 08:02] LABS: BUN/Creatinine Ratio 13.4 (10.0-20.0); Blood Urea Nitrogen 9 mg/dL (9-23); Glucose 97 mg/dL (74-106)
[2024-10-22 12:47] VITALS: BP 113/69; PULSE 105; RESP 16; TEMP 97.5; O2SAT 95
--- NOTE | 2024-10-22 13:38 | DVHPNRES ---
Progress Note Date Seen: Oct 22, 2024 Resident Creating Document: DEMETRIS MORENO RESIDENT Medical Necessity Reason Pt with a Central, PICC or Fol: No Reason for mcdonald catheter: Sixto. Abd Surgery Subjective Review of Systems 29-year-old male patient who presented to the emergency department with complaints of worsening intermittent generalized abdominal pain that began 7 day prior to admission. He attributed the pain to consuming hensley. The patient was diagnosed with the complicated ruptured acute appendicitis and underwent an open appendectomy. Microbiology showed E faecalis and E coli and prevotella infection. Peptic arcus and peptostreptococcus for which the patient was started on levofloxacin 500 p.o. daily and Flagyl 500 t.i.d.. Patient is doing well after the surgery, is currently on pain management with morphine 2 mg IV Q 6 hours for moderate/severe pain. With a continue monitor vital signs , CBC and CMP. Patient will need to continue on antibiotics IV. We will continue monitoring closely. Patient examined at bedside, he reports feeling better, he has been walking and they was advanced to mechanical soft. CT abdomen without contrast , pending Patient reports: Feels better Changes from previous H/P or p: Changes Review of Systems: HEENT:Normal, CVS:Normal, RESPIRATORY:Normal, GI:Normal, :Normal, MSK:Normal, NEURO:Normal Objective vital signs Vital Sign Date Time Temp Pulse Resp B/P (MAP) Pulse Ox O2 Delivery O2 Flow Rate FiO2 10/22/24 12:47 97.5 105 16 113/69 (84) 95 97.5 10/22/24 08:00 Room Air* 0 21 Total Intake and Output 10/21/24 10/21/24 10/22/24 15:00 23:00 07:00 Intake Total 110 ml 110 ml 1060 ml Balance 110 ml 110 ml 1060 ml medications Current Medications Medications Dose Ordered Sig/Prosper Route Start Time Stop Time Status Last Admin Dose Admin Ondansetron HCl 4 mg Q4HP PRN IV 09/23/24 16:00 10/18/24 22:53 4 MG Nitroglycerin 0.4 mg Q5MINP PRN SL 09/23/24 16:15 Pantoprazole Sodium 40 mg DAILY IV 09/24/24 10:00 10/22/24 09:30 40 MG Ergocalciferol 50,000 unit Q7D PO 09/24/24 14:45 10/22/24 13:26 50,000 UNIT Acetaminophen 650 mg Q6HP PRN PO 09/24/24 21:45 10/19/24 09:50 650 MG Melatonin 5 mg HS PRN PO 09/24/24 21:45 09/30/24 21:05 5 MG Magnesium Oxide 400 mg BID PO 09/28/24 10:00 10/22/24 09:29 400 MG Potassium Chloride 10 meq DAILY PO 09/28/24 10:00 10/22/24 09:30 10 MEQ Ceftriaxone Sodium 50 ml @ 100 mls/hr DAILY@09 IV 10/04/24 09:00 Cancel Sodium Chloride 1,000 ml @ 100 mls/hr Q10H IV 10/09/24 14:45 10/22/24 11:37 100 MLS/HR Levofloxacin/ Dextrose 100 ml @ 100 mls/hr DAILY IV 10/15/24 13:30 Hold Aztreonam 1 gm/ Dextrose 50 ml @ 100 mls/hr Q8HR IV 10/18/24 14:00 UNV Aztreonam 1 gm/ Dextrose 50 ml @ 100 mls/hr Q8HR IV 10/18/24 14:00 10/22/24 11:37 100 MLS/HR Guaifenesin 200 mg Q6HP PRN PO 10/18/24 17:45 10/21/24 21:27 200 MG Ketorolac Tromethamine 30 mg Q12HR IV 10/19/24 22:00 10/24/24 21:59 10/22/24 09:30 30 MG Morphine Sulfate 2 mg Q6HPRN PRN IV 10/19/24 13:45 Examination: GENERAL:Normal, HEENT:Normal, NECK:Normal, LUNGS:Normal, CVS:Normal, ABDOMEN:Normal, MSK:Normal, SKIN:Normal, NEURO:Normal, :Normal laboratory and microbiology Laboratory Tests 10/22/24 06:00 10/20/24 05:48 Test 10/22/24 06:00 Range/Units Serum Glucose 97 74-106 mg/dL Microbiology Date/Time Source Procedure Growth Status 10/17/24 10:43 Peritoneal Fluid Gram Stain - Final Resulted 10/17/24 10:43 Anaerobic Culture - Preliminary Prevotella loescheii Resulted 10/17/24 10:43 Peritoneal Fluid Aerobic Culture - Final Resulted 09/23/24 23:01 Blood Blood Culture - Final NO GROWTH AFTER 5 DAYS OF INCUBATION. Complete 09/23/24 17:30 Abdomen Gram Stain - Final Complete 09/23/24 17:30 Abdomen Anaerobic Culture - Final Complete 09/23/24 17:30 Aerobic Culture - Final Escherichia coli Complete Problem List/Assessment/Plan Problem List/Assessment/Plan #Sepsis likely due to acute gangrenous appendicitis with perforation #Acute appendicitis complicated by rupture s/p open appendectomy on 09/23/2024. - IV aztreonam - Physical therapy - soft mechanical diet - CT abdomen without contrast - Surgery on board, follow up on results Likely postoperative ileus due to comorbidities - resolved Patient currently tolerating soft diet NEO hemodynamically mediated due to VMN with strong POA Continue IV fluids Monitor lab Hepatic steatosis Lifestyle modification and dietary habits Vitamin D deficiency Replenished Hypokalemia Replenished Diet soft diet DVT prophylaxis - lovenox 40 m SC Case discussed with Goals of care discussed with the patient for 39 minutes Code status: Full code Plan discussed with: Patient, Other (father) My Orders My Orders Orders - DEMETRIS MORENO Procedure Category Date Status Time Pt Request For Service PT 10/21/24 Logged 15:[address] 10/22/24 Logged Contrast 13:16 Dietary Evaluation Review Recommendations by RD: Protein Supplementation Comments: 1) Arpan @ 1 pk bid 2) Vitamin C @ 500 mg bid 3) Zinc sulfate @ 220 mg qd 4) Continue to monitor PO intake and wound Expected Outcomes/Goals: 1) wound to improve 2) diet texture to advance to regular when medically feasible 2) appetite and labs to improve 3) f/u in 3-5 days Date of Service: Oct 22, 2024 Billing Provider: NORBERT MA MD Common Visit Codes: [id number] INP/OBS CARE(HIGH) DEMETRIS MORENO RESIDENT Oct 22, 2024 13:38 NORBERT MA MD Oct 22, 2024 20:35
--- NOTE | 2024-10-22 15:43 | DVHPN2 ---
Progress Note Date Seen: Oct 22, 2024 Medical Necessity Reason Pt with a Central, PICC or Fol: No Reason for mcdonald catheter: Sixto. Abd Surgery Objective vital signs Vital Sign Date Time Temp Pulse Resp B/P (MAP) Pulse Ox O2 Delivery O2 Flow Rate FiO2 10/22/24 12:47 97.5 105 16 113/69 (84) 95 97.5 10/22/24 08:00 Room Air* 0 21 Total Intake and Output 10/21/24 10/21/24 10/22/24 15:00 23:00 07:00 Intake Total 110 ml 110 ml 1060 ml Balance 110 ml 110 ml 1060 ml medications Current Medications Medications Dose Ordered Sig/Prosper Route Start Time Stop Time Status Last Admin Dose Admin Ondansetron HCl 4 mg Q4HP PRN IV 09/23/24 16:00 10/18/24 22:53 4 MG Nitroglycerin 0.4 mg Q5MINP PRN SL 09/23/24 16:15 Pantoprazole Sodium 40 mg DAILY IV 09/24/24 10:00 10/22/24 09:30 40 MG Ergocalciferol 50,000 unit Q7D PO 09/24/24 14:45 10/22/24 13:26 50,000 UNIT Acetaminophen 650 mg Q6HP PRN PO 09/24/24 21:45 10/19/24 09:50 650 MG Melatonin 5 mg HS PRN PO 09/24/24 21:45 09/30/24 21:05 5 MG Magnesium Oxide 400 mg BID PO 09/28/24 10:00 10/22/24 09:29 400 MG Potassium Chloride 10 meq DAILY PO 09/28/24 10:00 10/22/24 09:30 10 MEQ Ceftriaxone Sodium 50 ml @ 100 mls/hr DAILY@09 IV 10/04/24 09:00 Cancel Sodium Chloride 1,000 ml @ 100 mls/hr Q10H IV 10/09/24 14:45 10/22/24 11:37 100 MLS/HR Levofloxacin/ Dextrose 100 ml @ 100 mls/hr DAILY IV 10/15/24 13:30 Hold Aztreonam 1 gm/ Dextrose 50 ml @ 100 mls/hr Q8HR IV 10/18/24 14:00 UNV Aztreonam 1 gm/ Dextrose 50 ml @ 100 mls/hr Q8HR IV 10/18/24 14:00 10/22/24 11:37 100 MLS/HR Guaifenesin 200 mg Q6HP PRN PO 10/18/24 17:45 10/21/24 21:27 200 MG Ketorolac Tromethamine 30 mg Q12HR IV 10/19/24 22:00 10/24/24 21:59 10/22/24 09:30 30 MG Morphine Sulfate 2 mg Q6HPRN PRN IV 10/19/24 13:45 laboratory and microbiology Laboratory Tests 10/22/24 06:00 10/20/24 05:48 Test 10/22/24 06:00 Range/Units Serum Glucose 97 74-106 mg/dL Microbiology Date/Time Source Procedure Growth Status 10/17/24 10:43 Peritoneal Fluid Gram Stain - Final Complete 10/17/24 10:43 Anaerobic Culture - Final Prevotella loescheii Peptococcus anaerobius Peptostreptococcus micros Complete 10/17/24 10:43 Peritoneal Fluid Aerobic Culture - Final Complete 09/23/24 23:01 Blood Blood Culture - Final NO GROWTH AFTER 5 DAYS OF INCUBATION. Complete 09/23/24 17:30 Abdomen Gram Stain - Final Complete 09/23/24 17:30 Abdomen Anaerobic Culture - Final Complete 09/23/24 17:30 Aerobic Culture - Final Escherichia coli Complete Problem List/Assessment/Plan Problem List/Assessment/Plan AFEBRILE VSS ABD SOFT S/P E LAP DRESSING CHANGED BM + FLATUS + WBC WNL IV ABX NURSE AT BEDSIDE LLQ DRAIN SEROUS 5 CC NO COMPLICATIONS DC IR DRAIN PER RADIOLOGY Plan discussed with: Patient Dietary Evaluation Review Recommendations by RD: Protein Supplementation Comments: 1) Arpan @ 1 pk bid 2) Vitamin C @ 500 mg bid 3) Zinc sulfate @ 220 mg qd 4) Continue to monitor PO intake and wound Expected Outcomes/Goals: 1) wound to improve 2) diet texture to advance to regular when medically feasible 2) appetite and labs to improve 3) f/u in 3-5 days EDISON NUÑEZ MD Oct 22, 2024 15:43
[2024-10-22 16:36] VITALS: BP 130/75; PULSE 72; RESP 16; TEMP 98; O2SAT 96
[2024-10-22] MEDS: metroNIDAZOLE 500 MG TAB PO ONE (17:42)
[2024-10-22] MEDS: levoFLOXacin 500 MG TAB PO ONE (17:42)
[2024-10-22] MEDS: IOHEXOL 300 MG/ML 100ML BOTTLE IJ ONE (17:42)
--- NOTE | 2024-10-22 18:00 | DVH ---
Exam: CT CT AB PEL WITH IV CON ONLY History: follow up abdmonial abscess Comparison Study: 10/14/2024 TECHNIQUE: Multidetector CT of the abdomen and pelvis with contrast. Axial, coronal and sagittal mult iplanar reformats were obtained from the axial data set by the technologist. Radiation Dose Information: CT Dose: CTDI volume is 9.37 mGy. Dose-length product is 548.52 mGy*cm FINDINGS: Bibasilar atelectasis. Partially visualized heart is unremarkable. Mild hepatosplenomegaly with no focal lesions. Gallbladder, pancreas and adrenal glands are unremarka ble. Kidneys, and ureters unremarkable. Urinary bladder is mildly distended. Focus of air within the nond ependent portion of the urinary bladder which may be iatrogenic. Prostate is unremarkable. There is a left ventral lower abdominal approach drainage catheter terminating over the right lateral midabdomen with the additional right mid back approach drainage catheter terminating over the right lower abdominal quadrant. There is significant interval decrease in size in the fluid collection of t he right hemiabdomen with minimal residual fat stranding. Stomach is unremarkable. Small bowel loops are unremarkable. Appendix is not definitely visualized w ith hyperdense material of the right lower abdominal quadrant. Correlate for possible appendectomy. Limited evaluation of the cecum and ascending colon due to residual fat stranding within the right he miabdomen. Nonspecific mild fat stranding of the ventral abdominal mesenteric fat with associated skin defect wi th air and skin sarah over the midline abdomen consistent with recent postsurgical changes. 1.2 by 0.7 cm focal hypodensity of the right anterior mid abdominal mesentery which may be associated with the right javier mid and lower abdominalfat stranding. No destructive osseous lesions are noted. Sclerotic foci of the bilateral pelvic bones which may repr esent bone islands with blastic lesions not excluded. IMPRESSION: Drainage catheters terminating over the right hemiabdomen as detailed above. Interval significant dec rease in the right javier abdominal fluid collection with residual fat stranding. The residual fat stranding of the right hemiabdomen limits evaluation of the cecum and ascending colo n. Postsurgical changes of midline ventral abdomen with fat stranding of the subcutaneous fat and adjace nt anterior mesenteric fat Focus of nondependent air within the mildly distended urinary bladder which may be iatrogenic. Recom mend correlation for recent instrumentation / mcdonald catheter placement. Additional findings as above.
--- NOTE | 2024-10-22 19:59 | DVHPN2 ---
Consult Progress Note Date Seen: Oct 18, 2024 Subjective Patient reports: Feels better (no fever or chills) Objective vital signs Vital Sign Date Time Temp Pulse Resp B/P (MAP) Pulse Ox O2 Delivery O2 Flow Rate FiO2 10/22/24 16:36 98.0 72 16 130/75 (93) 96 98.0 10/22/24 08:00 Room Air* 0 21 Total Intake and Output 10/21/24 10/21/24 10/22/24 15:00 23:00 07:00 Intake Total 110 ml 110 ml 1060 ml Balance 110 ml 110 ml 1060 ml medications Current Medications Medications Dose Ordered Sig/Prosper Route Start Time Stop Time Status Last Admin Dose Admin Ondansetron HCl 4 mg Q4HP PRN IV 09/23/24 16:00 10/18/24 22:53 4 MG Nitroglycerin 0.4 mg Q5MINP PRN SL 09/23/24 16:15 Pantoprazole Sodium 40 mg DAILY IV 09/24/24 10:00 10/22/24 09:30 40 MG Ergocalciferol 50,000 unit Q7D PO 09/24/24 14:45 10/22/24 13:26 50,000 UNIT Acetaminophen 650 mg Q6HP PRN PO 09/24/24 21:45 10/19/24 09:50 650 MG Melatonin 5 mg HS PRN PO 09/24/24 21:45 09/30/24 21:05 5 MG Magnesium Oxide 400 mg BID PO 09/28/24 10:00 10/22/24 09:29 400 MG Potassium Chloride 10 meq DAILY PO 09/28/24 10:00 10/22/24 09:30 10 MEQ Ceftriaxone Sodium 50 ml @ 100 mls/hr DAILY@09 IV 10/04/24 09:00 Cancel Sodium Chloride 1,000 ml @ 100 mls/hr Q10H IV 10/09/24 14:45 10/22/24 11:37 100 MLS/HR Aztreonam 1 gm/ Dextrose 50 ml @ 100 mls/hr Q8HR IV 10/18/24 14:00 UNV Guaifenesin 200 mg Q6HP PRN PO 10/18/24 17:45 10/21/24 21:27 200 MG Ketorolac Tromethamine 30 mg Q12HR IV 10/19/24 22:00 10/24/24 21:59 10/22/24 09:30 30 MG Morphine Sulfate 2 mg Q6HPRN PRN IV 10/19/24 13:45 Levofloxacin 500 mg DAILY PO 10/23/24 10:00 Metronidazole 500 mg Q8HR PO 10/22/24 22:00 PHYSICAL EXAM: - GENERAL: Alert and oriented x 3. No acute distress. Well-nourished. - EYES: EOMI. Anicteric. - HENT: Moist mucous membranes. No scleral icterus. No cervical lymphadenopathy. - LUNGS: Clear to auscultation bilaterally. No accessory muscle use. - CARDIOVASCULAR: Regular rate and rhythm. No murmur. No JVD. - ABDOMEN: Soft, non-tender and non-distended. No palpable masses. - EXTREMITIES: No edema. Non-tender.?SKIN: No rashes or lesions. Warm. - NEUROLOGIC: No focal neurological deficits. CN II-XII grossly intact, but not individually tested - PSYCHIATRIC: Cooperative. Appropriate mood and affect. laboratory and microbiology Laboratory Tests 10/22/24 06:00 10/20/24 05:48 Test 10/22/24 06:00 Range/Units Serum Glucose 97 74-106 mg/dL Problem List/Assessment/Plan Problem List/Assessment/Plan ASSESSMENT AND PLAN: ID Problem List: - Intra-abdominal abscesses - Perforated appendicitis - Sepsis - E. coli infection - Ileus - Small bowel obstruction Assessment This is a [age not provided] y.o. male with no significant past medical history who presents with a perforated appendicitis complicated by intra-abdominal abscesses and sepsis. The patient underwent a laparoscopic lysis of adhesions, open drainage of intra- abdominal abscesses, and an open appendectomy on September 23. Operative findings included a distended peritoneum due to ileus, free air, distention of small and large intestines with serosal traction and ischemia, and a perforated appendix. A 19 Fr Noe drainage tube was placed. Currently, the patient has purulent drainage from the Noe drain, with intra- abdominal cultures growing E. coli. White blood cell count remains elevated at 21 on September 25. Repeat imaging revealed multiloculated abscesses in the right paracolic gutter, the largest measuring 14.6 cm. Multiple other fluid collections are inadequately drained. Bowel dilation may be due to ileus. sp Two (2) CT guided placement of 10.2 and 12 Dominican pigtail drain into a right paracolic gutter abscess. 10/03: abdominal ct done after multiple drain placemetn shows 12.5 by 11.9 cm fluid collection in right lower quadrant with mildly thickening wall containings pockets of air . drainage catheter wich is not positioned within the fluid collection correlation , proper catheter is recommended. Small dialated multiple bowel loops in the left abdomen with airflow levels , no focal transition point identified. theres nondialated small bowel loops in the right abdomen , a post changes in illio secqual junction may relate to illieus , theres hepatic seratosis and a passing right lung with may represent a lectusus vs airspace disease . Aspirate from drain placemtn is growing E coli from 10/01 and from 09/30 are growing E coli and enterococcus 10/04: ongoing heavy output on drain , growing enterococcus and E coli on intra abdominal culture aspirate. white count is 7.4 10/07: ongoing large abscesses 8cm on CT 10/08: sp CT guided placement of a new 12 Dominican pigtail drain into a paracolic gutter abscess. 150 mL foul purulent fluid was aspirated. 10/12: Ct scan shows one drainage tube in the right flank with persistant fluid and small bowel suggesting abscess collection allong the right abdominal wall. the second drain has been removed , fluid collection appears smaller than last on 10/08 10/14: oral contrast CT 10/16: 35ccs of prelimary aspirated frm CT drain that was placed yesterday , persistant tachycardia is concering for ongoing sepsis as well as aongoing drainage when catheters changed out 10/17: S/P Xlap extensive lysis of adhesion was found as well as retroperitoneal abcess that extened to hepatic flexture that was cleaned out . the previous catheter placed by IR was clogged due to necrotic tissue but was removed and Ir catheter was left in place and an addition drain was placed in right upper quadrant IMPRESSION: Similar right paracolic gutter/retroperitoneal abscess with a pigtail drain within the fluid collection, appears similar to prior CT from 10/11. Oral contrast material reaches the cecum. No extravasation of oral contrast material is seen in the abdominal cavity. Plan: - follow up on operative cultures - follow up on new drain output - continue levofloxacin - fevers could be drug related, recommend switch to non-beta lactam --> switch to levofloxacin 500mg qd - patient follow up with infectious disease in 4 weeks - follow up on drain output from new catheter - will fu on drainage output from new drainage catheter - continue to monitor - Continue to monitor WBC count and vital signs - Send any new aspirate samples from drains for aerobic and anaerobic cultures - Follow up on blood cultures Isolation Precautions: Standard Assessment and plan were discussed with the patient as written above. Plan is subject to change pending incorporation of new incoming information/diagnostics. Updates may be added as addendum at the bottom (OR TOP) of this note. Thank you for the interesting consult. ID will continue to follow. Please contact Infectious Disease for any questions or concerns. Plan discussed with: Patient Dietary Evaluation Review Recommendations by RD: Protein Supplementation Comments: 1) Arpan @ 1 pk bid 2) Vitamin C @ 500 mg bid 3) Zinc sulfate @ 220 mg qd 4) Continue to monitor PO intake and wound Expected Outcomes/Goals: 1) wound to improve 2) diet texture to advance to regular when medically feasible 2) appetite and labs to improve 3) f/u in 3-5 days JERRY TINEO MD Oct 22, 2024 19:59
--- NOTE | 2024-10-22 20:04 | DVHPN2 ---
Consult Progress Note Date Seen: Oct 22, 2024 Subjective Patient reports: Feels better (minimal drain output) Objective vital signs Vital Sign Date Time Temp Pulse Resp B/P (MAP) Pulse Ox O2 Delivery O2 Flow Rate FiO2 10/22/24 16:36 98.0 72 16 130/75 (93) 96 98.0 10/22/24 08:00 Room Air* 0 21 Total Intake and Output 10/21/24 10/21/24 10/22/24 15:00 23:00 07:00 Intake Total 110 ml 110 ml 1060 ml Balance 110 ml 110 ml 1060 ml medications Current Medications Medications Dose Ordered Sig/Prosper Route Start Time Stop Time Status Last Admin Dose Admin Ondansetron HCl 4 mg Q4HP PRN IV 09/23/24 16:00 10/18/24 22:53 4 MG Nitroglycerin 0.4 mg Q5MINP PRN SL 09/23/24 16:15 Pantoprazole Sodium 40 mg DAILY IV 09/24/24 10:00 10/22/24 09:30 40 MG Ergocalciferol 50,000 unit Q7D PO 09/24/24 14:45 10/22/24 13:26 50,000 UNIT Acetaminophen 650 mg Q6HP PRN PO 09/24/24 21:45 10/19/24 09:50 650 MG Melatonin 5 mg HS PRN PO 09/24/24 21:45 09/30/24 21:05 5 MG Magnesium Oxide 400 mg BID PO 09/28/24 10:00 10/22/24 09:29 400 MG Potassium Chloride 10 meq DAILY PO 09/28/24 10:00 10/22/24 09:30 10 MEQ Ceftriaxone Sodium 50 ml @ 100 mls/hr DAILY@09 IV 10/04/24 09:00 Cancel Sodium Chloride 1,000 ml @ 100 mls/hr Q10H IV 10/09/24 14:45 10/22/24 11:37 100 MLS/HR Aztreonam 1 gm/ Dextrose 50 ml @ 100 mls/hr Q8HR IV 10/18/24 14:00 UNV Guaifenesin 200 mg Q6HP PRN PO 10/18/24 17:45 10/21/24 21:27 200 MG Ketorolac Tromethamine 30 mg Q12HR IV 10/19/24 22:00 10/24/24 21:59 1/7/25 09:30 30 MG Morphine Sulfate 2 mg Q6HPRN PRN IV 10/19/24 13:45 Levofloxacin 500 mg DAILY PO 10/23/24 10:00 Metronidazole 500 mg Q8HR PO 10/22/24 22:00 PHYSICAL EXAM: - GENERAL: Alert and oriented x 3. No acute distress. Well-nourished. - EYES: EOMI. Anicteric. - HENT: Moist mucous membranes. No scleral icterus. No cervical lymphadenopathy. - LUNGS: Clear to auscultation bilaterally. No accessory muscle use. - CARDIOVASCULAR: Regular rate and rhythm. No murmur. No JVD. - ABDOMEN: Soft, non-tender and non-distended. No palpable masses. - EXTREMITIES: No edema. Non-tender.?SKIN: No rashes or lesions. Warm. - NEUROLOGIC: No focal neurological deficits. CN II-XII grossly intact, but not individually tested - PSYCHIATRIC: Cooperative. Appropriate mood and affect. laboratory and microbiology Laboratory Tests 10/22/24 06:00 10/20/24 05:48 Test 10/22/24 06:00 Range/Units Serum Glucose 97 74-106 mg/dL Problem List/Assessment/Plan Problem List/Assessment/Plan ASSESSMENT AND PLAN: ID Problem List: - Intra-abdominal abscesses - Perforated appendicitis - Sepsis - E. coli infection - Ileus - Small bowel obstruction Assessment This is a [age not provided] y.o. male with no significant past medical history who presents with a perforated appendicitis complicated by intra-abdominal abscesses and sepsis. The patient underwent a laparoscopic lysis of adhesions, open drainage of intra- abdominal abscesses, and an open appendectomy on September 23. Operative findings included a distended peritoneum due to ileus, free air, distention of small and large intestines with serosal traction and ischemia, and a perforated appendix. A 19 Fr Noe drainage tube was placed. Currently, the patient has purulent drainage from the Noe drain, with intra- abdominal cultures growing E. coli. White blood cell count remains elevated at 21 on September 25. Repeat imaging revealed multiloculated abscesses in the right paracolic gutter, the largest measuring 14.6 cm. Multiple other fluid collections are inadequately drained. Bowel dilation may be due to ileus. sp Two (2) CT guided placement of 10.2 and 12 Czech pigtail drain into a right paracolic gutter abscess. 10/03: abdominal ct done after multiple drain placemetn shows 12.5 by 11.9 cm fluid collection in right lower quadrant with mildly thickening wall containings pockets of air . drainage catheter wich is not positioned within the fluid collection correlation , proper catheter is recommended. Small dialated multiple bowel loops in the left abdomen with airflow levels , no focal transition point identified. theres nondialated small bowel loops in the right abdomen , a post changes in illio secqual junction may relate to illieus , theres hepatic seratosis and a passing right lung with may represent a lectusus vs airspace disease . Aspirate from drain placemtn is growing E coli from 10/01 and from 09/30 are growing E coli and enterococcus 10/04: ongoing heavy output on drain , growing enterococcus and E coli on intra abdominal culture aspirate. white count is 7.4 10/07: ongoing large abscesses 8cm on CT 10/08: sp CT guided placement of a new 12 Czech pigtail drain into a paracolic gutter abscess. 150 mL foul purulent fluid was aspirated. 10/12: Ct scan shows one drainage tube in the right flank with persistant fluid and small bowel suggesting abscess collection allong the right abdominal wall. the second drain has been removed , fluid collection appears smaller than last on 10/08 10/14: oral contrast CT 10/16: 35ccs of prelimary aspirated frm CT drain that was placed yesterday , persistant tachycardia is concering for ongoing sepsis as well as aongoing drainage when catheters changed out 10/17: S/P Xlap extensive lysis of adhesion was found as well as retroperitoneal abcess that extened to hepatic flexture that was cleaned out . the previous catheter placed by IR was clogged due to necrotic tissue but was removed and Ir catheter was left in place and an addition drain was placed in right upper quadrant IMPRESSION: Similar right paracolic gutter/retroperitoneal abscess with a pigtail drain within the fluid collection, appears similar to prior CT from 10/11. Oral contrast material reaches the cecum. No extravasation of oral contrast material is seen in the abdominal cavity. 10/22: multiple anaerobes on operative culture Plan: - switch to oral levofloxacin 500mg qd and flagyl 500mg tid. continue x 10 more days - follow up on operative cultures - follow up on new drain output - patient follow up with infectious disease in 4 weeks Isolation Precautions: Standard Assessment and plan were discussed with the patient as written above. Plan is subject to change pending incorporation of new incoming information/diagnostics. Updates may be added as addendum at the bottom (OR TOP) of this note. Thank you for the interesting consult. ID will continue to follow. Please contact Infectious Disease for any questions or concerns. Plan discussed with: Patient Dietary Evaluation Review Recommendations by RD: Protein Supplementation Comments: 1) Arpan @ 1 pk bid 2) Vitamin C @ 500 mg bid 3) Zinc sulfate @ 220 mg qd 4) Continue to monitor PO intake and wound Expected Outcomes/Goals: 1) wound to improve 2) diet texture to advance to regular when medically feasible 2) appetite and labs to improve 3) f/u in 3-5 days JERRY TINEO MD Oct 22, 2024 20:04
[2024-10-22 21:00] VITALS: BP 127/84; PULSE 96; RESP 18; TEMP 99.2; O2SAT 95
[2024-10-22] MEDS: metroNIDAZOLE 500 MG TAB PO SCH (21:37)
[2024-10-23] VITALS (7 sets, daily range): BP systolic 109–125; BP diastolic 73–82; PULSE 69–103; RESP 16–18; TEMP 36.9; O2SAT 96–99
[2024-10-23 06:44] LABS: Chloride 103 mmol/L (98-107); Potassium 3.7 mmol/L (3.5-5.1)
[2024-10-23 06:45] LABS: Calcium 8.7 mg/dL (8.7-10.4)
[2024-10-23 06:46] LABS: Sodium 135 mmol/L (136-145)
[2024-10-23 06:50] LABS: BUN/Creatinine Ratio 15.9 (10.0-20.0); Blood Urea Nitrogen 10 mg/dL (9-23); Glucose 88 mg/dL (74-106)
[2024-10-23 07:21] LABS: Anion Gap 8 (5-15); Carbon Dioxide 24 mmol/L (20-31)
[2024-10-23] MEDS: levoFLOXacin 500 MG TAB PO SCH (09:20)
[2024-10-23] MEDS ORDERED: METR-344 PO (11:12)
[2024-10-23] MEDS ORDERED: LEVO500T91 PO (11:12)
--- NOTE | 2024-10-23 14:00 | DVHPN2 ---
Progress Note Date Seen: Oct 23, 2024 Medical Necessity Reason Pt with a Central, PICC or Fol: No Reason for mcdonald catheter: Sixto. Abd Surgery Objective vital signs Vital Sign Date Time Temp Pulse Resp B/P (MAP) Pulse Ox O2 Delivery O2 Flow Rate FiO2 10/23/24 12:47 97.7 97 17 109/73 (85) 96 97.7 10/23/24 07:56 Room Air* 0 21 Total Intake and Output 10/22/24 10/22/24 10/23/24 15:00 23:00 07:00 Intake Total 600 ml 1800 ml Output Total 400 ml Balance 600 ml 1400 ml medications Current Medications Medications Dose Ordered Sig/Prosper Route Start Time Stop Time Status Last Admin Dose Admin Ondansetron HCl 4 mg Q4HP PRN IV 09/23/24 16:00 10/18/24 22:53 4 MG Nitroglycerin 0.4 mg Q5MINP PRN SL 09/23/24 16:15 Pantoprazole Sodium 40 mg DAILY IV 09/24/24 10:00 10/23/24 09:19 40 MG Ergocalciferol 50,000 unit Q7D PO 09/24/24 14:45 10/22/24 13:26 50,000 UNIT Acetaminophen 650 mg Q6HP PRN PO 09/24/24 21:45 10/19/24 09:50 650 MG Melatonin 5 mg HS PRN PO 09/24/24 21:45 09/30/24 21:05 5 MG Magnesium Oxide 400 mg BID PO 09/28/24 10:00 10/23/24 09:20 400 MG Potassium Chloride 10 meq DAILY PO 09/28/24 10:00 10/23/24 09:20 10 MEQ Ceftriaxone Sodium 50 ml @ 100 mls/hr DAILY@09 IV 10/04/24 09:00 Cancel Sodium Chloride 1,000 ml @ 100 mls/hr Q10H IV 10/09/24 14:45 10/23/24 08:47 100 MLS/HR Aztreonam 1 gm/ Dextrose 50 ml @ 100 mls/hr Q8HR IV 10/18/24 14:00 UNV Guaifenesin 200 mg Q6HP PRN PO 10/18/24 17:45 10/22/24 21:36 200 MG Ketorolac Tromethamine 30 mg Q12HR IV 10/19/24 22:00 10/24/24 21:59 10/23/24 09:20 30 MG Morphine Sulfate 2 mg Q6HPRN PRN IV 10/19/24 13:45 Levofloxacin 500 mg DAILY PO 10/23/24 10:00 10/23/24 09:20 500 MG Metronidazole 500 mg Q8HR PO 10/22/24 22:00 10/23/24 13:08 500 MG laboratory and microbiology Laboratory Tests 10/23/24 05:47 10/20/24 05:48 Test 10/23/24 05:47 Range/Units Serum Glucose 88 74-106 mg/dL Microbiology Date/Time Source Procedure Growth Status 10/17/24 10:43 Peritoneal Fluid Gram Stain - Final Complete 10/17/24 10:43 Anaerobic Culture - Final Prevotella loescheii Peptococcus anaerobius Peptostreptococcus micros Complete 10/17/24 10:43 Peritoneal Fluid Aerobic Culture - Final Complete 09/23/24 23:01 Blood Blood Culture - Final NO GROWTH AFTER 5 DAYS OF INCUBATION. Complete 09/23/24 17:30 Abdomen Gram Stain - Final Complete 09/23/24 17:30 Abdomen Anaerobic Culture - Final Complete 09/23/24 17:30 Aerobic Culture - Final Escherichia coli Complete Problem List/Assessment/Plan Problem List/Assessment/Plan AFEBRILE VSS ABD SOFT WOUND HEALING DRESSING CHANGED BM + FLATUS + WBC WNL IV ABX NURSE AT BEDSIDE LLQ DRAIN SEROUS 5 CC DC LLQ DRAIN NO COMPLICATIONS IR DRAIN REMOVED BY RADIOLOGY CLEARED FOR DISCHARGE INSTRUCTIONS RE DIET ACTIVITY F/UP DRAIN CARE WOUND CARE F/UP GIVEN Plan discussed with: Patient My Orders My Orders Orders - EDISON NUÑEZ MD Procedure Category Date Status Time Communication Order ORDERS 10/22/24 Transmitted 15:45 Dietary Evaluation Review Recommendations by RD: Protein Supplementation Comments: 1) Arpan @ 1 pk bid 2) Vitamin C @ 500 mg bid 3) Zinc sulfate @ 220 mg qd 4) Continue to monitor PO intake and wound Expected Outcomes/Goals: 1) wound to improve 2) diet texture to advance to regular when medically feasible 2) appetite and labs to improve 3) f/u in 3-5 days EDISON NUÑEZ MD Oct 23, 2024 14:00
--- NOTE | 2024-10-23 15:30 | DVHDSRES ---
Discharge Summary Date of Admission Resident Creating Document: DEMETRIS MORENO RESIDENT Sep 23, 2024 at 16:01 Date of Discharge: Oct 23, 2024 Admitting Diagnosis Acute abdominal pain due to complicated appendicitis. Labs/Diagnostic Data: Laboratory Results Test 10/23/24 05:47 10/20/24 05:48 10/17/24 06:30 10/12/24 18:16 Sodium Level 135 mmol/L (136-145) Potassium Level 3.7 mmol/L (3.5-5.1) Chloride Level 103 mmol/L (98-107) Carbon Dioxide Level 24 mmol/L (20-31) Anion Gap 8 (5-15) Blood Urea Nitrogen 10 mg/dL (9-23) Creatinine 0.63 mg/dL (0.700-1.30) Glomerular Filtration Rate Calc 130 mL/min (>90) BUN/Creatinine Ratio 15.9 (10.0-20.0) Serum Glucose 88 mg/dL (74-106) Calcium Level 8.7 mg/dL (8.7-10.4) White Blood Count 5.6 10^3/uL (4.4-10.8) Red Blood Count 3.03 10^6/uL (4.5-5.90) Hemoglobin 9.8 g/dL (13.5-17.5) Hematocrit 29.2 % (41.0-53.0) Mean Corpuscular Volume 96.3 fL (80.0-100.0) Mean Corpuscular Hemoglobin 32.2 pg (28.0-32.0) Mean Corpuscular Hemoglobin Concent 33.5 g/dL (32.0-36.0) Red Cell Distribution Width 12.6 % (11.8-14.3) Platelet Count 232 10^3/uL (140-450) Mean Platelet Volume 8.0 fL (6.9-10.8) Neutrophils (%) (Auto) 79.5 % (37.0-80.0) Lymphocytes (%) (Auto) 10.4 % (10.0-50.0) Monocytes (%) (Auto) 8.5 % (0.0-12.0) Eosinophils (%) (Auto) 1.0 % (0.0-7.0) Basophils (%) (Auto) 0.6 % (0.0-2.0) Neutrophils # (Auto) 4.5 10 ^3/uL (1.6-8.6) Lymphocytes # (Auto) 0.6 10 ^3/uL (0.4-5.4) Monocytes # (Auto) 0.5 10 ^3/uL (0-1.3) Eosinophils # (Auto) 0.1 10 ^3/uL (0-0.8) Basophils # (Auto) 0 10 ^3/uL (0-0.2) Nucleated Red Blood Cells 0.1 % Total Bilirubin 0.3 mg/dL (0.2-1.0) Aspartate Amino Transferase (AST) 52 U/L (13-40) Alanine Aminotransferase (ALT) 79 U/L (7-40) Alkaline Phosphatase 111 U/L (46-116) Total Protein 6.8 g/dL (5.7-8.2) Albumin 3.3 g/dL (3.2-4.8) Prothrombin Time 12.9 sec (9.3-11.8) Prothrombin Time INR 1.24 (0.9-1.15) Activated Partial Thromboplast Time 29.5 SEC (24.5-34.5) Influenza Type A Antigen Negative (Negative) Influenza Type B Antigen Negative (Negative) SARS-CoV-2 Antigen (Rapid) Negative (NEGATIVE) Test 09/30/24 06:50 09/27/24 05:23 09/24/24 06:18 09/23/24 14:46 Phosphorus Level 3.2 mg/dL (2.4-5.1) Magnesium Level 1.6 mg/dL (1.6-2.6) Differential Total Cells Counted 100.0 (100) Neutrophils % (Manual) 79 (37.0-80.0) Band Neutrophils % (Manual) 5 Lymphocytes % (Manual) 10 (10.0-50.0) Monocytes % (Manual) 6 (0-12) Eosinophils % (Manual) 0 (0-7) Basophils % (Manual) 0 (0.0-2.0) Metamyelocytes % (manual) 0 Myelocytes % (Manual) 0 Promyelocytes % (Manual) 0 Blast Cells % (Manual) 0 Reactive Lymphocytes 0 Platelet Estimate Adequate Red Blood Cell Morphology Normal Triglycerides Level 164 mg/dL (< 150) Cholesterol Level 110 mg/dL (< 200) LDL Cholesterol 65 mg/dL (< 100) HDL Cholesterol 16 mg/dL (40-59) Vitamin B12 Level 3119 pg/mL (211-911) Vitamin D 25-Hydroxy 18.6 ng/mL (30.0-100) Thyroid Stimulating Hormone (TSH) 0.65 uIU/mL (0.55-4.78) Lactic Acid Level 1.7 mmol/L (0.4-2.0) Test 09/23/24 13:49 09/23/24 13:45 Urine Color Yellow (Yellow) Urine Clarity Turbid (Clear) Urine pH 6.0 (5.0-9.0) Urine Specific Malone 1.038 (1.001-1.035) Urine Protein 2+ (Negative) Urine Ketones 1+ (Negative) Urine Blood Negative /uL (Negative) Urine Nitrite Negative (Negative) Urine Bilirubin Negative (Negative) Urine Urobilinogen Normal mg/dL (Negative) Urine Leukocyte Esterase Negative /uL (Negative) Urine RBC 2 /hpf (0 - 3) Urine WBC 24 /hpf (0 - 3) Urine Squamous Epithelial Cells Few /hpf (<5) Urine Bacteria None seen /hpf (None Seen) Urine Hyaline Casts Few /lpf (0 - 2) Urine Mucus Few (None Seen) Urine Glucose Normal mg/dL (Normal) Hemoglobin A1c 4.9 % A1C (<5.7) Lipase 29 U/L (12-53) Other Laboratory Tests 10/23/24 05:47 10/20/24 05:48 Brief Hx & Hospital Course: HPI: 29-year-old male patient who presented to the emergency department with complaints of worsening intermittent generalized abdominal pain that began 7 day prior to admission. He attributed the pain to consuming hensley. Hospital course: The patient was diagnosed with the complicated ruptured acute appendicitis and underwent an open appendectomy. Postoperatively, the patient initially demonstrated signs of intra-abdominal infection and was started on piperacillin tazobactam on 09/27/2024. Since surgery, the patient has reported gradual improvement. He denies current abdominal pain, nausea or vomiting. He has resumed normal bowel movements and flatulence and is tolerating a full liquid diet. Physical therapy was ordered to encourage ambulation. On 09/30/2024 the patient is on the 4th day of the senior care tazobactam. Despite some residual purulent drainage from surgical wound the drainage has decreased compared to earlier days. The wound was redressed and during these assessment vital signs remained stable and the patient is afebrile. White blood cell count has normalized. Patient was examined at bedside, he reports feeling good without any acute complaint, recent CT scan of the abdomen showed multiple abscesses for which Infectious Disease was consulted and they determined that he will need surgery to remove them. Final Microbiology result showed E faecalis and E coli and prevotella infection. Peptic arcus and peptostreptococcus for which the patient was started on levofloxacin 500 p.o. daily and Flagyl 500 t.i.d.. Patient is doing well after the surgery, is currently on pain management with morphine 2 mg IV Q 6 hours for moderate/severe pain. Today 10/23/2024, IR drain was removed by Radiology and based on patient's clinical status patient was cleared for discharge. Instructions regarding diet, activity and follow-up during care wound care was given to the patient. Patient will need to follow up with surgery until his primary care doctor within 1-2 weeks. Disposition: Patient was stable for discharge to home. Case discussed with Dr. Ma Goals of care discussed with the patient for 36 minutes. Operations or Procedures [place] [address] Ph: [phone] DIAGNOSTIC IMAGING Diagnostic Imaging Report : [id number] Signed PATIENT: TOMER HUNTER ACCT: [id number] UNIT: [id number] : 1995 LOC: ER ROOM / BED: / AGE / SEX: 29 / M ADM STATUS: REG ER SERVICE 1315 ORDERING PHYSICIAN: AICHA RUIZ RESIDENT PROCEDURE(s): ABPL - CT AB PEL WO CON-NO ORAL OR IV REASON: Diffuse abd paim, rule out acute pancreatitis ORDER NUMBER(s): [id number], ACCESSION NUMBER(s): [id number] Exam: CT CT AB PEL WO CON-NO ORAL OR IV History: Diffuse abd paim, rule out acute pancreatitis Comparison Study: None Technique: Multidetector spiral CT of the abdomen and pelvis was performed from lung bases to pubic symphysis. Imaging was performed without IV contrast. Axial, coronal and sagittal multiplanar reformats were obtained from the axial data set by the technologist. Radiation dose : Abdomen/Pelvis: CTDIvol 14 mGy, DLP 951 mGy*cm. Findings: Evaluation of solid organs is limited due to lack of intravenous contrast use. Lung Bases: Consolidation in the right lung base. Liver: Diffuse hepatic steatosis. Gallbladder and biliary Tree: Unremarkable Spleen: Unremarkable Pancreas: The pancreas is grossly normal in appearance. Adrenal Glands: Unremarkable Kidneys: Kidneys are grossly normal without calculi or hydronephrosis. Bladder: Grossly unremarkable for degree of distention. Bowel: The stomach is grossly normal in appearance. There is dilation of small- bowel loops with air-fluid levels. Appendix is not discretely identified. There are multiple fluid and air collections tracking throughout the right pericolic gutter with largest discrete component measuring up to 102 x 28 x 100 mm. Ascites: Absent Lymphadenopathy: No mesenteric, retroperitoneal or periportal lymphadenopathy. Abdominal wall and Mesentery: Fluid and air collections in the right paracolic gutter as above. Vasculature: The visualized abdominal aorta is normal in size and caliber. Evaluation of abdominal and pelvic vessels is limited due to lack of intravenous contrast. Pelvic Organs: Unremarkable Musculoskeletal: No aggressive focal bony lesions, acute fractures or dislocation. IMPRESSION: 1. Suspect ruptured acute appendicitis. Multiple fluid and air collections tracking up the right pericolic gutter. Suspect secondary ileus /partial small bowel obstruction. Surgical evaluation is recommended. CT-guided drainage of the largest collection could be attempted. Critical Result: Ruptured acute appendicitis Findings discussed with AICHA RUIZ at 09/23/2024 02:03 PM, and acknowledged receipt and understanding of the findings. Radiation optimization: All CT scans at this facility use at least one of these dose optimization techniques: Automated exposure control mA and/or kV adjustment per patient size (includes targeted exams where dose is matched to clinical indication) or iterative reconstruction. HS:Y ATED BY: FRAN STARK MD DICTATED DATE/TIME: 09/23/241403 SIGNED BY: FRAN STARK MD SIGNED DATE/TIME: 09/23/241403 CC: [address] [id number] Ph: [phone] DIAGNOSTIC IMAGING Diagnostic Imaging Report : [id number] Signed PATIENT: TOMER HUNTER ACCT: [id number] UNIT: [id number] : 1995 LOC: ER ROOM / BED: / AGE / SEX: 29 / M ADM STATUS: REG ER SERVICE 1419 ORDERING PHYSICIAN: AICHA RUIZ PROCEDURE(s): CXRP - CHEST PORTABLE REASON: preop ORDER NUMBER(s): [id number], ACCESSION NUMBER(s): [id number] CHEST RADIOGRAPH Indication: preop Technique: Single frontal view of the chest was obtained Comparison: None FINDINGS: Lines and Tubes: None Lungs: Elevated right hemidiaphragm with right basilar opacity. Pleura: No effusion. No pneumothorax. Cardiomediastinal contours: Unremarkable Bones: No acute osseous abnormality. IMPRESSION: Elevated right hemidiaphragm with right basilar atelectasis / pneumonia. Gas-filled distended small bowel loops which are partially visualized over the left hemiabdomen. Correlate for ileus / obstruction ATED BY: CAIT LOZADA DO DICTATED DATE/TIME: 09/23/241446 SIGNED BY: CAIT LOZADA DO SIGNED DATE/TIME: 09/23/241446 CC: [place] [id number] Ph: [phone] DIAGNOSTIC IMAGING Diagnostic Imaging Report : [id number] Signed PATIENT: TOMER HUNTER ACCT: [id number] UNIT: [id number] : 1995 LOC: TELE ROOM / BED: [address] [place] [address] / AGE / SEX: 29 / M ADM STATUS: ADM IN SERVICE 2768 ORDERING PHYSICIAN: JESSICA RIVERA MD PROCEDURE(s): CXRP - CHEST PORTABLE REASON: NGT PLACEMENT ORDER NUMBER(s): [id number], ACCESSION NUMBER(s): [id number] CHEST RADIOGRAPH Indication: NGT PLACEMENT Technique: Single frontal view of the chest was obtained Comparison: XY CHEST PORTABLE on DOS: 09/23/24 FINDINGS: Lines and Tubes: Enteric tube is in satisfactory position. Lungs: Vascular crowding due to low lung volumes. Elevated right hemidiaphragm. Right basilar minimal opacity. Pleura: No effusion. No pneumothorax. Cardiomediastinal contours: Unremarkable Bones: No acute osseous abnormality. Redemonstration of gas-filled distended bowel loops of the upper abdomen. IMPRESSION: Bronchovascular crowding due to low lung volumes with elevated right hemidiaphragm right basilar atelectasis. Enteric tube is noted in satisfactory position. ATED BY: CAIT LOZADA DO DICTATED DATE/TIME: 09/23/241944 SIGNED BY: CAIT LOZADA DO SIGNED DATE/TIME: 09/23/241944 CC: [place] [address] Ph: [phone] DIAGNOSTIC IMAGING Diagnostic Imaging Report : [id number] Signed PATIENT: TOMER HUNTER ACCT: [id number] UNIT: [id number] : 1995 LOC: [facility] ROOM / BED: [address] [place] [address] AGE / SEX: 29 / M ADM STATUS: ADM IN SERVICE 0850 ORDERING PHYSICIAN: LIZZETTE ALANIS RESIDENT PROCEDURE(s): CXR2 - CHEST TWO VIEWS ROUTINE REASON: SOB ORDER NUMBER(s): [id number], ACCESSION NUMBER(s): [id number] CLINICAL INFORMATION: 29 years old, Male; shortness of breath. TECHNIQUE: Single AP portable chest radiograph was obtained. COMPARISON: None FINDINGS: Persistent elevation of the right hemidiaphragm. Opacities in the lung bases, likely atelectasis. Consolidation in the right lung base not excluded. No pneumothorax. Interval removal of the enteric tube. IMPRESSION: Bibasilar opacities, right greater than left, likely atelectasis, similar in appearance compared to the prior exam. Consolidation in the left lung base not excluded. Correlate with clinical findings. ATED BY: JACK CEJA DO DICTATED DATE/TIME: 09/29/241328 SIGNED BY: JACK CEJA DO SIGNED DATE/TIME: 09/29/241328 CC: [place] [address] Ph: [phone] DIAGNOSTIC IMAGING Diagnostic Imaging Report : [id number] Signed PATIENT: TOMER HUNTER ACCT: [id number] UNIT: [id number] : 1995 LOC: EAST ROOM / BED: 0250 / B AGE / SEX: 29 / M ADM STATUS: ADM IN SERVICE 1044 ORDERING PHYSICIAN: DEMETRIS MORENO RESIDENT PROCEDURE(s): ABPL - CT AB PEL WO CON-NO ORAL OR IV REASON: rule out fluid collection (abscess) ORDER NUMBER(s): [id number], ACCESSION NUMBER(s): [id number] Exam: CT CT AB PEL WO CON-NO ORAL OR IV History: rule out fluid collection (abscess) Comparison Study: CT CT AB PEL WO CON-NO ORAL OR IV on DOS: 09/23/24 Technique: Multidetector spiral CT of the abdomen and pelvis was performed from lung bases to pubic symphysis. Imaging was performed without IV contrast. Axial, coronal and sagittal multiplanar reformats were obtained from the axial data set by the technologist. Radiation dose : Abdomen/Pelvis: CTDIvol 10 mGy, DLP 632 mGy*cm. Findings: Evaluation of solid organs is limited due to lack of intravenous contrast use. Lung Bases: Trace bilateral pleural effusions with associated atelectasis and consolidation right greater than left. Liver: Diffuse hepatic steatosis. Gallbladder and biliary Tree: Sludge in the gallbladder. Spleen: Unremarkable Pancreas: The pancreas is grossly normal in appearance. Adrenal Glands: Unremarkable Kidneys: Kidneys are grossly normal without calculi or hydronephrosis. Bladder: Grossly unremarkable for degree of distention. Bowel: The stomach is grossly normal in appearance. Mild dilation of small bowel loops in the left abdomen. There is phlegmon in the region of the appendix. Ascites: Absent Lymphadenopathy: No mesenteric, retroperitoneal or periportal lymphadenopathy. Abdominal wall and Mesentery: There are postsurgical changes in the anterior abdominal wall. There is a surgical drain with tip in the mid abdomen. No significant fluid collection associated with the drain. There are multiple other loculated fluid collections in the right paracolic gutter, largest measuring up to 124 x 146 mm. Other collections measure 65 mm, 113 mm, and 89 mm. Vasculature: The visualized abdominal aorta is normal in size and caliber. Evaluation of abdominal and pelvic vessels is limited due to lack of intravenous contrast. Pelvic Organs: Unremarkable Musculoskeletal: No aggressive focal bony lesions, acute fractures or dislocation. IMPRESSION: 1. Multiple loculated abscesses in the right paracolic gutter, largest measuring up to 146 mm. Multiple other fluid collections as above. These fluid collections are in adequately drained by the surgically placed drain. Recommend CT-guided drainage. Persistent phlegmon in the region of the appendix. 2. Small-bowel dilation could be due to ileus. Clinical correlation and continued follow-up is recommended. Trace bilateral pleural effusions with associated bibasilar atelectasis and consolidation [id number]. Radiation optimization: All CT scans at this facility use at least one of these dose optimization techniques: Automated exposure control mA and/or kV adjustment per patient size (includes targeted exams where dose is matched to clinical indication) or iterative reconstruction. HS:Y ATED BY: FRAN STARK MD DICTATED DATE/TIME: 09/30/241215 SIGNED BY: FRAN STARK MD SIGNED DATE/TIME: 09/30/24 121 CC: [place] [id number] Ph: [phone] DIAGNOSTIC IMAGING Diagnostic Imaging Report : [id number] Signed PATIENT: TOMER HUNTER ACCT: [id number] UNIT: [id number] : 1995 LOC: [facility] ROOM / BED: [facility] / B AGE / SEX: 29 / M ADM STATUS: ADM IN SERVICE 9412 ORDERING PHYSICIAN: DEMETRIS MORENO RESIDENT PROCEDURE(s): GA - CT GUIDANCE FOR NEEDLE PLACEME REASON: ABCESS DRAINAGE ORDER NUMBER(s): [id number], ACCESSION NUMBER(s): [id number] CT CT GUIDANCE FOR NEEDLE PLACEME, HISTORY: ABCESS DRAINAGE COMPARISON: None PROCEDURE: Informed consent was obtained. Oral contrast was given prior to the procedure. The patient was placed right side up on the CT scanner. IV sedation was administered. The fluid collection was localized under CT scan and the overlying skin prepped with chlorhexidine which was allowed to dry and draped in the usual sterile fashion and infiltrated with Xylocaine. Time out was performed. With CT guidance, a 19-gauge centesis needle catheter was advanced via trans-peritoneal approach into the fluid collection. Following aspiration of a small amount of fluid, a 0.035 wire was advanced into the fluid collection. Placement was confirmed with CT scan. After serial dilatation, a 10.2 Nigerien pigtail drain was placed into the collection. With CT guidance, a second 19-gauge centesis needle catheter was advanced via trans-peritoneal approach into the fluid collection. Following aspiration of a small amount of fluid, a 0.035 wire was advanced into the fluid collection. Placement was confirmed with CT scan. After serial dilatation, a 12 Nigerien pigtail drain was placed into the collection. Approximately 300 cc of thick foul purulent fluid was aspirated, with specimen sent for appropriate laboratory evaluation. The drain was sutured at the skin surface and connected to suction drainage. No immediate complication was noted. Post procedure CT imaging through the drain site was obtained. DLP = 3278 mGy-cm. SEDATION: Dr. La Lutz was personally responsible for the administration of moderate sedation during the procedure performed, including the use of an independent trained observer who had no other duties during the procedure. The drugs utilized were IV fentanyl and versed (see nursing log for details). The total time of supervision by the attending physician was approximately 45 minutes. FINDINGS: Limited CT scan of through the abdomen and pelvis. demonstrates a large sized fluid collection in the right paracolic gutters. Collection appears complex. Post procedure scan shows pigtail drain within the collection , which is decreased in size. No immediate complication was identified. IMPRESSION: Two (2) CT guided placement of 10.2 and 12 Nigerien pigtail drain into a right paracolic gutter abscess. ATED BY: RAO LUTZ MD DICTATED DATE/TIME: 10/02/24857 SIGNED BY: RAO LUTZ MD SIGNED DATE/TIME: 10/02/24857 CC: [place] [address] Ph: [phone] DIAGNOSTIC IMAGING Diagnostic Imaging Report : [id number] Signed PATIENT: TOMER HUNTER ACCT: [id number] UNIT: [id number] : 1995 LOC: EAST ROOM / BED: [facility] / B AGE / SEX: 29 / M ADM STATUS: ADM IN SERVICE 1530 ORDERING PHYSICIAN: ARO LUTZ MD PROCEDURE(s): ABPLORAL - CT AB PEL WITH ORAL CON ONLY REASON: CT FOR DRAINAGE ORDER NUMBER(s): [id number], ACCESSION NUMBER(s): [id number] CT ABDOMEN AND PELVIS WITHOUT CONTRAST CLINICAL HISTORY: CT FOR DRAINAGE TECHNIQUE: Multiple contiguous axial images of the abdomen and pelvis without intravenous and with contrast. The images were reformatted degenerate coronal and sagittal reconstructions. All CT scans at this medical facility are performed using dose modulation techniques as appropriate to a performed exam including the following:Automated exposure control was utilized; adjustment of the MA and/or KV according to patient size; and use of iterative reconstruction technique. Radiation Dose Information: CT Dose: CTDI volume is 19.44 mGy. Dose-length product is 1367.97 mGy*cm Comparison: CT CT AB PEL WO CON-NO ORAL OR IV on DOS: 09/30/24, CT CT AB PEL WO CON-NO ORAL OR IV on DOS: 09/23/24 FINDINGS: Evaluation of the abdomen and pelvis is limited without intravenous contrast. There is a large approximately 12.5 x 11.9 x 14.1 cm (AP by transverse by cc) fluid collection in the right lower abdomen which has mildly thickened valiente and contains pockets of air. There is surrounding fat stranding. Collection is located posterior to the ascending colon and cecum and extends posteromedially adjacent to the right iliopsoas muscle. There is a drainage catheter which is not positioned within the fluid collection. There is oral contrast seen in the stomach and small bowel loops. There are multiple dilated small bowel loops in the left abdomen with air-fluid levels. There is no focal transition zone identified. There are nondilated small bowel loops in the right abdomen. There are postsurgical changes at the ileocecal junction. There are no dilated large bowel loops. There is diffuse fatty infiltration of the liver. The gallbladder, pancreas, kidneys, adrenal glands, and spleen appear within normal limits. There is no gross evidence of abdominal lymphadenopathy. The abdominal aorta and IVC appear within normal limits. The bladder appears unremarkable for the degree of distention. Pelvic organ appears within normal limits. There is no gross evidence of a pelvic mass. There is no free fluid collection. There is opacity in the posterior right lung base which may represent atelectasis versus airspace disease. There is atelectasis in the left lung base. There is no acute osseous abnormality. IMPRESSION: 1. Large approximately 12.5 x 11.9 cm fluid collection in the right lower abdomen with mildly thickened valiente and containing pockets of air. There is surrounding fat stranding. There is a drainage catheter which is not positioned within the fluid collection. Correlation for proper placement of catheter is recommended. 2. There are multiple dilated small bowel loops in the left abdomen with air- fluid levels. There is no focal transition point identified. There are nondilated small bowel loops in the right abdomen. There are postsurgical changes at the ileocecal junction. The findings May relate to ileus. 3. Hepatic steatosis. 4. Opacity in the posterior right lung base may represent atelectasis versus airspace disease. HS:Y ATED BY: WILDA AQUINO MD DICTATED DATE/TIME: 10/01/241619 SIGNED BY: WILDA AQUINO MD SIGNED DATE/TIME: 10/01/241619 CC: [place] [address] Ph: [phone] DIAGNOSTIC IMAGING Diagnostic Imaging Report : [id number] Signed PATIENT: TOMER HUNTER ACCT: [id number] UNIT: [id number] : 1995 LOC: [facility] ROOM / BED: [address] [place] [address] AGE / SEX: 29 / M ADM STATUS: ADM IN SERVICE 173 ORDERING PHYSICIAN: EDISON NUÑEZ MD PROCEDURE(s): KUB - KUB ABDOMEN SINGLE VIEW REASON: ABDOMINAL DISTENTION ORDER NUMBER(s): [id number], ACCESSION NUMBER(s): [id number] Date: 10/03/2024 08:37 AM Examination: XY KUB ABDOMEN SINGLE VIEW History: ABDOMINAL DISTENTION Comparison: None TECHNIQUE: Frontal views of the abdomen was obtained. FINDINGS: Bowel gas pattern is unremarkable. 2 percutaneous drainage catheters are overlying the right lower quadrant. There is a surgical drain overlying the left lower quadrant. The lung bases are unremarkable. No acute osseous abnormality identified. Surgical skin sarah are present. IMPRESSION: Nonobstructive bowel gas pattern. Contrast seen in the colon. ATED BY: BELINDA STARK MD DICTATED DATE/TIME: 10/03/24854 SIGNED BY: BELINDA STARK MD SIGNED DATE/TIME: 10/03/24854 CC: [place] [address] Ph: [phone] DIAGNOSTIC IMAGING Diagnostic Imaging Report : [id number] Signed PATIENT: TOMER HUNTER ACCT: [id number] UNIT: [id number] : 1995 LOC: EAST ROOM / BED: 0238 / A AGE / SEX: 29 / M ADM STATUS: ADM IN SERVICE 1037 ORDERING PHYSICIAN: EDISON NUÑEZ MD PROCEDURE(s): ABPLORAL - CT AB PEL WITH ORAL CON ONLY REASON: Repeat. New onset Fever. s/p appendectomy and abd. abcesses ORDER NUMBER(s): [id number], ACCESSION NUMBER(s): [id number] CT ABDOMEN AND PELVIS WITHOUT CONTRAST CLINICAL HISTORY: Repeat. New onset Fever. s/p appendectomy and abd. abcesses TECHNIQUE: Multiple contiguous axial images of the abdomen and pelvis without intravenous and with oral contrast. The images were reformatted degenerate coronal and sagittal reconstructions. All CT scans at this medical facility are performed using dose modulation techniques as appropriate to a performed exam including the following:Automated exposure control was utilized; adjustment of the MA and/or KV according to patient size; and use of iterative reconstruction technique. Radiation Dose Information: CT Dose: CTDI volume is 10.63 mGy. Dose-length product is 642.29 mGy*cm Comparison: CT CT AB PEL WITH ORAL CON ONLY on DOS: 10/01/24, CT CT AB PEL WO CON-NO ORAL OR IV on DOS: 09/30/24 FINDINGS: Evaluation of the abdomen and pelvis is limited without intravenous contrast. There has been interval placement of 2 pigtail drainage catheters in the previously seen right lower quadrant fluid collection. The fluid collections are smaller in size in comparison with the prior study and again contained pockets of air with thickened valiente and surrounding fat stranding. The collection measures approximately 8.5 x 9.4 cm on the current study. There is oral contrast seen in the stomach and in the small bowel loops. There is minimal contrast seen in the cecum. Again seen are dilated small bowel loops in the left abdomen with air-fluid levels. There is no focal transition point. There are nondilated small bowel loops in the right abdomen. There are again postsurgical changes seen at the ileocecal junction. There are no dilated large bowel loops. There is diffuse fatty infiltration of the liver. The gallbladder, pancreas, kidneys, adrenal glands, and spleen appear within normal limits. There is no gross evidence of abdominal lymphadenopathy. The stomach grossly appears unremarkable. The abdominal aorta and IVC appear within normal limits. The bladder appears unremarkable for the degree of distention. Pelvic organ appears within normal limits. There is no gross evidence of a pelvic mass. There is no free fluid collection. Again seen is opacity in the posterior right lung base which may represent atelectasis versus airspace disease. There is no acute osseous abnormality. IMPRESSION: 1. Interval placement of 2 pigtail drainage catheters in the right lower quadrant fluid collection. The collection is smaller in size, now measuring approximately 8.5 x 9.4 cm. Fluid collection again contains pockets of air with thickened valiente and surrounding fat stranding. 2. Redemonstrated are multiple dilated small bowel loops in the left abdomen with air-fluid levels. There is no focal transition point. There are again postsurgical changes at the ileocecal junction. Findings again May relate to ileus. 3. Hepatic steatosis. 4. Again seen is opacity in the posterior right lung base which may represent atelectasis versus airspace disease. HS:Y ATED BY: WILDA AQUINO MD DICTATED DATE/TIME: 10/07/241103 SIGNED BY: WILDA AQUINO MD SIGNED DATE/TIME: 10/07/241103 CC: [place] [id number] Ph: [phone] DIAGNOSTIC IMAGING Diagnostic Imaging Report : [id number] Signed PATIENT: TOMER HUNTER ACCT: [id number] UNIT: [id number] : 1995 LOC: [facility] ROOM / BED: 0238 / A AGE / SEX: 29 / M ADM STATUS: ADM IN SERVICE 0904 ORDERING PHYSICIAN: DEMETRIS MORENO RESIDENT PROCEDURE(s): GA - CT GUIDANCE FOR NEEDLE PLACEME REASON: ABCESS DRAIN ORDER NUMBER(s): [id number], ACCESSION NUMBER(s): [id number] CT ABDOMEN WITHOUT CONTRAST, HISTORY: ABSCESS DRAIN COMPARISON: None PROCEDURE: Informed consent was obtained. The patient was placed prone on the CT scanner. IV sedation was administered. The abdominal fluid collection was localized under CT scan and the overlying skin prepped with chlorhexidine which was allowed to dry and draped in the usual sterile fashion and infiltrated with Xylocaine. Time out was performed. The two existing drains were also cleaned with chlorhexidine, sutures removed, and the drains repositioned inward. Next, a new drain will be placed. With CT guidance, a 19-gauge centesis needle catheter was advanced into the fluid collection. Following aspiration of a small amount of fluid, a 0.035 wire was advanced into the fluid collection. Placement was confirmed with CT scan. After serial dilatation, a 12 Nigerien multipurpose pigtail drain was placed into the collection. Approximately 150 cc of foul purulent fluid was aspirated, with specimen sent for appropriate laboratory/cytology/laboratory and cytology evaluation. The drain was sutured at the skin surface and connected to suction drainage. No immediate complication was noted. Post procedure CT imaging through the drain site was obtained. DLP =2220 mGy-cm. SEDATION: Dr. La Lutz was personally responsible for the administration of moderate sedation during the procedure performed, including the use of an independent trained observer who had no other duties during the procedure. The drugs utilized were IV fentanyl and versed (see nursing log for details). The total time of supervision by the attending physician was approximately 45 minutes. FINDINGS: Limited CT scan of through the abdomen demonstrates a medium sized fluid collection in the right paracolic gutter. Collection appears complex. Post procedure scan shows pigtail drain within the collection , which is decreased in size. No immediate complication was identified. IMPRESSION: Reposition of the two existing abdominal drains deeper into the abdomen. CT guided placement of a new 12 Nigerien pigtail drain into a paracolic gutter abscess. 150 mL foul purulent fluid was aspirated. PLAN: Please flush the drains once a day with 5 mL saline to maintain patency. Continue IV antibiotics. ATED BY: RAO LUTZ MD DICTATED DATE/TIME: 10/08/241324 SIGNED BY: RAO LUTZ MD SIGNED DATE/TIME: 10/08/241324 CC: [address] [address] Ph: [phone] DIAGNOSTIC IMAGING Diagnostic Imaging Report : [id number] Signed PATIENT: TOMER HUNTER ACCT: [id number] UNIT: [id number] : 1995 LOC: [facility] ROOM / BED: [facility] / A AGE / SEX: 29 / M ADM STATUS: ADM IN SERVICE 4 ORDERING PHYSICIAN: DEMETRIS MORENO RESIDENT PROCEDURE(s): ABD2C - ABDOMEN WITHOUT CONTRAST REASON: ABSCESS DRAIN ORDER NUMBER(s): [id number], ACCESSION NUMBER(s): [id number] CT ABDOMEN WITHOUT CONTRAST, HISTORY: ABSCESS DRAIN COMPARISON: None PROCEDURE: Informed consent was obtained. The patient was placed prone on the CT scanner. IV sedation was administered. The abdominal fluid collection was localized under CT scan and the overlying skin prepped with chlorhexidine which was allowed to dry and draped in the usual sterile fashion and infiltrated with Xylocaine. Time out was performed. The two existing drains were also cleaned with chlorhexidine, sutures removed, and the drains repositioned inward. Next, a new drain will be placed. With CT guidance, a 19-gauge centesis needle catheter was advanced into the fluid collection. Following aspiration of a small amount of fluid, a 0.035 wire was advanced into the fluid collection. Placement was confirmed with CT scan. After serial dilatation, a 12 Nigerien multipurpose pigtail drain was placed into the collection. Approximately 150 cc of foul purulent fluid was aspirated, with specimen sent for appropriate laboratory/cytology/laboratory and cytology evaluation. The drain was sutured at the skin surface and connected to suction drainage. No immediate complication was noted. Post procedure CT imaging through the drain site was obtained. DLP =2220 mGy-cm. SEDATION: Dr. La Lutz was personally responsible for the administration of moderate sedation during the procedure performed, including the use of an independent trained observer who had no other duties during the procedure. The drugs utilized were IV fentanyl and versed (see nursing log for details). The total time of supervision by the attending physician was approximately 45 minutes. FINDINGS: Limited CT scan of through the abdomen demonstrates a medium sized fluid collection in the right paracolic gutter. Collection appears complex. Post procedure scan shows pigtail drain within the collection , which is decreased in size. No immediate complication was identified. IMPRESSION: Reposition of the two existing abdominal drains deeper into the abdomen. CT guided placement of a new 12 Nigerien pigtail drain into a paracolic gutter abscess. 150 mL foul purulent fluid was aspirated. PLAN: Please flush the drains once a day with 5 mL saline to maintain patency. Continue IV antibiotics. ATED BY: RAO LUTZ MD DICTATED DATE/TIME: 10/08/241324 SIGNED BY: RAO LUTZ MD SIGNED DATE/TIME: 10/08/241324 CC: [place] [address] Ph: [phone] DIAGNOSTIC IMAGING Diagnostic Imaging Report : [id number] Signed PATIENT: TOMER HUNTER ACCT: [id number] UNIT: [id number] : 1995 LOC: [facility] ROOM / BED: [address] [place] [address] AGE / SEX: 29 / M ADM STATUS: ADM IN SERVICE 1400 ORDERING PHYSICIAN: DEMETRIS MORENO RESIDENT PROCEDURE(s): ABDIC - ABDOMEN CONTRAST ONLY REASON: ABD ABCESS ORDER NUMBER(s): [id number], ACCESSION NUMBER(s): [id number] Exam: CT ABDOMEN CONTRAST ONLY History: ABD ABCESS Comparison Study: None available at time of dictation. Contrast: Type of contrast: Omnipaque 300 Contrast injected: 80 mL Contrast wasted: 0 TECHNIQUE: A digital vice president of operations image was obtained. During the uneventful, intravenous administration of contrast material, multislice data acquisition was obtained through the abdomen and pelvis. The data set was subsequently reconstructed into axial images. Images were reviewed on a work station using a combination of axial and multiplanar using a variety of window levels and settings. Radiation Dose Information: CT Dose: CTDI volume is 13.1 mGy. Dose-length product is 637.33 mGy*cm FINDINGS: Lung Bases: Atelectasis or scarring is noted in the right posterior costophrenic angle. finding. Normal heart size. No pleural or pericardial effusion. Liver: The liver is normal in size. No focal lesions. Normal hepatic vascular enhancement. Gallbladder and Biliary Tree: Unremarkable Spleen: Unremarkable Pancreas: The pancreas is normal in appearance without focal lesions or abnormal enhancement. Adrenal Glands: Unremarkable Kidneys: Kidneys demonstrate normal symmetric enhancement without focal lesions, calculi or hydronephrosis. Bladder: Unremarkable Bowel: The stomach is grossly normal in appearance. Small bowel and colon are normal in caliber and distribution. The appendix is not visualized; however, no secondary findings of acute appendicitis identified. Ascites: Absent Lymphadenopathy: No mesenteric, retroperitoneal or periportal lymphadenopathy. Abdominal Wall and Mesentery: Pigtail catheter is noted in a fluid collection in the right lateral peritoneal cavity. In comparison with 10/08/2024 there is decreased amount of fluid. Vasculature: The visualized abdominal aorta is normal in size and caliber. Abdominal and pelvic vessels demonstrate normal enhancement. Pelvic Organs: Unremarkable Musculoskeletal: No aggressive focal bony lesions, acute fractures or dislocation. Soft tissues: Unremarkable. IMPRESSION: 1. In comparison with 10/08/2024 there is now only 1 drainage tube in the right flank with persistent fluid and small bubble suggesting abscess collection along the right lateral abdominal wall. 2. 2nd drainage tube has been removed. 3. Fluid collection appears smaller than on 10/08/[address] scans at this medical facility are performed using dose modulation techniques as appropriate to a performed exam including the following: Automated exposure control was utilized; adjustment of the MA and/or KV according to patient size; and use of iterative reconstruction technique. ATED BY: PHILOMENA ELKINS Jr., DO DICTATED DATE/TIME: 10/11/241839 SIGNED BY: PHILOMENA ELKINS Jr., DO SIGNED DATE/TIME: 10/11/241839 CC: [place] [id number] Ph: [phone] DIAGNOSTIC IMAGING Diagnostic Imaging Report : [id number] Signed PATIENT: TOMER HUNTER ACCT: [id number] UNIT: [id number] : 1995 LOC: [facility] ROOM / BED: 0240 / A AGE / SEX: 29 / M ADM STATUS: ADM IN SERVICE 1329 ORDERING PHYSICIAN: DEMETRIS MORENO RESIDENT PROCEDURE(s): ABPLORAL - CT AB PEL WITH ORAL CON ONLY REASON: ABDOMINA ABSCESS ORDER NUMBER(s): [id number], ACCESSION NUMBER(s): [id number] CT CT AB PEL WITH ORAL CON ONLY INDICATION: ABDOMINA ABSCESS EXAM DATE: 10/14/2024 03:29 PM COMPARISON: CT CT AB PEL WITH ORAL CON ONLY on DOS: 10/07/24, CT CT AB PEL WITH ORAL CON ONLY on DOS: 10/01/24, CT CT AB PEL WO CON-NO ORAL OR IV on DOS: 09/30/24 RADIATION DOSE: CTDIvol: 15.98 mGy, DLP: 988.48 mGy*cm PROCEDURE: Helical CT images were obtained of the abdomen and pelvis without IV contrast Sagittal and coronal reconstructions are provided. ORAL CONTRAST: None. ADDITIONAL IMAGES / REFORMATS: None All CT scans at this medical facility are performed using dose modulation techniques as appropriate to a performed exam including the following: Automated exposure control was utilized; adjustment of the MA and/or KV according to patient size; and use of iterative reconstruction technique. FINDINGS: LUNG BASE: Bibasilar atelectasis. LIVER: Normal. GALLBLADDER AND BILIARY TREE: No calcified gallstones. Normal caliber wall. No intra- or extrahepatic biliary ductal dilation. PANCREAS: Normal. SPLEEN: Normal. BOWEL: Oral contrast material reaches the cecum. ADRENALS: Normal. KIDNEYS AND URETER: Normal. BLADDER: Normal. REPRODUCTIVE ORGANS: Normal. LYMPH NODES:No lymphadenopathy. PERITONEUM: No ascites or free air. No other fluid collection. VESSELS: Normal. RETROPERITONEUM: Similar right paracolic gutter/retroperitoneal abscess with a pigtail drain within the fluid collection, appears similar to prior CT from 10/11. ABDOMINAL WALL: Normal. BONES: Normal. IMPRESSION: Similar right paracolic gutter/retroperitoneal abscess with a pigtail drain within the fluid collection, appears similar to prior CT from 10/11. Oral contrast material reaches the cecum. No extravasation of oral contrast material is seen in the abdominal cavity. ATED BY: RAO LUTZ MD DICTATED DATE/TIME: 10/14/24 1618 SIGNED BY: RAO LUTZ MD SIGNED DATE/TIME: 10/14/24 1618 CC: [address] [address] Ph: [phone] DIAGNOSTIC IMAGING Diagnostic Imaging Report : [id number] Signed PATIENT: TOMER HUNTER ACCT: [id number] UNIT: [id number] : 1995 LOC: [facility] ROOM / BED: 0240 / A AGE / SEX: 29 / M ADM STATUS: ADM IN SERVICE 1323 ORDERING PHYSICIAN: DEMETRIS MORENO RESIDENT PROCEDURE(s): ABD2C - ABDOMEN WITHOUT CONTRAST REASON: ABSCESS DRAIN ORDER NUMBER(s): [id number], ACCESSION NUMBER(s): [id number] CT ABDOMEN WITHOUT CONTRAST, HISTORY: ABSCESS DRAIN upsize. COMPARISON: CT ABDOMEN WITHOUT CONTRAST on DOS: 10/08/24 PROCEDURE: Informed consent was obtained. The patient was placed prone on the CT scanner. IV sedation was administered. The fluid collection was localized under CT scan and the overlying skin prepped with chlorhexidine which was allowed to dry and draped in the usual sterile fashion and infiltrated with Xylocaine. Time out was performed. With CT guidance, the existing prior drain was cut. A wire placed through the drain into the abscess. The tract was dilated and a new 16 Fr pigtail drain was placed into the abdominal abscess. Approximately 35 cc of foul purulent fluid was aspirated . The drain was sutured at the skin surface and connected to suction drainage. No immediate complication was noted. Post procedure CT imaging through the drain site was obtained. DLP =1133 mGy-cm. SEDATION: Dr. La Lutz was personally responsible for the administration of moderate sedation during the procedure performed, including the use of an independent trained observer who had no other duties during the procedure. The drugs utilized were IV fentanyl and versed (see nursing log for details). The total time of supervision by the attending physician was approximately 40 minutes. FINDINGS: Limited CT scan of through the abdomen/pelvis demonstrates a fluid collection in the abdomen. Collection appears complex. Post procedure scan shows pigtail drain within the collection.No immediate complication was identified. IMPRESSION: CT guided upsize of the abdominal abscess drain to 16 Fr. 35 mL of foul purulent fluid was aspirated. ATED BY: RAO LUTZ MD DICTATED DATE/TIME: 10/15/24 150 SIGNED BY: RAO LUTZ MD SIGNED DATE/TIME: 10/15/24 1503 CC: [address] [id number] Ph: [phone] DIAGNOSTIC IMAGING Diagnostic Imaging Report : [id number] Signed PATIENT: TOMER HUNTER ACCT: [id number] UNIT: [id number] : 1995 LOC: [facility] ROOM / BED: 0240 / A AGE / SEX: 29 / M ADM STATUS: ADM IN SERVICE 1323 ORDERING PHYSICIAN: DEMETRIS MORENO RESIDENT PROCEDURE(s): GA - CT GUIDANCE FOR NEEDLE PLACEME REASON: ABCESS DRAIN ORDER NUMBER(s): [id number], ACCESSION NUMBER(s): [id number] CT ABDOMEN WITHOUT CONTRAST, HISTORY: ABSCESS DRAIN upsize. COMPARISON: CT ABDOMEN WITHOUT CONTRAST on DOS: 10/08/24 PROCEDURE: Informed consent was obtained. The patient was placed prone on the CT scanner. IV sedation was administered. The fluid collection was localized under CT scan and the overlying skin prepped with chlorhexidine which was allowed to dry and draped in the usual sterile fashion and infiltrated with Xylocaine. Time out was performed. With CT guidance, the existing prior drain was cut. A wire placed through the drain into the abscess. The tract was dilated and a new 16 Fr pigtail drain was placed into the abdominal abscess. Approximately 35 cc of foul purulent fluid was aspirated . The drain was sutured at the skin surface and connected to suction drainage. No immediate complication was noted. Post procedure CT imaging through the drain site was obtained. DLP =1133 mGy-cm. SEDATION: Dr. La Lutz was personally responsible for the administration of moderate sedation during the procedure performed, including the use of an independent trained observer who had no other duties during the procedure. The drugs utilized were IV fentanyl and versed (see nursing log for details). The total time of supervision by the attending physician was approximately 40 minutes. FINDINGS: Limited CT scan of through the abdomen/pelvis demonstrates a fluid collection in the abdomen. Collection appears complex. Post procedure scan shows pigtail drain within the collection.No immediate complication was identified. IMPRESSION: CT guided upsize of the abdominal abscess drain to 16 Fr. 35 mL of foul purulent fluid was aspirated. ATED BY: RAO LUTZ MD DICTATED DATE/TIME: 10/15/241502 SIGNED BY: RAO LUTZ MD SIGNED DATE/TIME: 10/15/24 150 CC: [place] [address] Ph: [phone] DIAGNOSTIC IMAGING Diagnostic Imaging Report : [id number] Signed PATIENT: TOMER HUNTER ACCT: [id number] UNIT: [id number] : 1995 LOC: [facility] ROOM / BED: [facility] / A AGE / SEX: 29 / M ADM STATUS: ADM IN SERVICE 1316 ORDERING PHYSICIAN: DEMETRIS MORENO RESIDENT PROCEDURE(s): ABPLIV - CT AB PEL WITH IV CON ONLY REASON: follow up abdmonial abscess ORDER NUMBER(s): [id number], ACCESSION NUMBER(s): [id number] Exam: CT CT AB PEL WITH IV CON ONLY History: follow up abdmonial abscess Comparison Study: 10/14/2024 TECHNIQUE: Multidetector CT of the abdomen and pelvis with contrast. Axial, coronal and sagittal multiplanar reformats were obtained from the axial data set by the technologist. Radiation Dose Information: CT Dose: CTDI volume is 9.37 mGy. Dose-length product is 548.52 mGy*cm FINDINGS: Bibasilar atelectasis. Partially visualized heart is unremarkable. Mild hepatosplenomegaly with no focal lesions. Gallbladder, pancreas and adrenal glands are unremarkable. Kidneys, and ureters unremarkable. Urinary bladder is mildly distended. Focus of air within the nondependent portion of the urinary bladder which may be iatrogenic. Prostate is unremarkable. There is a left ventral lower abdominal approach drainage catheter terminating over the right lateral midabdomen with the additional right mid back approach drainage catheter terminating over the right lower abdominal quadrant. There is significant interval decrease in size in the fluid collection of the right hemiabdomen with minimal residual fat stranding. Stomach is unremarkable. Small bowel loops are unremarkable. Appendix is not definitely visualized with hyperdense material of the right lower abdominal quadrant. Correlate for possible appendectomy. Limited evaluation of the cecum and ascending colon due to residual fat stranding within the right hemiabdomen. Nonspecific mild fat stranding of the ventral abdominal mesenteric fat with associated skin defect with air and skin sarah over the midline abdomen consistent with recent postsurgical changes. 1.2 by 0.7 cm focal hypodensity of the right anterior mid abdominal mesentery which may be associated with the right javier mid and lower abdominalfat stranding. No destructive osseous lesions are noted. Sclerotic foci of the bilateral pelvic bones which may represent bone islands with blastic lesions not excluded. IMPRESSION: Drainage catheters terminating over the right hemiabdomen as detailed above. Interval significant decrease in the right javier abdominal fluid collection with residual fat stranding. The residual fat stranding of the right hemiabdomen limits evaluation of the cecum and ascending colon. Postsurgical changes of midline ventral abdomen with fat stranding of the subcutaneous fat and adjacent anterior mesenteric fat Focus of nondependent air within the mildly distended urinary bladder which may be iatrogenic. Recommend correlation for recent instrumentation / mcdonald catheter placement. Additional findings as above. ATED BY: CAIT LOZADA DO DICTATED DATE/TIME: 10/22/241757 SIGNED BY: CAIT LOZADA DO SIGNED DATE/TIME: 10/22/241757 CC: Condition at Discharge: Fair Final Diagnosis/Problems List #Sepsis likely due to acute gangrenous appendicitis with perforation #Acute appendicitis complicated by rupture s/p open appendectomy on 09/23/2024. #NEO hemodynamically mediated due to VMN with strong POA #Hepatic steatosis #Vitamin D deficiency #Hypokalemia Discharge Disposition: Home SNF Discharge Will this Physician continue t: No Discharge Instruct/Medications Diet: Cardiac 2g Na,low cholest Activity: No Restrictions, As Tolerated Follow Up/Referral: For amputee PCP within 2 weeks Follow-up with surgery within on week Medications: Script to pharmacy Discharge Statement: "Patient was advised to return to the ER or call 911 if any headaches, dizziness, shortness of breath, chest pain, abdominal pain, bleeding, fevers, or worsening of medical condition. Patient was counseled about treatment plan, medications, possible side effects, patientverbalized understanding. All questions were answered to the best of my ability. This discharge took greater then 30 minutes in planning, reviewing documentation, counseling the patient, and discussing with other team members." ASSESSMENT ASSESSMENT Assessment #Sepsis likely due to acute gangrenous appendicitis with perforation #Acute appendicitis complicated by rupture s/p open appendectomy on 09/23/2024. #NEO hemodynamically mediated due to VMN with strong POA #Hepatic steatosis #Vitamin D deficiency #Hypokalemia Date of Service: Oct 23, 2024 Billing Provider: NORBERT MA MD Common Visit Codes: 48206-WTR/OBS DISCH DAY >30min DEMETRIS MORENO RESIDENT Oct 23, 2024 15:30 NORBERT MA MD Oct 23, 2024 20:13
[2024-10-23] MEDS ORDERED: SUCCINYLCHOLINE CHLORIDE 20 MG/ML 10ML VIAL IV ONE (18:32)
--- NOTE | 2024-10-26 20:50 | DVHPN2 ---
Consult Progress Note Date Seen: Oct 25, 2024 Subjective Patient reports: Feels better (tolerating oral antibiotics) Objective medications Current Medications Medications Dose Ordered Sig/Prosper Route Start Time Stop Time Status Last Admin Dose Admin Ceftriaxone Sodium 50 ml @ 100 mls/hr DAILY@09 IV 10/04/24 09:00 Cancel Aztreonam 1 gm/ Dextrose 50 ml @ 100 mls/hr Q8HR IV 10/18/24 14:00 UNV Physical Exam: General: Lightheaded and confused but no acute distress. Neck: Supple. No masses. HEENT: PERRL. Normal lids and conjunctiva. Moist mucous membranes. Oropharynx without lesions, exudates or excessive erythema. Normal appearance of the external aspects of the nose and ears. Heart: Regular rhythm, normal rate. No murmur. No lower extremity edema. Lungs: Normal respiratory effort. Clear to auscultation bilaterally. No wheezes. No crackles. Abdomen: Soft. Mild tenderness in the left lower quadrant. Non-distended. No masses or abdominal hernia. Msk: No digital cyanosis. Normal strength and tone in all 4 limbs. Skin: Warm and dry, no rashes. Neuro: Alert but confused. No facial droop or slurred speech. Extra-ocular movements intact. Sensation intact to soft touch in all 4 limbs. Psych: Appropriate mood. Full affect. Oriented to person but not fully to place, time, and situation. Lines: laboratory and microbiology Laboratory Tests 10/23/24 05:47 10/20/24 05:48 Test 10/23/24 05:47 Range/Units Serum Glucose 88 74-106 mg/dL Problem List/Assessment/Plan Problem List/Assessment/Plan ASSESSMENT AND PLAN: ID Problem List: - Intra-abdominal abscesses - Perforated appendicitis - Sepsis - E. coli infection - Ileus - Small bowel obstruction Assessment This is a [age not provided] y.o. male with no significant past medical history who presents with a perforated appendicitis complicated by intra-abdominal abscesses and sepsis. The patient underwent a laparoscopic lysis of adhesions, open drainage of intra- abdominal abscesses, and an open appendectomy on September 23. Operative findings included a distended peritoneum due to ileus, free air, distention of small and large intestines with serosal traction and ischemia, and a perforated appendix. A 19 Fr Noe drainage tube was placed. Currently, the patient has purulent drainage from the Noe drain, with intra- abdominal cultures growing E. coli. White blood cell count remains elevated at 21 on September 25. Repeat imaging revealed multiloculated abscesses in the right paracolic gutter, the largest measuring 14.6 cm. Multiple other fluid collections are inadequately drained. Bowel dilation may be due to ileus. sp Two (2) CT guided placement of 10.2 and 12 Romansh pigtail drain into a right paracolic gutter abscess. 10/03: abdominal ct done after multiple drain placemetn shows 12.5 by 11.9 cm fluid collection in right lower quadrant with mildly thickening wall containings pockets of air . drainage catheter wich is not positioned within the fluid collection correlation , proper catheter is recommended. Small dialated multiple bowel loops in the left abdomen with airflow levels , no focal transition point identified. theres nondialated small bowel loops in the right abdomen , a post changes in illio secqual junction may relate to illieus , theres hepatic seratosis and a passing right lung with may represent a lectusus vs airspace disease . Aspirate from drain placemtn is growing E coli from 10/01 and from 09/30 are growing E coli and enterococcus 10/04: ongoing heavy output on drain , growing enterococcus and E coli on intra abdominal culture aspirate. white count is 7.4 10/07: ongoing large abscesses 8cm on CT 10/08: sp CT guided placement of a new 12 Romansh pigtail drain into a paracolic gutter abscess. 150 mL foul purulent fluid was aspirated. 10/12: Ct scan shows one drainage tube in the right flank with persistant fluid and small bowel suggesting abscess collection allong the right abdominal wall. the second drain has been removed , fluid collection appears smaller than last on 10/08 10/14: oral contrast CT 10/16: 35ccs of prelimary aspirated frm CT drain that was placed yesterday , persistant tachycardia is concering for ongoing sepsis as well as aongoing drainage when catheters changed out 10/17: S/P Xlap extensive lysis of adhesion was found as well as retroperitoneal abcess that extened to hepatic flexture that was cleaned out . the previous catheter placed by IR was clogged due to necrotic tissue but was removed and Ir catheter was left in place and an addition drain was placed in right upper quadrant IMPRESSION: Similar right paracolic gutter/retroperitoneal abscess with a pigtail drain within the fluid collection, appears similar to prior CT from 10/11. Oral contrast material reaches the cecum. No extravasation of oral contrast material is seen in the abdominal cavity. 10/22: multiple anaerobes on operative culture Plan: - switch to oral levofloxacin 500mg qd and flagyl 500mg tid. continue x 10 more days - follow up on operative cultures - follow up on new drain output - patient follow up with infectious disease in 4 weeks Isolation Precautions: Standard Assessment and plan were discussed with the patient as written above. Plan is subject to change pending incorporation of new incoming information/diagnostics. Updates may be added as addendum at the bottom (OR TOP) of this note. Thank you for the interesting consult. ID will continue to follow. Please contact Infectious Disease for any questions or concerns. Plan discussed with: Patient Dietary Evaluation Review Recommendations by RD: Protein Supplementation Comments: 1) Arpan @ 1 pk bid 2) Vitamin C @ 500 mg bid 3) Zinc sulfate @ 220 mg qd 4) Continue to monitor PO intake and wound Expected Outcomes/Goals: 1) wound to improve 2) diet texture to advance to regular when medically feasible 2) appetite and labs to improve 3) f/u in 3-5 days JERRY TINEO MD Oct 26, 2024 20:50
== END 2024-10-23 18:33 | disposition home or self-care (01) | DRG 710 ==
LOC: ER 12:14 → TELE 16:01 → TELE-EAST 16:02 → EAST 09-29 10:40
PROVIDERS: ADMIT Internal Medicine Geriatric Medicine; ATTEND Emergency Medicine
PROC: 0DTJ0ZZ Resection of Appendix, Open Approach (ICD-10-PCS; 2024-09-23)
PROC: 0W9J0ZZ Drainage of Pelvic Cavity, Open Approach (ICD-10-PCS; 2024-09-23)
PROC: 0DNJ0ZZ Release Appendix, Open Approach (ICD-10-PCS; 2024-09-23)
PROC: 0WJG4ZZ Inspection of Peritoneal Cavity, Percutaneous Endoscopic Approach (ICD-10-PCS; 2024-09-23)
PROC: 0W9J3ZZ Drainage of Pelvic Cavity, Percutaneous Approach (ICD-10-PCS; 2024-10-01)
PROC: 0W9G3ZZ Drainage of Peritoneal Cavity, Percutaneous Approach (ICD-10-PCS; 2024-10-08)
PROC: 0W9G3ZZ Drainage of Peritoneal Cavity, Percutaneous Approach (ICD-10-PCS; 2024-10-15)
PROC: 0DNW0ZZ Release Peritoneum, Open Approach (ICD-10-PCS; 2024-10-17)
PROC: 0W9H0ZZ Drainage of Retroperitoneum, Open Approach (ICD-10-PCS; principal; 2024-10-17 09:54)
DX: A41.9 Sepsis, unspecified organism (principal); N17.0 Acute kidney failure with tubular necrosis; K35.33 Acute appendicitis with perforation, localized peritonitis, and gangrene, with abscess; K56.50 Intestinal adhesions [bands], unspecified as to partial versus complete obstruction; K68.19 Other retroperitoneal abscess; K76.0 Fatty (change of) liver, not elsewhere classified; Z20.822 Contact with and (suspected) exposure to COVID-19; K56.7 Ileus, unspecified; E87.6 Hypokalemia; E55.9 Vitamin D deficiency, unspecified; B96.20 Unspecified Escherichia coli [E. coli] as the cause of diseases classified elsewhere; R74.8 Abnormal levels of other serum enzymes
CPT/HCPCS: 10005; 36415; 71045; 71046; 74018; 74150; 74160; 74176; 74177; 77012; 80048; 80053; 80061; 81001; 82306; 82607; 83036; 83605; 83690; 83735; 84100; 84443; 85007; 85025; 85027; 85610; 85730; 86850; 86900; 86901; 87040; 87070; 87075; 87076; 87077; 87186; 87205; 87426; 87804; 93005; 96365; 97110; 97116; 97163; 97530; C1729; G0378; J0330; J0690; J1100; J1885; J2003; J2250; J2405; J2470; J2543; J2704; J3480; J7060